=== PATIENT | male | born 1960 | race Caucasian/White ===

== ENCOUNTER → 2018-12-25 08:00 | Outpatient (CLI) | payer OTHER, SELFPAY ==
--- NOTE | 2018-12-25 08:00 | PROSBIL_PTH ---
PATIENT: CLAUDETTE ISSA LOC: [facility] U#:[id number] AGE/SX: 64/M ROOM: RE12/25/[address]: Dr. Arthur Hallman MD : 1960 BED: DIS: SPEC #: [id number] RECD: 12/25/18 19:32 STATUS: BILLY TAMI #: [id number] LEN: 12/25/18 08:[address]: Arthur Hallman DEPT: SURGICAL PATHOLOGY RECD BY: Bernard De ENTERED: 12/26/18 10:52 SP TYPE: PROST BX MEGHANA DR: Dr. Corey Mata DO Tissues: A - PROSTATE RIGHT B - PROSTATE RIGHT C - PROSTATE RIGHT D - PROSTATE LEFT E - PROSTATE LEFT F - PROSTATE LEFT Procedures: PROSTATE BX HEADER OPERATION: Prostate biopsy PRE-OP DIAGNOSIS: Elevated PSA TISSUE SUBMITTED: A - Right apex, B - Right mid, C - Right base, D - Left apex, E - Left mid, F - Left base MICROSCOPIC DIAGNOSIS A. Right prostate, apex, core biopsy: Prostatic tissue, negative for malignancy. Focal mild chronic inflammation and minimal acute inflammation. B. Right prostate, mid, core biopsy: Prostatic tissue, negative for malignancy. Focal mild chronic inflammation. C. Right prostate, base, core biopsy: Prostatic tissue, negative for malignancy. Focal mild chronic inflammation. D. Left prostate, apex, core biopsy: Prostatic tissue, negative for malignancy. E. Left prostate, mid, core biopsy: Prostatic tissue, negative for malignancy. F. Left prostate, base, core biopsy: Prostatic tissue, negative for malignancy. Focal mild chronic inflammation. SJ:marisel 12/27/18 MICROSCOPIC DESCRIPTION Slides are reviewed. GROSS DESCRIPTION A - Received is one container designated prostate, right apex. The specimen consists of two elongated fragments of light guerra-white soft tissue measuring 0.5 and 1.5 cm in length and 0.1 cm in diameter. The specimen is totally submitted in one cassette. B - Received is one container designated prostate, right mid. The specimen consists of two elongated fragments of light guerra-white soft tissue measuring 1 and 1.5 cm in length and 0.1 cm in diameter. The specimen is totally submitted in one cassette. C - Received is one container designated prostate, right base. The specimen consists of two elongated fragments of light guerra-white soft tissue measuring 1 and 1.5 cm in length and 0.1 cm in diameter. The specimen is totally submitted in one cassette. D - Received is one container designated prostate, left apex. The specimen consists of two elongated fragments of light guerra-white soft tissue each measuring 1.5 cm in length and 0.1 cm in diameter. The specimen is totally submitted in one cassette. E - Received is one container designated prostate, left mid. The specimen consists of three elongated fragments of light guerra-white soft tissue measuring 0.5 to 2 cm in length and 0.1 cm in diameter. The specimen is totally submitted in one cassette. F - Received is one container designated prostate, left base. The specimen consists of two elongated fragments of light guerra-white soft tissue each measuring 2 cm in length and 0.1 cm in diameter. The specimen is totally submitted in one cassette. / SJ:rg 12/26/18 TC:3 CPT: 28554 x6
== END ==
PROVIDERS: Family Provider Preventive Medicine Occupational Medicine; PCP Preventive Medicine Occupational Medicine; Referring Provider Urology; Visit Provider Urology
DX: R97.20 Elevated prostate specific antigen [PSA] (principal)
CPT/HCPCS: 88305; G0416

== ENCOUNTER → 2021-04-26 16:29 | Outpatient (CLI) | payer OTHER, SELFPAY ==
--- NOTE | 2021-04-26 | PROSBIL_PTH ---
PATIENT: CLAUDETTE ISSA LOC: [facility] U#:[id number] AGE/SX: 64/M ROOM: RE04/26/[address]: Dr. Arthur Hallman MD : 1960 BED: DIS: SPEC #: [id number] RECD: 04/26/21 16:22 STATUS: BILLY TAMI #: [id number] LEN: 04/26/21 00:[address]: Arthur Hallman DEPT: SURGICAL PATHOLOGY RECD BY: Omi Islas ENTERED: 04/27/21 09:17 SP TYPE: PROST BX MEGHANA DR: Dr. Corey Mata DO Tissues: A - PROSTATE RIGHT B - PROSTATE RIGHT C - PROSTATE RIGHT D - PROSTATE LEFT E - PROSTATE LEFT F - PROSTATE LEFT Procedures: PROSTATE BX HEADER OPERATION: Prostate biopsy PRE-OP DIAGNOSIS: R97.20 TISSUE SUBMITTED: A - Right apex, B - Right mid, C - Right base, D - Left apex, E - Left mid, F - Left base MICROSCOPIC DIAGNOSIS A. Right prostate, apex, core biopsy: Prostatic tissue, negative for malignancy. Focal mild acute and chronic inflammation. B. Right prostate, mid, core biopsy: Prostatic tissue, negative for malignancy. C. Right prostate, base, core biopsy: Prostatic tissue, negative for malignancy. Focal mild chronic inflammation. D. Left prostate, apex, core biopsy: Prostatic tissue, negative for malignancy. Focal mild acute and chronic inflammation. E. Left prostate, mid, core biopsy: Prostatic tissue, negative for malignancy. F. Left prostate, base, core biopsy: Prostatic tissue, negative for malignancy. Focal mild chronic inflammation. 04/28/21 MICROSCOPIC DESCRIPTION Slides are reviewed. GROSS DESCRIPTION A - Received is one container designated right apex. The specimen consists of one elongated fragment of light guerra-white soft tissue measuring 1.5 cm in length and 0.1 cm in diameter. The specimen is totally submitted in one cassette. B - Received is one container designated right mid. The specimen consists of one elongated fragment of light guerra-white soft tissue measuring 1.6 cm in length and 0.1 cm in diameter. The specimen is totally submitted in one cassette. C - Received is one container designated right base. The specimen consists of two elongated fragments of light guerra-white soft tissue measuring 0.4 and 1 cm in length and 0.1 cm in diameter. The specimen is totally submitted in one cassette. D - Received is one container designated left apex. The specimen consists of one elongated fragment of light guerra-white soft tissue measuring 1.5 cm in length and 0.1 cm in diameter. The specimen is totally submitted in one cassette. E - Received is one container designated left mid. The specimen consists of one elongated fragment of light guerra-white soft tissue measuring 1.5 cm in length and 0.1 cm in diameter. The specimen is totally submitted in one cassette. F - Received is one container designated left base. The specimen consists of two elongated fragments of light guerra-white soft tissue each measuring 1 cm in length and 0.1 cm in diameter. The specimen is totally submitted in one cassette. / SJ:rg 04/27/2021 TC:3 CPT: 46304 x6
== END ==
PROVIDERS: PCP Preventive Medicine Occupational Medicine; Visit Provider Urology
DX: R97.20 Elevated prostate specific antigen [PSA] (principal)
CPT/HCPCS: 88305; G0416

== ENCOUNTER → 2022-07-05 | Outpatient (CLI) | payer BC, SELFPAY ==
--- NOTE | 2022-07-05 06:37 | MRI_ITS ---
STUDY: MR PELVIS WITH AND WITHOUT CONTRAST (PROSTATE) REASON FOR EXAM: Male, 61 years old. Elevated PSA TECHNIQUE: Standardized multiparametric prostate MRI with T1, T2, DWI/ADC sequences were obtained in 3 orthogonal planes, and dynamic contrast enhancement sequences. 20 ml of clariscan contrast material was administered intravenously for the contrast portion of the examination. COMPARISON: None. FINDINGS: The prostate volume measures 101 mm3. The contours of the prostate gland are lobulated. There is mild mass effect on the bladder base. The transition zone is heterogenous. PI-RADS DWI score 2 - Hypointense within a BPH nodule on ADC. PI-RADS T2W score 4 - Non-circumscribed, homogeneous, moderately hypointense, and <1.5 cm in greatest dimension. Contrast enhancement (+) Focal, earlier or contemporaneous with enhancement of adjacent normal prostatic tissues, and corresponding to a suspicious finding on T2WI and/or DWI. 0.8 x 1.0 cm ill-defined/noncircumscribed hypointense nodule of the posterior left mid transitional zone on image 17 of series 6 with associated increased contrast enhancement on image 17 of series 12. There is NO associated restricted diffusion. The peripheral zone is homogenous. PI-RADS DWI score 1 - No abnormality (normal) on ADC or high b-value DWI. PI-RADS T2W score 1 - Uniformaly hyperintense (normal). Contrast enhancement no early or contemporaneous enhancement; or diffuse multifocal enhancement NOT corresponding to a focal finding on T2W and/or DWI or focal enhancement responding to a lesion demonstrating features of BPH onT2WI (including features of extruded BPH in the PZ). The seminal vesicles demonstrate normal margins and T2 signal pattern. Focal increased T1 signal intensity of the left transitional zone likely related to sequela of previous biopsy/blood product. No mass lesion or invasion depicted. The rectoprostatic angles are normal. Urinary bladder is normal without wall thickening. The vascular structures of the are normal. The visualized hollow viscus structures are normal. No bone marrow edema or mass lesion depicted. MRI/Pelvis W/WO Contrast IMPRESSION: 1. PIRADS v2.1 2019 -- 4 - High (clinically significant cancer is likely). Electronically Signed: Amarjit Corado (Brooks), at 12:04 EST ,
[2022-07-05 07:05] LABS: CREATININE FINGERSTICK < 0.9 mg/dL (0.70-1.30); EGFR FINGERSTICK > 60.0000 mL/min (>60)
== END | disposition home or self-care (01) ==
PROVIDERS: PCP Preventive Medicine Occupational Medicine; Referring Provider Urology; Visit Provider Urology
DX: R97.20 Elevated prostate specific antigen [PSA] (principal)
CPT/HCPCS: 72197; A9575

== ENCOUNTER → 2022-07-07 | Outpatient (CLI) | payer BC, SELFPAY ==
--- NOTE | 2022-07-07 | IMM_PTH ---
PATIENT: CLAUDETTE ISSA LOC: [facility] U#:[id number] AGE/SX: 61/M ROOM: RE07/07/[address]: Dr. Arthur Hallman MD : 1960 BED: DIS: 07/07/2022 SPEC #: [id number] RECD: 07/11/22 14:04 STATUS: BILLY REQ #: [id number] LEN: 07/07/22 00:[address]: Arthur Hallman DEPT: IMMUNOHISTOCHEMISTRY RECD BY: Lisa Hernadez ENTERED: 07/11/22 14:04 SP TYPE: IMMUNO OTHR DR: Dr. Corey Mata DO Tissues: D - PROSTATE LEFT Procedures: P40 (add) 34BE12 (initial) PHYSICIAN & INSTITUTION [place] [id number] SPECIMEN INFORMATION: Tissue Source: D - Left prostate, apex, core biopsy Clinical Info: Elevated PSA Specimen Number: [id number] CPT code: 41263, 74752 METHODOLOGY: Deparaffinized sections of prefer/formalin-fixed tissue or PAP/DQ stained slides are incubated with monoclonal/polyclonal antibodies/oligonucleotide probes. Localization is made via biotin free immunoperoxidase method. Appropriate controls are performed and reacted as expected. Results on target cell population are indicated in the following table: RESULTS: ANTIBODY / CLONE RESULT Block D P40 (BC28) positive 34BE12 (34BE12) positive These tests were developed and their performance characteristics determined by [facility]. They may not have been cleared or approved by the U.S. Food and Drug Administration. The FDA has determined that such clearance or approval is not necessary. The above immunohistochemical/dualISH markers are ordered and reviewed by the Pathologist. INTERPRETATION: D. Left prostate, apex, core biopsy: Negative for malignancy. SJ:veronica 07/13/2022
--- NOTE | 2022-07-07 08:00 | PROSBIL_PTH ---
PATIENT: CLAUDETTE ISSA [facility] U#:[id number] AGE/SX: 61/M ROOM: RE07/07/[address]: Dr. Arthur Hallman MD : 1960 BED: DIS: 07/07/2022 SPEC #: [id number] RECD: 07/07/22 16:15 STATUS: BILLY TAMI #: [id number] LEN: 07/07/22 08:[address]: Arthur Hallman DEPT: SURGICAL PATHOLOGY RECD BY: Mis Gardner ENTERED: 07/08/22 12:41 SP TYPE: PROST BX MEGHANA DR: Dr. Corey Mata DO Tissues: A - PROSTATE RIGHT B - PROSTATE RIGHT C - PROSTATE RIGHT D - PROSTATE LEFT E - PROSTATE LEFT F - PROSTATE LEFT Procedures: PROSTATE BX HEADER OPERATION: Prostate biopsy PRE-OP DIAGNOSIS: Elevated PSA TISSUE SUBMITTED: A - Right apex, B - Right mid, C - Right base, D - Left apex, E - Left mid, F - Left base MICROSCOPIC DIAGNOSIS A. Right prostate, apex, core biopsy: Prostatic tissue, negative for malignancy. B. Right prostate, mid, core biopsy: Prostatic tissue, negative for malignancy. Focal mild chronic inflammation. C. Right prostate, base, core biopsy: Prostatic tissue, negative for malignancy. Focal mild chronic inflammation. D. Left prostate, apex, core biopsy: Prostatic tissue, negative for malignancy. See comment. E. Left prostate, mid, core biopsy: Prostatic tissue, negative for malignancy. Focal mild chronic inflammation. F. Left prostate, base, core biopsy: Prostatic tissue, negative for malignancy. Focal mild chronic inflammation. SJ:marisel 07/11/2022 COMMENT D. Immunohistochemistry ([id number]) supports the above diagnosis. MICROSCOPIC DESCRIPTION Slides are reviewed. GROSS DESCRIPTION A - Received is one container designated prostate, right apex. The specimen consists of three elongated fragments of light guerra-white soft tissue measuring 1.3 to 2 cm in length and 0.1 cm in diameter. The specimen is totally submitted in one cassette. B - Received is one container designated prostate, right mid. The specimen consists of two elongated fragments of light guerra-white soft tissue measuring 1 and 1.2 cm in length and 0.1 cm in diameter. The specimen is totally submitted in one cassette. C - Received is one container designated prostate, right base. The specimen consists of two elongated fragments of light guerra-white soft tissue measuring 1 and 1.5 cm in length and 0.1 cm in diameter. The specimen is totally submitted in one cassette. D - Received is one container designated prostate, left apex. The specimen consists of two elongated fragments of light guerra-white soft tissue measuring 1.3 and 2 cm in length and 0.1 cm in diameter. The specimen is totally submitted in one cassette. E - Received is one container designated prostate, left mid. The specimen consists of two elongated fragments of light guerra-white soft tissue measuring 0.5 and 2 cm in length and 0.1 cm in diameter. The specimen is totally submitted in one cassette. F - Received is one container designated prostate, left base. The specimen consists of two elongated fragments of light guerra-white soft tissue measuring 0.8 and 1 cm in length and 0.1 cm in diameter. The specimen is totally submitted in one cassette. / SJ:rg 07/08/2022 TC:3 CPT: 71976 x6
== END | disposition home or self-care (01) ==
LOC: LABSPEC 16:21
PROVIDERS: PCP Preventive Medicine Occupational Medicine; Referring Provider Urology; Visit Provider Urology
DX: R97.20 Elevated prostate specific antigen [PSA] (principal)
CPT/HCPCS: 88305; 88341; 88342; G0416

== ENCOUNTER 2025-04-30 11:55 | Observation (INO) | payer OTHER, SELFPAY ==
--- NOTE | 2025-04-28 16:31 | PAT.ANE_ITS ---
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 When Was Last Pacemaker Check QUESTION #4 FULL TEXT: You/Your Family Experience fever (hyperthermia) with Anesthesia Last Oral Intake Last Oral intake: Last Oral Intake NPO since Meds taken in AM with sips of water? 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 Female No 04/28/25 15:40 HX of Motion Sickness No 04/28/25 15:40 HX of N/V After Surgery No 04/28/25 15:40 Non-Smoker Yes 04/28/25 15:40 Duration of Surgery greater Yes 04/28/25 15:40 than 60 minutes Number of Risk Factors 2 04/28/25 15:40 PONV Score Moderate Risk 04/28/25 15:40 Height & Weight Height & Weight: Anesthesia: Height & Weight Height 6 ft 3 in 09/28/22 14:43 Respiratory Assessment Respiratory Assessment - lockstitch machine operator: Respiratory Tract Infection Hx - lockstitch machine operator Hx Respiratory Tract Infection No 04/28/25 15:40 STOP Sleep Apnea STOP Sleep Apnea - lockstitch machine operator: STOP Sleep Apnea - lockstitch machine operator Hx Hypertension Yes: ON MEDS 04/28/25 15:40 Hx Sleep Apnea Yes 04/28/25 15:40 CPAP Yes 04/28/25 15:40 BIPAP No 04/28/25 15:40 Do you snore loudly (louder than talking or can be heard Do you often feel tired/ fatigued/ sleepy during daytime? Has anyone observed you stop breathing during sleep? STOP Results Positive 04/28/25 15:40 QUESTION #5 FULL TEXT : Do you snore loudly (louder than talking or can be heard through closed doors)? 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 Specify any problems Hx of Preganancy in last 3 N/A 04/28/25 15:40 Months Nurse Filling Out Transfusion JZOLLINGE 04/28/25 15:40 & Questions: Date: 04/28/25 04/28/25 15:40 Time: 15:44 04/28/25 15:40 Patient unable to answer at this time (ie. confused, unrespo /Reproduction History /Reproductive History - lockstitch machine operator: /Reproductive Hx- lockstitch machine operator Hx Now No 04/28/25 15:40 Gestational Age (in weeks): EDC: Hx Hx Para Hx Section SAB No 04/28/25 15:40 Does the father of the baby or his family experience fever w Father of the baby Malignant Hypertension history comment [facility] Medical History (Updated 04/28/25 @ 15:40 by Laura Remy) History of deviated nasal septum Hx of cataract Wears glasses Prostate disease High cholesterol Gastric reflux Heartburn History of hiatal hernia Non-smoker CPAP (continuous positive airway pressure) dependence Sleep apnea History of stress test Cardiology follow-up encounter Home Medications ?Medication ?Instructions ?Recorded ?Last Taken ?Type doxazosin 4 mg tablet 4 mg PO BID 09/28/22 Unknown History omeprazole magnesium 20 mg 20 mg PO DAILY 09/28/22 Unk nown History tablet,delayed release (Prilosec OTC) aspirin 81 mg capsule 81 mg PO DAILY blood thinner 04/28/25 Unknown History atorvastatin 10 mg tablet (Lipitor) 20 mg PO DAILY cho lesterol 04/28/25 Unknown History finasteride 5 mg tablet (Proscar) 5 mg PO DAILY prosta te 04/28/25 Unknown History metoprolol succinate 25 mg capsule 12.5 mg PO DAILY bp 04/28/25 Unknown History sprinkle, ext. release 24 hr Allergy/AdvReac Type Severity Reaction Status Date / Time Penicillins Allergy PT UNSURE Verified 04/28/25 15:30 OF REACTION Surgical History (Updated 04/28/25 @ 15:40 by Laura Remy) Hx of inguinal hernia repair Hx of knee surgery Hx of colonoscopy with polypectomy Social History (Updated 09/28/22 @ 14:43 by Shakira Baker) Smoking Status: Never smoker alcohol intake: current substance use type: does not use Audit: Pertinent Findings Pertinent Findings EKG Perinent findings: 04/2025: SR with prolonged IA interval Recommendation Anesthesia Recommendation Anesthesia recommendation: F/U recommended (I did not see any lab results in the attachment, only the EKG from 04/24/25 was uploaded)
--- NOTE | 2025-04-29 07:19 | PAT.ANE_ITS ---
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 When Was Last Pacemaker Check QUESTION #4 FULL TEXT: You/Your Family Experience fever (hyperthermia) with Anesthesia Last Oral Intake Last Oral intake: Last Oral Intake NPO since Meds taken in AM with sips of water? 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 Has anyone observed you stop breathing during sleep? STOP Results Positive 04/28/25 15:40 QUESTION #5 FULL TEXT : Do you snore loudly (louder than talking or can be heard through closed doors)? 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 Specify any problems Hx of Preganancy in last 3 N/A 04/28/25 15:40 Months Nurse Filling Out Transfusion [email or web address] 04/28/25 15:40 & Questions: Date: 04/28/25 04/28/25 15:40 Time: 15:44 04/28/25 15:40 Patient unable to answer at this time (ie. 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 Hx Now No 04/28/25 15:40 Gestational Age (in weeks): EDC: Hx Hx Para Hx Section SAB No 04/28/25 15:40 Does the father of the baby or his family experience fever w Father of the baby Malignant Hypertension history comment [facility] Medical History (Updated 04/28/25 @ 15:40 by Laura Remy) History of deviated nasal septum Hx of cataract Wears glasses Prostate disease High cholesterol Gastric reflux Heartburn History of hiatal hernia Non-smoker CPAP (continuous positive airway pressure) dependence Sleep apnea History of stress test Cardiology follow-up encounter Home Medications ?Medication ?Instructions ?Recorded ?Last Taken ?Type doxazosin 4 mg tablet 4 mg PO BID 09/28/22 Unknown History omeprazole magnesium 20 mg 20 mg PO DAILY 09/28/22 Unk nown History tablet,delayed release (Prilosec OTC) aspirin 81 mg capsule 81 mg PO DAILY blood thinner 04/28/25 Unknown History atorvastatin 10 mg tablet (Lipitor) 20 mg PO DAILY cho lesterol 04/28/25 Unknown History finasteride 5 mg tablet (Proscar) 5 mg PO DAILY prosta te 04/28/25 Unknown History metoprolol succinate 25 mg capsule 12.5 mg PO DAILY bp 04/28/25 Unknown History sprinkle, ext. release 24 hr Allergy/AdvReac Type Severity Reaction Status Date / Time Penicillins Allergy PT UNSURE Verified 04/28/25 15:30 OF REACTION Surgical History (Updated 04/28/25 @ 15:40 by Laura Remy) Hx of inguinal hernia repair Hx of knee surgery Hx of colonoscopy with polypectomy Social History (Updated 09/28/22 @ 14:43 by Shakira Baker) Smoking Status: Never smoker alcohol intake: current substance use type: does not use Audit: Pertinent Findings HISTORY of Pertinent Findings History of Pertinent Findings: EKG Pertinent Findings EKG Perinent findings 04/2025: SR with prolonged 04/28/25 16:32 OR interval Recommendation Anesthesia Recommendation Anesthesia recommendation: OPTIMIZED for anesthesia (Reviewed labs, all WNL )
--- NOTE | 2025-04-29 11:49 | PAT.ANESEVAL ---
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 When Was Last Pacemaker Check QUESTION #4 FULL TEXT: You/Your Family Experience fever (hyperthermia) with Anesthesia Last Oral Intake Last Oral intake: Last Oral Intake NPO since Meds taken in AM with sips of water? 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 Has anyone observed you stop breathing during sleep? STOP Results Positive 04/28/25 15:40 QUESTION #5 FULL TEXT : Do you snore loudly (louder than talking or can be heard through closed doors)? 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 Specify any problems Hx of Preganancy in last 3 N/A 04/28/25 15:40 Months Nurse Filling Out Transfusion JZOLLINGE 04/28/25 15:40 & Questions: Date: 04/28/25 04/28/25 15:40 Time: 15:44 04/28/25 15:40 Patient unable to answer at this time (ie. 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 car stewardess Hx Now No 04/28/25 15:40 Gestational Age (in weeks): EDC: Hx Hx Para Hx Section SAB No 04/28/25 15:40 Does the father of the baby or his family experience fever w Father of the baby Malignant Hypertension history comment Active Medications Active Medications: Current Medications Generic Name Dose Route Start Last Admin Trade Name Freq PRN Reason Stop Dose Admin Ciprofloxacin 400 mg in 200 mls @ 200 mls/hr 04/30/25 07:00 Cipro IV 04/30/25 07:59 PREOP ONE [facility] Medical History (Updated 04/28/25 @ 15:40 by Laura Remy) History of deviated nasal septum Hx of cataract Wears glasses Prostate disease High cholesterol Gastric reflux Heartburn History of hiatal hernia Non-smoker CPAP (continuous positive airway pressure) dependence Sleep apnea History of stress test Cardiology follow-up encounter Home Medications ?Medication ?Instructions ?Recorded ?Last Taken ?Type doxazosin 4 mg tablet 4 mg PO BID 09/28/22 Unknown History omeprazole magnesium 20 mg 20 mg PO DAILY 09/28/22 Unknown History tablet,delayed release (Prilosec OTC) aspirin 81 mg capsule 81 mg PO DAILY blood thinner 04/28/25 Unknown History atorvastatin 10 mg tablet (Lipitor) 20 mg PO DAILY cholesterol 04/28/25 Unknown History finasteride 5 mg tablet (Proscar) 5 mg PO DAILY prostate 04/28/25 Unknown History metoprolol succinate 25 mg capsule 12.5 mg PO DAILY bp 04/28/25 Unknown History sprinkle, ext. release 24 hr Allergy/AdvReac Type Severity Reaction Status Date / Time Penicillins Allergy PT UNSURE Verified 04/28/25 15:30 OF REACTION Surgical History (Updated 04/28/25 @ 15:40 by Laura Remy) Hx of inguinal hernia repair Hx of knee surgery Hx of colonoscopy with polypectomy Social History (Updated 09/28/22 @ 14:43 by Shakira Baker) Smoking Status: Never smoker alcohol intake: current substance use type: does not use Audit: Pertinent Findings HISTORY of Pertinent Findings History of Pertinent Findings: EKG Pertinent Findings EKG Perinent findings 04/2025: SR with prolonged 04/28/25 16:32 FL interval Pertinent Findings Stress test pertinent findings: 04/2024: (+) Stress test Consult pertinent findings: 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
[2025-04-30] VITALS (17 sets, daily range): BP systolic 108–144; BP diastolic 67–88; PULSE 44–64; RESP 12–18; TEMP 36.1–36.6; O2SAT 90–100; BMI 29.5
--- OUTSIDE RECORDS SUMMARY | 2025-04-30 08:23 | XMS RPT_ITS | CCD ---
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 Role Phone REFERRING, PHY WO ID Unavailable Unavailable MARGIE DAVIS Unavailable Unavailable TON MATA Unavailable Unavailable TON MATA Unavailable Unavailable REFERRING, PHY WO ID Unavailable Unavailable MARGIE DAVIS Unavailable Unavailable TON MATA DO Primary Care Physician ([phone]) TON MATA DO Primary Care Physician ([phone]) Ton Mata Referring Unavailable Ton Mata Primary Care Unavailable Donny Smith Attending Unavailable Arthur Reyes Referring Unavailable Arthur Reyes Attending Unavailable Ton Mata Primary Care Unavailable Arthur Reyes Referring Unavailable Arthur Reyes Attending Unavailable Ton Mata Primary Care Unavailable TON MATA DO Attending Unavailable TON MATA DO Primary Care Unavailable TON MATA DO Attending Unavailable TON MATA DO Primary Care Unavailable EUGENIO GONZALES, DR LOPEZ Attending UnavailTON Pepe DO Primary Care Unavailable OWOC , DR CLARITZA Mao Attending UnavailTON Pepe DO Primary Care Unavailable OWOC , DR CLARITZA Mao Attending UnavailTON Pepe DO Primary Care Unavailable AMY GONZALES, DR ARTHUR ALVAREZ Attending TON Haynes DO Primary Care Unavailable DELTA GONZALES, DR JENNIFER Mao Attending TON Haynes DO Primary Care Unavailable TON MATA DO Primary Care Unavailable AMY GONZALES, DR ARTHUR ALVAREZ Attending TON Haynes DO Primary Care Unavailable TON MATA DO Attending Unavailable TON MATA DO Primary Care Unavailable EUGENIO GONZALES, DR LOPEZ Attending UnavailTON Pepe DO Attending Unavailable TON MATA DO Primary Care Unavailable TON MATA DO Attending Unavailable TON MATA DO Primary Care Unavailable TON MATA DO Attending Unavailable TON MATA DO Primary Care Unavailable ASHLEY HARDEN MD Attending Unavailable ASHLEY HARDEN MD Primary Care Unavailable ASHLEY HARDEN MD Admitting Unavailable TOMÁS TORO Referring Unavailable TOMÁS TORO Consulting Unavailable PROVIDER, UNKNOWN Consulting Unavailable Allergies Allergy Classification Reported Allergen(s) Allergy Type Date of Onset Reaction(s) Facility (18 sources) Penicillin; Translations: [penicillins] Drug Allergy unknown [facility] (1 source) Penicillins Drug allergy (disorder) 09-28-2022 [facility] Repository Medications Current Medications Medication Drug Class(es) Dates Sig (Normalized) Sig (Original) aspirin 81 mg delayed release oral tablet (5 sources) Platelet Aggregation Inhibitor, Nonsteroidal Anti-inflammatory Drug Start: 04-05-2024 take 1 mg by mouth once daily aspirin 81 mg oral delayed release tablet mg = tab(s), Oral, qDay, 0 Refill(s) Start Date: 04/05/24 Status: Ordered Repeat number: 1 atorvastatin 20 mg oral tablet (3 sources) HMG-CoA Reductase Inhibitor Start: 04-15-2024 End: 10-01-2024 atorvastatin 20 mg oral tablet Dose : 20 mg = 1 tab(s), Oral, Daily, # 90 tab(s), 3 Refill(s), Pharmacy: [facility], 185.42, cm, 06/10/24 7:55:00 EST, Height, kg, 06/10/24 7:55:00 EST, Dosing Weight Start Date: 07/06/24 Stop Date: 10/01/24 Status: Ordered Quantity: 90.0 Unit: tab(s) Repeat number: 4 dabigatran etexilate 150 mg oral capsule (5 sources) Start: 12-26-2023 Pradaxa 150 mg oral capsule Dose : 150 mg = 1 cap(s), Oral, BID, # 60 cap(s), 5 Refill(s), Pharmacy: [facility], 190, cm, 09/18/23 11:34:00 EDT, Height, 106.4, kg, 09/18/23 11:34:00 EDT, Dosing Weight Start Date: 12/26/23 Status: Ordered Start: 06-28-2023 Pradaxa 150 mg oral capsule Dose : 150 mg = 1 cap(s), Oral, BID, # 60 cap(s), 5 Refill(s), Pharmacy: [facility]/pharmacy #[id number], 191.6, cm, 09/08/22 11:26:00 EDT, Height, 105.3, kg, 06/26/23 18:30:00 EST, Dosing Weight Start Date: 06/28/23 Status: Ordered doxazosin 4 mg oral tablet (18 sources) alpha-Adrenergic Sailaja Start: 02-13-2020 doxaz osin 4 mg oral tablet Dose : 4 mg = 1 tab(s), Oral, BID, # 30 tab(s), 0 Refill(s) Start Date: 02/13/20 Status: Ordered Quantity: 30.0 Unit: tab(s) Repeat number: 1 24 hr metoprolol succinate 25 mg extended release oral tablet (5 sources) beta-Adrenergic Sailaja Start: 05-10-2024 End: 08-08-2024 Toprol-XL 25 mg oral tablet, extended release Dose : 12.5 mg = 0.5 tab(s), Oral, qHS, Do not crush or chew (controlled release), # 45 tab(s), 0 Refill(s), Pharmacy: [facility], 190.5, cm, 05/10/24 8:25:00 EST, Height, kg, 05/10/24 8:25:00 EST, Dosing Weight Start Date: 05/10/24 Stop Date: 08/08/24 Status: Ordered Quantity: 45.0 Unit: tab(s) Repeat number: 1 Start: 04-05-2024 End: 05-05-2024 Toprol-XL 25 mg oral tablet, extended release Dose : 25 mg = 1 tab(s), Oral, qHS, Do not crush or chew (controlled release), # 30 tab(s), 0 Refill(s), Pharmacy: [facility], 190, cm, 04/05/24 10:57:00 EDT, Height, kg, 04/05/24 10:57:00 EDT, Dosing Weight Start Date: 04/05/24 Stop Date: 05/05/24 Status: Ordered omeprazole 20 mg oral tablet (18 sources) Proton Pump Inhibitor Start: 09-08-2022 take 1 dose by mouth once daily PriLOSEC Dose : 20 mg =, Oral, qDay, 0 Refill(s) Start Date: 09/08/22 Status: Ordered Repeat number: 1 Start: 09-08-2022 PriLOSEC Oral, qDay, 0 Refill(s) Start Date: 09/08/22 Status: Ordered Start: 01-16-2020 PriLOSEC OTC 2 0 mg oral delayed release tablet Dose : 20 mg = 1 tab(s), Oral, qHS, tab(s), 0 Refill(s) Start Date: 01/16/20 Status: Ordered Completed/Discontinued Medications Medication Drug Class(es) Dates Sig (Normalized) Sig (Original) clindamycin 300 mg oral capsule (2 sources) Lincosamide Antibacterial Start: 09-18-2023 End: 09-28-2023 clindamycin 300 mg oral capsule Dose : 300 mg = 1 cap(s), Oral, q6h, # 40 cap(s), 0 Refill(s), 104.5 Start Date: 09/18/23 Stop Date: 09/28/23 Status: Ordered Problems Active Problems Problem Classification Problem Date Documented Da te Episodic/Chronic Chronic kidney disease (18 sources) Chronic kidney disease stage 3 09-03-2021 Chronic Coronary atherosclerosis and other heart disease (2 sources) Coronary arteriosclerosis 04-24-2024 Chronic Diabetes mellitus without complication (18 sources) Abnormal glucose level 01-13-2020 Episodic Esophageal disorders (18 sources) Gastroesophageal reflux disease 11-27-2016 Chronic Hyperplasia of prostate (18 sources) Benign prostatic hyperplasia 01-07-2020 Chronic Nonspecific chest pain (3 sources) Chest pain on exertion 03-18-2024 Episodic Other and unspecified benign neoplasm (7 sources) Tubular adenoma of colon 09-18-2023 Episodic Other connective tissue disease (1 source) Pain in lower limb; Translations: [Pain in unspecified lower leg] Onset: Episodic Other ear and sense organ disorders (18 sources) Tinnitus 01-07-2020 Episodic Other nervous system disorders (18 sources) Paresthesia of foot 01-07-2020 Episodic Other non-traumatic joint disorders (13 sources) Shoulder pain 09-03-2021 Episodic Other screening for suspected conditions (not mental disorders or infectious disease) (5 sources) Elevated prostate specific antigen [PSA]; Translations: [Stool DNA-based colorectal cancer screening positive] Onset: 3 06-26-2023 Episodic Phlebitis; thrombophlebitis and thromboembolism (12 sources) Deep venous thrombosis of lower extremity; Translations: [Acute embolism and thrombosis of other specified deep vein of right lower extremity] Onset: 4 06-27-2023 Episodic Comment on above: Right leg Residual codes; unclassified (5 sources) Family history of cardiovascular disease in first degree male relative less than 55 years of age 1003-18-2024 Episodic Unclassified (1 source) Unknown / UNK(Unknown) Onset: 7 Unclassified (18 sources) Uses home continuous positive airway pressure ventilation supply 01-16-2020 Unclassified (20 sources) Patient encounter status 01-07-2020 Unclassified (18 sources) Seborrheic keratosis 01-07-2020 Past or Other Problems Problem Classification Problem Date Documented Da te Episodic/Chronic Unclassified (1 source) Pain Onset: 11-30-2016 Episodic Results Test Name Value Interpretation Reference Range Facility ED MED ADMINISTRATION DETAIL on 04-12-2025 ED MED 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 Sri Hassan R.N. Comments: 1 of 1 Normal [facility] ED NURSES CLINICAL NOTEon ED NURSES CLINICAL NOTE Nurse Narrative - CLAUDETTE ISSA, : 1960, , Nurse Clinical Narrative [address] [address] [id number] 04/11/2025 22:20:00 Patient: CLAUDETTE ISSA Sex: Male : 1960 Age: 64y Disposition: Discharge to Home Disposition Decision Time: 23:41 04/11/2025 Departure Time: 23:53 04/11/2025 TRIAGE Arrived by private vehicle. Historian: (patient). Accompanied by family and ( -Tram). Primary physician (PCP Dr. Anna, Dr. Reyes). Triage time: 22:18 04/11/2025. Acuity: LEVEL 3. Chief Complaint: UNABLE TO VOID. This started today. The patient has been unable to void. No fever, testicular pain, discomfort with urination, urgency of urination or inguinal swelling. SEPSIS SCREEN: NEGATIVE. SIRS criteria negative: heart rate greater than 90. No possible sources of infection. -- 22:28 04/11/25 MARYBETH Dey R.N. 22:22 04/11/25. BP: 153/90 MAP: 111. HR: 103. RR: 18. O2 saturation: 93% on room air. Temperature: 97.8 F (oral). Pain level now 8/10. -- 22:27 04/11/25 MARYBETH Dey R.N. Measurements: 22:04/11/25 Wt: 108.9 kg, Ht/Nash: 75.0 in, BMI: 30.00 -- 22:27 04/11/25 MARYBETH Dey R.N. Medications: 1 of 4 Nurse Narrative - CLAUDETTE ISSA, : 1960, , atorvastatin 20 mg tablet: TAKE ONE TABLET BY MOUTH EVERY DAY -- 22:04/11/25 MARYBETH Dey R.N. metoprolol succinate ER 25 mg tablet,extended release 24 hr: TAKE ONE-HALF TABLET BY MOUTH EVERY NIGHT AT BEDTIME (do not crush or chew) -- 22:04/11/25 MARYBETH Dey R.N. doxazosin 4 mg tablet: TAKE ONE TABLET BY MOUTH TWICE DAILY -- 22:04/11/25 MARYBETH Dey R.N. aspirin 81 mg tablet -- 22:30 04/11/25 MARYBETH Dey R.N. PriLOSEC OTC 20 mg tablet,delayed release -- 22:30 04/11/25 MARYBETH Dey R.N. Allergies: Penicillins -- 22:04/11/25 MARYBETH Dey R.N. Problems: enlarged prostate -- 22:04/11/25 MARYBETH Dey R.N. 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 Surgeries: Cataract Surgery -- 22:04/11/25 MARYBETH Dey R.N. Knee Surgery -- :04/11/25 MARYBETH Dey R.N. Hernia Repair -- 22:04/11/25 MARYBETH Dey R.N. History 22:18 04/11/25. SOCIAL HX: Never smoker. Occasional alcohol use. No drug use. The patient has not traveled outside the [place] Infectious disease exposure: No infectious disease exposure. ABUSE ASSESSMENT: The patient answered yes to the question(s) Do you feel safe in your home? and no to the question(s) Are you afraid to go home?. SELF HARM ASSESSMENT: Self harm assessment was performed. The patient answered no to the question(s) Have you recently felt down, depressed, or hopeless? and Do you have thoughts of harming or killing yourself?. 2 of 4 Nurse Narrative - CLAUDETTE ISSA, : 1960, , FALL RISK ASSESSMENT: Fall risk assessment completed. No risk factors identified. -- 22:28 04/11/25 MARYBETH Dey R.N. Interventions 22:18 04/11/25. Advanced care plan. Patient does not have advanced directive. -- 22:28 04/11/25 MARYBETH Dey R.N. PHYSICAL ASSESSMENT 23:08 04/11/25. Ambulatory to room. GENERAL / NEURO / PSYCH: Alert. Oriented X 4. Appears in pain. HEENT: Mucous membranes are pink. RESPIRATORY: Respirations not labored. GI / : ( unable to urinate). SKIN: Skin is warm and dry. -- 23:33 04/11/25 MARYBETH Hassan R.N. NURSING PROGRESS NOTES 22:33 04/11/25. Bladder scan: Performed by me. Amount of fluid noted: 707 mL. ED physician notified. -- 22:43 04/11/25 MARYBETH Garibay E.M.T.-P. 23:25 04/11/25. URINARY CATHETER: 16 fr coude catheter placed in ED by me and assisted by one nurse. Reason for catheter: obstruction and retention. During procedure hand hygiene observed and sterile equipment and aseptic technique used. Return of 800 mL yellow-colored clear urine; attached to bedside drainage bag positioned below the bladder and secured with stabilization device. Sample sent to lab for urinalysis. (x3 attempts). -- 23:35 04/11/25 MARYBETH Hassan R.N. DISPOSITION / DISCHARGE 23:50 04/11/25. BP: 132/71 MAP: 91. HR: 64. RR: 16. O2 saturation: 95% Temperature: 97.8 F. Pain level now 210. -- 23:56 04/11/25 MARYBETH Hassan R.N. Departure time: 23:53 04/11/2025. Condition at departure: stable. ( switched pt to leg bag prior to discharge. education provided. denies any comments or concerns). No learning barriers present. Reviewed catheter care instructions. Reviewed referral to a urologist. Patient verbalized understanding. Written instructions provided in Samoan. The patient was discharged home and accompanied by spouse. The patient left ambulatory and via (more content not included)... Normal [facility] ED ORDER SHEET (CPOE ONLY)on 04-12-2025 ED ORDER SHEET (CPOE ONLY) Order Sheet - CLAUDETTE ISSA, : 1960, , Order Sheet [address] [place] [address] [id number] 04/11/2025 Patient: CLAUDETTE ISSA Sex: Male : 1960 Age: 64y MEASUREMENTS: Wt: 108.9 kg, Ht/Nash: 75.0 in, BMI: 30.00 ALLERGIES: Penicillins MEDICATION/IV/DRIP/FLUI D ORDERS Acknowledge Order Description Priority Entered d Completed lidocaine Jelly 2 % 22:56 04/11/2025 22:56 23:32 (Glydo)1 applic (NOW x1) Ashley Harden M.D. 04/11/2025 04/11/2025 Carolyn William R.N. R.NLeonor Order 23:32 Order Completed. Sri Hassan R.N. Comments: 04/11/2025: LAB ORDERS Acknowledge Order Description Priority Entered d Collected Completed Urinalysis Stat Stat 22:33 23:32 23:32 04/11/2025 04/11/2025 04/11/2025 Sri Quevedo Tessa Miller, M.D. R.N. R.NLeonor DIAGNOSTIC STUDY ORDERS 1 of 2 Order Sheet - CLAUDETTE ISSA, : 1960, , Acknowledge Order Description Priority Entered d Completed STAFF ORDERS Acknowledge Order Description Priority Entered d Collected Completed Straight Cath 22:33 23:32 23:32 patient for UA 04/11/2025 04/11/2025 04/11/2025 Sri Quevedo Tessa Miller, M.D. R.N. R.N. [Electronically signed by Ashley Harden M.D. (04/11/2025 23:43 EST)] 2 of 2 Normal [facility] ED PHYSICIAN CLINICAL REPORT on 04-12-2025 ED PHYSICIAN CLINICAL REPORT Narrative - CLAUDETTE ISSA, : 1960, , Physician Clinical Narrative [address] [address] [id number] 04/11/2025 22:20:00 Patient: CLAUDETTE ISSA Sex: Male : 1960 Age: 64y Disposition: Discharge to Home Disposition Decision Time: 23:41 04/11/2025 Measurements Wt: 108.9 kg, Ht/Nash: 75.0 in, BMI: 30.00 Initial Vital Sign Measured Tatiana Time BP MAP HR RR O2Sat ETCO2 Temp n GCS RTS 22:22 153/90 111 103 18 93% RA 97.8 F 8 04/11/2025 Time Seen: 22:35 04/11/2025. Arrived- By private vehicle. Historian- patient. HISTORY OF PRESENT ILLNESS Chief Complaint: URINARY RETENTION. This started today and is still present. No penile discharge, discomfort with urination, urinary frequency, genital lesion or testicular pain. No urgency of urination or flank pain. The patient has been unable to void (several hours). Sexual history is noncontributory. (64-year-old male with known history of BPH presenting for urinary retention since earlier this afternoon. Sees urology and takes doxazosin twice daily and has not missed any doses. States that he was holding his urine because he was driving, however, once he was at a point where he could void, he was unable to. He states that previously, when he retains for a prolonged period of time, he is very slow to void, however, once he gets going, he is able to fully release. Has been unable to even start stream this episode, which he has never had issues with before. Denies any history of catheter use, urinary retention, urgency, dysuria. Only complains of lower abdominal pain from bladder fullness). 1 of 6 Brisa - CLAUDETTE ISSA, : 1960, , Similar symptoms previously. Patient has had similar symptoms occasionally. REVIEW OF SYSTEMS : No hematuria. GI: No flank pain or vomiting. CONSTITUTIONAL: No fever or chills. PAST HISTORY See nurses notes. 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 ADDITIONAL NOTES The nursing notes have been reviewed. 2 of 6 CLAUDETTE Polo, : 1960, , PHYSICAL EXAM Vital Signs: Have been reviewed. Appearance: Alert. Oriented X3. No acute distress. CVS: Heart sounds normal. Respiratory: No respiratory distress. Abdomen: Soft. Distention with tenderness to palpation (Suprapubic). Back: No CVA tenderness. : Normal genitalia. Skin: Skin warm and dry. Normal skin color. Normal skin turgor. Extremities: No lower extremity edema. Neuro: Oriented X 3. No motor deficit. LABS, X-RAYS, AND EKG Laboratory Tests: URINALYSIS Final LEN: 04/11/2025 23:20:00 EST MsgRcvd: 04/11/2025 23:36 EST Lab Test Result Reference Status Received 04/11/2025 23:36 URINALYSIS Final EST URINALYSIS 04/11/2025 23:36 Specimen Type R New Order EST 04/11/2025 23:36 Color yellow NORMAL: YELLOW Final EST 04/11/2025 23:36 Clarity sl.cloudy NORMAL: CLEAR Final EST 04/11/2025 23:36 ph 6 NORMAL: 5.0-8.0 Final EST 3 of 6 [facility] - CLAUDETTE ISSA, : 1960, , 30 NORMAL: 04/11/2025 23:36 Protein Final Abnormal NEGATIVE EST 04/11/2025 23:36 Glucose NORM NORMAL: NORMAL Final EST NORMAL: 04/11/2025 23:36 Ketone NEG Final NEGATIVE EST NORMAL: 04/11/2025 23:36 Bilirubin NEG Final NEGATIVE EST 250 NORMAL: 04/11/2025 23:36 Blood Final Abnormal NEGATIVE EST 04/11/2025 23:36 Urobilinog NORM NORMAL: NORMAL Final EST NORMAL: 1.010- 04/11/2025 23:36 Sp [place] 1.010 Final 1.030 EST NORMAL: 04/11/2025 23:36 Nitrite NEG Final NEGATIVE EST NORMAL: 04/11/2025 23:36 Leukocytes NEG Final NEGATIVE EST 04/11/2025 23:36 Microscopic SEE BELOW Final EST MICROSCOPIC 04/11/2025 23:36 Wbc 1-5 0-5/hpf Final EST 04/11/2025 23:36 Rbc 35-50 0-3/hpf Final EST 04/11/2025 23:36 Casts NONE Final EST 4 of 6 Narrative - CLAUDETTE ISSA, : 1960, , 04/11/2025 23:36 Crystals NONE Final EST 04/11/2025 23:36 Amorphous NONE Final EST 04/11/2025 23:36 Bacteria NONE Final EST 04/11/2025 23:36 Epi Cells FEW Final EST 04/11/2025 23:36 Mucous NONE Final EST 04/11/2025 23:36 Yeast NONE Final (more content not included)... Normal [facility] ED SUPER BILLon 04-12-2025 ED SUPER BILL [facility] - CLAUDETTE ISSA, : 1960, , [address] [address] [id number] 04/11/2025 Patient: CLAUDETTE ISSA Sex: Male : 1960 Age: 64y Item Facility Profession Category Description Code al Code Quantity Fee Total Nurse/E/M EMERGENCY 961814 1 $0.00 $0.00 DEPARTMEN T VISIT HIGH/URGEN T SEVERITY (61972-89) Nurse/ 16 Fr Coude 974078 1 $0.00 $0.00 Supplies Catheter (964135) Nurse/ 16 Fr LATEX 279558 1 $0.00 $0.00 Supplies FREE Carr Kit (778178) Physician/ Bladder scan 318153 1 $0.00 $0.00 Procedures (05099) Physician/ Carr 340061 1 $0.00 $0.00 Procedures catheter (04597) Grand Total $0.00 1 of 2 [facility] - CLAUDETTE ISSA, : 1960, , Providers Ashley Harden M.D. Chief Complaint URINARY RETENTION. Principal Diagnosis Urinary retention with enlarged prostate. Benign prostatic hypertrophy with prostatism and urinary retention. ICD-10 Codes N40.0: Benign prostatic hyperplasia without lower urinary tract symptoms R33.9: Retention of urine, unspecified N40.1: Benign prostatic hyperplasia with lower urinary tract symptoms 2 of 2 Normal [facility] ED VISIT SUMMARYon ED VISIT SUMMARY Visit Overview - CLAUDETTE ISSA, : 1960, , Visit [facility] [address] [place] [address] [id number] 04/11/2025 Patient: CLAUDETTE ISSA Sex: Male : 1960 Age: 64y 04/12/2025 01:52 AM EST ED Arrival:22:20 04/11/2025 Status: Recent Travel:no EST Language:eng Adv Directive:No Isolation Status: Infectious Disease Ethnicity:N Fall Risk:no risk Exposure:no Measurements:6'3 / 190.5 Self-Harm Status:risk Sepsis Screen:negative cm 240.0 lb / 108.9 kg Chief Complaint:UNABLE TO VOID, (PCP Dr. Anna, Dr. Reyes ), and ( -Tram ) ALLERGIES Penicillins HOME MEDICATIONS aspirin 81 mg tablet atorvastatin 20 mg tablet: TAKE ONE TABLET BY MOUTH EVERY DAY doxazosin 4 mg tablet: TAKE ONE TABLET BY MOUTH TWICE DAILY 1 of 3 Visit Overview - CLAUDETTE ISSA, : 1960, , metoprolol succinate ER 25 mg tablet,extended release 24 hr: TAKE ONE-HALF TABLET BY MOUTH EVERY NIGHT AT BEDTIME (do not crush or chew) PriLOSEC OTC 20 mg tablet,delayed release PAST MEDICAL HISTORY / PROBLEMS enlarged prostate See nurses notes PAST SURGICAL HISTORY Cataract Surgery Hernia Repair Knee Surgery SOCIAL HISTORY Smoking status: No Alcohol use: Yes Drug use: No ED COURSE MEDICATIONS GIVEN IN EMERGENCY DEPARTMENT IV SITE INFORMATION INTAKE OUTPUT REASSESMENT (most recent) 23:08 04/11/25. Ambulatory to room. GENERAL / NEURO / PSYCH: Alert. Oriented X 4. Appears in pain. HEENT: Mucous membranes are pink. RESPIRATORY: Respirations not labored. GI / : ( unable to urinate). SKIN: Skin is warm and dry. VITAL SIGNS First Vitals Last Vitals Temp 22:22 04/11/25 97.8 F Temp 23:50 04/11/25 97.8 F 2 of 3 Visit Overview - CLAUDETTE ISSA, : 1960, , BP 22:22 04/11/25 153/90 BP 23:50 04/11/25 132/71 HR 22:22 04/11/25 103 HR 23:50 04/11/25 64 RR 22:22 04/11/25 18 RR 23:50 04/11/25 16 O2 Sat 22:22 04/11/25 93% RA O2 Sat 23:50 04/11/25 95% Pain 22:22 04/11/25 8 Pain 23:50 04/11/25 2 ETCO2 22:22 04/11/25 ETCO2 23:50 04/11/25 GCS 22:22 04/11/25 GCS 23:50 04/11/25 RTS 22:22 04/11/25 RTS 23:50 04/11/25 PROCEDURES NURSING INTERVENTIONS Urinary catheter LABS / STUDIES LABS / STUDIES ORDERED Urinalysis CLINICAL IMPRESSION BENIGN PROSTATIC HYPERTROPHY WITH PROSTATISM AND URINARY RETENTION URINARY RETENTION WITH ENLARGED PROSTATE 3 of 3 Normal [facility] ED VITALS FLOW SHEETon 04-12 ED VITALS FLOW SHEET Vitals - DEENA ISSA ELS, : 1960, , Vital Sign Flow Sheet [address] [address] [id number] 04/11/2025 Patient: CLAUDETTE ISSA Sex: Male : 1960 Age: 64y Measurements Wt: 108.9 kg, Ht/Nash: 75.0 in, BMI: 30.00 Measured Tatiana Time BP MAP HR RR O2Sat ETCO2 Temp n GCS RTS 23:50 132/71 91 64 16 95% 97.8 F 2 04/11/2025 22:22 153/90 111 103 18 93% RA 97.8 F 8 04/11/2025 1 of 1 Normal [facility] URINALYSISon 04-11-2025 Amorphous NONE Normal [facility] Comment on above: Performed By: #### [id number] #### [facility],[address] [place] [id number] Bacteria NONE Normal [facility] Comment on above: Performed By: #### 2 [id number] #### [facility],[address] [place] [id number] Bilirubin Ql (U) Negative Normal NORMAL: NEGATIVE [facility] Comment on above: Performed By: #### 2 [id number] #### [facility],[address] [place] [id number] Casts NONE Normal [facility] Comment on above: Performed By: #### 2 [id number] #### [facility],[address] [place], [place] [phone] Clarity (U) sl.cloudy Normal NORMAL: CLEAR [facility] Comment on above: Performed By: #### 2 [id number] #### [facility],[address] [place], [place] [phone] Color (U) yellow Normal NORMAL: YELLOW [facility] Comment on above: Performed By: #### 2 [id number] #### [facility],[address] [place] [phone] Crystals LM Nom (Urine sed) NONE Normal [facility] Comment on above: Performed By: #### 2 [id number] #### [facility],[address] [place] [address] Epi Cells FEW Normal [facility] Comment on above: Performed By: #### 2 19173 #### [facility],[address] [place] [address]339 Glucose Ql (U) NORM Normal NORMAL: NORMAL [facility] Comment on above: Performed By: #### 2 89836 #### [facility],[address] [place] [address]1995 Hemoglobin Ql (U) 250 Abnormal NORMAL: NEGATIVE [facility] Comment on above: Performed By: #### 2 12897 #### [facility],[address] [place] [address] 13468 Ketone Negative Normal NORMAL: NEGATIVE [facility] Comment on above: Performed By: #### 2 52561 #### [facility],[address] [place] [address] 47003 Leukocytes Negative Normal NORMAL: NEGATIVE [facility] Comment on above: Performed By: #### 2 01680 #### [facility],[address] [place] [address]177 Mucous NONE Normal [facility] Comment on above: Performed By: #### 2 40083 #### [facility],[address] [place], [place] [phone] Nitrite Ql (U) Negative Normal NORMAL: NEGATIVE [facility] Comment on above: Performed By: #### 2 72971 #### [facility],[address] [place] [address] pH (U) 6 [pH] Normal NORMAL: 5.0-8.0 [facility] Comment on above: Performed By: #### 2 38474 #### [facility],[address] [place], [place] [phone] Protein Ql (U) 30 Abnormal NORMAL: NEGATIVE [facility] Comment on above: Performed By: #### 2 56813 #### [facility],[address] [place] [address] 9[address]85 Rbc 35-50 Normal 0-3/hpf [facility] Comment on above: Performed By: #### 2 83236 #### [facility],[address] [place] [address] Sp [place] 1.010 Normal NORMAL: 1.010-1.030 [facility] Comment on above: Performed By: #### 2 56020 #### [facility],[address] [place] [address] 70886 Specimen Type R Normal [facility] Comment on above: Performed By: #### 2 24229 #### [facility],[address] [place], [place] [phone] Urinalysis dipstick W Reflex Microscopic panel (U) SEE BELOW Normal [facility] Comment on above: Result Comment: MICR OSCOPIC Performed By: #### 2 81406 #### [facility],[address] [place] [address]21 Urobilinog NORM Normal NORMAL: NORMAL [facility] Comment on above: Performed By: #### 2 52591 #### [facility],[address] [place], [place] [phone] Wbc 1-5 Normal 0-5/hpf [facility] Comment on above: Performed By: #### 2 45826 #### [facility],[address] [place] [address] Yeast NONE Normal [facility] Comment on above: Performed By: #### 2 08921 #### [facility],[address] [place] [address] .GFRon 10-24-2024 Estimated Glomerular Filtration Rate 60 ml/min/1.73sqm Normal [facility] Comment on above: Result Comment: Stages of Chronic Kidney Disease (CKD) Stage Description eGFR(ml/min/1.73 sq.m.) CKD 1 Normal kidney function or >=90 normal kindney function with possible kidney damage (ex. Proteinuria) CKD 2 Kidney damage with mild loss 60-89 of kidney function CKD 3a Mild to moderate loss of kidney 45-59 function CKD 3b Moderate to severe loss of 30-44 of kindey function CKD 4 Severe loss of kidney function 15-29 CKD 5 Kidney failure <15 Note: (go live 2024) the eGFR calculation was updated to the 2020 CKD-EPI creatinine equation without a race factor to calculate the eGFR results. Performed By: #### C MP, CBC, PSA, ADIFF, A1C, LIPID, ANEU, GFR #### [address] [address] BMPon 10-24-2024 BUN/Creatinine Ratio 10 ratio Normal 7-27 [facility] Comment on above: Performed By: #### G FR, BMP #### [address] [address] Calcium [Mass/Vol] 9.4 mg/dL Normal 8.4-10.2 [facility] Comment on above: Performed By: #### G FR, BMP #### [address] [address] Chloride [Moles/Vol] 101 mmol/L Normal 98-107 [facility] Comment on above: Performed By: #### G , BMP #### [address] [address] CO2 [Moles/Vol] 31 mmol/L Normal 23-31 [facility] Comment on above: Performed By: #### G , BMP #### [address] [address] Creatinine [Mass/Vol] 1.34 mg/dL High 0.67-1.[address] [facility] Comment on above: Performed By: #### Lanre ANGELES, BMP #### [address] [address] Electrolyte Balance 3.0 mEq/L Low 4.0-15.0 [facility] Comment on above: Performed By: #### Lanre ANGELES, BMP #### [address] [address] Glucose [Mass/Vol] 114 mg/dL Normal 80-115 [facility] Comment on above: Performed By: #### Lanre ANGELES, BMP #### [address] [address] Potassium [Moles/Vol] 4.7 mmol/L Normal 3.5-5.[address] [facility] Comment on above: Performed By: #### G FR, BMP #### [address] [address] Sodium [Moles/Vol] 135 mmol/L Low 136-145 [facility] Comment on above: Performed By: #### G , BMP #### [address] [address] Urea nitrogen [Mass/Vol] 13 mg/dL Normal 7-18 [facility] Comment on above: Performed By: #### G FR, BMP #### [address] [address] MALBRon 10-24-2024 U Creatinine 224.5 mg/dL Normal 40.0-278.0 [facility] Comment on above: Performed By: #### C MP, CBC, PSA, ADIFF, A1C, LIPID, ANEU, GFR #### [address] [address] U Microalb 11.8 mg/L Normal [facility] Comment on above: Performed By: #### C MP, CBC, PSA, ADIFF, A1C, LIPID, ANEU, GFR #### [address] [address] U Ratio Alb/Cre 5 mg/G Normal 0-30 [facility] Comment on above: Performed By: #### C MP, CBC, PSA, ADIFF, A1C, LIPID, ANEU, GFR #### [address] [address] LABORATORYOrdered By: SYSTEM SYSTEM on 08-03-2024 Prostate specific Ag [Mass/Vol] 14.59 ng/mL High 0.00 - 4.00 ng/mL AO ADM SS PSAon 08-03-2024 Prostate Specific Antigen 14.59 ng/mL High 0.00-4.00 [facility] Comment on above: Performed By: #### P SA #### [address] [address] Final Surgical Pathology Rep [facility] 06-12-2024 Final Surgical Pathology Report . Pathology Reports Accession: Collected Date/Time: Received Date/Time: Pathologist: [id number] 06/10/2024 10:08 EST 06/11/2024 08:47 MD BLAYNE BOURGEOIS Final Surgical Pathology Report DIAGNOSIS: CECUM, BIOPSY: - FRAGMENTS OF TUBULOVILLOUS ADENOMA CLINICAL INFORMATION: PROCEDURE: COLONOSCOPY WITH POLYPECTOMY PREOPERATIVE DIAGNOSIS: HISTORY OF POLYPS POSTOPERATIVE DIAGNOSIS: HISTORY OF POLYPS SPECIMEN: A CECUM POLYP GROSS DESCRIPTION: All parts labelled with patient name and [id number] Received in formalin labeled cecum polyp are multiple guerra-pink tissue fragments aggregating 1.9 x 0.8 x 0.7 cm greatest dimension. Largest fragment margin is inked and specimen is bisected. TS-1 Dianna Abraham, Grossing Biophysics Professor/ Dr. Russel Uriarte, Pathologist Performed by Dianna Abraham MICROSCOPIC DESCRIPTION: The microscopic examination is performed, except in the case of Gross Only. Electronically Signed by Pathology Report verified by [facility] BLAYNE MOODY MD Sign out Date: 06/12/2024 08:42 Performing Lab: [facility], [address] [place] [address] Pathology Dept Disclaimer If ancillary studies were utilized, the following Laboratory Developed Test (LDT) disclaimer will apply: Under CLIA requirements, [facility] is qualified to perform high complexity testing. For all ancillary stains, positive and negative controls stain appropriately. Performance characteristics of immunohistochemical and chromogenic in-situ hybridization tests have been determined by [facility]. These tests are used for clinical purposes, They should not be regarded as investigational or for research. Normal [facility] .Auto Diffon 04-13-2024 Basophil, Absolute 0.1 10 3/mcL Normal 0.0-0.2 [facility] Comment on above: Performed By: #### C MP, CBC, PSA, ADIFF, A1C, LIPID, ANEU, GFR #### [address] [address] Basophils/100 WBC (Bld) 0.7 % Normal 0.0-2.5 [facility] Comment on above: Performed By: #### C MP, CBC, PSA, ADIFF, A1C, LIPID, ANEU, GFR #### [address] [address] Eosinophil, Absolute 0.2 10 3/mcL Normal 0.0-0.7 [facility] Comment on above: Performed By: #### C MP, CBC, PSA, ADIFF, A1C, LIPID, ANEU, GFR #### [address] [address] Eosinophils/100 WBC (Bld) 2.5 % Normal 0.0-7.0 [facility] Comment on above: Performed By: #### C MP, CBC, PSA, ADIFF, A1C, LIPID, ANEU, GFR #### [address] [address] Lymphocyte, Absolute 2.5 10 3/mcL Normal 0.9-4.3 [facility] Comment on above: Performed By: #### C MP, CBC, PSA, ADIFF, A1C, LIPID, ANEU, GFR #### [address] [address] Lymphocytes/100 WBC (Bld) 32.5 % Normal 20.0-40.0 [facility] Comment on above: Performed By: #### C MP, CBC, PSA, ADIFF, A1C, LIPID, ANEU, GFR #### [address] [address] Monocyte, Absolute 0.5 10 3/mcL Normal 0.1-1.4 [facility] Comment on above: Performed By: #### C MP, CBC, PSA, ADIFF, A1C, LIPID, ANEU, GFR #### [address] [address] Monocytes/100 WBC (Bld) 6.6 % Normal 2.0-13.0 [facility] Comment on above: Performed By: #### C MP, CBC, PSA, ADIFF, A1C, LIPID, ANEU, GFR #### [address] [address] Neutrophils/100 WBC (Bld) 57.7 % Normal 50.0-75.0 [facility] Comment on above: Performed By: #### C MP, CBC, PSA, ADIFF, A1C, LIPID, ANEU, GFR #### [address] [address] .GFRon 04-13-2024 GFR Non- 50 ml/min/1.73sqm Normal [facility] Comment on above: Result Comment: GFR Population mean for , Non- Americans Ages 20-29 = 116 mL/min/1.73 sq.m. Ages 30-39 = 107 mL/min/1.73 sq.m. Ages 40-49 = 99 mL/min/1.73 sq.m. Ages 50-59 = 93 mL/min/1.73 sq.m. Ages 60-69 = 85 mL/min/1.73 sq.m. Ages 70+ = 75 mL/min/1.73 sq.m. Chronic Kidney Disease: Less than 60 mL/min/1.73 square meters End Stage Renal Disease: Less than 15 mL/min/1.73 square meters Performed By: #### C MP, CBC, PSA, ADIFF, A1C, LIPID, ANEU, GFR #### [address] [address] GFR 61 ml/min/1.73sqm Normal [facility] Comment on above: Result Comment: GFR Population mean for , Non- Americans Ages 20-29 = 116 mL/min/1.73 sq.m. Ages 30-39 = 107 mL/min/1.73 sq.m. Ages 40-49 = 99 mL/min/1.73 sq.m. Ages 50-59 = 93 mL/min/1.73 sq.m. Ages 60-69 = 85 mL/min/1.73 sq.m. Ages 70+ = 75 mL/min/1.73 sq.m. Chronic Kidney Disease: Less than 60 mL/min/1.73 square meters End Stage Renal Disease: Less than 15 mL/min/1.73 square meters Performed By: #### C MP, CBC, PSA, ADIFF, A1C, LIPID, ANEU, GFR #### [address] [address] .NEUABSon 04-13-2024 Neutrophil, Absolute 4.4 10 3/mcL Normal 2.3-8.1 [facility] Comment on above: Performed By: #### C MP, CBC, PSA, ADIFF, A1C, LIPID, ANEU, GFR #### [place] [id number] [place], [place] [address] A1Con 04-13-2024 Glucose [Mass/Vol] 114 mg/dL Normal [facility] Comment on above: Result Comment: Ginny mated Average Glucose calculated by equation ((28.7xA1C)-46.7) Estimated average glucose (eAG) is a calculated value from Hemoglobin A1C and is business office representative of the average blood glucose level in the last 2-3 month period. Normal range: less than 114 mg/dL Performed By: #### C MP, CBC, PSA, ADIFF, A1C, LIPID, ANEU, GFR #### [address] [address] HbA1c (Bld) [Mass fraction] 5.6 % Normal 4.3-6.4 [facility] Comment on above: Performed By: #### C MP, CBC, PSA, ADIFF, A1C, LIPID, ANEU, GFR #### [place] [id number] CBCon 04-13-2024 Erythrocyte distribution width (RBC) [Ratio] 13.5 % Normal 11.5-15.5 [facility] Comment on above: Performed By: #### C MP, CBC, PSA, ADIFF, A1C, LIPID, ANEU, GFR #### [address] [address] Hematocrit (Bld) [Volume fraction] 44.0 % Normal 40.0-52.0 [facility] Comment on above: Performed By: #### C MP, CBC, PSA, ADIFF, A1C, LIPID, ANEU, GFR #### [address] [address] Hgb 15.7 G/dL Normal 13.0-17.5 [facility] Comment on above: Performed By: #### C MP, CBC, PSA, ADIFF, A1C, LIPID, ANEU, GFR #### [address] [address] MCH (RBC) [Entitic mass] 30.8 pg Normal 27.0-33.0 [facility] Comment on above: Performed By: #### C MP, CBC, PSA, ADIFF, A1C, LIPID, ANEU, GFR #### [place] [phone] MCHC 35.7 G/dL Normal 32.0-36.0 [facility] Comment on above: Performed By: #### C MP, CBC, PSA, ADIFF, A1C, LIPID, ANEU, GFR #### [address] [address] MCV (RBC) [Entitic vol] 86.2 fL Normal 81.0-100.0 [facility] Comment on above: Performed By: #### C MP, CBC, PSA, ADIFF, A1C, LIPID, ANEU, GFR #### [address] [address] Platelet 210 10 3/mcL Normal 150-450 [facility] Comment on above: Performed By: #### C MP, CBC, PSA, ADIFF, A1C, LIPID, ANEU, GFR #### [address] [address] Platelet mean volume (Bld) [Entitic vol] 7.6 fL Normal 6.4-10.5 [facility] Comment on above: Performed By: #### C MP, CBC, PSA, ADIFF, A1C, LIPID, ANEU, GFR #### [address] [address] RBC 5.11 10 6/mcL Normal 4.50-6.00 [facility] Comment on above: Performed By: #### C MP, CBC, PSA, ADIFF, A1C, LIPID, ANEU, GFR #### [address] [address] WBC 7.6 10 3/mcL Normal 4.5-10.8 [facility] Comment on above: Performed By: #### C MP, CBC, PSA, ADIFF, A1C, LIPID, ANEU, GFR #### [address] [address] CMPon 04-13-2024 Albumin Level 4.3 G/dL Normal 3.4-4.8 [facility] Comment on above: Performed By: #### C MP, CBC, PSA, ADIFF, A1C, LIPID, ANEU, GFR #### [place] [address] [place], [place] [address] Albumin/Globulin [Mass ratio] 1.7 {ratio} Normal 1.1-2.5 [facility] Comment on above: Performed By: #### C MP, CBC, PSA, ADIFF, A1C, LIPID, ANEU, GFR #### [address] [address] ALP [Catalytic activity/Vol] 74 U/L Normal 40-135 [facility] Comment on above: Performed By: #### C MP, CBC, PSA, ADIFF, A1C, LIPID, ANEU, GFR #### [address] [address] ALT [Catalytic activity/Vol] 39 U/L Normal 16-63 [facility] Comment on above: Performed By: #### C MP, CBC, PSA, ADIFF, A1C, LIPID, ANEU, GFR #### [address] [address] AST [Catalytic activity/Vol] 21 U/L Normal 10-40 [facility] Comment on above: Performed By: #### C MP, CBC, PSA, ADIFF, A1C, LIPID, ANEU, GFR #### [address] [address] Bili Total 0.9 mg/dL Normal 0.2-1.0 [facility] Comment on above: Result Comment: Use of this assay is not recommended for patients undergoing treatment with eltrombopag due to the potential for falsely elevated results. Performed By: #### C MP, CBC, PSA, ADIFF, A1C, LIPID, ANEU, GFR #### [address] [address] BUN/Creatinine Ratio 13 ratio Normal 7-27 [facility] Comment on above: Performed By: #### C MP, CBC, PSA, ADIFF, A1C, LIPID, ANEU, GFR #### [address] [address] Calcium [Mass/Vol] 9.5 mg/dL Normal 8.4-10.2 [facility] Comment on above: Performed By: #### C MP, CBC, PSA, ADIFF, A1C, LIPID, ANEU, GFR #### [address] [address] Chloride [Moles/Vol] 104 mmol/L Normal 98-107 [facility] Comment on above: Performed By: #### C MP, CBC, PSA, ADIFF, A1C, LIPID, ANEU, GFR #### [address] [address] CO2 [Moles/Vol] 32 mmol/L High 23-31 [facility] Comment on above: Performed By: #### C MP, CBC, PSA, ADIFF, A1C, LIPID, ANEU, GFR #### [address] [address] Creatinine [Mass/Vol] 1.43 mg/dL High 0.70-1.[address] [facility] Comment on above: Result Comment: Test ing performed on Siemens Dimension EXL analyzer using a modified kinetic Yair technique. Performed By: #### C MP, CBC, PSA, ADIFF, A1C, LIPID, ANEU, GFR #### [address] [address] Electrolyte Balance 4.0 mEq/L Normal 4.0-15.0 [facility] Comment on above: Performed By: #### C MP, CBC, PSA, ADIFF, A1C, LIPID, ANEU, GFR #### [address] [address] Globulin 2.5 G/dL Normal [facility] Comment on above: Performed By: #### C MP, CBC, PSA, ADIFF, A1C, LIPID, ANEU, GFR #### [address] [address] Glucose [Mass/Vol] 105 mg/dL Normal 80-115 [facility] Comment on above: Performed By: #### C MP, CBC, PSA, ADIFF, A1C, LIPID, ANEU, GFR #### [address] [address] Potassium [Moles/Vol] 4.5 mmol/L Normal 3.5-5.[address] [facility] Comment on above: Performed By: #### C MP, CBC, PSA, ADIFF, A1C, LIPID, ANEU, GFR #### [place] [address] [place], [place] [address] Sodium [Moles/Vol] 140 mmol/L Normal 136-145 [facility] Comment on above: Performed By: #### C MP, CBC, PSA, ADIFF, A1C, LIPID, ANEU, GFR #### [place] [address] [place], [place] [address] Total Protein 6.8 G/dL Normal 6.4-8.2 [facility] Comment on above: Performed By: #### C MP, CBC, PSA, ADIFF, A1C, LIPID, ANEU, GFR #### [place] [address] [place], [place] [address] Urea nitrogen [Mass/Vol] 18 mg/dL Normal 7-18 [facility] Comment on above: Performed By: #### C MP, CBC, PSA, ADIFF, A1C, LIPID, ANEU, GFR #### [address] [address] LABORATORYOrdered By: SYSTEM SYSTEM on 04-13-2024 Albumin BCP dye [Mass/Vol] 4.3 G/dL Normal 3.4 - 4.8 G/dL AO ADM SS Albumin/Globulin [Mass ratio] 1.7 {ratio} Normal 1.1 - 2.5 ratio AO ADM SS ALP [Catalytic activity/Vol] 74 U/L Normal 40 - 135 U/L AO ADM SS ALT With P-5'-P [Catalytic activity/Vol] 39 U/L Normal 16 - 63 U/L AO ADM SS AST With P-5'-P [Catalytic activity/Vol] 21 U/L Normal 10 - 40 U/L AO ADM SS Basophils (Bld) [#/Vol] 0.1 103/mcL Normal 0.0 - 0.2 10^3/mcL AO Workflow SS Basophils/100 WBC (Bld) 0.7 % Normal 0.0 - 2.5 % AO Workflow SS Bilirubin [Mass/Vol] 0.9 mg/dL Normal 0.2 - 1 .0 mg/dL AO ADM SS Comment on above: Interpretive Data: U se of this assay is not recommended for patients undergoing treatment with eltrombopag due to the potential for falsely elevated results. Calcium [Mass/Vol] 9.5 mg/dL Normal 8.4 - 10. 2 mg/dL AO ADM SS Chloride [Moles/Vol] 104 mmol/L Normal 98 - 10 7 mmol/L AO ADM SS CO2 [Moles/Vol] 32 mmol/L High 23 - 31 mmol/L AO ADM SS Creatinine [Mass/Vol] 1.43 mg/dL High 0.70 - 1.30 mg/dL AO ADM SS Comment on above: Interpretive Data: T esting performed on Siemens Dimension EXL analyzer using a modified kinetic Yair technique. Electrolyte Balance 4.0 mEq/L Normal 4.0 - 15 .0 mEq/L AO ADM SS Eosinophil, Absolute 0.2 103/mcL Normal 0.0 - 0 .7 10^3/mcL AO Workflow SS Eosinophils/100 WBC (Bld) 2.5 % Normal 0.0 - 7.0 % AO Workflow SS Erythrocyte distribution width (RBC) [Ratio] 13.5 % Normal 11.5 - 15.5 % AO Workflow SS GFR/1.73 sq M.predicted among blacks MDRD (S/P/Bld) [Vol rate/Area] 61 ml/min/1.73sqm Invalid Interpretation Code AO Chemistry S Comment on above: Interpretive Data: GFR Population mean for , Non- Americans Ages 20-29 = 116 mL/min/1.73 sq.m. Ages 30-39 = 107 mL/min/1.73 sq.m. Ages 40-49 = 99 mL/min/1.73 sq.m. Ages 50-59 = 93 mL/min/1.73 sq.m. Ages 60-69 = 85 mL/min/1.73 sq.m. Ages 70+ = 75 mL/min/1.73 sq.m. Chronic Kidney Disease: Less than 60 mL/min/1.73 square meters End Stage Renal Disease: Less than 15 mL/min/1.73 square meters GFR/1.73 sq M.predicted among non-blacks MDRD (S/P/Bld) [Vol rate/Area] 50 ml/min/1.73sqm Invalid Interpretation Code AO Chemistry S Comment on above: Interpretive Data: GFR Population mean for , Non- Americans Ages 20-29 = 116 mL/min/1.73 sq.m. Ages 30-39 = 107 mL/min/1.73 sq.m. Ages 40-49 = 99 mL/min/1.73 sq.m. Ages 50-59 = 93 mL/min/1.73 sq.m. Ages 60-69 = 85 mL/min/1.73 sq.m. Ages 70+ = 75 mL/min/1.73 sq.m. Chronic Kidney Disease: Less than 60 mL/min/1.73 square meters End Stage Renal Disease: Less than 15 mL/min/1.73 square meters Globulin 2.5 G/dL Invalid Interpretation Code AO ADM SS Glucose [Mass/Vol] 105 mg/dL Normal 80 - 115 mg/dL AO ADM SS Glucose [Mass/Vol] 114 mg/dL Invalid Interpretation Code AO Chemistry S Comment on above: Interpretive Data: E stimated average glucose (eAG) is a calculated value from Hemoglobin A1C and is business office representative of the average blood glucose level in the last 2-3 month period. Normal range: less than 114 mg/dL HbA1c (Bld) [Mass fraction] 5.6 % Normal 4.3 - 6.4 % AO ADM SS Hematocrit (Bld) [Volume fraction] 44.0 % Normal 40.0 - 52.0 % AO Workflow SS Hemoglobin (Bld) [Mass/Vol] 15.7 G/dL Normal 13.0 - 17.5 G/dL AO Workflow SS Lymphocytes (Bld) [#/Vol] 2.5 103/mcL Normal 0.9 - 4.3 10^3/mcL AO Workflow SS Lymphocytes/100 WBC (Bld) 32.5 % Normal 20.0 - 40.0 % AO Workflow SS MCH (RBC) [Entitic mass] 30.8 pg Normal 27.0 - 33.0 pg AO Workflow SS MCHC 35.7 G/dL Normal 32.0 - 36.0 G/dL AO Workflow SS MCV (RBC) [Entitic vol] 86.2 fL Normal 81.0 - 100.0 fL AO Workflow SS Monocytes (Bld) [#/Vol] 0.5 103/mcL Normal 0.1 - 1.4 10^3/mcL AO Workflow SS Monocytes/100 WBC (Bld) 6.6 % Normal 2.0 - 13.0 % AO Workflow SS Neutrophils (Bld) [#/Vol] 4.4 103/mcL Normal 2.3 - 8.1 10^3/mcL AO Workflow SS Neutrophils/100 WBC (Bld) 57.7 % Normal 50.0 - 75.0 % AO Workflow SS Platelet mean volume (Bld) [Entitic vol] 7.6 fL Normal 6.4 - 10.5 fL AO Workflow SS Platelets (Bld) [#/Vol] 210 103/mcL Normal 150 - 450 10^3/mcL AO Workflow SS Potassium [Moles/Vol] 4.5 mmol/L Normal 3.5 - 5.1 mmol/L AO ADM SS Prostate specific Ag [Mass/Vol] 15.91 ng/mL High 0.00 - 4.00 ng/mL AO ADM SS Protein [Mass/Vol] 6.8 G/dL Normal 6.4 - 8.2 G/dL AO ADM SS RBC (Bld) [#/Vol] 5.11 106/mcL Normal 4.50 - 6.0 0 10^6/mcL AO Workflow SS Sodium [Moles/Vol] 140 mmol/L Normal 136 - 145 mmol/L AO ADM SS Urea nitrogen [Mass/Vol] 18 mg/dL Normal 7 - 18 mg/dL AO ADM SS Urea nitrogen/Creatinine [Mass ratio] 13 ratio Normal 7 - 27 ratio AO ADM SS WBC (Bld) [#/Vol] 7.6 103/mcL Normal 4.5 - 10.8 10^3/mcL AO Workflow SS LABORATORYOrdered By: Tavia Schulz on 04-13-2024 Cholesterol [Mass/Vol] 188 mg/dL Normal 0 - 200 mg/dL AO ADM SS Comment on above: Interpretive Data: C holesterol Reference Interval: Less than 200 Desirable 200-239 Borderline high risk 240 and above High risk Cholesterol in HDL [Mass/Vol] 41 mg/dL Normal 40 - 60 mg/dL AO ADM SS Cholesterol in LDL [Mass/Vol] 114 mg/dL Normal 0 - 130 mg/dL AO ADM SS Triglyceride [Mass/Vol] 164 mg/dL High 0 - 150 mg/dL AO ADM SS Comment on above: Interpretive Data: T riglyceride Reference Interval: Less than 150 Normal 150-199 Borderline high risk 200-499 High risk 500 or higher Very high risk LIPIDon 04-13-2024 Cholesterol [Mass/Vol] 188 mg/dL Normal 0-200 [facility] Comment on above: Result Comment: Chol esterol Reference Interval: Less than 200 Desirable 200-239 Borderline high risk 240 and above High risk Performed By: #### C MP, CBC, PSA, ADIFF, A1C, LIPID, ANEU, GFR #### [address] [address] Cholesterol in HDL [Mass/Vol] 41 mg/dL Normal 40-60 [facility] Comment on above: Performed By: #### C MP, CBC, PSA, ADIFF, A1C, LIPID, ANEU, GFR #### [address] [address] Cholesterol in LDL [Mass/Vol] 114 mg/dL Normal 0-130 [facility] Comment on above: Performed By: #### C MP, CBC, PSA, ADIFF, A1C, LIPID, ANEU, GFR #### [address] [address] Triglyceride [Mass/Vol] 164 mg/dL High 0-150 [facility] Comment on above: Result Comment: Trig lyceride Reference Interval: Less than 150 Normal 150-199 Borderline high risk 200-499 High risk 500 or higher Very high risk Performed By: #### C MP, CBC, PSA, ADIFF, A1C, LIPID, ANEU, GFR #### [address] [address] PSAon 04-13-2024 Prostate Specific Antigen 15.91 ng/mL High 0.00-4.00 [facility] Comment on above: Performed By: #### C MP, CBC, PSA, ADIFF, A1C, LIPID, ANEU, GFR #### [address] [address] NM MYOCARDIAL SPECT STRESS/R ESTon 04-08-2024 NM MYOCARDIAL SPECT STRESS/REST ORIGINAL NM MYOCARDIAL SPECT STRESS/REST CLINICAL STATEMENT:Exertional chest pain TECHNIQUE: Stress Protocol:Douglas Time Exercised:10minutes Predicted Max HR:158 Max HR Achieved:151 Percent Max HR:95 Peak Systolic BP:162 Rate-Pressure product: 211 Radiopharmaceutical(res t): Tc-99m Sestamibi IV Dose:10.8 mCi Radiopharmaceutical(str ess): Tc-99m Sestamibi IV Dose:31.7 mCi SPECT acquisition:SPECT reconstruction and reorientation into short axis, vertical and horizontal long axis planes Quantitative LVEF assessment COMPARISON:2013 REPORT:Overall, image quality is good. Rotating planar images show no significant patient motion. SPECT perfusion images during rest and stress show homogenous radiotracer uptake. No defects to suggest ischemia or infarction. GATED SPECT images show normal LV size and function. LVEF calculated at 63%. IMPRESSION: 1. No evidence for ischemia. 2. No evidence for infarction. 3. Normal LV size and function. 4. No changes when compared to prior report. Interpreted By: Jennifer Sorenson Preliminary Report By: Jennifer Sorenson Electronically Signed By: Jennifer Sorenson Dictated Date: 04/08/2024 6:11:49 AM Prelim Date: 04/08/2024 6:11:49 AM Sign Date: 04/08/2024 6:14:36 AM Ordering Provider:Ton Mercado [facility] Final Surgical Pathology Rep eric 08-23-2023 Final Surgical Pathology Report . Pathology Reports Accession: Collected Date/Time: Received Date/Time: Pathologist: [id number] 08/21/2023 11:07 EDT 08/22/2023 09:16 EDT MD BLAYNE MOODY Final Surgical Pathology Report DIAGNOSIS: TRANSVERSE COLON, BIOPSY: - TUBULAR ADENOMA CLINICAL INFORMATION: PROCEDURE: COLONOSCOPY PREOPERATIVE DIAGNOSIS: + COLOGUARD POSTOPERATIVE DIAGNOSIS: + COLOGUARD SPECIMEN: A TRANSVERSE COLON POLYP GROSS DESCRIPTION: All parts labelled with patient name and [id number] Received in formalin labeled #1 transverse colon polyp are 3 guerra-pink tissue fragments measuring 0.2 to 0.3 x 0.1 cm. TS-1 Dianna Abraham, Grossing Biophysics Professor/ Dr. Russel Uriarte, Pathologist Dictated by Dianna Abraham MICROSCOPIC DESCRIPTION: The microscopic examination is performed, except in the case of Gross Only. Electronically Signed by Pathology Report verified by [facility] BLAYNE MOODY MD Sign out Date: 08/23/2023 08:18 Performing Lab: [facility], [address] [place] [address] Pathology Dept Disclaimer If ancillary studies were utilized, the following Laboratory Developed Test (LDT) disclaimer will apply: Under CLIA requirements, [facility] is qualified to perform high complexity testing. For all ancillary stains, positive and negative controls stain appropriately. Performance characteristics of immunohistochemical and chromogenic in-situ hybridization tests have been determined by [facility]. These tests are used for clinical purposes, They should not be regarded as investigational or for research. Normal [facility] ([place]) LABORATORYOrdered By: SYSTEM SYSTEM on 08-01-2023 Prostate specific Ag [Mass/Vol] 13.96 ng/mL High 0.00 - 4.00 ng/mL AO ADM SS PSAon 08-01-2023 Prostate Specific Antigen 13.96 ng/mL High 0.00-4.00 [facility]) Comment on above: Performed By: #### P SA #### [facility] [address] [place], [place] [address] Surgery Visit Reporton 09-28 Surgery Visit Report [facility] [address] [place] [address] OFFICE VISIT Date of Service: 09/28/22 MR#: [id number] Acct: [id number] Name: CLAUDETTE ISSA Rep #: [id number] : 1960 Provider: Dr. 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 Patient had a prostate biopsy about a month ago. He says that about 2 weeks ago he started having pain in the area. He reports that the night before he came in here he had something burst and he had blood and pus in his underwear. Currently he is not having any anal pain. ROS General General: No weight change, appetite, fatigue, colon cancer, breast cancer or weakness HEENT HEENT: No difficulty swallowing, eye injury, eye surgery, swollen glands or hoarseness Endo Endocrine: No thyroid disease, diabetes mellitus, thyroid cancer, Hair loss, heat intolerance or cold intolerance Skin Skin: No rash or changing moles Breast Breast: No left breast lump, right breast lump, nipple discharge, breast pain, abnormal mammogram, abnormal US or breast enlargement Musc Musculoskeletal: No back problems, arthritis, rheumatoid arthritis, gout or joint pain Cardio Cardiovascular: No murmur, pacemaker, heart disease, atrial fibrillation, high blood pressure, heart attack, heart stent, palpitations, shortness of breat with exertion or chest pain Psych Psychiatric: No depression, anxiety or hearing voices Resp Respiratory: No shortness of breath, No sleep apnea, No cough, No COPD, No asthma, No emphysema and No wheezing Gastro Gastrointestinal: No abdominal pain, No nausea or vomiting, No diarrhea, No constipation, No blood in stool, No acid reflux, Yes hemorrhoids, No ulcers, No gallbladder problem and No black,tarry stools Juni Hematologic: No blood thinners, No blood disorders, No bleeding, No anemia and No blood clots Neuro Neurologic: No system reviewed and no additional complaints, except as documented, No as per HPI, No abnormal gait, No abnormal hearing, No abnormal movements, No abnormal speech, No behavioral changes, No burning sensations, No confusion, No convulsions, No disequilibrium, No dizziness, No localized weakness, No frequent falls, No headache(s), No lack of coordination, No loss of vision, No memory loss, No numbness, No other visual disturbances, No radicular pain, No restless legs, No sensory deficit, No syncope, No tingling, No tremor(s), No weakness and No other Exam Const General: cooperative Orientation: alert and oriented x3 HENMT Head: normal to inspection Neck Neck: normal visual inspection and full ROM Chest Chest palpation inspection: normal inspection of the chest Resp Effort Inspection: normal respiratory effort Auscultation: clear to auscultation bilaterally Cardio Rate: regular rate Rhythm: regular rhythm GI Inspection: non-distended Palpation: soft and nontender Skin General: no rashes or lesions noted Neuro General: patient alert and patient oriented x3 Extrem General: full ROM Psych Appearance: grossly normal Mental Status: mental status grossly normal Assessment and Plan Assessment and Plan (1) Hemorrhoid: Status: Acute Plan: Patient appears to have had a thrombosed hemorrhoid which ruptured. It appears healthy with no necrosis but it does not appear swollen. He is not tender in the area. He reports that he is feeling much better. I advised him to come in sooner next time he has a thrombosed hemorrhoid and I would be able to evacuate it. I did discuss hemorrhoid prevention with him as well. At this point there is nothing to drain or open. Donny Smith MD Pager: [facility] [address] [place] [address], [address] [place] [address] Office: Coding Level of Care Code Off vis,new,level 3 Diagnoses Hemorrhoid K64.9 09/29/22 1324 Date ___ (more content not included)... Normal [facility] LABORATORYOrdered By: SYSTEM SYSTEM on 09-03-2022 Albumin BCP dye [Mass/Vol] 4.0 G/dL Invalid Interpretation Code 3.4 - 4.8 G/dL AO ADM SS Albumin/Globulin [Mass ratio] 1.5 {ratio} Invalid Interpretation Code 1.1 - 2.5 ratio AO ADM SS ALP [Catalytic activity/Vol] 80 U/L Invalid Interpretation Code 40 - 135 U/L AO ADM SS ALT With P-5'-P [Catalytic activity/Vol] 33 U/L Invalid Interpretation Code 16 - 63 U/L AO ADM SS AST With P-5'-P [Catalytic activity/Vol] 17 U/L Invalid Interpretation Code 10 - 40 U/L AO ADM SS Bilirubin [Mass/Vol] 0.6 mg/dL Invalid Interpretation Code 0.2 - 1.0 mg/dL AO ADM SS Calcium [Mass/Vol] 9.2 mg/dL Invalid Interpretation Code 8.4 - 10.2 mg/dL AO ADM SS Chloride [Moles/Vol] 102 mmol/L Invalid Interpretation Code 98 - 107 mmol/L AO ADM SS CO2 [Moles/Vol] 32 mmol/L Invalid Interpretation Code 23 - 31 mmol/L AO ADM SS Creatinine [Mass/Vol] 1.35 mg/dL Invalid Interpretation Code 0.70 - 1.30 mg/dL AO ADM SS Electrolyte Balance 4.0 mEq/L Invalid Interpretation Code 4.0 - 15.0 mEq/L AO ADM SS GFR 65 ml/min/1.73sqm Invalid Interpretation Code AO Chemistry S GFR Non- 54 ml/min/1.73sqm Invalid Interpretation Code AO Chemistry S Globulin 2.6 G/dL Invalid Interpretation Code AO ADM SS Glucose [Mass/Vol] 115 mg/dL Invalid Interpretation Code 80 - 115 mg/dL AO ADM SS HbA1c (Bld) [Mass fraction] 5.8 % Invalid Interpretation Code 4.3 - 6.4 % AO ADM SS Potassium [Moles/Vol] 4.9 mmol/L Invalid Interpretation Code 3.5 - 5.1 mmol/L AO ADM SS Prostate specific Ag [Mass/Vol] 11.06 ng/mL Invalid Interpretation Code 0.00 - 4.00 ng/mL AO ADM SS Protein [Mass/Vol] 6.6 G/dL Invalid Interpretation Code 6.4 - 8.2 G/dL AO ADM SS Sodium [Moles/Vol] 138 mmol/L Invalid Interpretation Code 136 - 145 mmol/L AO ADM SS Urea nitrogen [Mass/Vol] 17 mg/dL Invalid Interpretation Code 7 - 18 mg/dL AO ADM SS Urea nitrogen/Creatinine [Mass ratio] 13 ratio Invalid Interpretation Code 7 - 27 ratio AO ADM SS LABORATORYOrdered By: Shwetha Alcantara on 09-03-2022 Basophil, Absolute 0.0 103/mcL Invalid Interpretation Code 0.0 - 0.2 10^3/mcL AO Workflow SS Basophils/100 WBC (Bld) 0.5 % Invalid Interpretation Code 0.0 - 2.5 % AO Workflow SS Cholesterol [Mass/Vol] 191 mg/dL Invalid Interpretation Code 0 - 200 mg/dL AO ADM SS Cholesterol in HDL [Mass/Vol] 39 mg/dL Invalid Interpretation Code 40 - 60 mg/dL AO ADM SS Cholesterol in LDL [Mass/Vol] 112 mg/dL Invalid Interpretation Code 0 - 130 mg/dL AO ADM SS Eosinophil, Absolute 0.2 103/mcL Invalid Interpretation Code 0.0 - 0.4 10^3/mcL AO Workflow SS Eosinophils/100 WBC (Bld) 3.5 % Invalid Interpretation Code 0.0 - 7.0 % AO Workflow SS Erythrocyte distribution width (RBC) [Ratio] 13.9 % Invalid Interpretation Code 11.5 - 14.5 % AO Workflow SS Hematocrit (Bld) [Volume fraction] 44.0 % Invalid Interpretation Code 42.0 - 52.0 % AO Workflow SS Hemoglobin (Bld) [Mass/Vol] 15.4 G/dL Invalid Interpretation Code 14.0 - 18.0 G/dL AO Workflow SS Lymphocyte, Absolute 1.9 103/mcL Invalid Interpretation Code 0.8 - 3.9 10^3/mcL AO Workflow SS Lymphocytes/100 WBC (Bld) 27.9 % Invalid Interpretation Code 10.0 - 50.0 % AO Workflow SS MCH (RBC) [Entitic mass] 29.6 pg Invalid Interpretation Code 27.0 - 31.2 pg AO Workflow SS MCHC 35.0 G/dL Invalid Interpretation Code 31.8 - 35.4 G/dL AO Workflow SS MCV (RBC) [Entitic vol] 84.3 fL Invalid Interpretation Code 80.0 - 94.0 fL AO Workflow SS Monocyte, Absolute 0.6 103/mcL Invalid Interpretation Code 0.2 - 1.0 10^3/mcL AO Workflow SS Monocytes/100 WBC (Bld) 8.5 % Invalid Interpretation Code 1.7 - 13.0 % AO Workflow SS Neutrophil, Absolute 4.1 103/mcL Invalid Interpretation Code 2.9 - 6.2 10^3/mcL AO Workflow SS Neutrophils/100 WBC (Bld) 59.6 % Invalid Interpretation Code 37.0 - 80.0 % AO Workflow SS Platelet mean volume (Bld) [Entitic vol] 7.8 fL Invalid Interpretation Code 7.4 - 10.4 fL AO Workflow SS Platelets (Bld) [#/Vol] 225 103/mcL Invalid Interpretation Code 130 - 400 10^3/mcL AO Workflow SS RBC (Bld) [#/Vol] 5.21 106/mcL Invalid Interpretation Code 4.04 - 6.13 10^6/mcL AO Workflow SS Triglyceride [Mass/Vol] 202 mg/dL Invalid Interpretation Code 0 - 150 mg/dL AO ADM SS WBC (Bld) [#/Vol] 6.9 103/mcL Invalid Interpretation Code 4.6 - 10.8 10^3/mcL AO Workflow SS 34BE12 (initial)on 3 34BE12 (initial) --- Patient Age/Sex Location Account Attending Physician CLAUDETTE ISSA 61/M LABSPEC [id number] Dr. Arthur Reyes MD Specimen: [id number] Received: 07/11/22 Status: BILLY Trujillo Num: [id number] Spec Type: IMMUNO Subm Dr: Dr. Arthur Reyes MD PHYSICIAN INSTITUTION [place] [address] SPECIMEN INFORMATION: Tissue Source: D - Left prostate, apex, core biopsy Clinical Info: Elevated PSA Specimen Number: [id number] CPT code: 83887, 14953 METHODOLOGY: Deparaffinized sections of prefer/formalin-fixed tissue or PAP/DQ stained slides are incubated with monoclonal/polyclonal antibodies/oligonucleot neeraj probes. Localization is made via biotin free immunoperoxidase method. Appropriate controls are performed and reacted as expected. Results on target cell population are indicated in the following table: RESULTS: ANTIBODY / CLONE RESULT Block D P40 (BC28) positive 34BE12 (34BE12) positive These tests were developed and their performance characteristics determined by [facility]. They may not have been cleared or approved by the U.S. Food and Drug Administration. The FDA has determined that such clearance or approval is not necessary. The above immunohistochemical/will Socrates markers are ordered and reviewed by the Pathologist. INTERPRETATION: D. Left prostate, apex, core biopsy: Negative for malignancy. SJ:veronica 07/13/2022 Signed (signature on file) Dr. Mukul Cordero MD 07/13/22 0843 Normal [facility] Comment on above: Performed By: #### P [id number] #### [facility] [place], [address] PROSTATE BXon 07-07-2022 PROSTATE BX --- Patient Age/Sex Location Account Attending Physician CHEYENNECLAUDETTE VELOZ 61/M LABSPEC [id number] Dr. Arthur Reyes MD Specimen: [id number] Received: 07/07/22 Status: BILLY Trujillo Num: [id number] Spec Type: PROST BX Subm Dr: Dr. Arthur Reyes MD HEADER OPERATION: Prostate biopsy PRE-OP DIAGNOSIS: Elevated PSA TISSUE SUBMITTED: A - Right apex, B - Right mid, C - Right base, D - Left apex, E - Left mid, F - Left base MICROSCOPIC DIAGNOSIS A. Right prostate, apex, core biopsy: Prostatic tissue, negative for malignancy. B. Right prostate, mid, core biopsy: Prostatic tissue, negative for malignancy. Focal mild chronic inflammation. C. Right prostate, base, core biopsy: Prostatic tissue, negative for malignancy. Focal mild chronic inflammation. D. Left prostate, apex, core biopsy: Prostatic tissue, negative for malignancy. See comment. E. Left prostate, mid, core biopsy: Prostatic tissue, negative for malignancy. Focal mild chronic inflammation. F. Left prostate, base, core biopsy: Prostatic tissue, negative for malignancy. Focal mild chronic inflammation. SJ:marisel 07/11/2022 COMMENT D. Immunohistochemistry ([id number]) supports the above diagnosis. MICROSCOPIC DESCRIPTION Slides are reviewed. GROSS DESCRIPTION A - Received is one container designated prostate, right apex. The specimen consists of three elongated fragments of light guerra-white soft tissue measuring 1.3 to 2 cm in length and 0.1 cm in diameter. The specimen is totally submitted in one cassette. B - Received is one container designated prostate, right mid. The specimen consists of two elongated fragments of light guerra-white soft tissue measuring 1 and 1.2 cm in length and Patient Age/Sex Location Account Attending Physician CLAUDETTE ISSA 61/M LABSPEC [id number] Dr. Arthur Reyes MD 0.1 cm in diameter. The specimen is totally submitted in one cassette. C - Received is one container designated prostate, right base. The specimen consists of two elongated fragments of light guerra-white soft tissue measuring 1 and 1.5 cm in length and 0.1 cm in diameter. The specimen is totally submitted in one cassette. D - Received is one container designated prostate, left apex. The specimen consists of two elongated fragments of light guerra-white soft tissue measuring 1.3 and 2 cm in length and 0.1 cm in diameter. The specimen is totally submitted in one cassette. E - Received is one container designated prostate, left mid. The specimen consists of two elongated fragments of light guerra-white soft tissue measuring 0.5 and 2 cm in length and 0.1 cm in diameter. The specimen is totally submitted in one cassette. F - Received is one container designated prostate, left base. The specimen consists of two elongated fragments of light guerra-white soft tissue measuring 0.8 and 1 cm in length and 0.1 cm in diameter. The specimen is totally submitted in one cassette. / SJ:rg 07/08/2022 TC:3 [facility]: [id number] x6 Patient Age/Sex Location Account Attending Physician CLAUDETTE ISSA 61/M LABSPEC [id number] Dr. Arthur Reyes MD Signed (signature on file) Dr. Mukul Cordero MD 07/12/22 1301 Normal [facility] Comment on above: Performed By: #### P PROSB #### [facility] [address], [place], [address] Basophil percentageOrdered B y: Dr. Reyes on 07-05-2022 Basophil percentage < 0.9 mg/dL 0.70-1.30 [facility] CREATININE FINGERSTICKon CREATININE WB < 0.9 Normal 0.70-1.30 [facility] Comment on above: Performed By: #### L 9100.0200 #### [facility] [address], [place], [address] EGFR WB > 60.0000 Normal >60 [facility] Comment on above: Performed By: #### L 9100.0200 #### [facility] [address] [place], [address] No Panel InformationOrdered By: Dr. Reyes on 07-05-2022 Bedside Estimated GFR (eGFR) > 60.0000 mL/min >60 [facility] Pelvis W/WO Contraston 07-05 Pelvis W/WO Contrast [facility] [address] [place] [address] Pelvis W/WO Contrast MR#: [id number] Acct: [id number] Name: CLAUDETTE ISSA Rep #: [id number] : 1960 M 61 From: Amarjit Corado MD PCP: Dr. Ton Mata, DO Status: REG CLI Study: Pelvis W/WO Contrast Date of Exam: 07/05/22 Exam# [id number] Ordering Dr: Arthur Reyes MD STUDY: MR PELVIS WITH AND WITHOUT CONTRAST (PROSTATE) REASON FOR EXAM: Male, 61 years old. Elevated PSA TECHNIQUE: Standardized multiparametric prostate MRI with T1, T2, DWI/ADC sequences were obtained in 3 orthogonal planes, and dynamic contrast enhancement sequences. 20 ml of clariscan contrast material was administered intravenously for the contrast portion of the examination. COMPARISON: None. FINDINGS: The prostate volume measures 101 mm3. The contours of the prostate gland are lobulated. There is mild mass effect on the bladder base. The transition zone is heterogenous. PI-RADS DWI score 2 - Hypointense within a BPH nodule on ADC. PI-RADS T2W score 4 - Non-circumscribed, homogeneous, moderately hypointense, and <1.5 cm in greatest dimension. Contrast enhancement (+) Focal, earlier or contemporaneous with enhancement of adjacent normal prostatic tissues, and corresponding to a suspicious finding on T2WI and/or DWI. 0.8 x 1.0 cm ill-defined/noncircumsc ribed hypointense nodule of the posterior left mid transitional zone on image 17 of series 6 with associated increased contrast enhancement on image 17 of series 12. There is NO associated restricted diffusion. The peripheral zone is homogenous. PI-RADS DWI score 1 - No abnormality (normal) on ADC or high b-value DWI. PI-RADS T2W score 1 - Uniformaly hyperintense (normal). Contrast enhancement no early or contemporaneous enhancement; or diffuse multifocal enhancement NOT corresponding to a focal finding on T2W and/or DWI or focal enhancement responding to a lesion demonstrating features of BPH onT2WI (including features of extruded BPH in the PZ). The seminal vesicles demonstrate normal margins and T2 signal pattern. Focal increased T1 signal intensity of the left transitional zone likely related to sequela of previous biopsy/blood product. No mass lesion or invasion depicted. The rectoprostatic angles are normal. Urinary bladder is normal without wall thickening. The vascular structures of the are normal. The visualized hollow viscus structures are normal. No bone marrow edema or mass lesion depicted. MRI/Pelvis W/WO Contrast IMPRESSION: 1. PIRADS v2.1 2019 -- 4 - High (clinically significant cancer is likely). Electronically Signed: Amarjit Corado (Brooks), at 12:04 EST , CC: Dr. Arthur Reyes MD; Dr. Ton Mata DO [employer] Field Assistant: Signed Normal [facility] LABORATORYOrdered By: SYSTEM SYSTEM on 06-01-2022 Prostate specific Ag [Mass/Vol] 13.13 ng/mL Invalid Interpretation Code 0.00 - 4.00 ng/mL AO ADM SS LABORATORYOrdered By: Anai Hernández on 11-05-2021 HbA1c (Bld) [Mass fraction] 5.7 % Invalid Interpretation Code 4.3 - 6.4 % AO ADM SS LABORATORYOrdered By: Dev Meyers on 11-05-2021 Prostate specific Ag [Mass/Vol] 11.97 ng/mL Invalid Interpretation Code 0.00 - 4.00 ng/mL AO ADM SS BD MRI PROSTATEon 03-15-2021 BD MRI PROSTATE Patient Name: CLAUDETTE ISSA STUDY: MRI PROSTATE; 03/15/2021 11:41 am INDICATION: Benign prostatic hyperplasia with lower urinary tract symptoms. PSA 10.67 on 01/26/2021 COMPARISON: None. ACCESSION NUMBER(S): [id number] ORDERING CLINICIAN: ARTHUR REYES TECHNIQUE: Multiplanar MRI of the pelvis was obtained including axial, sagittal and coronal T2 weighted SSFSE, axial and sagittal T2 FSE, axial DWI, pre and post gadolinium dynamic T1 GRE sequences. Multiparametric analysis was performed. 20 mL Dotarem was administered intravenously without immediate complications. FINDINGS: PROSTATE VOLUME: The prostate measures 5.7 cm x 5.4 cm x 5.8 cm in zporj-iy-zumy, anterior-posterior and craniocaudal dimension. Prostate weight is estimated at 93.5g. PSA density is 0.1 ng/mL/g. PROSTATE PARENCHYMA: There is heterogeneous enlargement of the transition zone, consistent with benign prostatic hyperplasia. An rounded and slightly ill-defined area of markedly decreased signal intensity on T2 weighted images measuring 12 mm is visualized in the right posterior transition zone at the level of the prostatic base. This lesion demonstrates corresponding moderately increased signal intensity on high B value diffusion-weighted images and moderately decreased signal intensity on ADC map, most consistent with a PI-RADS 3 lesion. Few patchy areas of T2 hypointensity in the peripheral zone likely represents changes of prostatitis. EXTRACAPSULAR EXTENSION: None. SEMINAL VESICLES: The bilateral seminal vesicles appear symmetric and well distended. PELVIC LYMPH NODES: No abnormally enlarged pelvic lymph nodes are identified. PERITONEUM: No free or loculated fluid collections are evident in the pelvis. OTHER ORGANS: The urinary bladder is incompletely distended and demonstrates diffuse wall thickening with prominent trabeculae, likely secondary to chronic outlet obstruction. BONES: No focal lesions are noted in the bone. IMPRESSION: 1. PI-RADS 3 lesion measuring 12 mm in the right posterior transition zone at the level of the prostatic base 2. Heterogeneous enlargement of the transition zone, consistent with benign prostatic hyperplasia 3. No pelvic lymphadenopathy PI-RADS v2.1 Assessment Categories PI-RADS 1 - Very low (clinically significant cancer is highly unlikely to be present) PI-RADS 2 - Low (clinically significant cancer is unlikely to be present) PI-RADS 3 - Intermediate (the presence of clinically significant cancer is equivocal) PI-RADS 4 - High (clinically significant cancer is likely to be present) PI-RADS 5 - Very high (clinically significant cancer is highly likely to be present) I personally reviewed the images/study and I agree with the findings as stated. This study was interpreted at [facility], [place], [place]. Electronically signed by: LEÓN GALLARDO MD Normal [facility] Basic Metabolic Panelon 06- Glucose mass conc 99 mg/dL Normal 70-105 [facility] Comment on above: Performed By: #### B MP ####Param [address] [address] BUN/Creatinine Ratio 14 mg/mg Normal 7-27 [facility] Comment on above: Performed By: #### B MP ####Param [place] [address] [place] [address] CO2 29 mmol/L Normal 22-29 [facility] Comment on above: Performed By: #### B MP ####[address] [address] Creatinine 1.4 mg/dL High 0.6-1.2 [facility] Comment on above: Performed By: #### B MP ####[address] [address] Electrolyte Balance 9.0 mEq/L Normal [facility] Comment on above: Performed By: #### B MP ####[place] [id number] Calcium 9.7 mg/dL Normal 8.4-10.2 [facility] Comment on above: Performed By: #### B MP ####[address] [address] Urea nitrogen 19 mg/dL High 7-18 [facility] Comment on above: Performed By: #### B MP ####[address] [address] Chloride 100 mmol/L Normal 98-107 [facility] Comment on above: Performed By: #### B MP ####[address] [address] Potassium molar conc 4.5 mmol/L Normal 3.5-5.1 [facility] Comment on above: Performed By: #### B MP ####[address] [address] Sodium 138 mmol/L Normal 136-146 [facility] Comment on above: Performed By: #### B MP ####[address] [address] CBC (AO)on 11-30-2016 Basophils Auto #/vol (Bld) 0.00 10 3/mcL Normal 0.00-0.19 [facility] Comment on above: Performed By: #### C BCO ####Param [address] [address] Basophils/100 WBC Auto (Bld) 0.4 % Normal 0.0-2.5 [facility] Comment on above: Performed By: #### C BCO ####[address] [address] Eosinophils 0.20 10 3/mcL Normal 0.00-0.40 [facility] Comment on above: Performed By: #### C BCO ####Apram [address] [address] Eosinophils/100 leukocytes 1.9 % Normal 0.0-7.0 [facility] Comment on above: Performed By: #### C BCO ####[address] [address] Erythrocyte distribution width Auto Ratio (RBC) 12.8 % Normal 11.5-14.5 [facility] Comment on above: Performed By: #### C BCO ####[address] [address] Erythrocytes (RBC) 5.29 10 6/mcL Normal 4.04-6.13 [facility] Comment on above: Performed By: #### C BCO ####[address] [address] Hematocrit (HCT) 45.4 % Normal 42.0-52.0 [facility] Comment on above: Performed By: #### C BCO ####[address] [address] Hemoglobin mass conc (Bld) 15.5 G/dL Normal 14.0-18.0 [facility] Comment on above: Performed By: #### C BCO ####[address] [address] Lymphocytes 2.20 10 3/mcL Normal 0.77-3.85 [facility] Comment on above: Performed By: #### C BCO ####[address] [address] Lymphocytes/100 leukocytes 22.3 % Normal 10.0-50.0 [facility] Comment on above: Performed By: #### C BCO ####[address] [address] MCH 29.4 pg Normal 27.0-31.2 [facility] Comment on above: Performed By: #### C BCO ####[address] [address] MCHC mass conc (RBC) 34.2 G/dL Normal 31.8-35.4 [facility] Comment on above: Performed By: #### C BCO ####[address] [address] MCV 85.8 fL Normal 80.0-94.0 [facility] Comment on above: Performed By: #### C BCO ####[address] [address] Monocytes 0.70 10 3/mcL Normal 0.15-1.00 [facility] Comment on above: Performed By: #### C BCO ####[address] [address] Monocytes/100 leukocytes 6.8 % Normal 1.7-13.0 [facility] Comment on above: Performed By: #### C BCO ####[address] [address] Neutrophils 6.70 10 3/mcL High 2.85-6.16 [facility] Comment on above: Performed By: #### C BCO ####[address] [address] Neutrophils/100 WBC Auto (Bld) 68.6 % Normal 37.0-80.0 [facility] Comment on above: Performed By: #### C BCO ####[address] [address] Platelet mean volume (PMV) 8.2 fL Normal 7.4-10.4 [facility] Comment on above: Performed By: #### C BCO ####[address] [place] [address] Platelets 239 10 3/mcL Normal 130-400 [facility] Comment on above: Performed By: #### C BCO ####[address] [address] WBC (Leukocytes) 9.80 10 3/mcL Normal 4.60-10.80 [facility] Comment on above: Performed By: #### C BCO ####[address] [address] Glomerular Filtration Rate E stimateon 11-30-2016 eGFR (non-black) mL/min/{1.73_m2} Normal [facility] Comment on above: Result Comment: Cassandra kinney mean GFR = 93 mL/min/1.73 sq.m. for ages 50-59 years. Chronic Kidney Disease: Less than 60 mL/min/1.73 square metersEnd Stage Renal Disease: Less than 15 mL/min/1.73 square meters Performed By: #### G FR ####[address] [address] eGFR (non-black) 53 mL/min/1.73m 2 Normal A [facility] Comment on above: Performed By: #### G FR ####[address] [address] Vital Signs Date Time Vital Sign Value Performing Clinician Ifeanyi morales 06-10-2024 10:59-0500 Diastolic Blood Pressure Non-Invasive 79 mm[Hg] DR JESSICA BECKER MD [facility] 06-10-2024 10:59-0500 Heart rate 52 /min DR JESSICA BECKER MD [facility] 06-10-2024 10:59-0500 Respiratory rate 16 /min DR JESSICA BECKER MD [facility] 06-10-2024 10:59-0500 Systolic Blood Pressure Non-Invasive 122 mm[Hg] DR JESSICA BECKER MD [facility] 06-10-2024 10:44-0500 Diastolic Blood Pressure Non-Invasive 77 mm[Hg] DR JESSICA BECKER MD [facility] 06-10-2024 10:44-0500 Heart rate 48 /min DR JESSICA BECKER MD [facility] 06-10-2024 10:44-0500 Respiratory rate 13 /min DR JESSICA BECKER MD [facility] 06-10-2024 10:44-0500 Systolic Blood Pressure Non-Invasive 120 mm[Hg] DR JESSICA BECKER MD [facility] 06-10-2024 10:30-0500 Diastolic Blood Pressure Non-Invasive 78 mm[Hg] DR JESSICA BECKER MD [facility] 06-10-2024 10:30-0500 Heart rate 52 /min DR JESSICA BECKER MD [facility] 06-10-2024 10:30-0500 Respiratory rate 15 /min DR JESSICA BECKER MD [facility] 06-10-2024 10:30-0500 Systolic Blood Pressure Non-Invasive 108 mm[Hg] DR JESSICA BECKER MD [facility] 06-10-2024 10:22-0500 Body temperature 97.52 [degF] DR JESSICA BECKER MD [facility] 06-10-2024 10:15-0500 Respiratory Rate - Anes 17 br/min DR JESSICA BECKER MD [facility] 06-10-2024 10:10-0500 Respiratory Rate - Anes 16 br/min DR JESSICA BECKER MD [facility] 06-10-2024 10:05-0500 Respiratory Rate - Anes 14 br/min DR JESSICA BECKER MD [facility] 06-10-2024 07:51-0500 Body height 185.[address] JESSICA BECKER MD [facility] 06-10-2024 07:51-0500 Body temperature 97.52 [degF] DR JESSICA BECKER MD [address] [place] [address] 06-10-2024 07:51-0500 Body weight 109.[address] JESSICA BECKER MD [address] [place] [address] 06-10-2024 07:51-0500 Heart rate 62 /min DR JESSICA BECKER MD [address] [place] [address] 04-15-2024 05:32-0500 Body weight 29.95 kg/m2 DR JENNIFER SORENSON MD [address] [place] [address] 04-15-2024 05:24-0500 Body height 190.[address] JENNIFER SORENSON MD [address] [place] [address] 04-15-2024 05:24-0500 Body temperature 98.06 [degF] DR JENNIFER SORENSON MD [address] [place] [address] 04-15-2024 05:24-0500 Body weight 108.[address] JENNIFER SORENSON MD [address] [place] [address] 04-15-2024 05:24-0500 Diastolic Blood Pressure Non-Invasive 84 mm[Hg] DR JENNIFER SORENSON MD [address] [place] [address] 04-15-2024 05:24-0500 Heart rate 62 /min DR JENNIFER SORENSON MD [address] [place] [address] 04-15-2024 05:24-0500 Respiratory rate 16 /min DR JENNIFER SORENSON MD [facility] 04-15-2024 05:24-0500 Systolic Blood Pressure Non-Invasive 133 mm[Hg] DR JENNIFER SORENSON MD [facility] 08-21-2023 09:24-0400 Diastolic Blood Pressure Non-Invasive 80 mm[Hg] DR JESSICA BECKER MD [facility] 08-21-2023 09:24-0400 Heart rate 56 /min DR JESSICA BECKER MD [facility] 08-21-2023 09:24-0400 Respiratory rate 14 /min DR JESSICA BECKER MD [facility] 08-21-2023 09:24-0400 Systolic Blood Pressure Non-Invasive 124 mm[Hg] DR JESSICA BECKER MD [facility] 08-21-2023 09:19-0400 Diastolic Blood Pressure Non-Invasive 81 mm[Hg] DR JESSICA BECKER MD [facility] 08-21-2023 09:19-0400 Heart rate 58 /min DR JESSICA BECKER MD [facility] 08-21-2023 09:19-0400 Respiratory rate 15 /min DR JESSICA BECKER MD [facility] 08-21-2023 09:19-0400 Systolic Blood Pressure Non-Invasive 118 mm[Hg] DR JESSICA BECKER MD [facility] 08-21-2023 09:13-0400 Body temperature 97.34 [degF] DR JESSICA BECKER MD [facility] 08-21-2023 09:13-0400 Diastolic Blood Pressure Non-Invasive 79 mm[Hg] DR JESSICA BECKER MD [facility] 08-21-2023 09:13-0400 Heart rate 55 /min DR JESSICA BECKER MD [facility] 08-21-2023 09:13-0400 Respiratory rate 16 /min DR JESSICA BECKER MD [facility] 08-21-2023 09:13-0400 Systolic Blood Pressure Non-Invasive 130 mm[Hg] DR JESSICA BECKER MD [facility] 08-21-2023 09:10-0400 Respiratory Rate - Anes 14 br/min DR JESSICA BECKER MD [facility] 08-21-2023 09:05-0400 Respiratory Rate - Anes 16 br/min DR JESSICA BECKER MD [facility] 08-21-2023 08:02-0400 Body height 188.[address] JESSICA BECKER MD [facility] 08-21-2023 08:02-0400 Body temperature 97.52 [degF] DR JESSICA BECKER MD [facility] 08-21-2023 08:02-0400 Body weight 104.[address] JESSICA BECKER MD [facility] 08-21-2023 08:02-0400 Body weight 29.41 kg/m2 DR JESSICA BECKER MD [facility] 08-21-2023 08:02-0400 Heart rate 62 /min DR JESSICA BECKER MD [facility] 06-26-2023 18:30-0500 Body temperature 99.32 [degF] DR CLARITZA MITCHELL DO [facility] 06-26-2023 18:30-0500 Body weight 105.[address] CLARITZA MITCHELL DO [facility] 06-26-2023 18:30-0500 Diastolic Blood Pressure Non-Invasive 90 mm[Hg] DR CLARITZA MITCHELL DO [facility] 06-26-2023 18:30-0500 Heart rate 82 /min DR CLARITZA MITCHELL DO [facility] 06-26-2023 18:30-0500 Respiratory rate 16 /min DR CLARITZA MITCHELL DO [facility] 06-26-2023 18:30-0500 Systolic Blood Pressure Non-Invasive 160 mm[Hg] DR CLARITZA MITCHELL DO [facility] Encounters Encounter Date Encounter Type Care Provider Facility Start: 04-11-2025 End: 04-11-2025 Emergency department patient visit ASHLEY GONZALES [facility] Start: 10-24-2024 End: 10-24-2024 ambulatory TON MATA DO [facility] Start: 08-03-2024 End: 08-03-2024 ambulatory TON MATA DO [facility] Start: 08-03-2024 End: 08-03-[address] ARTHUR REYES MD [facility] Start: 06-10-2024 End: 06-10-2024 ambulatory TON MATA DO [facility] Start: 06-10-2024 End: 06-10-[address] JESSICA BECKER MD [facility] Start: 04-15-2024 End: 04-15-[address] JENNIFER SORENSON MD Facility:A Start: 04-15-2024 End: 04-15-[address] JENNIFER SORENSON MD [facility] Start: 04-13-2024 End: 04-13-2024 ambulatory TON MATA DO [facility] Start: 04-13-2024 End: 04-13-2024 Patient encounter procedure TON SUZI DO [facility] Start: 04-05-2024 End: 04-05-2024 ambulatory TON MATA DO [facility] Start: 04-05-2024 End: 04-05-2024 Patient encounter procedure TON SUZI DO [facility] Start: 02-29-2024 End: 02-29-2024 ambulatory TON MATA DO [facility] Start: 02-29-2024 End: 02-29-2024 Patient encounter procedure TON SUZI DO [facility] Start: 11-24-2023 End: 11-24-2023 ambulatory TON MATA DO Facility:[facility] Start: 11-24-2023 End: 11-24-2023 Patient encounter procedure TON SUZI DO [facility] Start: 08-21-2023 End: 08-21-[address] JESSICA BECKER MD Facility:[facility] Start: 08-21-2023 End: 08-21-[address] JESSICA BECKER MD [facility] Start: 08-07-2023 End: 08-07-2023 ambulatory TON MATA DO Facility:[facility] Start: 08-07-2023 End: 08-07-2023 Patient encounter procedure TON SUZI DO [facility] Start: 08-01-2023 End: 08-01-[address] ARTHUR REYES MD Facility:[facility] Start: 08-01-2023 End: 08-01-[address] ARTHUR REYES MD [facility] Start: 06-27-2023 End: 06-27-[address] CLARITZA MITCHELL DO Facility:[facility] Start: 06-26-2023 End: 06-26-2023 Emergency department patient visit DR CLARITZA MITCHELL DO [facility] Start: 09-28-2022 End: 09-28-2022 ambulatory Ton Mata Facility:[facility] Start: 09-03-2022 End: 09-03-2022 Patient encounter procedure TON MATA DO [facility] Start: 07-07-2022 Patient encounter procedure [facility], Specimen Start: 07-07-2022 End: 07-07-2022 ambulatory Arthur Reyes Facility:[facility] Start: 07-05-2022 End: 07-05-[address] [facility] Work Phone: Start: 07-05-2022 End: 07-05-2022 Patient encounter procedure [facility] Start: 06-01-2022 End: 06-01-2022 Patient encounter procedure CRISTIN NELSONLATONYA TERRAZZO WORKER-[employer]CHO[employer] EDUCATION DIRECTOR [facility] Start: 11-05-2021 End: 11-05-2021 Patient encounter procedure TON SUZI DO [facility] Start: 10-14-2021 End: 10-14-2021 Patient encounter procedure MAY YIN DO [facility] Start: 10-01-2021 End: 10-01-2021 Patient encounter procedure TON MATA DO [facility] Start: 11-30-2016 End: 12-01-2016 Ambulatory TON MATA Facility:[facility] [place] Procedures Date Procedure Procedure Detail Performing Clinician Start: 04-11-2025 Urinalysis ASHLEY HARDEN Comment on above: Result Comment: URINALYSIS Performed By: #### 2 [id number] #### [facility],[address] [place] [address] Start: 04-05-[address] JESSICA BECKER MD Start: 08-21-[address] JESSICA BECKER MD Start: 07-06-[address] CLARITZA MITCHELL DO Start: 07-05-2022 MRI of pelvis with contrast Start: 02-27-2020 Primary repair of umbilical hernia AQUILES Mauricio MATA DO Start: 02-27-2020 Shoulder region structure (body structure) TON SUZI DO Comment on above: left trapezius Start: 02-27-2020 Umbilical hernioplasty TON SUZI Comment on above: with mesh Biopsy of prostate DR MIKAYLA BECKER MD Biopsy of prostate DR MIKAYLA BECKER MD Colonoscopy TON ESPINOZAY DO Esophagogastroduodenoscopy R LIANA SUZI DO Knee region structur e (body structure) TON MATA DO Comment on above: Left Left patellar tendon rupture DR JESSICA BECKER MD Nasal septoplasty TON SORIA DO Xcapsl ctrc rmvl ins j io lens prosth w/ecp TON MATA DO Immunizations Immunization Date Immunization Notes Care Provider [facility] 08-30-2022 zoster vaccine recombinant; Translations: [Shingrix] TON ROMEROSAY DO [facility] 05-05-2022 zoster vaccine recombinant; Translations: [Shingrix] CRISTIN CHAMBERLAIN TERRAZZO WORKER-PRESCHOOL EDUCATION DIRECTOR [facility] 03-23-2022 COVID-19, mRNA, LNP- S, bivalent booster, PF, 30 mcg/0.3 mL dose; Translations: [Pfizer-BioNTech COVID-19 (12y+) Bivalent Booster Vaccine PF] CRISTIN CHAMBERLAIN TERRAZZO WORKER-PRESCHOOL EDUCATION DIRECTOR [facility] 03-23-2022 SARSCoV2 mRNA(mcrxpnclclr32y+)b ival vac; Translations: [Pfizer-BioNTech COVID-19 (y+) Bivalent Booster Vaccine PF] DR CLARITZA MITCHELL DO [facility] 09-03-2021 COVID-19, mRNA, LNP- S, PF, 100 mcg or 50 mcg dose; Translations: [Moderna COVID-19 Vaccine] TON MATA DO [facility] 01-06-2021 COVID-19, mRNA, LNP- S, PF, 100 mcg or 50 mcg dose; Translations: [Moderna COVID-19 Vaccine] TON MATA DO [facility] 12-09-2020 COVID-19, mRNA, LNP- S, PF, 100 mcg or 50 mcg dose; Translations: [Moderna COVID-19 Vaccine] TON ROMEROSAY DO [facility] Comment on above: Early/Late Reason: O ther: 04-01-1999 hepatitis B vaccine, adult dosage TON ROMEROSAY DO [facility] 08-31-1998 hepatitis B vaccine, adult dosage TON MATA DO [facility] 02-25-1998 hepatitis B vaccine, adult dosage TON MATA DO [facility] 06-26-1997 cholera vaccine, unspecified formulation TON MATA DO [facility] 06-26-1997 poliovirus vaccine, inactivated TON SUZI DO [facility] Payers Date Payer Category Payer Unknown [id number] 2024 Unknown [id number] 2023 Unknown [id number] 2022 Self-pay [id number] 2022 Unknown [id number] 2022 Unknown [id number] 2016 Unknown [id number] 1961 Unknown [id number] 2.16.8 [id number] 1961 Unknown [id number] 2.16.8 40.1.189479.3.579.2.627 1961 Unknown [id number] 2.16.8 40.1.035580.3.579.2.627 1961 Unknown [id number] 2.16.8 40.1.726255.3.579.2.627 1961 Unknown [id number] 2.16.8 40.1.266077.3.579.2.627 1961 Unknown [id number] 2.16.8 40.1.029084.3.579.2.627 1961 Unknown [id number] 2.16.8 40.1.109324.3.579.2.627 1961 Unknown [id number] 2.16.8 40.1.235743.3.579.2.627 1961 Unknown [id number] 2.16.8 40.1.194916.3.579.2.627 1961 Unknown [id number] 2.16.8 40.1.493493.3.579.2.627 1961 Unknown [id number] 2.16.8 40.1.932619.3.579.2.627 1961 Unknown [id number] 2.16.8 40.1.587254.3.579.2.627 1961 Unknown [id number] 2.16.8 40.1.104720.3.579.2.627 1961 Unknown [id number] 2.16.8 40.1.231075.3.579.2.651 Unknown [id number] 2.16.8 40.1.890664.3.579.2.462 Unknown [id number] 2.16.8 40.1.288777.3.579.2.462 Unknown [id number] 2.16.8 40.1.532577.3.579.2.462 Social History Date Type Detail Facility Start: 01-07-2020 End: 06-26-2023 Tobacco smoking status Never smoked tobacco (finding) [facility] Start: 1960 Sex Assigned At Male A [facility] Sexual Orientation [facility] Start: 07-31-2019 Sex Male (finding) [facility] Functional Status Date Assessment Result Facility 06-10-2024 Functional Status Repositions self [facility] 06-10-2024 Functional Status Maintained [facility] 04-15-2024 Functional Status Independent [facility] 04-15-2024 Functional Status Room check performed [facility] 08-21-2023 Functional Status Independent [facility] 08-21-2023 Functional Status Maintained, Less than 8 hours [facility] 06-26-2023 Functional Status ID band on, Allergy Band on, Call device within reach, Bed in low position, Wheels locked, Bedside Cart Locked, Safety level maintained [facility] Mental Status Date Assessment Result Facility 06-10-2024 Mental Status Oriented x 4 [facility] 06-10-2024 Mental Status [facility] 04-15-2024 Mental Status Orientation Oriented x 4 [facility] 04-15-2024 Mental Status [facility] 08-21-2023 Mental Status Orientation Oriented x 4 [facility] 08-21-2023 Mental Status [facility] 06-26-2023 Mental Status Oriented x 4 [facility] Clinical Notes 06-26-2023 to 06-10-2024 Note Date & Type Note Facility 06-10-2024 Evaluation + Plan note Extrac eugenio from: Title:Clinical Document Author:JESSICA BECKER Date:06/10/24 [facility] ADMISSION HISTORY AN D PHYSICIAL CHIEF COMPLAINT: HISTORY OF PRESENT ILLNESS: REVIEW OF SYSTEMS: ACTIVE PROBLEMS: (14) Abnormal glucose (675708445) Acid reflux (6007597875) BPH with elevated PSA (594710138) Colon cancer screening (887934598) CPAP (continuous positive airway pressure) at home (5345261502) Family history of heart disease in male family member before age 55 (8711428252) History of deep venous thrombosis (DVT) of distal vein of right lower extremity (8184093171) Mild CAD (91915336) Paresthesia of foot (383084040) Seborrheic keratoses (4685063110) Stage 3 chronic kidney disease (3791360494) Tinnitus, left (766628993) Tubular adenoma of colon (5215434798) Well adult exam (238987659) MEDICATIONS: Active Inpt Meds: None Active PRN Meds: None One Time Meds: (Completed) lidocaine (Xylocaine 2% 5 mL syringe (ANES) (ANES)) IV Push, Once, Stop: 06/10/24 10:02:00 EST (Completed) propofol (propofol (ANES)) IV Push, Once, Stop: 06/10/24 10:07:00 EST Active IV Meds: Lactated Ringers Infusion 1,000 mL (LR 1,000 mL) Start: 06/10/24 7:41:00 EST, Rate: 50 mL/hr, 06/10/24 7:41:00 EST Sodium Chloride 0.9% intravenous solution 500 mL (Normal Saline 500 mL 500 mL) Start: 06/10/24 7:56:00 EST, Rate: 20 mL/hr, 06/10/24 7:56:00 EST ALLERGIES: (1) penicillin FAMILY HISTORY: SOCIAL HISTORY: PHYSICAL EXAM: VITALS: [id number](kg) 06/10 10:15----50--97--06/10109.1 06/10 10:10----52--96-- 06/10 10:05----51--96-- 06/10 10:00----51--94-- 06/10 09:55----60--96-- 24 Hr Tmax: 36.4 at 06/10 07:51 36 Hr Tmax: 36.4 at 06/10 07:51 Vital Signs are the last 5 in the past 48 hours. Weights display the last 5 within 7 days. Initial Wt: 06/10 109.1 kg 240 lb Current Wt: 06/10 109.1 kg 240 lb GENERAL: HEENT: CARDIOVASCULAR: RESPIRATORY: ABDOMEN: EXREMETIES: NEUROLOGICAL: PSYCHIATRIC: LABS: No 36hr Lab Data DIAGNOSTICS: IMPRESSION: PLAN: History and Physical Update I have examined the patient; reviewed the H&P and there are no changes to the H&P unless noted below. Future Appointments Appointment Date:10/23/2024 08:30:00 AM Scheduled Provider:TON MATA DO Location:[facility] Appointment Type:PC OV Follow Up Future Scheduled Tests Laboratory* Basic Metabolic Panel 04/05/24 * Complete Blood Count 04/05/24 [facility] 01-06-2025 Hospital Discharge instructions Patient Education 06/10/2024 10:39:29 Colon Polyps Colon Polyps Polyps are tissue growths inside the body. Polyps can grow in many places, including the large intestine (colon). A polyp may be a round bump or a mushroom-shaped growth. You could have one polyp or several. Most colon polyps are noncancerous (benign). However, some colon polyps can become cancerous over time. Finding and removing the polyps early can help prevent this. What are the causes? The exact cause of colon polyps is not known. What increases the risk? You are more likely to develop this condition if you: Have a family history of colon cancer or colon polyps. Are older than 50 or older than 45 if you are . Have inflammatory bowel disease, such as ulcerative colitis or Crohn's disease. Have certain hereditary conditions, such as: ?Familial adenomatous polyposis. ?Posey syndrome. ?Turcot syndrome. ?Peutz Jeghers syndrome. Are overweight. Smoke cigarettes. Do not get enough exercise. Drink too much alcohol. Eat a diet that is high in fat and red meat and low in fiber. Had childhood cancer that was treated with abdominal radiation. What are the signs or symptoms? Most polyps do not cause symptoms. If you have symptoms, they may include: Blood coming from your rectum when having a bowel movement. Blood in your stool. The stool may look dark red or black. Abdominal pain. A change in bowel habits, such as constipation or diarrhea. How is this diagnosed? This condition is diagnosed with a colonoscopy. This is a procedure in which a lighted, flexible scope is inserted into the anus and then passed into the colon to examine the area. Polyps are sometimes found when a colonoscopy is done as part of routine cancer screening tests. How is this treated? Treatment for this condition involves removing any polyps that are found. Most polyps can be removed during a colonoscopy. Those polyps will then be tested for cancer. Additional treatment may be needed depending on the results of testing. Follow these instructions at home: Lifestyle Maintain a healthy weight, or lose weight if recommended by your health care provider. Exercise every day or as told by your health care provider. Do not use any products that contain nicotine or tobacco, such as cigarettes and e-cigarettes. If you need help quitting, ask your health care provider. If you drink alcohol, limit how much you have: ?0 1 drink a day for women. ? 0 2 drinks a day for men. Be aware of how much alcohol is in your drink. In the [place] one drink equals one 12 oz bottle of beer (355 mL), one 5 oz glass of wine (148 mL), or one 1 oz shot of hard liquor (44 mL). Eating and drinking Eat foods that are high in fiber, such as fruits, vegetables, and whole grains. Eat foods that are high in calcium and vitamin D, such as milk, cheese, yogurt, eggs, liver, fish, and broccoli. Limit foods that are high in fat, such as fried foods and desserts. Limit the amount of red meat and processed meat you eat, such as hot dogs, sausage, mendez, and lunch meats. General instructions Keep all follow-up visits as told by your health care provider. This is important. ?This includes having regularly scheduled colonoscopies. ?Talk to your health care provider about when you need a colonoscopy. Contact a health care provider if: You have new or worsening bleeding during a bowel movement. You have new or increased blood in your stool. You have a change in bowel habits. You lose weight for no known reason. Summary Polyps are tissue growths inside the body. Polyps can grow in many places, including the colon. Most colon polyps are noncancerous (benign), but some can become cancerous over time. This condition is diagnosed with a colonoscopy. Treatment for this condition involves removing any polyps that are found. Most polyps can be removed during a colonoscopy. This information is not intended to replace advice given to you by your health care provider. Make sure you discuss any questions you have with your health care provider. Document Released: 02/15/2005 Document Revised: 09/06/2018 Document Reviewed: 09/06/2018 [employer] Patient Education 2020 [employer]. 06/10/2024 10:38:54 Monitored Anesthesia Care, Care After Monitored Anesthesia Care, Care After These instructions provide you with information about caring for yourself after your procedure. Your health care provider may also give you more specific instructions. Your treatment has been plannedaccording to current medical practices, but problems sometimes occur. Call your health care provider if you have any problems or questions after your procedure. What can I expect after the procedure? After your procedure, you may: Feel sleepy for several hours. Feel clumsy and have poor balance for several hours. Feel forgetful about what happened after the procedure. Have poor judgment for several hours. Feel nauseous or vomit. Have a sore throat if you had a breathing tube during the procedure. Follow these instructions at home: For at least 24 hours after the procedure: Have a responsible adult stay with you. It is important to have someone help care for you until youare awake and alert. Rest as needed. Do not: ?Participate in activities in which you could fall or become injured. ?Drive. ?Use heavy machinery. ?Drink alcohol. ?Take sleeping pills or medicines that cause drowsiness. ?Make important decisions or sign legal documents. ?Take care of children on your own. Eating and drinking Follow the diet that is recommended by your health care provider. If you vomit, drink water, juice, or soup when you can drink without vomiting. Make sure you have little or no nausea before eating solid foods. General instructions Take hfqe-hbo-otjdgjq and prescription medicines only as told by your health care provider. If you have sleep apnea, surgery and certain medicines can increase your risk for breathing problems. Follow instructions from your health care provider about wearing your sleep device: ?Anytime you are sleeping, including during daytime naps. ?While taking prescription pain medicines, sleeping medicines, or medicines that make you drowsy. If you smoke, do not smoke without supervision. Keep all follow-up visits as told by your health care provider. This is important. Contact a health care provider if: You keep feeling nauseous or you keep vomiting. You feel light-headed. You develop a rash. You have a fever. Get help right away if: You have trouble breathing. Summary For several hours after your procedure, you may feel sleepy and have poor judgment. Have a responsible adult stay with you for at least 24 hours or until you are awake and alert. This information is not intended to replace advice given to you by your health care provider. Make sure you discuss any questions you have with your health care provider. Document Released: 09/11/2016 Document Revised: 08/20/2018 Document Reviewed: 09/11/2016 [employer] Patient Education 2020 [employer]. 06/10/2024 10:38:49 Colonoscopy, Adult, Care After, Hevc-gx-Cvpt Colonoscopy, Adult, Care After This sheet gives you information about how to care for yourself after your procedure. Your doctor may also give you more specific instructions. If you have problems or questions, call your doctor. What can I expect after the procedure? After the procedure, it is common to have: A small amount of blood in your poop for 24 hours. Some gas. Mild cramping or bloating in your belly. Follow these instructions at home: General instructions For the first 24 hours after the procedure: ?Do not drive or use machinery. ?Do not sign important documents. ?Do not drink alcohol. ?Do your daily activities more slowly than normal. ?Eat foods that are soft and easy to digest. Take gabi-ugq-eaofkum or prescription medicines only as told by your doctor. To help cramping and bloating: Try walking around. Put heat on your belly (abdomen) as told by your doctor. Use a heat source that your doctor recommends, such as a moist heat pack or a heating pad. ?Put a towel between your skin and the heat source. ?Leave the heat on for 20 30 minutes. ?Remove the heat if your skin turns bright red. This is especially important if you cannot feel pain, heat, or cold. You can get burned. Eating and drinking Drink enough fluid to keep your pee (urine) clear or pale yellow. Return to your normal diet as told by your doctor. Avoid heavy or fried foods that are hard to digest. Avoid drinking alcohol for as long as told by your doctor. Contact a doctor if: You have blood in your poop (stool) 2 3 days after the procedure. Get help right away if: You have more than a small amount of blood in your poop. You see large clumps of tissue (blood clots) in your poop. Your belly is swollen. You feel sick to your stomach (nauseous). You throw up (vomit). You have a fever. You have belly pain that gets worse, and medicine does not help your pain. Summary After the procedure, it is common to have a small amount of blood in your poop. You may also have mild cramping and bloating in your belly. For the first 24 hours after the procedure, do not drive or use machinery, do not sign important documents, and do not drink alcohol. Get help right away if you have a lot of blood in your poop, feel sick to your stomach, have a fever, or have more belly pain. This information is not intended to replace advice given to you by your health care provider. Make sure you discuss any questions you have with your health care provider. Document Released: 06/24/2011 Document Revised: 03/22/2018 Document Reviewed: 02/13/2017 [employer] Patient Education 2020 [employer]. 06/10/2024 10:38:40 Diverticulosis Diverticulosis Diverticulosis is a condition that develops when small pouches (diverticula) form in the wall of the large intestine (colon). The colon is where water is absorbed and stool is formed. The pouches form when the inside layer of the colon pushes through weak spots in the outer layers of the colon. Youmay have a few pouches or many of them. What are the causes? The cause of this condition is not known. What increases the risk? The following factors may make you more likely to develop this condition: Being older than age 60. Your risk for this condition increases with age. Diverticulosis is rare among people younger than age 30. By age 80, many people have it. Eating a low-fiber diet. Having frequent constipation. Being overweight. Not getting enough exercise. Smoking. Taking hzsf-egi-mlfitqe pain medicines, like aspirin and ibuprofen. Having a family history of diverticulosis. What are the signs or symptoms? In most people, there are no symptoms of this condition. If you do have symptoms, they may include: Bloating. Cramps in the abdomen. Constipation or diarrhea. Pain in the lower left side of the abdomen. How is this diagnosed? This condition is most often diagnosed during an exam for other colon problems. Because diverticulosis usually has no symptoms, it often cannot be diagnosed independently. This condition may be diagnosed by: Using a flexible scope to examine the colon (colonoscopy). Taking an X-ray of the colon after dye has been put into the colon (barium enema). Doing a CT scan. How is this treated? You may not need treatment for this condition if you have never developed an infection related to diverticulosis. If you have had an infection before, treatment may include: Eating a high-fiber diet. This may include eating more fruits, vegetables, and grains. Taking a fiber supplement. Taking a live bacteria supplement (probiotic). Taking medicine to relax your colon. Taking antibiotic medicines. Follow these instructions at home: Drink 6 8 glasses of water or more each day to prevent constipation. Try not to strain when you have a bowel movement. If you have had an infection before: ?Eat more fiber as directed by your health care provider or your diet and child nutrition manager (dietitian). ?Take a fiber supplement or probiotic, if your health care provider approves. Take vken-fax-gcciifp and prescription medicines only as told by your health care provider. If you were prescribed an antibiotic, take it as told by your health care provider. Do not stop taking the antibiotic even if you start to feel better. Keep all follow-up visits as told by your health care provider. This is important. Contact a health care provider if: You have pain in your abdomen. You have bloating. You have cramps. You have not had a bowel movement in 3 days. Get help right away if: Your pain gets worse. Your bloating becomes very bad. You have a fever or chills, and your symptoms suddenly get worse. You vomit. You have bowel movements that are bloody or black. You have bleeding from your rectum. Summary Diverticulosis is a condition that develops when small pouches (diverticula) form in the wall of the large intestine (colon). You may have a few pouches or many of them. This condition is most often diagnosed during an exam for other colon problems. If you have had an infection related to diverticulosis, treatment may include increasing the fiber in your diet, taking supplements, or taking medicines. This information is not intended to replace advice given to you by your health care provider. Make sure you discuss any questions you have with your health care provider. Document Released: 02/16/2005 Document Revised: 05/04/2018 Document Reviewed: 04/10/2017 [employer] Patient Education 2020 [employer]. Follow Up Care 05/20/2024 07:03:53 With:JESSICA BECKER MD Address: [address] [facility] [address] [place] [address] [phone] When: Unknown Comments:CALL DR BECKER WITH ANY QUESTIONS OR CONCERNS. GO TO THE EMERGENCY ROOM WITH ANY URGENT CONCERNS. YOU WILL GET A CALL FROM THE OFFICE REGARDING THE LAB RESULTS ON THE POLYPS. IF YOU DO NOT HEAR FROM THE OFFICE, CALL THE OFFICE. NO NSAID FOR 5 DAYS. NO MRI'S FOR 30 DAYS. YOU DO HAVE SOME DIVERTUCULION THE LEFT SIDE OF THE COLON. ONE LARGE POLYP WAS REMOVED AND A FEW SMALLER ONES WELL. THESE ARE SENT TO THE LAB FOR EVALUATION. [facility] 01-06-2025 Note Discharge Instructions Thank you for allowing [facility] to assist you with your healthcare needs. The following is importantdischarge information regarding your hospital visit. Your Care Team TON MATA DO, DR. Your Diagnosis COLONOSCOPY WITH POLYPECTOMY. DIVERTICULOSIS. What to do next Instructions From Your Doctor NO MRI'S FOR 30 DAYS. THE CLIPS APPLIED TO THE SITE OF THE LARGE POLYP WILL FALL OUT ON THEIR OWN. YOU DO HAVE SOME DIVERTICULOSIS NOTED TO THE LEFT SIDE OF THE COLON. SEVERAL POLYPS WERE NOTED AND REMOVED AND THEN SENT TO LAB. YOU WILL RECEIVE THESE RESULTS AT THE END OF THE WEEK FROM THE OFFICE. YOUR NEXT COLONOSCOPY WILL BE DETERMINED BY THESE RESULTS. YOU CAN RESTART YOUR ASPIRIN TOMORROW. DONOT TAKE ADVIL OR MOTRIN FOR THE NEXT 5 DAYS. Scheduled Follow-Up Appointments Appointment Type When With Where Contact Information StatusPC OV Follow Up 10/23/2024 08:30 AM EDT TON MATA DO [facility] Confirmed Follow Up Appointments Follow Up with JESSICA BECKER MD Where:[address] [facility] [address] [place] [phone] Additional Information: CALL DR BECKER WITH ANY QUESTIONS OR CONCERNS. GO TO THE EMERGENCY ROOM WITH ANY URGENT CONCERNS. YOU WILL GET A CALL FROM THE OFFICE REGARDING THE LAB RESULTS ON THE POLYPS. IF YOU DO NOT HEAR FROM THE OFFICE, CALL THE OFFICE. NO NSAID FOR 5 DAYS. NO MRI'S FOR 30 DAYS. YOUDO HAVE SOME DIVERTUCULI ON THE LEFT SIDE OF THE COLON. ONE LARGE POLYP WAS REMOVED AND A FEW SMALLER ONES WELL. THESE ARE SENT TO THE LAB FOR EVALUATION. The Following Activity and Diet Have Been Ordered for You Discharge Activity - Ordered -- NO activity restrictions, 06/10/24 10:22:00 EST Discharge Diet - Ordered -- Follow the post-operative/post-procedure diet instructions provided by your physician's office.,06/10/24 10:22:00 EST Allergies penicillin unknown Medications Please ask your primary doctor or pharmacist before taking any other medication not listed, including over the counter drugs, herbal medications, vitamins and or supplements as they may interact withyour home medications. What How Much When Instructions Last Dose Unchanged aspirin (aspirin 81 mg oral delayed release tablet) by mouth Once a day Unchanged atorvastatin (atorvastatin 20 mg oral tablet) 1 tab(s) by mouth Every day Duration: 30 Days Unchanged doxazosin (doxazosin 4 mg oral tablet) 1 tab(s) by mouth Two (2) times a day Unchanged metoprolol (Toprol-XL 25 mg oral tablet, extended release) 0.5 tab(s) by mouth Daily at bedtime Duration: 90 Days Do not crush or chew (controlled release) Unchanged omeprazole (PriLOSEC) 20 Milligram by mouth Once a day Please take this list to your next doctor s visit. Bring all medications you take, including over the counter medications, herbals and other supplements with you to your doctor s visit. Patients and families are reminded to discard old lists and to update any records with all medication providers or retail pharmacies. Education [employer] Colon Polyps Polyps are tissue growths inside the body. Polyps can grow in many places, including the large intestine (colon). A polyp may be a round bump or a mushroom-shaped growth. You could have one polyp or several. Most colon polyps are noncancerous (benign). However, some colon polyps can become cancerous over time. Finding and removing the polyps early can help prevent this. What are the causes? The exact cause of colon polyps is not known. What increases the risk? You are more likely to develop this condition if you: Have a family history of colon cancer or colon polyps. Are older than 50 or older than 45 if you are . Have inflammatory bowel disease, such as ulcerative colitis or Crohn's disease. Have certain hereditary conditions, such as: ? Familial adenomatous polyposis. ? Posey syndrome. ? Turcot syndrome. ? Peutz Jeghers syndrome. Are overweight. Smoke cigarettes. Do not get enough exercise. Drink too much alcohol. Eat a diet that is high in fat and red meat and low in fiber. Had childhood cancer that was treated with abdominal radiation. What are the signs or symptoms? Most polyps do not cause symptoms. If you have symptoms, they may include: Blood coming from your rectum when having a bowel movement. Blood in your stool. The stool may look dark red or black. Abdominal pain. A change in bowel habits, such as constipation or diarrhea. How is this diagnosed? This condition is diagnosed with a colonoscopy. This is a procedure in which a lighted, flexible scope is inserted into the anus and then passed into the colon to examine the area. Polyps are sometimes found when a colonoscopy is done as part of routine cancer screening tests. How is this treated? Treatment for this condition involves removing any polyps that are found. Most polyps can be removed during a colonoscopy. Those polyps will then be tested for cancer. Additional treatment may be needed depending on the results of testing. Follow these instructions at home: Lifestyle Maintain a healthy weight, or lose weight if recommended by your health care provider. Exercise every day or as told by your health care provider. Do not use any products that contain nicotine or tobacco, such as cigarettes and e-cigarettes. If you need help quitting, ask your health care provider. If you drink alcohol, limit how much you have: ? 0 1 drink a day for women. ? 0 2 drinks a day for men. Be aware of how much alcohol is in your drink. In the [place] one drink equals one 12 oz bottle of beer (355 mL), one 5 oz glass of wine (148 mL), or one 1 oz shot of hard liquor (44 mL). Eating and drinking Eat foods that are high in fiber, such as fruits, vegetables, and whole grains. Eat foods that are high in calcium and vitamin D, such as milk, cheese, yogurt, eggs, liver, fish, and broccoli. Limit foods that are high in fat, such as fried foods and desserts. Limit the amount of red meat and processed meat you eat, such as hot dogs, sausage, mendez, and lunch meats. General instructions Keep all follow-up visits as told by your health care provider. This is important. ? This includes having regularly scheduled colonoscopies. ? Talk to your health care provider about when you need a colonoscopy. Contact a health care provider if: You have new or worsening bleeding during a bowel movement. You have new or increased blood in your stool. You have a change in bowel habits. You lose weight for no known reason. Summary Polyps are tissue growths inside the body. Polyps can grow in many places, including the colon. Most colon polyps are noncancerous (benign), but some can become cancerous over time. This condition is diagnosed with a colonoscopy. Treatment for this condition involves removing any polyps that are found. Most polyps can be removed during a colonoscopy. This information is not intended to replace advice given to you by your health care provider. Make sure you discuss any questions you have with your health care provider. Document Released: 02/15/2005 Document Revised: 09/06/2018 Document Reviewed: 09/06/2018 [employer] Patient Education 2020 [employer]. Monitored Anesthesia Care, Care After These instructions provide you with information about caring for yourself after your procedure. Your health care provider may also give you more specific instructions. Your treatment has been plannedaccording to current medical practices, but problems sometimes occur. Call your health care provider if you have any problems or questions after your procedure. What can I expect after the procedure? After your procedure, you may: Feel sleepy for several hours. Feel clumsy and have poor balance for several hours. Feel forgetful about what happened after the procedure. Have poor judgment for several hours. Feel nauseous or vomit. Have a sore throat if you had a breathing tube during the procedure. Follow these instructions at home: For at least 24 hours after the procedure: Have a responsible adult stay with you. It is important to have someone help care for you until youare awake and alert. Rest as needed. Do not: ? Participate in activities in which you could fall or become injured. ? Drive. ? Use heavy machinery. ? Drink alcohol. ? Take sleeping pills or medicines that cause drowsiness. ? Make important decisions or sign legal documents. ? Take care of children on your own. Eating and drinking Follow the diet that is recommended by your health care provider. If you vomit, drink water, juice, or soup when you can drink without vomiting. Make sure you have little or no nausea before eating solid foods. General instructions Take fazl-jtb-rkmypab and prescription medicines only as told by your health care provider. If you have sleep apnea, surgery and certain medicines can increase your risk for breathing problems. Follow instructions from your health care provider about wearing your sleep device: ? Anytime you are sleeping, including during daytime naps. ? While taking prescription pain medicines, sleeping medicines, or medicines that make you drowsy. If you smoke, do not smoke without supervision. Keep all follow-up visits as told by your health care provider. This is important. Contact a health care provider if: You keep feeling nauseous or you keep vomiting. You feel light-headed. You develop a rash. You have a fever. Get help right away if: You have trouble breathing. Summary For several hours after your procedure, you may feel sleepy and have poor judgment. Have a responsible adult stay with you for at least 24 hours or until you are awake and alert. This information is not intended to replace advice given to you by your health care provider. Make sure you discuss any questions you have with your health care provider. Document Released: 09/11/2016 Document Revised: 08/20/2018 Document Reviewed: 09/11/2016 [employer] Patient Education 2020 [employer]. Colonoscopy, Adult, Care After This sheet gives you information about how to care for yourself after your procedure. Your doctor may also give you more specific instructions. If you have problems or questions, call your doctor. What can I expect after the procedure? After the procedure, it is common to have: A small amount of blood in your poop for 24 hours. Some gas. Mild cramping or bloating in your belly. Follow these instructions at home: General instructions For the first 24 hours after the procedure: ? Do not drive or use machinery. ? Do not sign important documents. ? Do not drink alcohol. ? Do your daily activities more slowly than normal. ? Eat foods that are soft and easy to digest. Take rajn-uuu-rzyrcsj or prescription medicines only as told by your doctor. To help cramping and bloating: Try walking around. Put heat on your belly (abdomen) as told by your doctor. Use a heat source that your doctor recommends, such as a moist heat pack or a heating pad. ? Put a towel between your skin and the heat source. ? Leave the heat on for 20 30 minutes. ? Remove the heat if your skin turns bright red. This is especially important if you cannot feel pain, heat, or cold. You can get burned. Eating and drinking Drink enough fluid to keep your pee (urine) clear or pale yellow. Return to your normal diet as told by your doctor. Avoid heavy or fried foods that are hard to digest. Avoid drinking alcohol for as long as told by your doctor. Contact a doctor if: You have blood in your poop (stool) 2 3 days after the procedure. Get help right away if: You have more than a small amount of blood in your poop. You see large clumps of tissue (blood clots) in your poop. Your belly is swollen. You feel sick to your stomach (nauseous). You throw up (vomit). You have a fever. You have belly pain that gets worse, and medicine does not help your pain. Summary After the procedure, it is common to have a small amount of blood in your poop. You may also have mild cramping and bloating in your belly. For the first 24 hours after the procedure, do not drive or use machinery, do not sign important documents, and do not drink alcohol. Get help right away if you have a lot of blood in your poop, feel sick to your stomach, have a fever, or have more belly pain. This information is not intended to replace advice given to you by your health care provider. Make sure you discuss any questions you have with your health care provider. Document Released: 06/24/2011 Document Revised: 03/22/2018 Document Reviewed: 02/13/2017 [employer] Patient Education 2020 [employer] Diverticulosis Diverticulosis is a condition that develops when small pouches (diverticula) form in the wall of the large intestine (colon). The colon is where water is absorbed and stool is formed. The pouches form when the inside layer of the colon pushes through weak spots in the outer layers of the colon. Youmay have a few pouches or many of them. What are the causes? The cause of this condition is not known. What increases the risk? The following factors may make you more likely to develop this condition: Being older than age 60. Your risk for this condition increases with age. Diverticulosis is rare among people younger than age 30. By age 80, many people have it. Eating a low-fiber diet. Having frequent constipation. Being overweight. Not getting enough exercise. Smoking. Taking ptdv-jyx-ieoqfgp pain medicines, like aspirin and ibuprofen. Having a family history of diverticulosis. What are the signs or symptoms? In most people, there are no symptoms of this condition. If you do have symptoms, they may include: Bloating. Cramps in the abdomen. Constipation or diarrhea. Pain in the lower left side of the abdomen. How is this diagnosed? This condition is most often diagnosed during an exam for other colon problems. Because diverticulosis usually has no symptoms, it often cannot be diagnosed independently. This condition may be diagnosed by: Using a flexible scope to examine the colon (colonoscopy). Taking an X-ray of the colon after dye has been put into the colon (barium enema). Doing a CT scan. How is this treated? You may not need treatment for this condition if you have never developed an infection related to diverticulosis. If you have had an infection before, treatment may include: Eating a high-fiber diet. This may include eating more fruits, vegetables, and grains. Taking a fiber supplement. Taking a live bacteria supplement (probiotic). Taking medicine to relax your colon. Taking antibiotic medicines. Follow these instructions at home: Drink 6 8 glasses of water or more each day to prevent constipation. Try not to strain when you have a bowel movement. If you have had an infection before: ? Eat more fiber as directed by your health care provider or your diet and child nutrition manager (dietitian). ? Take a fiber supplement or probiotic, if your health care provider approves. Take vsyz-bvt-glagzzr and prescription medicines only as told by your health care provider. If you were prescribed an antibiotic, take it as told by your health care provider. Do not stop taking the antibiotic even if you start to feel better. Keep all follow-up visits as told by your health care provider. This is important. Contact a health care provider if: You have pain in your abdomen. You have bloating. You have cramps. You have not had a bowel movement in 3 days. Get help right away if: Your pain gets worse. Your bloating becomes very bad. You have a fever or chills, and your symptoms suddenly get worse. You vomit. You have bowel movements that are bloody or black. You have bleeding from your rectum. Summary Diverticulosis is a condition that develops when small pouches (diverticula) form in the wall of the large intestine (colon). You may have a few pouches or many of them. This condition is most often diagnosed during an exam for other colon problems. If you have had an infection related to diverticulosis, treatment may include increasing the fiber in your diet, taking supplements, or taking medicines. This information is not intended to replace advice given to you by your health care provider. Make sure you discuss any questions you have with your health care provider. Document Released: 02/16/2005 Document Revised: 05/04/2018 Document Reviewed: 04/10/2017 [employer] Patient Education 2020 [employer]. Additional Information VACCINATE! IT SAVES LIVES! Members of the community who have not yet received the COVID-19 vaccine and would like to receive it can visit one of [facility] vaccine clinics. There are many vaccine clinic locations within the [facility]. For locations and available times, please visit https://[email or web address].[place].gov/. It is important to note that some COVID mobile vaccine clinics are held outdoors and may be canceled in rainy or stormy conditions. To learn more about pediatric vaccinations (ages 5-11), we invite you to visit the [facility] webpage. [email or web address] learn more about the COVID-19 vaccine, we invite you to visit the CDC website for a list of frequently asked questions.https://www.cdc.gov/coronavirus/2019-ncov/vaccines/faq.html [facility] Patient Portal Access Instructions: Stay connected with your healthcare team and access your personal medical information anytime with the [facility] Patient Portal. Please follow the directions below to create your [facility] account: 1.Access the email account you provided upon registration to the hospital/physician office.2.Look for an invitation email from [facility].3.Open the email and access the invitation link: AcceptInvitation to [facility].4.Fill in the required borges to create your account. To access your account, visit [email or web address]. Click the blue button labeled Access Patient Portal and then log in with the username and password that you created in the steps above. You will be able to view your test results, lab results, a summary of your visits, upcoming appointments and more. There is also a convenient messaging option where you can send secure messages to your p rovider. In addition, you will have the ability to download any documents or summaries to your computer and/or send the information securely to a physician. Remember that your healthcare information is confidential, so carefully consider who you will allowto register on the [facility] Patient Portal for access to your information. You can also access the [employer] [facility] Patient Portal on the [facility] adithya. Simply click on Patient Portal and then log into your account. If you would like to receive a full copy of your medical records, please contact the [facility] Medical Records Department by calling [phone], Monday through Monday between 8 a.m. and 4:30 p.m. HOW TO SAFELY DISPOSE OF PRESCRIPTION MEDICATIONS Please use one of the following methods to safely dispose of your unused medications. 1.Use a drug disposal kit: the drug disposal pouch allows you to safely discard your old and unuseddrugs. Ask your nurse to give you one when you are discharged.2.Visit a local take-back location: Many local pharmacies and police departments have programs that collect old and unwanted prescriptiondrugs. Call your local pharmacy or go to http://Medlert.SpectralCast/7N2To6v to find one close to you.3.Make use of household items: Use cat litter or old coffee grounds to dispose medications if other options arenot available. Mix your drugs with these household products, seal them in an airtight container andthrow it into the garbage. Call [facility]: [phone] to be sure your drugs can be disposed of in this way. Some medicines may require a different approach.4.Never flush your medications down the toilet. IF YOU HAVE BEEN PRESCRIBED AN OPIOID FOR PAIN If you have been prescribed an opioid (such as hydrocodone, oxycodone or morphine), it is critical to understand the possible side effects and risks of opioid pain medications. Even when taken as directed, opioids can have several side effects including: Tolerance, meaning you might need to take more of a medication for the same pain relief. Nausea, vomiting and/or constipation. Sleepiness, dizziness, dry mouth, confusion, depression or itching. Physical dependence, meaning you have withdrawal symptoms when a medication is stopped, can develop within a few days. KNOW YOUR RESPONSIBILITIES It is important to know exactly how much and how often to take the opioid pain medications you are prescribed. Never take opioids in higher amounts or more often than prescribed. Do not combine opioids with alcohol or other drugs that cause drowsiness, such as benzodiazepines, also known as benzos, including diazepam and alprazolam, muscle relaxants or sleep aids. Never sell or share prescription opioids. This is illegal. Store opioids in a secure place and out of reach of others (including children, family, friends and visitors). The last page of this document has been signed and retained as a CHART COPY. Signatures Patient Education Materials Colon Polyps Monitored Anesthesia Care, Care After Colonoscopy, Adult, Care After, Sfrk-wu-Vgjb Diverticulosis Medication Leaflets My discharge plan and instructions have been reviewed and explained to me and I,CLAUDETTE ISSA understand my current condition and have read and understand these discharge instructions. I have received a written copy of the plan/instructions. If I have questions, I am aware that I should contact my d octor. 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 Patient was placed left shoulder down the colonoscope was passed into the rectum. The mucosa was unremarkable in the rectum moving the left colon there was diverticulosis of the sigmoid area. The transverse colon mucosa may normal on the right colon cecum was well identified and there is a large broad-based sessile polyp at the cecum this was about 12 mm or greater in diameter. Using a hexagonal snare polyp was grasped in its entirety and transected. Another sessile polyp lateral to this this was small 3 to 4 mm this was removed cold snare. A third polyp was also removed with a cold snare cold biopsy forceps the biopsy the remaining tissue. Patient is a larger polyp who was quite expansive the Endo Clip was then applied to close the polypectomy site. 2 clips were applied to close the site completely. Large polyp was then sucked up on the tip of the colonoscope and brought out on the tip of the colonoscope. Colonoscope was reintroduced back into the colon to the left colon there were no other large polyps across the transverse colon there were no obvious large polyps seen colon was decompressed scope was withdrawn the patient toleratedprocedure well. Post-Procedure Exam Colonoscopy with snare polypectomy colonoscopy with biopsy of polyps, colonoscopy with application of a clip to polypectomy site. Findings Broad-based sessile polyp at the base the cecum other small polyps removed with cold biopsy forcep and cold snare Complications None apparent Total Time Approximately 40 minutes Assessment/Plan Orders: Lactated Ringers Infusion 1,000 mL(LR 1,000 mL), 1000 mL, Intravenous Sodium Chloride 0.9% intravenous solution 500 mL(Normal Saline 500 mL 500 mL), 500 mL, Intravenous Bedrest, 06/10/24 10:22:00 EST, Strict, continuous, Constant order, Lying on side until alert or asordered Bedrest, 06/10/24 10:22:00 EST, Strict, continuous, Constant order, Lying on side until alert or asordered Call Parameters, 06/10/24 10:22:00 EST, Notify for vomiting, severe pain, signs of bleeding, severeabdominal pain, distention or rigidity, Constant order Communication Order (scheduled), 06/10/24 7:41:00 EST, Once, 06/10/24 7:41:00 EST, Pathology TissueRequest Communication Order (scheduled), 06/10/24 7:41:00 EST, Once, 06/10/24 7:41:00 EST, Urine Test or waiver for women of child bearing age Communication Order (scheduled), 06/10/24 7:41:00 EST, Once, 06/10/24 7:41:00 EST, Fasting Blood Sugar priot to procedure of patient is diabetic Diet Order, 06/10/24 10:22:00 EST, Start Meal: Next meal, Clear Liquid Diet, Post exam or after gagreflex returns if EGD, Constant Order, : N/A, : N/A Discharge, 06/10/24 7:41:00 EST, Discharged to: Home, when able to ambulate and after being seen byphysician Discharge Activity, NO activity restrictions, 06/10/24 10:22:00 EST Discharge Diet, Follow the post-operative/post-procedure diet instructions provided by your physician's office., 06/10/24 10:22:00 EST Discharge Wound Care, Follow the post-operative/post-procedure wound care instructions provided by your physician's office., 06/10/24 10:22:00 EST Pathology Tissue Request, 06/10/24 10:08:00 EST, Collected, Routine, Nurse Collect, AP Specimen, CECUM POLYP, SEE CHART, COLONOSCOPY WITH POLYPECTOMY, HISTORY OF POLYPS, HISTORY OF POLYPS, Preferred Lab: [facility], [id number] Post Procedure Assessment, 06/10/24 10:22:00 EST, Stop Date 06/10/24 10:22:00 EST, [facility] in [facility] Recovery Room until Irma Score of 12 or Preprocedure Sign Consent, 06/10/24 7:41:00 EST, Once, For Colonoscopy Vital Signs, 06/10/24 10:22:00 EST, q15min, 1 hour(s), 06/10/24 11:15:00 EST Vital Signs, 06/10/24 10:22:00 EST, q30min, 1 hour(s), 06/10/24 11:00:00 EST Vital Signs PRN, 06/10/24 10:22:00 EST, PRN order Follow Up/Recommendation Follow-up the pathology carefully to determine when the patient will return for her next colonoscopy. Digitally Signed by JESSICA BECKER MD on 06/10/2024 10:25 AM [facility]01-06-2025 Note [facility] ADMISSION HISTORY AND PHYSICIAL CHIEF COMPLAINT: HISTORY OF PRESENT ILLNESS: REVIEW OF SYSTEMS: ACTIVE PROBLEMS: (14) Abnormal glucose (475662288) Acid reflux (9258414779) BPH with elevated PSA (670758488) Colon cancer screening (953250306) CPAP (continuous positive airway pressure) at home (7115765324) Family history of heart disease in male family member before age 55 (3699180335) History of deep venous thrombosis (DVT) of distal vein of right lower extremity (9642042439) Mild CAD (42812227) Paresthesia of foot (952501440) Seborrheic keratoses (2927099874) Stage 3 chronic kidney disease (0770494860) Tinnitus, left (852913500) Tubular adenoma of colon (9202857247) Well adult exam (137968892) MEDICATIONS: Active Inpt Meds: None Active PRN Meds: None One Time Meds: (Completed) lidocaine (Xylocaine 2% 5 mL syringe (ANES) (ANES)) IV Push, Once, Stop: 06/10/24 10:02:00 EST (Completed) propofol (propofol (ANES)) IV Push, Once, Stop: 06/10/24 10:07:00 EST Active IV Meds: Lactated Ringers Infusion 1,000 mL (LR 1,000 mL) Start: 06/10/24 7:41:00 EST, Rate: 50 mL/hr, 06/10/24 7:41:00 EST Sodium Chloride 0.9% intravenous solution 500 mL (Normal Saline 500 mL 500 mL) Start: 06/10/24 7:56:00 EST, Rate: 20 mL/hr, 06/10/24 7:56:00 EST ALLERGIES: (1) penicillin FAMILY HISTORY: SOCIAL HISTORY: PHYSICAL EXAM: VITALS: KufyboVgknOBZkhkeAXEpL4QQH3OpscSr(kg) 06/10 10:15----50--97--06/10109.1 06/10 10:10----52--96-- 06/10 10:05----51--96-- 06/10 10:00----51--94-- 06/10 09:55----60--96-- 24 Hr Tmax: 36.4 at 06/10 07:51 36 Hr Tmax: 36.4 at 06/10 07:51 Vital Signs are the last 5 in the past 48 hours. Weights display the last 5 within 7 days. Initial Wt: 06/10 109.1 kg 240 lb Current Wt: 06/10 109.1 kg 240 lb GENERAL: HEENT: CARDIOVASCULAR: RESPIRATORY: ABDOMEN: EXREMETIES: NEUROLOGICAL: PSYCHIATRIC: LABS: No 36hr Lab Data DIAGNOSTICS: IMPRESSION: PLAN: History and Physical Update I have examined the patient; reviewed the H&P and there are no changes to the H&P unless noted below. Digitally Signed by JESSICA BECKER MD on 06/10/2024 10:21 AM [facility]01-06-2025 Anesthesiology Consult note Patient: CLAUDETTE ISSA Age: 63 years Sex: Male : 1960 Associated Diagnoses: None Author: RODRIGUEZ BAILEY APRN-BENCH REPAIR TECHNICIAN Preoperative Information Time of last food or liquid consumption: 06/09/2024 14:00:00 Anesthesia history Patient's history: negative. Family's history: negative. Review of Systems Ear/Nose/Mouth/Throat: Negative except as documented in history of present illness. Respiratory: Negative except as documented in history of present illness. Cardiovascular: Negative except as documented in history of present illness. Gastrointestinal: Negative except as documented in history of present illness. Genitourinary: Negative except as documented in history of present illness. Endocrine: Negative except as documented in history of present illness. Musculoskeletal: Negative except as documented in history of present illness. Integumentary: Negative except as documented in history of present illness. Neurologic: Negative except as documented in history of present illness. Health Status Allergies: Allergic Reactions (Selected) Severity Not Documented Penicillin- Unknown., Allergies (1) ActiveSeverityReaction penicillinunknown Current medications: (Selected) Inpatient Medications Ordered LR 1,000 mL: 50 mL/hr, Intravenous Normal Saline 500 mL 500 mL: 20 mL/hr, Intravenous Prescriptions Prescribed Toprol-XL 25 mg oral tablet, extended release: 12.5 mg, 0.5 tab(s), Oral, qHS, for 90 day(s), Do not crush or chew (controlled release), 45 tab(s), 0 Refill(s) atorvastatin 20 mg oral tablet: 20 mg, 1 tab(s), Oral, Daily, for 30 day(s), 30 tab(s), 2 Refill(s) Documented Medications Documented PriLOSEC: 20 mg, Oral, qDay, 0 Refill(s) aspirin 81 mg oral delayed release tablet: mg, tab(s), Oral, qDay, 0 Refill(s) doxazosin 4 mg oral tablet: 4 mg, 1 tab(s), Oral, BID, 30 tab(s), 0 Refill(s), Medications (2) Active Scheduled: (0) Continuous: (2) Lactated Ringers Infusion 1,000 mL 1,000 mL, Intravenous, 50 mL/hr Sodium Chloride 0.9% intravenous solution 500 mL 500 mL, Intravenous, 20 mL/hr PRN: (0) Problem list: Medical Abnormal glucose / SNOMED CT 366638826 / Confirmed BPH with elevated PSA / SNOMED CT 332990866 / Confirmed Stage 3 chronic kidney disease / SNOMED CT 9806522354 / Confirmed Mild CAD / SNOMED CT 97888917 / Confirmed CPAP (continuous positive airway pressure) at home / SNOMED CT 1143735044 / Confirmed Family history of heart disease in male family member before age 55 / SNOMED CT 5677636383 / Confirmed Acid reflux / SNOMED CT 1987794484 / Confirmed History of deep venous thrombosis (DVT) of distal vein of right lower extremity / SNOMED CT 3605570972 / Confirmed Paresthesia of foot / SNOMED CT 890141112 / Confirmed Well adult exam / SNOMED CT 897293496 / Confirmed Colon cancer screening / SNOMED CT 537239882 / Confirmed Seborrheic keratoses / SNOMED CT 2376794800 / Confirmed Tinnitus, left / SNOMED CT 360107296 / Confirmed Tubular adenoma of colon / SNOMED CT 6199596912 / Confirmed Resolved: Lipoma of back / SNOMED CT 665001653 Resolved: Left shoulder pain / SNOMED CT 01119928 Resolved: Umbilical hernia / SNOMED CT 7719496076 Canceled: Exertional chest pain / SNOMED CT 712868001 Canceled: Exertional chest pain / SNOMED CT 777929780 Canceled: Positive colorectal cancer screening using Cologuard test / SNOMED CT 0646372895 Canceled: Deep vein thrombosis (DVT) of right lower extremity / SNOMED CT 0401883700 Canceled: Family history of heart disease / SNOMED CT 1464534972 Canceled: HEATHER on CPAP / SNOMED CT 575212484 Canceled: Screening for diabetes mellitus / SNOMED CT 890354221 Canceled: Screening for lipid disorders / SNOMED CT 181340451, Active Problems (14) Abnormal glucose Acid reflux BPH with elevated PSA Colon cancer screening CPAP (continuous positive airway pressure) at home Family history of heart disease in male family member before age 55 History of deep venous thrombosis (DVT) of distal vein of right lower extremity Mild CAD Paresthesia of foot Seborrheic keratoses Stage 3 chronic kidney disease Tinnitus, left Tubular adenoma of colon Well adult exam Histories Past Medical History: Active Acid reflux (8009302872) Resolved Umbilical hernia (9149075521): Resolved. Lipoma of back (740766634): Resolved. Left shoulder pain (52198757): Resolved. Family History: Heart disease Grandparent Procedure history: Catheterization (68584359) in the month of 04/2024 at 63 Years. Colonoscopy (457986023) on 08/21/2023 at 63 Years. Umbilical hernioplasty (3203412787) on 02/27/2020 at 59 Years. Comments: 02/27/2020 13:57 Whitney Maloney RN with mesh Shoulder ([id number]) on 02/27/2020 at 59 Years. Comments: 02/27/2020 13:59 Whitney Maloney RN left trapezius Extracapsular cataract removal with insertion of intraocular lens prosthesis (1 stage procedure), manual or mechanical technique (eg, irrigation and aspiration or phacoemulsification); with endoscopic cyclophotocoagulation (16962). Nasal septoplasty (92366611). Colonoscopy (211845026). Esophagogastroduodenoscopy (380916644). Left patellar tendon rupture (3038812115). Biopsy of prostate (653232661). Biopsy of prostate (965201630). 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 Lives In Multilevel home Current Home Treatments CPAP Special Services and Community Resources None Spouse Name Tram Marital Status of Patient if Patient Independent Adult: Nutrition/Health 06/10/2024 Type of diet: Regular Appetite Good Caffeine intake amount: 2 large coffees daily Physical Examination Vital Signs 06/10/2024 7:51 EST Temperature Temporal Artery 36.4 DegC Peripheral Pulse Rate 62 bpm Respiratory Rate 12 br/min LOW Systolic Blood Pressure Non-Invasive 128 mmHg Diastolic Blood Pressure Non-Invasive 74 mmHg Vital Signs (last 24 hrs) Last Charted Temp Zywvcvmn56.4 DegC (JUN 10 07:51) YYS430 mmHg (JUN 10 07:51) DBP74 mmHg (JUN 10 07:51) Measurements from flowsheet : Measurements 06/10/2024 7:51 EST Height 185.42 cm Admission Weight 109.09 kg [place] Body Weight 79.90 kg Admission Body Mass Index 31.73 m2 Pain assessment: Pain Assessment 06/10/2024 7:51 EST Primary Pain Intensity 0 Pain Scale Type 0-10 Pain scale . General: Alert and oriented. Airway: Normal neck range of motion. Mallampati classification: II (soft palate, fauces, uvula visible). Head: Normocephalic. Dentition Evaluation: Intact, Own teeth. Neck: Full range of motion. Respiratory: Lungs are clear to auscultation. Cardiovascular: Normal rate. Heart Sounds: Normal. Gastrointestinal: Soft. Musculoskeletal Normal range of motion. Integumentary: Intact, Warm, Dry. Neurologic: Alert, Oriented. Review / Management Results review: No qualifying data available , Lab results 06/10/2024 8:07 EST SN - Preop - CTm Pt Ready for OR/Proced 06/10/2024 8:07 06/10/2024 8:06 EST Continuous IV Infusions n.s. Hand Right 06/10/2024 22 gauge Peripheral IV Activity: Insert new site Peripheral IV Site Condition: No complications Peripheral IV Number of Attempts: 1 Sodium Chloride 0.9% Begin Bag 500 mL mL 06/10/2024 7:51 EST Height 185.42 cm Admission Weight 109.09 kg [place] Body Weight 79.90 kg Admission Body Mass Index 31.73 m2 Temperature Temporal Artery 36.4 DegC Peripheral Pulse Rate 62 bpm Respiratory Rate 12 br/min LOW Systolic Blood Pressure Non-Invasive 128 mmHg Diastolic Blood Pressure Non-Invasive 74 mmHg Primary Pain Intensity 0 Pain Scale Type 0-10 Pain scale Heart Sounds ICU S1S2 Heart Rhythm Regular Respirations Unlabored Respiratory Pattern Regular Breath Sounds Auscultated Posterior only All Lobes Breath Sounds Clear Oxygen Therapy Room air Oxygen Saturation 97 % Abdomen Description Non-distended, Soft Swallowing Disorder None Urinary Elimination Voiding, no difficulties Skin Temperature Warm Skin Description [employer], Normal for ethnicity, Dry Skin Moisture General Dry IV Present Present Neurological Symptoms Patient denies Characteristics of Speech Clear Level of Consciousness Alert Strength All Extremities Strong Affect/Behavior Appropriate Orientation Oriented x 4 Allergies Yes Anesthesia Extension Set Applied Yes Systems Checkout Mechanic On Yes Colon Prep Results Excellent Consent Form Signed Yes Patient Dressed In Hospital gown History & Physical Update On Chart Yes History & Physical On Chart Yes Bowel Prep Completed Yes Obstructive Sleep Apnea Assess Completed Yes Orientation Assessment Oriented x 4 Belongings At Bedside Pants, Shirt, Shoes Assistive Device None Positioning Repositions self Activity Status ADL Awake NPO Status Maintained Standard Safety ID band on, Allergy Band on, Call device within reach, Bed in low position, Wheels locked, Visitor at bedside Allergy Band on and Verified Yes Patient ID Band on and Verified Yes Implants Verified Yes Pacemaker/AICD Verified Yes Last Fluid Intake 06/10/2024 5:30 Last Food Intake 06/09/2024 9:00 Last Void 06/10/2024 7:52 06/10/2024 7:50 EST Designated Person #1 We May Share PENNIE Issa [phone] Designated Person #1 Relationship Spouse Privacy Restrictions Requested None Status N/A Sensory Deficits None Diagnosed With Sleep Apnea Yes Advanced Directives No - refuses information Infectious Disease Symptoms Patient states no symptoms Infectious Disease Recent Exposure No Alcohol and Drug Use No Employee of Institutional Living No Health Care Employee No History of Exposure to TB No History of Positive Chest X-Ray for TB No History of Positive TB Skin Test No Homeless No Known Immunosuppression No Recent Immigrant No Resident of Institutional Living No Bloody Sputum No Fatigue No Fever No Loss of Appetite No Night Sweats No Persistent Cough > 3 Weeks No Weight Loss No Barriers to Learning None evident Teaching Method Explanation Preferred Spoken Language Samoan Preferred Written Language Samoan Teaching Evaluation No further teaching needed Safety Brochure Information Reviewed Unable to complete [place] Video Viewed No Patient's Current Physicians Patient's Current Physicians Discharge To, Anticipated Home with family care Prev Test Positive/Diagnosis w/COVID-19 No Current Quarantine/Isolated any Illness No Any Contact with Sick Animals/Birds No Traveled Anywhere in Last 30 Days No Lost Weight Unintentionally Recently No Eat Poorly Due to Decreased Appetite No Total MST Score 0 N/A Personal Devices, Patient Valuables None Anesthesia/Transfusions Prior anesthesia Admission Note-Nursing Same Day Patient History 06/10/2024 7:41 EST SN - Preop - CTm Pt in SDS Room 06/10/2024 7:40 . Assessment and Plan [place] [employer] (ASA) physical status classification: Class II. Anesthetic Preoperative Plan Premedication: intravenous. Anesthetic technique: MAC. Induction: intravenously. Maintenance airway: Mask. Risks discussed: nausea, vomiting, headache, sore throat, dental injury, hypotension, allergic reaction, serious complications. Informed consent: signed by patient. Digitally Signed by RODRIGUEZ BAILEY on 06/10/2024 08:43 AM [facility]11-11-2024 Discharge summary Date of Service 04/15/2024 Discharge Diagnosis 1. CAD Hospital Course 63-year-old male with no significant PMH presented for elective cardiac cath because of abnormal stress test. Patient had undergone stress test because of chest pain on moderate to severe exertion [like walking on a treadmill, elliptical]. Nuclear portion of the stress test was negative, EKG portion was positive for significant ST depression in precordial leads Cardiac cath done on 04/15/2024 were suggestive of 40% mid LAD disease. This will be managed medically. Plan START atorvastatin 20 mg p.o. daily Allergies penicillin unknown Consults No qualifying data available. Objective Vitals and Measurements T: 36.7 C (Oral) HR: 62 RR: 16 BP: 133/84 SpO2: 93% HT: 190.5 cm WT: 108.7 kg BMI: 29.95 Weight Dosing Weight: 108.7 kg (04/15/24) General: AAOX3, NAD HEENT: Anicteric sclera, MMM Neck: Trachea midline, no JVD appreciated CVS: RRR, normal S1/S2, no murmurs/rubs/gallops Lung: CTAB, no wheezes/rhonchi/rales Abd: Soft, NT/ND Extrem: WWP, no LE edema Skin: Warm, Intact Neuro: AAOX3, spontaneous movement of all extremities Psych: Appropriate mood & affect Code Status No qualifying data available. Admission Date 04/15/2024 Discharge Date 04/15/2024 Medications New Prescription atorvastatin (atorvastatin 20 mg oral tablet)1 tab(s) by mouth every day for 30 Days. Refills: 2. Unchanged aspirin (aspirin 81 mg oral delayed release tablet)by mouth once a day. doxazosin (doxazosin 4 mg oral tablet)1 tab(s) by mouth two (2) times a day. metoprolol (Toprol-XL 25 mg oral tablet, extended release)1 tab(s) by mouth daily at bedtime for 30Days. Do not crush or chew (controlled release). Refills: 0. omeprazole (PriLOSEC)20 Milligram by mouth once a day. Follow Up Follow Up with JENNIFER SORENSON MD When:In 2 weeks Where:[address] [facility] [place] [address]- [phone] Follow Up Appointments No qualifying data available. Follow Up Labs/Studies Discharge Labs No Follow-up Labs Discharge Studies No Follow-up Studies Discharge Diet Discharge Diet - Ordered -- Type of Diet: Cardiac, 04/15/24 7:16:00 EST Discharge Activity Discharge Activity - Ordered -- Lifting Restricted less than 10 pounds, 04/15/24 7:16:00 EST Condition on Discharge Stable Readmission Risk/Palliative Score No qualifying data available. Discharge Disposition Home Digitally Signed by TAWNYA LOPEZ MD on 04/15/2024 07:19 [id number] Discharge instructions Patient Education 04/15/2024 07:51:21 3- Heart Cath/PCI radial (03/2018) (CUSTOM) HEART CATHETERIZATION/PCI (radial) Discharge Instructions DIET Drink plenty of fluids for the next 48 hours to help your kidneys flush the heart cath dye out of your system ACTIVITY For the next 48 hours: Do not deep bend the wrist Do not lift, push, or pull anything over 5 pounds Do not use the hand/arm to support your weight when rising from a chair or bed Do not drive For the next 7 days: Do not submerse your procedure site in water Do not swim, wash dishes, or take tub baths You may write, eat, type, and shower WOUND CARE You will go home with a dressing over your procedure site. After 24 hours, remove dressing, shower,and place a Band-Aid over your procedure site. Keep a Band-Aid on your procedure site for the next 3-4 days Change the Band-Aid daily or if it gets wet/soiled AFTER YOU GO HOME, CALL YOUR DOCTOR FOR: Any increase in bruising or tenderness from the procedure site Any redness, pus, or other signs of infection at the site A temperature above 100.5 Severe pain at the site DIAL 911 AND RETURN TO THE HOSPITAL FOR: Any bleeding from the procedure site. The site may be bruised or tender, but it should not be bleeding at any time. If your site begins to bleed, hold firm pressure on it and dial 911 to return to the hospital Any increase in swelling at the procedure site. An increase in swelling could mean the area is bleeding under the skin. Hold firm pressure to the site and dial 911 to return to the hospital Document Released: 05/22/2006 Document Revised: 05/08/2013 Document Reviewed: 05/23/2014 ExitCare Patient Information 2015 [employer]. This information is not intended to replace advicegiven to you by your health care provider. Make sure you discuss any questions you have with your health care provider. Follow Up Care 04/05/2024 11:23:28 With:JENNIFER SORENSON MD Address: [address] [facility] [place] [address] [phone] When:Within 2 Week(s) [facility] 11-11-2024 Summary of episode note Discharge Instructions Thank you for allowing [facility] to assist you with your healthcare needs. The following is importantdischarge information regarding your hospital visit. Your Care Team TON MATA DO What to do next Scheduled Follow-Up Appointments Appointment Type When With Where Contact Information StatusPC OV 04/24/2024 08:30 AM [facility] Confirmed CV OV 05/10/2024 08:30 AM [facility] CV Confirmed Follow Up Appointments Follow Up with JENNIFER SORENSON MD When:In 2 weeks Where:[address] [facility] [place] [address]- [phone] Medications Please ask your primary doctor or pharmacist before taking any other medication not listed, including over the counter drugs, herbal medications, vitamins and or supplements as they may interact withyour home medications. What How Much When Instructions Last Dose New atorvastatin (atorvastatin 20 mg oral tablet) 1 tab(s) by mouth Every day Duration: 30 Days Refills: 2 Pickup at [facility] Unchanged aspirin (aspirin 81 mg oral delayed release tablet) by mouth Once a day Unchanged doxazosin (doxazosin 4 mg oral tablet) 1 tab(s) by mouth Two (2) times a day Unchanged metoprolol (Toprol-XL 25 mg oral tablet, extended release) 1 tab(s) by mouth Daily at bedtime Duration: 30 Days Do not crush or chew (controlled release) Unchanged omeprazole (PriLOSEC) 20 Milligram by mouth Once a day Pharmacy Information [facility]: [address], [place] [phone] Please take this list to your next doctor s visit. Bring all medications you take, including over the counter medications, herbals and other supplements with you to your doctor s visit. Patients and families are reminded to discard old lists and to update any records with all medication providers or retail pharmacies. Medication Leaflets atorvastatin (a TOR va sta tin) Atorvaliq, Lipitor What is the most important information I should know about atorvastatin? You should not take atorvastatin if you have liver disease or cirrhosis. Atorvastatin can cause the breakdown of muscle tissue, which can lead to kidney failure. Call your doctor right away if you have unexplained muscle pain, tenderness, or weakness especially if you also have fever, unusual tiredness, or dark urine. What is atorvastatin? Atorvastatin is used together with diet to lower blood levels of 'bad' cholesterol (low-density lipoprotein, or LDL), to increase levels of 'good' cholesterol (high-density lipoprotein, or HDL), and to lower triglycerides (a type of fat in the blood). Atorvastatin is used to lower the risk of stroke, heart attack, or other heart complications in adults with or without type 2 diabetes or heart disease or other risk factors. Atorvastatin is also used alone, or along with diet, or with other cholesterol- lowering medicationsin adults and children aged 10 years and older with an inherited condition that causes high levels of bad cholesterol. Atorvastatin may also be used for purposes not listed in this medication guide. What should I discuss with my healthcare provider before taking atorvastatin? You should not use atorvastatin if you are allergic to it, or if you have liver failure or cirrhosis. Tell your doctor if you have or have ever had: muscle pain or weakness; diabetes; stroke; a thyroid disorder; a habit of drinking more than 2 alcoholic beverages per day; or kidney disease. Atorvastatin can cause the breakdown of muscle tissue, which can lead to kidney failure. This happens more often in women, in older adults, or people who have kidney disease or poorly controlled hypothyroidism (underactive thyroid). Atorvastatin may harm an unborn baby. Tell your doctor if you are . Ask a doctor if it is safe to breastfeed while using this medicine. How should I take atorvastatin? Follow all directions on your prescription label and read all medication guides or instruction sheets. Your doctor may occasionally change your dose. Use the medicine exactly as directed. Do not change your dose or stop taking any of your medications without your doctor's advice. Atorvastatin is usually taken once per day. Follow your doctor's instructions. You may take atorvastatin tablet with or without food. Take atorvastatin liquid medicine on an empty stomach, at least 1 hour before a meal or 2 hours after a meal. It may take up to 2 weeks before your cholesterol levels improve, and you may need frequent blood tests. Even if you have no symptoms, tests can help your doctor determine if this medicine is effective. Shake the oral suspension (liquid). Measure a dose with the supplied measuring device (not a kitchen spoon). Your treatment may also include diet, exercise, weight control, and blood tests. Store at room temperature away from moisture, heat, and light. Throw away in the trash any unused liquid 60 days after opening the bottle. What happens if I miss a dose? Take the medicine as soon as you can, but skip the missed dose if you are more than 12 hours late for the dose. Do not take two doses at one time. What happens if I overdose? Seek emergency medical attention or call the Poison Help line at . What should I avoid while taking atorvastatin? Avoid eating foods high in fat or cholesterol, or atorvastatin will not be as effective. Drinking alcohol may increase your risk of liver damage. Grapefruit may interact with atorvastatin and cause side effects. Avoid consuming grapefruit products and drinking more than 1.2 liters of grapefruit juice each day. What are the possible side effects of atorvastatin? Get emergency medical help if you have signs of an allergic reaction (hives, difficult breathing, swelling in your face or throat) or a severe skin reaction (fever, sore throat, burning eyes, skin pain, red or purple skin rash with blistering and peeling). Atorvastatin can cause the breakdown of muscle tissue, which can lead to kidney failure. Call your doctor right away if you have unexplained muscle pain, tenderness, or weakness especially if you also have fever, unusual tiredness, or dark urine. Muscle problems may be more likely in older adults and those who have kidney problems, thyroid problems, or take certain other medicines. Also call your doctor at once if you have: muscle weakness in your hips, shoulders, neck, and back; trouble lifting your arms, trouble climbing or standing; liver problems--loss of appetite, stomach pain (upper right side), tiredness, itching, dark urine, alisha-colored stools, jaundice (yellowing of the skin or eyes); kidney problems--swelling, urinating less, feeling tired or short of breath; or high blood sugar--increased thirst, increased urination, dry mouth, fruity breath odor. Common side effects may include: pain in your bones, spine, joints, or muscles; pain and burning when you urinate, painful urination; muscle spasms; upset stomach; trouble sleeping; stuffy nose, runny nose, sore throat; diarrhea, nausea; or pain in your arms or legs. This is not a complete list of side effects and others may occur. Call your doctor for medical advice about side effects. You may report side effects to FDA at 7-491-WMN-0877. What other drugs will affect atorvastatin? Sometimes it is not safe to use certain medicines at the same time. Some drugs can affect your blood levels of other drugs you use, which can increase risk of serious muscle problems or make the medicines less effective. Tell your doctor about all your current medicines. Many drugs can affect atorvastatin, especially: other cholesterol lowering medicine--gemfibrozil, niacin, fenofibrate, fenofibric acid, and others; colchicine; antibiotic or antifungal medicine--rifampin, erythromycin, clarithromycin, itraconazole, ketoconazole, posaconazole, and voriconazole; control pills; medicine to prevent organ transplant rejection; or antiviral medicine to treat hepatitis C or HIV. This list is not complete and many other drugs may affect atorvastatin. This includes prescription and hsjm-hdl-ztyfeek medicines, vitamins, and herbal products. Not all possible drug interactions are listed here. Where can I get more information? Your doctor or pharmacist can provide more information about atorvastatin. Remember, keep this and all other medicines out of the reach of children, never share your medicines with others, and use this medication only for the indication prescribed. Every effort has been made to ensure that the information provided by [employer]. ('[employer]') is accurate, up-to-date, and complete, but no guarantee is made to that effect. Drug information contained herein may be time sensitive. [employer] information has been compiled for use by healthcare practitioners and consumers in the [place] and therefore [employer] does not warrant that uses outside of the [place] are appropriate, unless specifically indicated otherwise. [employer] drug information does not endorse drugs, diagnose patients or recommend therapy. [employer] drug information isan informational resource designed to assist licensed healthcare practitioners in caring for their p atients and/or to serve consumers viewing this service as a supplement to, and not a substitute for, the expertise, skill, knowledge and judgment of healthcare practitioners. The absence of a warningfor a given drug or drug combination in no way should be construed to indicate that the drug or drug combination is safe, effective or appropriate for any given patient. [employer] does not assume any responsibility for any aspect of healthcare administered with the aid of information [employer] provides. The information contained herein is not intended to cover all possible uses, directions, precautions, warnings, drug interactions, allergic reactions, or adverse effects. If you have questions about the drugs you are taking, check with your doctor, nurse or pharmacist. Copyright 6830-3341 [employer]. Version: 23.02. Revision Date: 11/24/2022. Education Materials HEART CATHETERIZATION/PCI (radial) Discharge Instructions DIET Drink plenty of fluids for the next 48 hours to help your kidneys flush the heart cath dye out of your system ACTIVITY For the next 48 hours: Do not deep bend the wrist Do not lift, push, or pull anything over 5 pounds Do not use the hand/arm to support your weight when rising from a chair or bed Do not drive For the next 7 days: Do not submerse your procedure site in water Do not swim, wash dishes, or take tub baths You may write, eat, type, and shower WOUND CARE You will go home with a dressing over your procedure site. After 24 hours, remove dressing, shower,and place a Band-Aid over your procedure site. Keep a Band-Aid on your procedure site for the next 3-4 days Change the Band-Aid daily or if it gets wet/soiled AFTER YOU GO HOME, CALL YOUR DOCTOR FOR: Any increase in bruising or tenderness from the procedure site Any redness, pus, or other signs of infection at the site A temperature above 100.5 Severe pain at the site DIAL 911 AND RETURN TO THE HOSPITAL FOR: Any bleeding from the procedure site. The site may be bruised or tender, but it should not be bleeding at any time. If your site begins to bleed, hold firm pressure on it and dial 911 to return to the hospital Any increase in swelling at the procedure site. An increase in swelling could mean the area is bleeding under the skin. Hold firm pressure to the site and dial 911 to return to the hospital Document Released: 05/22/2006 Document Revised: 05/08/2013 Document Reviewed: 05/23/2014 ExitCare Patient Information 2015 [employer]. This information is not intended to replace advicegiven to you by your health care provider. Make sure you discuss any questions you have with your health care provider. Additional Information VACCINATE! IT SAVES LIVES! Members of the community who have not yet received the COVID-19 vaccine and would like to receive it can visit one of [facility] vaccine clinics. There are many vaccine clinic locations within the [facility]. For locations and available times, please visit https://gettheshot.coronavirus.[place].gov/. It is important to note that some COVID mobile vaccine clinics are held outdoors and may be canceled in rainy or stormy conditions. To learn more about pediatric vaccinations (ages 5-11), we invite you to visit the [facility] webpage. https://www.akmakeenas.org/pages/6580-Xxdvp-Qsiqkhzybvp-Yhghjehbxz-Ravjd-[email or web address] stions.htmlTo learn more about the COVID-19 vaccine, we invite you to visit the CDC website for a list of frequently asked questions.https://www.cdc.gov/coronavirus/2019-ncov/vaccines/faq.html [facility] Patient Portal Access Instructions: Stay connected with your healthcare team and access your personal medical information anytime with the [employer] Patient Portal. Please follow the directions below to create your [employer] account: 1.Access the email account you provided upon registration to the hospital/physician office.2.Look for an invitation email from [facility].3.Open the email and access the invitation link: AcceptInvitation to [facility].4.Fill in the required borges to create your account. To access your account, visit [email or web address]. Click the blue button labeled Access Patient Portal and then log in with the username and password that you created in the steps above. You will be able to view your test results, lab results, a summary of your visits, upcoming appointments and more. There is also a convenient messaging option where you can send secure messages to your p rovider. In addition, you will have the ability to download any documents or summaries to your computer and/or send the information securely to a physician. Remember that your healthcare information is confidential, so carefully consider who you will allowto register on the [employer] Patient Portal for access to your information. You can also access the [employer] Patient Portal on the [employer] adithya. Simply click on Patient Portal and then log into your account. If you would like to receive a full copy of your medical records, please contact the [facility] Medical Records Department by calling [phone], Monday through Monday between 8 a.m. and 4:30 p.m. HOW TO SAFELY DISPOSE OF PRESCRIPTION MEDICATIONS Please use one of the following methods to safely dispose of your unused medications. 1.Use a drug disposal kit: the drug disposal pouch allows you to safely discard your old and unuseddrugs. Ask your nurse to give you one when you are discharged.2.Visit a local take-back location: Many local pharmacies and police departments have programs that collect old and unwanted prescriptiondrugs. Call your local pharmacy or go to http://Kwelia/6V9Aw8i to find one close to you.3.Make use of household items: Use cat litter or old coffee grounds to dispose medications if other options arenot available. Mix your drugs with these household products, seal them in an airtight container andthrow it into the garbage. Call [facility]: [phone] to be sure your drugs can be disposed of in this way. Some medicines may require a different approach.4.Never flush your medications down the toilet. IF YOU HAVE BEEN PRESCRIBED AN OPIOID FOR PAIN If you have been prescribed an opioid (such as hydrocodone, oxycodone or morphine), it is critical to understand the possible side effects and risks of opioid pain medications. Even when taken as directed, opioids can have several side effects including: Tolerance, meaning you might need to take more of a medication for the same pain relief. Nausea, vomiting and/or constipation. Sleepiness, dizziness, dry mouth, confusion, depression or itching. Physical dependence, meaning you have withdrawal symptoms when a medication is stopped, can develop within a few days. KNOW YOUR RESPONSIBILITIES It is important to know exactly how much and how often to take the opioid pain medications you are prescribed. Never take opioids in higher amounts or more often than prescribed. Do not combine opioids with alcohol or other drugs that cause drowsiness, such as benzodiazepines, also known as benzos, including diazepam and alprazolam, muscle relaxants or sleep aids. Never sell or share prescription opioids. This is illegal. Store opioids in a secure place and out of reach of others (including children, family, friends and visitors). The last page of this document has been signed and retained as a CHART COPY. Signatures Patient Education Materials 3- Heart Cath/PCI radial (03/2018) (CUSTOM) Medication Leaflets atorvastatin My discharge plan and instructions have been reviewed and explained to me and I,CLAUDETTE ISSA understand my current condition and have read and understand these discharge instructions. I have received a written copy of the plan/instructions. If I have questions, I am aware that I should contact my d octor. 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 CAD Hospital Course 63-year-old male with no significant PMH presented for elective cardiac cath because of abnormal stress test. Patient had undergone stress test because of chest pain on moderate to severe exertion [like walking on a treadmill, elliptical]. Nuclear portion of the stress test was negative, EKG portion was positive for significant ST depression in precordial leads Cardiac cath done on 04/15/2024 were suggestive of 40% mid LAD disease. This will be managed medically. Plan START atorvastatin 20 mg p.o. daily Allergies penicillin unknown Consults No qualifying data available. Objective Vitals and Measurements T: 36.7 C (Oral) HR: 62 RR: 16 BP: 133/84 SpO2: 93% HT: 190.5 cm WT: 108.7 kg BMI: 29.95 Weight Dosing Weight: 108.7 kg (04/15/24) General: AAOX3, NAD HEENT: Anicteric sclera, MMM Neck: Trachea midline, no JVD appreciated CVS: RRR, normal S1/S2, no murmurs/rubs/gallops Lung: CTAB, no wheezes/rhonchi/rales Abd: Soft, NT/ND Extrem: WWP, no LE edema Skin: Warm, Intact Neuro: AAOX3, spontaneous movement of all extremities Psych: Appropriate mood & affect Code Status No qualifying data available. Admission Date 04/15/2024 Discharge Date 04/15/2024 Medications New Prescription atorvastatin (atorvastatin 20 mg oral tablet)1 tab(s) by mouth every day for 30 Days. Refills: 2. Unchanged aspirin (aspirin 81 mg oral delayed release tablet)by mouth once a day. doxazosin (doxazosin 4 mg oral tablet)1 tab(s) by mouth two (2) times a day. metoprolol (Toprol-XL 25 mg oral tablet, extended release)1 tab(s) by mouth daily at bedtime for 30Days. Do not crush or chew (controlled release). Refills: 0. omeprazole (PriLOSEC)20 Milligram by mouth once a day. Follow Up Follow Up with JENNIFER SORENSON MD When:In 2 weeks Where:[address] [facility] [facility] [address] [facility] [place] [address]- [phone] Follow Up Appointments No qualifying data available. Follow Up Labs/Studies Discharge Labs No Follow-up Labs Discharge Studies No Follow-up Studies Discharge Diet Discharge Diet - Ordered -- Type of Diet: Cardiac, 04/15/24 7:16:00 EST Discharge Activity Discharge Activity - Ordered -- Lifting Restricted less than 10 pounds, 04/15/24 7:16:00 EST Condition on Discharge Stable Readmission Risk/Palliative Score No qualifying data available. Discharge Disposition Home Digitally Signed by TAWNYA LOPEZ MD on 04/15/2024 07:19 AM [id number]* Exam Date Time Procedure Performing Provider Status 04/15/24 6:33 AM Cardiac Catheterization -CV [facility] 09-26-2024 Note* Exam Date Time Procedure Performing Provider Status 02/29/24 7:40 AM VL Venous US/Doppler One Leg (for DVT). Auth (Verified) [facility] 06-21-2024 Note* Exam Date Time Procedure Performing Provider Status 11/24/23 8:04 AM VL Venous US/Doppler One Leg (for DVT). Auth (Verified) [facility] 03-18-2024 Hospital Discharge instructions Patient Education 08/21/2023 09:22:00 Monitored Anesthesia Care, Care After Monitored Anesthesia Care, Care After These instructions provide you with information about caring for yourself after your procedure. Your health care provider may also give you more specific instructions. Your treatment has been plannedaccording to current medical practices, but problems sometimes occur. Call your health care provider if you have any problems or questions after your procedure. What can I expect after the procedure? After your procedure, you may: Feel sleepy for several hours. Feel clumsy and have poor balance for several hours. Feel forgetful about what happened after the procedure. Have poor judgment for several hours. Feel nauseous or vomit. Have a sore throat if you had a breathing tube during the procedure. Follow these instructions at home: For at least 24 hours after the procedure: Have a responsible adult stay with you. It is important to have someone help care for you until youare awake and alert. Rest as needed. Do not: ?Participate in activities in which you could fall or become injured. ?Drive. ?Use heavy machinery. ?Drink alcohol. ?Take sleeping pills or medicines that cause drowsiness. ?Make important decisions or sign legal documents. ?Take care of children on your own. Eating and drinking Follow the diet that is recommended by your health care provider. If you vomit, drink water, juice, or soup when you can drink without vomiting. Make sure you have little or no nausea before eating solid foods. General instructions Take avgt-lqz-qeuscxp and prescription medicines only as told by your health care provider. If you have sleep apnea, surgery and certain medicines can increase your risk for breathing problems. Follow instructions from your health care provider about wearing your sleep device: ?Anytime you are sleeping, including during daytime naps. ?While taking prescription pain medicines, sleeping medicines, or medicines that make you drowsy. If you smoke, do not smoke without supervision. Keep all follow-up visits as told by your health care provider. This is important. Contact a health care provider if: You keep feeling nauseous or you keep vomiting. You feel light-headed. You develop a rash. You have a fever. Get help right away if: You have trouble breathing. Summary For several hours after your procedure, you may feel sleepy and have poor judgment. Have a responsible adult stay with you for at least 24 hours or until you are awake and alert. This information is not intended to replace advice given to you by your health care provider. Make sure you discuss any questions you have with your health care provider. Document Released: 09/11/2016 Document Revised: 08/20/2018 Document Reviewed: 09/11/2016 [employer] Patient Education 2020 [employer]. 08/21/2023 09:21:32 Colonoscopy, Adult, Care After Colonoscopy, Adult, Care After This sheet gives you information about how to care for yourself after your procedure. Your health care provider may also give you more specific instructions. If you have problems or questions, contact your health care provider. What can I expect after the procedure? After the procedure, it is common to have: A small amount of blood in your stool for 24 hours after the procedure. Some gas. Mild abdominal cramping or bloating. Follow these instructions at home: General instructions For the first 24 hours after the procedure: ?Do not drive or use machinery. ?Do not sign important documents. ?Do not drink alcohol. ?Do your regular daily activities at a slower pace than normal. ?Eat soft, pvno-qe-oildme foods. Take vjuk-axr-ipilnif or prescription medicines only as told by your health care provider. Relieving cramping and bloating Try walking around when you have cramps or feel bloated. Apply heat to your abdomen as told by your health care provider. Use a heat source that your healthcare provider recommends, such as a moist heat pack or a heating pad. ?Place a towel between your skin and the heat source. ?Leave the heat on for 20 30 minutes. ?Remove the heat if your skin turns bright red. This is especially important if you are unable to feel pain, heat, or cold. You may have a greater risk of getting burned. Eating and drinking Drink enough fluid to keep your urine pale yellow. Resume your normal diet as instructed by your health care provider. Avoid heavy or fried foods thatare hard to digest. Avoid drinking alcohol for as long as instructed by your health care provider. Contact a health care provider if: You have blood in your stool 2 3 days after the procedure. Get help right away if: You have more than a small spotting of blood in your stool. You pass large blood clots in your stool. Your abdomen is swollen. You have nausea or vomiting. You have a fever. You have increasing abdominal pain that is not relieved with medicine. Summary After the procedure, it is common to have a small amount of blood in your stool. You may also have mild abdominal cramping and bloating. For the first 24 hours after the procedure, do not drive or use machinery, sign important documents, or drink alcohol. Contact your health care provider if you have a lot of blood in your stool, nausea or vomiting, a fever, or increased abdominal pain. This information is not intended to replace advice given to you by your health care provider. Make sure you discuss any questions you have with your health care provider. Document Released: 01/03/2005 Document Revised: 03/14/2018 Document Reviewed: 08/02/2016 [employer] Patient Education [employer]. Follow Up Care 07/14/2023 14:39:36 With:JESSICA BECKER MD Address: [address] [place] [address] [address] [place] [address] [phone] When: Unknown Comments:Follow-up as scheduled Follow-up as needed Follow-up as needed [facility] 03-18-2024 Note Discharge Instructions Thank you for allowing [facility] to assist you with your healthcare needs. The following is importantdischarge information regarding your hospital visit. Your Care Team TON MATA DO, DR. What to do next Scheduled Follow-Up Appointments Appointment Type When With Where Contact InformationPC OV Follow Up 09/18/2023 11:30 AM EDT TON MATA DO [facility] Follow Up Appointments Follow Up with JESSICA BECKER MD When Why: Follow-up as scheduled Follow-up as needed Follow-up as needed [facility] [address] [facility] [address] [place] [address] [phone] Someone Will Contact You Regarding These Home Health Referrals No home referrals have been ordered for you. No one will call you. Allergies penicillin (unknown) Medications Please ask your primary doctor or pharmacist before taking any other medication not listed, including over the counter drugs, herbal medications, vitamins and or supplements as they may interact withyour home medications. What How Much When Why Instructions Last Dose Unchanged dabigatran (Pradaxa 150 mg oral capsule) 1 cap by mouth Two (2) times a day Deep vein thrombosis (DVT) of right lower extremity Unchanged doxazosin (doxazosin 4 mg oral tablet) 1 tab(s) by mouth Two (2) times a day Unchanged omeprazole (PriLOSEC) 20 Milligram by mouth Once a day Please take this list to your next doctor s visit. Bring all medications you take, including over the counter medications, herbals and other supplements with you to your doctor s visit. Patients and families are reminded to discard old lists and to update any records with all medication providers or retail pharmacies. Education Materials Monitored Anesthesia Care, Care After These instructions provide you with information about caring for yourself after your procedure. Your health care provider may also give you more specific instructions. Your treatment has been plannedaccording to current medical practices, but problems sometimes occur. Call your health care provider if you have any problems or questions after your procedure. What can I expect after the procedure? After your procedure, you may: Feel sleepy for several hours. Feel clumsy and have poor balance for several hours. Feel forgetful about what happened after the procedure. Have poor judgment for several hours. Feel nauseous or vomit. Have a sore throat if you had a breathing tube during the procedure. Follow these instructions at home: For at least 24 hours after the procedure: Have a responsible adult stay with you. It is important to have someone help care for you until youare awake and alert. Rest as needed. Do not: ? Participate in activities in which you could fall or become injured. ? Drive. ? Use heavy machinery. ? Drink alcohol. ? Take sleeping pills or medicines that cause drowsiness. ? Make important decisions or sign legal documents. ? Take care of children on your own. Eating and drinking Follow the diet that is recommended by your health care provider. If you vomit, drink water, juice, or soup when you can drink without vomiting. Make sure you have little or no nausea before eating solid foods. General instructions Take xwdg-fgz-glmtbwe and prescription medicines only as told by your health care provider. If you have sleep apnea, surgery and certain medicines can increase your risk for breathing problems. Follow instructions from your health care provider about wearing your sleep device: ? Anytime you are sleeping, including during daytime naps. ? While taking prescription pain medicines, sleeping medicines, or medicines that make you drowsy. If you smoke, do not smoke without supervision. Keep all follow-up visits as told by your health care provider. This is important. Contact a health care provider if: You keep feeling nauseous or you keep vomiting. You feel light-headed. You develop a rash. You have a fever. Get help right away if: You have trouble breathing. Summary For several hours after your procedure, you may feel sleepy and have poor judgment. Have a responsible adult stay with you for at least 24 hours or until you are awake and alert. This information is not intended to replace advice given to you by your health care provider. Make sure you discuss any questions you have with your health care provider. Document Released: 09/11/2016 Document Revised: 08/20/2018 Document Reviewed: 09/11/2016 [employer] Patient Education 2020 [employer]. Colonoscopy, Adult, Care After This sheet gives you information about how to care for yourself after your procedure. Your health care provider may also give you more specific instructions. If you have problems or questions, contact your health care provider. What can I expect after the procedure? After the procedure, it is common to have: A small amount of blood in your stool for 24 hours after the procedure. Some gas. Mild abdominal cramping or bloating. Follow these instructions at home: General instructions For the first 24 hours after the procedure: ? Do not drive or use machinery. ? Do not sign important documents. ? Do not drink alcohol. ? Do your regular daily activities at a slower pace than normal. ? Eat soft, qsuh-qa-quvhky foods. Take bpvf-mzk-mqnaqzc or prescription medicines only as told by your health care provider. Relieving cramping and bloating Try walking around when you have cramps or feel bloated. Apply heat to your abdomen as told by your health care provider. Use a heat source that your healthcare provider recommends, such as a moist heat pack or a heating pad. ? Place a towel between your skin and the heat source. ? Leave the heat on for 20 30 minutes. ? Remove the heat if your skin turns bright red. This is especially important if you are unable to feel pain, heat, or cold. You may have a greater risk of getting burned. Eating and drinking Drink enough fluid to keep your urine pale yellow. Resume your normal diet as instructed by your health care provider. Avoid heavy or fried foods thatare hard to digest. Avoid drinking alcohol for as long as instructed by your health care provider. Contact a health care provider if: You have blood in your stool 2 3 days after the procedure. Get help right away if: You have more than a small spotting of blood in your stool. You pass large blood clots in your stool. Your abdomen is swollen. You have nausea or vomiting. You have a fever. You have increasing abdominal pain that is not relieved with medicine. Summary After the procedure, it is common to have a small amount of blood in your stool. You may also have mild abdominal cramping and bloating. For the first 24 hours after the procedure, do not drive or use machinery, sign important documents, or drink alcohol. Contact your health care provider if you have a lot of blood in your stool, nausea or vomiting, a fever, or increased abdominal pain. This information is not intended to replace advice given to you by your health care provider. Make sure you discuss any questions you have with your health care provider. Document Released: 01/03/2005 Document Revised: 03/14/2018 Document Reviewed: 08/02/2016 [employer] Patient Education 2020 [employer]. Additional Information VACCINATE! IT SAVES LIVES! Members of the community who have not yet received the COVID-19 vaccine and would like to receive it can visit one of [facility] vaccine clinics. There are many vaccine clinic locations within the [facility]. For locations and available times, please visit https://gettheshot.coronavirus.[place].gov/. It is important to note that some COVID mobile vaccine clinics are held outdoors and may be canceled in rainy or stormy conditions. To learn more about pediatric vaccinations (ages 5-11), we invite you to visit the [facility] webpage. [email or web address]/[email or web address] stions.htmlTo learn more about the COVID-19 vaccine, we invite you to visit the CDC website for a list of frequently asked questions.https://www.cdc.gov/coronavirus/2019-ncov/vaccines/faq.html [facility] Patient Portal Access Instructions: Stay connected with your healthcare team and access your personal medical information anytime with the [facility] Patient Portal. Please follow the directions below to create your [facility] account: 1.Access the email account you provided upon registration to the hospital/physician office.2.Look for an invitation email from [facility].3.Open the email and access the invitation link: AcceptInvitation to [facility].4.Fill in the required borges to create your account. To access your account, visit [email or web address]. Click the blue button labeled Access Patient Portal and then log in with the username and password that you created in the steps above. You will be able to view your test results, lab results, a summary of your visits, upcoming appointments and more. There is also a convenient messaging option where you can send secure messages to your [employer]. In addition, you will have the ability to download any documents or summaries to your computer and/or send the information securely to a physician. Remember that your healthcare information is confidential, so carefully consider who you will allowto register on the [facility] Patient Portal for access to your information. You can also access the [facility] Patient Portal on the [employer] adithya. Simply click on Patient Portal and then log into your account. If you would like to receive a full copy of your medical records, please contact the [facility] Medical Records Department by calling [phone], Monday through Monday between 8 a.m. and 4:30 p.m. HOW TO SAFELY DISPOSE OF PRESCRIPTION MEDICATIONS Please use one of the following methods to safely dispose of your unused medications. 1.Use a drug disposal kit: the drug disposal pouch allows you to safely discard your old and unuseddrugs. Ask your nurse to give you one when you are discharged.2.Visit a local take-back location: Many local pharmacies and police departments have programs that collect old and unwanted prescriptiondrugs. Call your local pharmacy or go to http://bit.ly/1E4Az8i to find one close to you.3.Make use of household items: Use cat litter or old coffee grounds to dispose medications if other options arenot available. Mix your drugs with these household products, seal them in an airtight container andthrow it into the garbage. Call [facility]: [phone] to be sure your drugs can be disposed of in this way. Some medicines may require a different approach.4.Never flush your medications down the toilet. IF YOU HAVE BEEN PRESCRIBED AN OPIOID FOR PAIN If you have been prescribed an opioid (such as hydrocodone, oxycodone or morphine), it is critical to understand the possible side effects and risks of opioid pain medications. Even when taken as directed, opioids can have several side effects including: Tolerance, meaning you might need to take more of a medication for the same pain relief. Nausea, vomiting and/or constipation. Sleepiness, dizziness, dry mouth, confusion, depression or itching. Physical dependence, meaning you have withdrawal symptoms when a medication is stopped, can develop within a few days. KNOW YOUR RESPONSIBILITIES It is important to know exactly how much and how often to take the opioid pain medications you are prescribed. Never take opioids in higher amounts or more often than prescribed. Do not combine opioids with alcohol or other drugs that cause drowsiness, such as benzodiazepines, also known as benzos, including diazepam and alprazolam, muscle relaxants or sleep aids. Never sell or share prescription opioids. This is illegal. Store opioids in a secure place and out of reach of others (including children, family, friends and visitors). The last page of this document has been signed and retained as a CHART COPY. Signatures Patient Education Materials Monitored Anesthesia Care, Care After Colonoscopy, Adult, Care After Medication Leaflets My discharge plan and instructions have been reviewed and explained to me and I,CLAUDETTE ISSA understand my current condition and have read and understand these discharge instructions. I have received a written copy of the plan/instructions. If I have questions, I am aware that I should contact my d octor. 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 Family's history: negative. Health Status Allergies: Allergic Reactions (Selected) Severity Not Documented Penicillin- Unknown., Allergies (1) ActiveReaction penicillinunknown Current medications: (Selected) Prescriptions Prescribed Pradaxa 150 mg oral capsule: 150 mg, 1 cap(s), Oral, BID, 60 cap(s), 5 Refill(s) Documented Medications Documented PriLOSEC: 20 mg, Oral, qDay, 0 Refill(s) doxazosin 4 mg oral tablet: 4 mg, 1 tab(s), Oral, BID, 30 tab(s), 0 Refill(s), No qualifying data available Problem list: Medical Abnormal glucose / SNOMED CT 994720848 / Confirmed BPH with elevated PSA / SNOMED CT 736670341 / Confirmed Stage 3 chronic kidney disease / SNOMED CT 8970139392 / Confirmed Positive colorectal cancer screening using Cologuard test / SNOMED CT 7314811116 / Confirmed CPAP (continuous positive airway pressure) at home / SNOMED CT [id number] / Confirmed Deep vein thrombosis (DVT) of right lower extremity / SNOMED CT 0899299477 / Confirmed Acid reflux / SNOMED CT 1626871824 / Confirmed Paresthesia of foot / SNOMED CT 917135726 / Confirmed Screening for diabetes mellitus / SNOMED CT 949233905 / Confirmed Screening for lipid disorders / SNOMED CT 405007366 / Confirmed Well adult exam / SNOMED CT 926396390 / Confirmed Colon cancer screening / SNOMED CT 060852612 / Confirmed Seborrheic keratoses / SNOMED CT 0018978266 / Confirmed Left shoulder pain / SNOMED CT 97038914 / Confirmed Tinnitus, left / SNOMED CT 521617363 / Confirmed, Active Problems (15) Abnormal glucose Acid reflux BPH with elevated PSA Colon cancer screening CPAP (continuous positive airway pressure) at home Deep vein thrombosis (DVT) of right lower extremity Left shoulder pain Paresthesia of foot Positive colorectal cancer screening using Cologuard test Screening for diabetes mellitus Screening for lipid disorders Seborrheic keratoses Stage 3 chronic kidney disease Tinnitus, left Well adult exam Histories Past Medical History: Active Acid reflux (6022577815) Resolved Umbilical hernia (5452806814): Resolved. Lipoma of back (192440669): Resolved. Family History: Heart disease Grandparent Procedure history: Umbilical hernioplasty ([id number]) on 02/27/2020 at 59 Years. Comments: 02/27/2020 13:57 Whitney Maloney RN with mesh Shoulder ([id number]) on 02/27/2020 at 59 Years. Comments: 02/27/2020 13:59 Whitney Maloney RN left trapezius Extracapsular cataract removal with insertion of intraocular lens prosthesis (1 stage procedure), manual or mechanical technique (eg, irrigation and aspiration or phacoemulsification); with endoscopic cyclophotocoagulation (47587). Nasal septoplasty (63440930). Colonoscopy (817307100). Esophagogastroduodenoscopy (313946863). Left patellar tendon rupture (2028738087). Biopsy of prostate (270062534). 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 Physical Examination Vital Signs(last 24 hrs) Last Charted BMI29.41 (AUG 20 08:02) Measurements from flowsheet : Measurements 08/21/2023 8:02 EDT Height 188.5 cm Admission Weight 104.5 kg Weight Method Stated [place] Body Weight 82.69 kg BSA Admission 2.31 Body Mass Index 29.41 kg/m2 General: Alert and oriented. Airway: Normal temporomandibular joint mobility. Mallampati classification: II (soft palate, fauces, uvula visible). Dentition Evaluation: Denies loose/chipped teeth. Respiratory: Lungs are clear to auscultation, Respirations are non-labored. Cardiovascular: Normal rate, Regular rhythm. Neurologic: Alert, Oriented. Review / Management Results review: No qualifying data available , Lab results 08/21/2023 8:06 EDT Urinary Elimination Voiding, no difficulties IV Present Present Allergies Yes Anesthesia Extension Set Applied Yes Systems Checkout Mechanic On Yes Colon Prep Results Good Consent Form Signed Yes Patient Dressed In Hospital gown, No undergarments History & Physical On Chart Yes Bowel Prep Completed Yes Belongings At Bedside Cell phone, Pants, Shirt, Shoes, Socks, Undergarments, Wallet NPO Status Maintained, Less than 8 hours Allergy Band on and Verified Yes Patient ID Band on and Verified Yes Implants Verified Yes Pacemaker/AICD Verified Yes Site Verified by Patient/Family Yes Blood Consent Signed No Last Fluid Intake 08/21/2023 5:30 Last Food Intake 08/20/2023 13:00 Last Void 08/21/2023 6:00 08/21/2023 8:02 EDT Designated Person #1 We May Share PENNIE Issa [phone] Designated Person #1 Relationship Spouse Privacy Restrictions Requested None Height 188.5 cm Admission Weight 104.5 kg Weight Method Stated [place] Body Weight 82.69 kg BSA Admission 2.31 Body Mass Index 29.41 kg/m2 Status N/A Sensory Deficits None Infectious Disease Symptoms Patient states no symptoms Infectious Disease Recent Exposure No Alcohol and Drug Use No Employee of Institutional Living No Health Care Employee No History of Exposure to TB No History of Positive Chest X-Ray for TB No History of Positive TB Skin Test No Homeless No Known Immunosuppression No Recent Immigrant No Resident of Institutional Living No Bloody Sputum No Fatigue No Fever No Loss of Appetite No Night Sweats No Persistent Cough > 3 Weeks No Weight Loss No Barriers to Learning None evident Teaching Method Explanation, Printed materials Preferred Spoken Language Samoan Preferred Written Language Samoan Information Given by Patient Patient's Current Physicians Patient's Current Physicians Discharge To, Anticipated Home independently Prev Test Positive/Diagnosis w/COVID-19 No Current Quarantine/Isolated any Illness No Any Contact with Sick Animals/Birds No Traveled Anywhere in Last 30 Days Yes Travel Where Within [facility] State(s) [place] N/A Personal Devices, Patient Valuables Glasses Admission Note-Nursing Procedure/Therapy Intake 08/21/2023 7:53 EDT SN - Proc - Anesthesia Type MAC SN - Proc - EBL 0 mL SN - Proc - Actual Procedure COLONOSCOPY 08/21/2023 7:52 EDT SN - PP - Body Position Lateral Right Side-up Standard Intra-op 08/21/2023 7:52 EDT SN - GCD - Post-operative Diagnosis POSITIVE COLOGUARD SN - GCD - Case Level OPD Level 3 08/21/2023 7:51 EDT SN - CAt - Case Attendee SN - CAt - Case Attendee SN - CAt - Case Attendee SN - CAt - Case Attendee SN - CAt - Case Attendee SN - CAt - Case Attendee SN - CAt - Role Performed Director Hardware 1 SN - CAt - Role Performed Automotive Design Drafter SN - CAt - Role Performed BENCH REPAIR TECHNICIAN 08/21/2023 7:51 EDT SN - CAt - Case Attendee SN - CAt - Case Attendee SN - CAt - Role Performed Primary Surgeon . Assessment and Plan [place] [employer] (ASA) physical status classification: Class III. Anesthetic Preoperative Plan Anesthetic technique: MAC. Postoperative pain management: Per surgeon. Risks discussed: nausea, vomiting, hypotension, allergic reaction, serious complications. Informed consent: signed by patient. Digitally Signed by CARLITOS QURESHI on 08/21/2023 08:17 AM [facility]01-22-2024 Hospital Discharge instructions Patient Education 06/26/2023 18:37:22 Deep Vein Thrombosis (DVT) Deep Vein Thrombosis (DVT) Deep vein thrombosis (DVT) occurs when a blood clot (thrombus) forms in a deep vein. This happens most often in the leg. It can also happen in the arms or other parts of the body. A part of the clot called an embolus can break off and travel to the lungs. When this happens, it s called a pulmonary embolism (PE). PE is a medical emergency. It can cut off blood flow and lead to . Both DVT and PE are closely related. Together, they are often referred to by the term venous thromboembolism (VTE). Risk factors for DVT Anything that slows blood flow, injures the lining of a vein, or increases blood clotting can make you more prone to having DVT. This includes the following: Long periods without movement (such as when sitting for many hours at a time or when recovering from major surgery or illness) Estrogen (female hormone) therapy, such as hormone replacement therapy (HRT) or control pills Fractured hip or leg Major surgery or joint replacement Major trauma or spinal cord injury Cancer Family history Excess weight or obesity Smoking Older age Symptoms DVT does not always cause symptoms. When symptoms do occur, they may appear around the site of the DVT, such as in the leg. Possible symptoms include: Swelling Pain Warmth Redness Tenderness Home care You were likely prescribed blood thinners (anticoagulants). They may be given as pills (oral) or shots (injections). Follow all instructions when using these medicines. Note: Don't take blood thinners with other medicines, herbal remedies, or supplements without talking to your provider first. Certain medicines or products can affect how blood thinners work. Follow your provider s instructions about activity and rest. If support or compression stockings are prescribed, wear them as directed. These may help improve blood flow in the legs. When sitting or lying down, move your ankles, toes and knees often. This may also help improve blood flow in the legs. Follow-up care Follow up with your healthcare provider, or as advised. If imaging tests were done, they may need further review by a doctor. You will be told of any new findings that may affect your care. When to seek medical advice Call your healthcare provider right away if any of these occur: New or increased swelling, pain, tenderness, warmth, or redness, in the leg, arm, or other area Blood in the urine Bleeding with bowel movements Call 911 Call 911 if any of these occur: Bleeding from the nose, gums, a cut, or vagina Heavy or uncontrolled bleeding Trouble breathing Chest pain or discomfort that worsens with deep breathing or coughing Coughing (may cough up blood) Fast heartbeat Sweating Anxiety Lightheadedness, dizziness, or fainting [id number] [employer]. [address] [place] [address]. All rights reserved. This information is not intended as a substitute for professional medical care. Always follow yourhealthcare professional's instructions. 06/26/2023 18:37:21 Putting on Compression Stockings Putting on Compression Stockings Elastic compression stockings are prescribed to treat many vein problems. Wearing them may be the most important thing you do to manage your symptoms. The stockings fit tightly around your ankle, gradually reducing in pressure as they go up your legs. This helps keep blood flowing to your heart. Asa result, swelling is reduced. Your healthcare provider will prescribe stockings at a safe pressurefor you. He or she will also tell you how often to wear and remove the stockings. Follow these instructions closely. Also, do not buy or wear compression stockings without first seeing your healthcare provider. Tips for wear and care To wear stockings safely and to get the most benefit: Wear the length prescribed by your healthcare provider. Pull them to the designated height and no farther. Don t let them bunch at the top. This can restrict blood flow and increase swelling. Wear the stockings for the amount of time your healthcare provider recommends. Replace them when they start to feel loose. This will likely be every 3 to 6 months. Remove them as your healthcare provider directs. When removed, wash your legs. Then check your legsand feet for sores. Call your healthcare provider if you find a sore. Don t put the stockings back on unless your healthcare provider directs. Wash the stockings as instructed. They may need to be hand-washed. [phone] [employer]. [address] [place] [address]. All rights reserved. This information is not intended as a substitute for professional medical care. Always follow yourhealthcare professional's instructions. 06/26/2023 18:37:10 R.I.C.E. RICE RICE stands for rest, ice, compression, and elevation. Doing these things helps limit pain and swelling after an injury. RICE also helps injuries heal faster. Use RICE for sprains, strains, and severe bruises or bumps. Follow the tips on this handout and begin RICE as soon as possible after an injury. Rest Pain is your body s way of telling you to rest an injured area. Whether you have hurt an elbow, hand, foot, or knee, limiting its use will prevent further injury and help you heal. Ice Applying ice right after an injury helps prevent swelling and reduce pain. Don t place ice directlyon your skin. Wrap a cold pack or bag of ice in a thin cloth. Place it over the injured area. Ice for 10 minutes every 3 hours. Don t ice for more than 20 minutes at a time. Compression Putting pressure (compression) on an injury helps prevent swelling and provides support. Wrap the injured area firmly with an elastic bandage. If your hand or foot tingles, becomes discolored, or feels cold to the touch, the bandage may be too tight. Rewrap it more loosely. If your bandage becomes too loose, rewrap it. Do not wear an elastic bandage overnight. Elevation Keeping an injury elevated helps reduce swelling, pain, and throbbing. Elevation is most effective when the injury is kept elevated higher than the heart. Call your healthcare provider if you notice any of the following: Fingers or toes feel numb, are cold to the touch, or change color. Skin looks shiny or tight. Pain, swelling, or bruising worsens and is not improved with elevation. [phone] [employer]. [address] [place] [address]. All rights reserved. This information is not intended as a substitute for professional medical care. Always follow yourhealthcare professional's instructions. 06/26/2023 18:37:08 Muscle Strain, Extremity Muscle Strain in the Extremities A muscle strain is a stretching and tearing of muscle fibers. This causes pain, especially when youmove that muscle. There may also be some swelling and bruising. Home care Keep the hurt area raised above heart level to reduce pain and swelling. This is especially important during the first 48 hours. Apply an ice pack over the injured area for 15 to 20 minutes every 3 to 6 hours. You should do thisfor the first 24 to 48 hours. You can make an ice pack by filling a plastic bag that seals at the top with ice cubes and then wrapping it with a thin towel. Be careful not to injure your skin with the ice treatments. Ice should never be applied directly to skin. Continue the use of ice packs for relief of pain and swelling as needed. After 48 hours, apply heat (warm shower or warm bath) for 15 to20 minutes several times a day, or alternate ice and heat. You may use aghy-wko-lxahcqq pain medicine to control pain, unless another medicine was prescribed.If you have chronic liver or kidney disease or ever had a stomach ulcer or gastrointestinal bleeding, talk with your healthcare provider before using these medicines. For leg strains: If crutches have been recommended, don t put full weight on the hurt leg until youcan do so without pain. You can return to sports when you are able to hop and run on the injured leg without pain. Follow-up care Follow up with your healthcare provider, or as advised. When to seek medical advice Call your healthcare provider right away if any of these occur: The toes of the injured leg become swollen, cold, blue, numb, or tingly Pain or swelling increases [phone] [employer]. [address] [place] [address]. All rights reserved. This information is not intended as a substitute for professional medical care. Always follow yourhealthcare professional's instructions. Follow Up Care 06/26/2023 18:27:04 With:Outpatient mireya tomorrow Address: When: Unknown [facility] 01-22-2024 Emergency department Discharge summary Discharge Instructions Thank you for allowing [facility] to assist you with your healthcare needs. The following is importantdischarge information regarding your hospital visit. Diagnosis from Today's Visit Calf pain Leg pain-swelling What to Do Next Instructions from Your Care Team Discharge ED Outpatient Vascular Lab - Ordered -- Test Requested: R LE doppler, Lower extremity, Right, Test Reason: Pain, Mon- Fri 8am-4:30pm: Call [phone] at 7:30am to schedule a same day appointment for testing. Please be aware there may be a short wait time. Post Acute Orders No qualifying data available. You Need to Schedule the Following Appointments Follow Up with Outpatient mireya tomorrow When Where: Allergies penicillin Medications Please ask your primary doctor or pharmacist before taking any other medication not listed, including over the counter drugs, herbal medications, vitamins and or supplements as they may interact withyour home medications. What How Much When Instructions Last Dose Unchanged doxazosin (doxazosin 4 mg oral tablet) 1 tab(s) by mouth Every day Unchanged omeprazole (PriLOSEC) by mouth Once a day Please take this list to your next doctor s visit. Bring all medications you take, including over the counter medications, herbals and other supplements with you to your doctor s visit. Patients and families are reminded to discard old lists and to update any records with all medication providers or retail pharmacies. Education Materials Deep Vein Thrombosis (DVT) Deep vein thrombosis (DVT) occurs when a blood clot (thrombus) forms in a deep vein. This happens most often in the leg. It can also happen in the arms or other parts of the body. A part of the clot called an embolus can break off and travel to the lungs. When this happens, it s called a pulmonary embolism (PE). PE is a medical emergency. It can cut off blood flow and lead to . Both DVT and PE are closely related. Together, they are often referred to by the term venous thromboembolism (VTE). Risk factors for DVT Anything that slows blood flow, injures the lining of a vein, or increases blood clotting can make you more prone to having DVT. This includes the following: Long periods without movement (such as when sitting for many hours at a time or when recovering from major surgery or illness) Estrogen (female hormone) therapy, such as hormone replacement therapy (HRT) or control pills Fractured hip or leg Major surgery or joint replacement Major trauma or spinal cord injury Cancer Family history Excess weight or obesity Smoking Older age Symptoms DVT does not always cause symptoms. When symptoms do occur, they may appear around the site of the DVT, such as in the leg. Possible symptoms include: Swelling Pain Warmth Redness Tenderness Home care You were likely prescribed blood thinners (anticoagulants). They may be given as pills (oral) or shots (injections). Follow all instructions when using these medicines. Note: Don't take blood thinners with other medicines, herbal remedies, or supplements without talking to your provider first. Certain medicines or products can affect how blood thinners work. Follow your provider s instructions about activity and rest. If support or compression stockings are prescribed, wear them as directed. These may help improve blood flow in the legs. When sitting or lying down, move your ankles, toes and knees often. This may also help improve blood flow in the legs. Follow-up care Follow up with your healthcare provider, or as advised. If imaging tests were done, they may need further review by a doctor. You will be told of any new findings that may affect your care. When to seek medical advice Call your healthcare provider right away if any of these occur: New or increased swelling, pain, tenderness, warmth, or redness, in the leg, arm, or other area Blood in the urine Bleeding with bowel movements Call 911 Call 911 if any of these occur: Bleeding from the nose, gums, a cut, or vagina Heavy or uncontrolled bleeding Trouble breathing Chest pain or discomfort that worsens with deep breathing or coughing Coughing (may cough up blood) Fast heartbeat Sweating Anxiety Lightheadedness, dizziness, or fainting [employer]. [address] [place] [address]. All rights reserved. This information is not intended as a substitute for professional medical care. Always follow yourhealthcare professional's instructions. Putting on Compression Stockings Elastic compression stockings are prescribed to treat many vein problems. Wearing them may be the most important thing you do to manage your symptoms. The stockings fit tightly around your ankle, gradually reducing in pressure as they go up your legs. This helps keep blood flowing to your heart. Asa result, swelling is reduced. Your healthcare provider will prescribe stockings at a safe pressurefor you. He or she will also tell you how often to wear and remove the stockings. Follow these instructions closely. Also, do not buy or wear compression stockings without first seeing your healthcare provider. Tips for wear and care To wear stockings safely and to get the most benefit: Wear the length prescribed by your healthcare provider. Pull them to the designated height and no farther. Don t let them bunch at the top. This can restrict blood flow and increase swelling. Wear the stockings for the amount of time your healthcare provider recommends. Replace them when they start to feel loose. This will likely be every 3 to 6 months. Remove them as your healthcare provider directs. When removed, wash your legs. Then check your legsand feet for sores. Call your healthcare provider if you find a sore. Don t put the stockings back on unless your healthcare provider directs. Wash the stockings as instructed. They may need to be hand-washed. [employer]. [address] [place] [address]. All rights reserved. This information is not intended as a substitute for professional medical care. Always follow yourhealthcare professional's instructions. RICE RICE stands for rest, ice, compression, and elevation. Doing these things helps limit pain and swelling after an injury. RICE also helps injuries heal faster. Use RICE for sprains, strains, and severe bruises or bumps. Follow the tips on this handout and begin RICE as soon as possible after an injury. Rest Pain is your body s way of telling you to rest an injured area. Whether you have hurt an elbow, hand, foot, or knee, limiting its use will prevent further injury and help you heal. Ice Applying ice right after an injury helps prevent swelling and reduce pain. Don t place ice directlyon your skin. Wrap a cold pack or bag of ice in a thin cloth. Place it over the injured area. Ice for 10 minutes every 3 hours. Don t ice for more than 20 minutes at a time. Compression Putting pressure (compression) on an injury helps prevent swelling and provides support. Wrap the injured area firmly with an elastic bandage. If your hand or foot tingles, becomes discolored, or feels cold to the touch, the bandage may be too tight. Rewrap it more loosely. If your bandage becomes too loose, rewrap it. Do not wear an elastic bandage overnight. Elevation Keeping an injury elevated helps reduce swelling, pain, and throbbing. Elevation is most effective when the injury is kept elevated higher than the heart. Call your healthcare provider if you notice any of the following: Fingers or toes feel numb, are cold to the touch, or change color. Skin looks shiny or tight. Pain, swelling, or bruising worsens and is not improved with elevation. [id number] [employer]. [address] [place] [address]. All rights reserved. This information is not intended as a substitute for professional medical care. Always follow yourhealthcare professional's instructions. Muscle Strain in the Extremities A muscle strain is a stretching and tearing of muscle fibers. This causes pain, especially when youmove that muscle. There may also be some swelling and bruising. Home care Keep the hurt area raised above heart level to reduce pain and swelling. This is especially important during the first 48 hours. Apply an ice pack over the injured area for 15 to 20 minutes every 3 to 6 hours. You should do thisfor the first 24 to 48 hours. You can make an ice pack by filling a plastic bag that seals at the top with ice cubes and then wrapping it with a thin towel. Be careful not to injure your skin with the ice treatments. Ice should never be applied directly to skin. Continue the use of ice packs for relief of pain and swelling as needed. After 48 hours, apply heat (warm shower or warm bath) for 15 to20 minutes several times a day, or alternate ice and heat. You may use sfge-cef-nybeyko pain medicine to control pain, unless another medicine was prescribed.If you have chronic liver or kidney disease or ever had a stomach ulcer or gastrointestinal bleeding, talk with your healthcare provider before using these medicines. For leg strains: If crutches have been recommended, don t put full weight on the hurt leg until youcan do so without pain. You can return to sports when you are able to hop and run on the injured leg without pain. Follow-up care Follow up with your healthcare provider, or as advised. When to seek medical advice Call your healthcare provider right away if any of these occur: The toes of the injured leg become swollen, cold, blue, numb, or tingly Pain or swelling increases [id number] [employer]. [address] [place] [address], [place] [address]. All rights reserved. This information is not intended as a substitute for professional medical care. Always follow yourhealthcare professional's instructions. Additional Information VACCINATE! IT SAVES LIVES! Members of the community who have not yet received the COVID-19 vaccine and would like to receive it can visit one of [facility] vaccine clinics. There are many vaccine clinic locations within the [facility]. For locations and available times, please visit www.gettheshot.coronavirus.[place].gov/. It is important to note that some COVID mobile vaccine clinics are held outdoors and may be canceled in rainy or stormy conditions. To learn more about pediatric vaccinations (ages 5-11), we invite you to visit the [facility] webpage. https://[email or web address]/[email or web address]-[email or web address]-Dfuym-[email or web address] stions.htmlTo learn more about the COVID-19 vaccine, we invite you to visit the CDC website for a list of frequently asked questions. https://www.cdc.gov/coronavirus/2019-ncov/vaccines/faq.html [facility] Patient Portal Access Instructions: Stay connected with your healthcare team and access your personal medical information anytime with the [facility] Patient Portal. If you would like a full copy of your medical records please contact the [facility] Medical Records Department Monday through Monday between 8a.m. and 4:30p.m. Please follow the directions below to access the portal: 1.Access the email account you provided upon registration to the [facility].2.Look for an invitation email from [facility].3.Open the email and access the invitation link: Accept Invitation to [facility]4.Fill in the required borges to create your account. Sign into [email or web address] with your username and password that you created in the above steps to stay up to date. You can then view a summary of results, a summary of your visits, and the ability to download your summaries to your computer or send the information securely to a physician. Remember that your healthcare information is confidential, so carefully consider who you will allow to register on the [facility] Patient Portal for access to your information. You can also access the [facility] Patient Portal on the [facility]. Simply click on Health Records under [employer] and then click on the Par[employer] logo. HOW TO SAFELY DISPOSE OF PRESCRIPTION MEDICATIONS Please use one of the following methods to safely dispose of your unused medications. 1.Use a drug disposal kit: the drug disposal pouch allows you to safely discard your old and unuseddrugs. Ask your nurse to give you one when you are discharged.2.Visit a local take-back location: Many local pharmacies and police departments have programs that collect old and unwanted prescriptiondrugs. Call your local pharmacy or go to http://bit.SpectralCast/4N4Qm0r to find one close to you.3.Make use of household items: Use cat litter or old coffee grounds to dispose medications if other options arenot available. Mix your drugs with these household products, seal them in an airtight container andthrow it into the garbage. Call [facility]: [phone] to be sure your drugs can be disposed of in this way. Some medicines may require a different approach.4.Never flush your medications down the toilet. IF YOU HAVE BEEN PRESCRIBED AN OPIOIDS FOR PAIN If you have been prescribed an opioid (such as hydrocodone, oxycodone or morphine), it is critical to understand the possible side effects and risks of opioid pain medications. Even when taken as directed, opioids can have several side effects including: Tolerance, meaning you might need to take more of a medication for the same pain relief. Nausea, vomiting and/or constipation. Sleepiness, dizziness, dry mouth, confusion, depression or itching. Physical dependence, meaning you have withdrawal symptoms when a medication is stopped ? this can develop within a few days. KNOW YOUR RESPONSIBILITIES It is important to know exactly how much and how often to take the opioid pain medications you are prescribed. Never take opioids in higher amounts or more often than prescribed. Do not combine opioids with alcohol or other drugs that cause drowsiness, such as benzodiazepines, also known as benzos,including diazepam and alprazolam, muscle relaxants or sleep aids. Never sell or share prescriptionopioids. This is illegal. Store opioids in a secure place and out of reach of others (including children, family, friends and visitors). The last page(s) of this document has been signed and retained as a CHART COPY Signatures Patient Education Materials Deep Vein Thrombosis (DVT) Putting on Compression Stockings R.I.C.E. Muscle Strain, Extremity Medication Leaflets My discharge plan and instructions have been reviewed and explained to me and I,CLAUDETTE ISSA understand my current condition and have read and understand these discharge instructions. I have received a written copy of the plan/instructions. If I have questions, I am aware that I should contact my d octor. 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: Relationship to Patient: Witness Name/Signature: [facility] Future App[facility]ments Appointment Date:09/09/2022 11:00:00 AM Scheduled Provider:TON MATA DO Location:[facility] Appointment Type: Wellness [facility] Scheduled Tests Laboratory* A1C Hemoglobin 09/03/21 [facility] Evaluation + Plan note Future Appointments Appointment Date:09/09/2022 11:00:00 AM Scheduled Provider:TON MATA DO Location:[facility] Appointment Type:PC Wellness [facility] Evaluation + Plan note Future Appointments Appointment Date:08/16/2022 03:45:00 PM Scheduled Provider: Location:[facility] Appointment Type:PC Nurse Injection Appointment Date:09/08/2022 11:00:00 AM Scheduled Provider:TON MATA DO Location:[facility] Appointment Type:[facility] Evaluation + Plan note Future Appointments Appointment Date:09/08/2022 11:30:00 AM Scheduled Provider:TON MATA DO Location:[facility] Appointment Type:[facility] Evaluation + Plan note Future Appointments Appointment Date:08/07/2023 10:00:00 AM Scheduled Provider: Location:[facility] Appointment Type:VL - Venous US/Doppler One Leg (for DVT) Appointment Date:09/18/2023 11:30:00 AM Scheduled Provider:TON MATA DO Location:[facility] Appointment Type:PC OV Follow Up [facility] Evaluation + Plan note Future Appointments Appointment Date:09/18/2023 11:30:00 AM Scheduled Provider:TON MATA DO Location:[facility] Appointment Type:PC OV Follow Up [facility] Evaluation + Plan note Future Appointments Appointment Date:03/18/2024 11:30:00 AM Scheduled Provider:TON MATA DO Location:[facility] Appointment Type:PC OV [facility] evaluation + Plan note Future Appointments Appointment Date:04/15/2024 07:00:00 AM Scheduled Provider: Location:[facility] Appointment Type:CV Procedure - Heart Lab/Hybrid OR Appointment Date:04/24/2024 08:30:00 AM Scheduled Provider:TON MATA DO Location:[facility] Appointment Type:PC OV Appointment Date:05/10/2024 08:30:00 AM Scheduled Provider:MAYE SORENSON Location:[facility] Appointment Type:CV OV Future Scheduled Tests Laboratory* Basic Metabolic Panel 04/05/24 * Prostate Specific Antigen 03/18/24 * A1C Hemoglobin 03/18/24 * Complete Blood Count 04/05/24 * Complete Blood Count 03/18/24 * Lipid Profile 03/18/24 * Complete Metabolic Panel 03/18/24 [facility] evaluation + Plan note Future Appointments Appointment Date:04/15/2024 07:00:00 AM Scheduled Provider: Location:[facility] Lab Appointment Type:CV Procedure - Heart Lab/Hybrid OR Appointment Date:04/24/2024 08:30:00 AM Scheduled Provider:TON MATA DO Location:[facility] Appointment Type:PC OV Appointment Date:05/10/2024 08:30:00 AM Scheduled Provider:MAYE SORENSON Location:[facility] Appointment Type:CV OV Future Scheduled Tests Laboratory* Basic Metabolic Panel 04/05/24 * Complete Blood Count 04/05/24 [facility] Evaluation + Plan note Future Appointments Appointment Date:04/24/2024 08:30:00 AM Scheduled Provider:TON MATA DO Location:[facility] Appointment Type:PC OV Appointment Date:05/10/2024 08:30:00 AM Scheduled Provider:MAYE SORENSON Location:[facility] Appointment Type:CV OV Future Scheduled Tests Laboratory* Basic Metabolic Panel 04/05/24 * Complete Blood Count 04/05/24 [facility] Evaluation + Plan note Future Appointments Appointment Date:10/23/2024 08:30:00 AM Scheduled Provider:TON MATA DO Location:[facility] Appointment Type:PC OV Follow Up Future Scheduled Tests Laboratory* Basic Metabolic Panel 04/05/24 * Complete Blood Count 04/05/24 [facility] Evaluation noteNo assessment information available [facility] Work Phone: Hospital course Narrative No data available for this section [facility] Hospital Discharge instructions No data available for this section [facility] Progress note No data available for this section [facility] Summary Purpose Family History No Family History Records FoundNo Family History Records FoundNo Family History Records Found No data available for this section No data available for this section No data available for this section No data available for this section No data available for this section No Family History Records Found No data available for this section No data available for this section No data available for this section No data available for this section No Family History Records Found No data available for this section No data available for this section No Family History Records FoundNo Family History Records Found Advance Directives No Advanced Directives Records FoundNo Advanced Directives Records FoundNo Advanced Directives Records FoundNo Advanced Directives Records FoundNo Advanced Directives Records FoundNo Advanced Directives Records FoundNo Advanced Directives Records Found Chief Complaint and Reason for Visit Chief Complaint ELEVATED PSA Additional Source Comments (unrecognized sect ion and content) No Status Records FoundNo Status Records FoundNo Status Records FoundNo Status Records FoundNo Status Records FoundNo Status Records FoundNo Status Records Found INFORMATION SOURCE (unrecogn ized section and content) DATE CREATED AUTHOR 11/29/2017 [facility] [employer] [facility] DATE CREATED AUTHOR AUTHOR'S ORGANIZ ATION 03/25/2021 [facility] DATE CREATED AUTHOR AUTHOR'S ORGANIZ ATION 09/29/2022 [facility] DATE CREATED AUTHOR AUTHOR'S ORGANIZ ATION 11/26/2023 [facility] ([place]) DATE CREATED AUTHOR AUTHOR'S ORGANIZ ATION 04/21/2024 [facility] DATE CREATED AUTHOR AUTHOR'S ORGANIZ ATION 10/30/2024 [facility] DATE CREATED AUTHOR AUTHOR'S ORGANIZ ATION 04/13/2025 [facility] Care Team (unrecognized sect ion and content) Team Status: Active Member Role Status Dates Dr. Ton Mata DO Family Provider Active Dr. Ton Mata DO Primary Care Provider Active Team Status: Inactive Member Role Status Dates Dr. Ton Mata DO Primary Care Provider Active Dr. Arthur Reyes MD Attending Provider, Referr ing Provider Active Team Status: Active Member Role Status Dates Dr. Ton Mata DO Primary Care Provider Active Dr. Arthur Reyes MD Attending Provider, Referr ing Provider Active Care Team (unrecognized sect ion and content) Care Team Personnel Name: TON MATA DO Position: P4 Physician - Primary Care Member Role: Primary Care Physician Address: Address: [address] [place] [id number] [place] [address] Care Team Related Persons Name: TRAM ISSA Address: Home [address] [place] [address] [phone] Goals (unrecognized section and content) Goals may be documented in a n alternate section FOR RECORDS PERTAINING TO PATIENTS WHO ARE OR HAVE BEEN ENROLLED IN A CHEMICAL DEPENDENCY/SUBSTANCEABUSE PROGRAM, SOME INFORMATION MAY BE OMITTED. This clinical summary was aggregated from multiple sources. Caution should be exercised in using it in the provision of clinical care. This summary normalizes information from multiple sources, and as a consequence, information in this document may materially change the coding, format and clinical context of patient data. In addition, data may be omitted in some cases. CLINICAL DECISIONS SHOULD BE BASED ON THE PRIMARY CLINICAL RECORDS. [employer] provides no warranty or guarantee of the accuracy or completeness of information in this document.
[2025-04-30] MEDS: Lactated Ringers 1,000 ML 15 ML IV (08:41)
--- NOTE | 2025-04-30 08:55 | PCM.PRE.AN2 ---
ASA Classification* ASA Classification ASA Classification: 3 (CAD, HEATHER, GERD, CKD2) Assessment & Plan Anesthesia* Anesthesia Assessment Anesthesia Assessment: Discussed sedation and/or anesthesia options, risks, benefits, and alternatives with patient/parents/legal guardian/POA. Questions invited. The patient/parents/legal guardian/POA seems to understand and agrees to proceed with anesthesia plan. Reviewed the physical assessment, medical history, allergy history and patient home medications list prior to surgery/procedure/anesthetic and documented any changes. Performed airway and anesthesia risk assessments. 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 When Was Last Pacemaker Check QUESTION #4 FULL TEXT: You/Your Family Experience fever (hyperthermia) with Anesthesia Last Oral Intake Last Oral intake: Last Oral Intake NPO since 19:00 04/30/25 08:26 Meds taken in AM with sips of Yes 04/30/25 08:26 water? Meds patient instructed to see med list 04/30/25 08:26 take am of surgery PONV PONV - tool and die repairer: PONV - tool and die repairer Female No 04/28/25 15:40 HX of Motion Sickness No 04/28/25 15:40 HX of N/V After Surgery No 04/28/25 15:40 Non-Smoker Yes 04/28/25 15:40 Duration of Surgery greater Yes 04/28/25 15:40 than 60 minutes Number of Risk Factors 2 04/28/25 15:40 PONV Score Moderate Risk 04/28/25 15:40 Height & Weight Height & Weight: Anesthesia: Height & Weight Height 6 ft 3 in 04/30/25 08:26 Weight: 107 kg 04/30/25 08:26 Body Mass Index (BMI) 29.5 04/30/25 08:26 Respiratory Assessment Respiratory Assessment - tool and die repairer: Respiratory Tract Infection Hx - tool and die repairer Hx Respiratory Tract Infection No 04/28/25 15:40 STOP Sleep Apnea STOP Sleep Apnea - tool and die repairer: STOP Sleep Apnea - tool and die repairer Hx Hypertension Yes: ON MEDS 04/28/25 15:40 Hx Sleep Apnea Yes 04/28/25 15:40 CPAP Yes 04/28/25 15:40 BIPAP No 04/28/25 15:40 Do you snore loudly (louder than talking or can be heard Do you often feel tired/ fatigued/ sleepy during daytime? Has anyone observed you stop breathing during sleep? STOP Results Positive 04/28/25 15:40 QUESTION #5 FULL TEXT : Do you snore loudly (louder than talking or can be heard through closed doors)? 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 and die repairer: Tobacco Use History - tool and die repairer Tobacco Use Smoking Status Never smoker 04/28/25 15:40 Hx Tobacco Use No 04/28/25 15:40 Years Smoking Packs Smoked per Day Smoking Cessation Date was within the last 15 years Hx Smoking Cessation Date Hx Smoking Cessation Counseling Hematologic Medial History Hematologic Hx - tool and die repairer: Hematologic Medical Hx - operations specialists Hx of Blood Transfusion No 04/28/25 15:40 Hx of Transfusion in last 3 No 04/28/25 15:40 Months Date of Last Transfusion (if within last 3 months) Ever experience any problems No 04/28/25 15:40 with transfusion(s)? Specify any problems Hx of Preganancy in last 3 N/A 04/28/25 15:40 Months Nurse Filling Out Transfusion JZOLLINGE 04/28/25 15:40 & Questions: Date: 04/28/25 04/28/25 15:40 Time: 15:44 04/28/25 15:40 Patient unable to answer at this time (ie. confused, unrespo /Reproduction History /Reproductive History - tool and die repairer: /Reproductive Hx- tool and die repairer Hx Now No 04/28/25 15:40 Gestational Age (in weeks): EDC: Hx Hx Para Hx Section SAB No 04/28/25 15:40 Does the father of the baby or his family experience fever w Father of the baby Malignant Hypertension history comment Active Medications Active Medications: Current Medications Generic Name Dose Route Start Last Admin Trade Name Bernarda PRN Reason Stop Dose Admin Lactated Ringer's 1,000 mls @ 15 mls/hr 04/30/25 08:15 04/30/25 08:41 IV 15 mls/hr .Q48H MICHAEL Administration PFSH Medical History (Updated 04/28/25 @ 15:40 by Laura Remy) History of deviated nasal septum Hx of cataract Wears glasses Prostate disease High cholesterol Gastric reflux Heartburn History of hiatal hernia Non-smoker CPAP (continuous positive airway pressure) dependence Sleep apnea History of stress test Cardiology follow-up encounter Home Medications ?Medication ?Instructions ?Recorded ?Last Taken ?Type doxazosin 4 mg tablet 4 mg PO BID 09/28/22 04/30/25 05:00 History omeprazole magnesium 20 mg 20 mg PO DAILY 09/28/22 04/30/25 05:00 History tablet,delayed release (Prilosec OTC) aspirin 81 mg capsule 81 mg PO DAILY blood thinner 04/28/25 04/24/25 History atorvastatin 10 mg tablet (Lipitor) 20 mg PO DAILY cholesterol 04/28/25 04/29/25 History finasteride 5 mg tablet (Proscar) 5 mg PO DAILY prostate 04/28/25 04/30/25 05:00 History metoprolol succinate 25 mg capsule 12.5 mg PO DAILY bp 04/28/25 04/29/25 17:00 History sprinkle, ext. release 24 hr Allergy/AdvReac Type Severity Reaction Status Date / Time Penicillins Allergy PT UNSURE Verified 04/30/25 08:24 OF REACTION Surgical History (Updated 04/28/25 @ 15:40 by Laura Remy) Hx of inguinal hernia repair Hx of knee surgery Hx of colonoscopy with polypectomy Social History (Updated 09/28/22 @ 14:43 by Shakira Baker) Smoking Status: Never smoker alcohol intake: current substance use type: does not use Review of Systems (Anesthesia) ROS Narrative System reviewed and no additional complaints, except as documented. Physical Exam Const alert, oriented x3 and average body habitus Resp normal respiratory effort, normal air movement and clear to auscultation bilaterally Cardio regular rate, regular rhythm and no murmurs; Negative for diaphoretic
--- NOTE | 2025-04-30 10:15 | PROS_PTH ---
PATIENT: CLAUDETTE ISSA LOC: MS3 U#:[id number] AGE/SX: 64/M ROOM: MS311 RE04/30/[address]: Dr. Arthur Hallman MD : 1960 BED: 1 DIS: 05/01/2025 SPEC #: [id number] RECD: 04/30/25 14:00 STATUS: BILLY GARRETT #: [id number] LEN: 04/30/25 10:[address]: Arthur Hallman DEPT: SURGICAL PATHOLOGY RECD BY: David Wagner ENTERED: 04/30/25 14:50 SP TYPE: TURP OTHR DR: Dr. Alonso Duke, DO Tissues: A - Prostate, NOS Procedures: Surgery Specimen Level IV HEADER OPERATION: Cysto, transurethral resection prostate PRE-OP DIAGNOSIS: Benign prostatic hyperplasia TISSUE SUBMITTED: A- Prostate tissue MICROSCOPIC DIAGNOSIS A. Prostate, transurethral resection: - Atypical squamous mucosa and atypical urothelium with acute inflammation - see note. - Unremarkable fibrous stroma. Note: Most of the epithelium is severely distorted with cautery artifact. MICROSCOPIC DESCRIPTION Slides are reviewed. GROSS DESCRIPTION A. Received in formalin labeled with the patient's name and date of . Designated as prostate tissue <1 g, 2.8 x 1.3 x 0.2 cm aggregate of guerra to dark brown cauterized tissue fragments and clotted blood. Entirely submitted in 1 cassette. MD 04/30/2025 CPT:54124
[2025-04-30] MEDS: Cefazolin 1 GM/5 ML Vial 2 GM IV (10:49)
[2025-04-30] MEDS: Lidocaine 1% (5 ml sdv) 5 ML Vial 10 ML IV (10:53)
[2025-04-30] MEDS: fentaNYL 100 MCG/2 ML Ampul IV (11:15)
--- NOTE | 2025-04-30 11:56 | DCINST_ITS ---
Discharge Instructions DC O2, CPAP, BIPAP needs Home O2 Discharge instructions: No Dressing / Incision Discharge Activity: Return to Normal Activity and May Not Drive (while taking narcotic pain medications.) Dressing / Incision Call your doctor if you observe: Fever of 101 or Higher Follow Up Care Please Follow Up With: Arthur Hallman MD When: Call [phone] for an appointment Test Results: Test results from this visit will be discussed in further detail at your follow- up appointment, if applicable. Discharge Plan Admission Primary Reason for Your Visit: turp Attending Provider: Arthur Hallman Primary Care Provider: Alonso Duke Instructions Print Language: Gambian Discharge Orders/Prescriptions Prescriptions: New ciprofloxacin HCl [Cipro] 500 mg tablet 500 mg PO BID Qty: 14 0RF Continued omeprazole magnesium [Prilosec OTC] 20 mg tablet,delayed release (DR/EC) 20 mg PO DAILY atorvastatin [Lipitor] 10 mg tablet 20 mg PO DAILY metoprolol succinate 25 mg capsule,sprinkle,ER 24hr 12.5 mg PO DAILY Held aspirin 81 mg capsule 81 mg PO DAILY Hold Instructions: Resume on 05/07/25. Discontinued doxazosin 4 mg tablet 4 mg PO BID finasteride [Proscar] 5 mg tablet 5 mg PO DAILY Referrals / Follow Up: Alonso Duke DO [Primary Care Provider, Medical] Disposition Disposition (needs filled in before D/C Order can be placed): Home, Self Care
--- NOTE | 2025-04-30 11:56 | OP.PCM_ITS ---
Operative Report (Standard) Operative Information Date of Procedure: 04/30/25 Pre-Operative Diagnosis: BPH with obstruction Post-Operative Diagnosis: The same Surgery/Procedure Performed: Transurethral section of prostate button bradder: No Type of Anesthesia: General RN Documented Start/Stop Times: Operation Date: 04/30/25 10:15 Case Time Into Pre-Op 04/30/25 08:05 Out of Pre-Op 04/30/25 10:45 Anesthesia Start 04/30/25 10:49 Into Room 04/30/25 10:49 Procedure Start 04/30/25 11:03 Procedure Start Time: 10:49 Procedure Stop Time: 11:57 Select all DRAINS/GRAFTS/IMPLANTS that apply: Drains Drain details: 22 Norwegian three-way Carr Estimated Blood Loss: Minimal Specimen collected: Yes Description of specimen(s) removed: Prostate tissue Description of surgery: In the preoperative setting I discussed with the patient how the surgery would be done with expect afterwards. We discussed how a prostate resection is done and we discussed the risk of the surgery including, bleeding, infection, retrograde ejaculation, changes with ejaculation or intercourse,. We discussed the possibility that the resection of the prostate may not alleviate his urinary symptoms. We discussed the small risk of developing scar tissue along the urethral channel and strictures. We also discussed the chance of the prostate could grow back and he may need further surgery or treatment in the future for prostate problems. Patient was taken back to the operating room, timeout procedure was performed, he was identified and marked and placed on the operating room table. He underwent general anesthesia. He was placed in dorsolithotomy position. Penis and testicles were prepped and draped in usual sterile fashion. Went into the bladder using the visual obturator with a resectoscope. Once inside the bladder identified the right and left ureteral orifice. I then identified the prostate and the anatomy of the prostate. I marked out the area of the sphincter and the verumontanum was identified. I then proceeded with the prostate resection first resected the median lobe. And then resected the right lobe of the prostate. Then to resect the left lobe of the prostate. I then resected the apical tissue of the prostate. This was a complete resection of all obstructive tissue to improve voiding and relieve obstruction. I then made sure that there was no injury to the sphincter or the verumontanum was still intact. At the end of the resection all the chips were Ellik out of the bladder. I then identified the left and right ureteral orifice and these were confirmed to be in good position and effluxing and not injured. The resectoscope was removed, a 22 Norwegian catheter was placed into the bladder on continuous irrigation. And the urine was fairly light pink color and draining normally. He was taken back to the PACU in good condition. CPT 59954 Surgical Findings: Prostate resected nicely with the button Olympus resectoscope Complications Complications: No Admit VTE Documentation VTE Present on Admission: No VTE Mechan Device Prophylaxis: SCD's VTE Pharm Prophylaxis ordered?: No
--- NOTE | 2025-04-30 12:13 | PCM.POST.ANE ---
Anesthesia: Postop Eval I Current Vital Signs Temperature: 97.5 F Pulse Rate: 50 Blood Pressure: 118/68 Respiratory Rate: 14 Pulse Ox: 92 Assessment Airway patent: Yes Spontaneous unlabored respirations: Yes nausea: No Vomiting: No Anesthesia Complication: No Fluid Hydration Crystalloid volume administer (ml): 700 Total IV fluid infused: 700 Progress Note Anesthesia document: Postop Eval 1 completed: No
[2025-04-30] MEDS: 0.9% Normal Saline (1000mL) 1,000 ML 125 ML IV ×2 (13:30→22:52)
--- OUTSIDE RECORDS SUMMARY | 2025-04-30 13:40 | XMS RPT_ITS | CCD ---
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 (1 source) Penicillins Drug allergy (disorder) 09-28-2022 [facility] Repository Medications Current Medications Medication Drug [...] Daily, # 90 tab(s), 3 Refill(s), Pharmacy: [facility], 185.42, cm, 06/10/24 7:55:00 EST, Height, kg, 06/10/24 7:55:00 EST, Dosing Weight Start Date: 07/06/24 Stop Date: 10/01/24 Status: Ordered Quantity: 90.0 Unit: tab(s) Repeat number: 4 dabigatran etexilate 150 mg oral capsule (5 sources) Start: 12-26-2023 Pradaxa 150 mg oral capsule Dose : 150 mg = 1 cap(s), Oral, BID, # 60 cap(s), 5 Refill(s), Pharmacy: [facility], 190, cm, 09/18/23 11:34:00 EDT, Height, 106.4, kg, 09/18/23 11:34:00 EDT, Dosing Weight Start Date: 12/26/23 Status: Ordered Start: 06-28-2023 Pradaxa 150 mg oral capsule Dose : 150 mg = 1 cap(s), Oral, BID, # 60 cap(s), 5 Refill(s), Pharmacy: [facility]/pharmacy #[id number], 191.6, cm, 09/08/22 11:26:00 EDT, Height, [...] release), # 45 tab(s), 0 Refill(s), Pharmacy: [facility], 190.5, cm, 05/10/24 8:25:00 EST, Height, kg, 05/10/24 8:25:00 EST, Dosing Weight Start Date: 05/10/24 Stop Date: 08/08/24 Status: Ordered Quantity: 45.0 Unit: tab(s) Repeat number: 1 Start: 04-05-2024 End: 05-05-2024 Toprol-XL 25 mg oral tablet, extended release Dose : 25 mg = 1 tab(s), Oral, qHS, Do not crush or chew (controlled release), # 30 tab(s), 0 Refill(s), Pharmacy: [facility], 190, cm, 04/05/24 10:57:00 EDT, Height, kg, [...] DETAIL on 04-12-2025 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 Sri Hassan R.N. Comments: 1 of 1 Normal [facility] ED NURSES CLINICAL NOTEon ED NURSES CLINICAL NOTE Nurse Narrative - CLAUDETTE ISSA, : 1960, , Nurse Clinical Narrative [address] [address] [id number] 04/11/2025 22:20:00 Patient: CLAUDETTE ISSA Sex: Male [...] Patient verbalized understanding. Written instructions provided in Burmese. The patient was discharged home and accompanied by spouse. The patient left ambulatory and via (more content not included)... Normal [facility] ED ORDER SHEET (CPOE ONLY)on 04-12-2025 ED ORDER SHEET (CPOE ONLY) Order Sheet - CLAUDETTE ISSA, : 1960, , Order Sheet [address] [place] [address] [id number] 04/11/2025 Patient: CLAUDETTE ISSA Sex: Male : [...] (04/11/2025 23:43 EST)] 2 of 2 Normal [facility] ED PHYSICIAN CLINICAL REPORT on 04-12-2025 ED PHYSICIAN CLINICAL REPORT Narrative - CLAUDETTE ISSA, : 1960, , Physician Clinical Narrative [address] [address] [id number] 04/11/2025 22:20:00 Patient: CLAUDETTE ISSA Sex: Male [...] NORMAL: 5.0-8.0 Final EST 3 of 6 [facility] - CLAUDETTE ISSA, : 1960, , 30 NORMAL: 04/11/2025 23:36 Protein Final Abnormal NEGATIVE EST 04/11/2025 23:36 Glucose NORM NORMAL: NORMAL Final EST NORMAL: 04/11/2025 23:36 Ketone NEG Final NEGATIVE EST NORMAL: 04/11/2025 23:36 Bilirubin NEG Final NEGATIVE EST 250 NORMAL: 04/11/2025 23:36 Blood Final Abnormal NEGATIVE EST 04/11/2025 23:36 Urobilinog NORM NORMAL: NORMAL Final EST NORMAL: 1.010- 04/11/2025 23:36 Sp Duchesne 1.010 Final 1.030 EST NORMAL: 04/11/2025 23:36 [...] NONE Final (more content not included)... Normal [facility] ED SUPER BILLon 04-12-2025 ED SUPER BILL [facility] - CLAUDETTE ISSA, : 1960, , [address] [address] [id number] 04/11/2025 Patient: CLAUDETTE ISSA Sex: Male : 1960 Age: 64y Item Facility Profession Category Description Code al Code Quantity Fee Total Nurse/E/M EMERGENCY 487779 1 $0.00 $0.00 DEPARTMEN T VISIT HIGH/URGEN T SEVERITY (70167-91) Nurse/ 16 Fr Coude 135126 1 $0.00 $0.00 Supplies Catheter (089071) Nurse/ 16 Fr LATEX 274445 1 $0.00 $0.00 Supplies FREE Carr Kit (589091) Physician/ Bladder scan 910357 1 $0.00 $0.00 Procedures (69577) Physician/ Carr 613990 1 $0.00 $0.00 Procedures catheter (02820) Grand Total $0.00 1 of 2 [facility]UD[facility]TE ISS[facility], : 1960, , Providers Ashley Harden M.D. Chief Complaint URINARY RETENTION. Principal Diagnosis Urinary retention with enlarged prostate. Benign prostatic hypertrophy with prostatism and urinary retention. ICD-10 Codes N40.0: Benign prostatic hyperplasia without lower urinary tract symptoms R33.9: Retention of urine, unspecified N40.1: Benign prostatic hyperplasia with lower urinary tract symptoms 2 of 2 Normal [facility] ED VISIT SUMMARYon ED VISIT SUMMARY Visit Overview - CLAUDETTE ISSA, : 1960, , Visit [facility] [address] [place] [address] [id number] 04/11/2025 Patient: CLAUDETTE ISSA Sex: Male : [...] WITH ENLARGED PROSTATE 3 of 3 Normal [facility] ED VITALS FLOW SHEETon 04-12 ED VITALS FLOW SHEET Vitals - DEENA ISSA ELS, : 1960, , Vital Sign Flow Sheet [address] [address] [id number] 04/11/2025 Patient: CLAUDETTE ISSA Sex: Male : 1960 Age: 64y Measurements Wt: 108.9 kg, Ht/Nash: 75.0 in, BMI: 30.00 Measured Tatiana Time BP MAP HR RR O2Sat ETCO2 Temp n GCS RTS 23:50 132/71 91 64 16 95% 97.8 F 2 04/11/2025 22:22 153/90 111 103 18 93% RA 97.8 F 8 04/11/2025 1 of 1 Normal [facility] URINALYSISon 04-11-2025 Amorphous NONE Normal [facility] Comment on above: Performed By: #### 2 50402 #### [facility],[address] [place] [address] Bacteria NONE Normal [facility] Comment on above: Performed By: #### 2 70078 #### [facility],[address] [place] [address] Bilirubin Ql (U) Negative Normal NORMAL: NEGATIVE [facility] Comment on above: Performed By: #### 2 72383 #### [facility],[address] [place] [address] Casts NONE Normal [facility] Comment on above: Performed By: #### 2 59329 #### [facility],[address] [place], [place] [phone] Clarity (U) sl.cloudy Normal NORMAL: CLEAR [facility] Comment on above: Performed By: #### 2 46215 #### [facility],[address] [place], [place] [id number] Color (U) yellow Normal NORMAL: YELLOW [facility] Comment on above: Performed By: #### 2 70711 #### [facility],[address] [place] [address] Crystals LM Nom (Urine sed) NONE Normal [facility] Comment on above: Performed By: #### 2 00468 #### [facility],[address] [place] [address] Epi Cells FEW Normal [facility] Comment on above: Performed By: #### 2 33099 #### [facility],[address] [place] [address] Glucose Ql (U) NORM Normal NORMAL: NORMAL [facility] Comment on above: Performed By: #### 2 19531 #### [facility],[address] [place] [address] Hemoglobin Ql (U) 250 Abnormal NORMAL: NEGATIVE [facility] Comment on above: Performed By: #### 2 20798 #### [facility],[address] [place] [address] Ketone Negative Normal NORMAL: NEGATIVE [facility] Comment on above: Performed By: #### 2 77841 #### [facility],[address] [place] [address] Leukocytes Negative Normal NORMAL: NEGATIVE [facility] Comment on above: Performed By: #### 2 59912 #### [facility],[address] [place] [address] Mucous NONE Normal [facility] Comment on above: Performed By: #### 2 01640 #### [facility],[address] [place], [place] [phone] Nitrite Ql (U) Negative Normal NORMAL: NEGATIVE [facility] Comment on above: Performed By: #### 2 22838 #### [facility],[address] [place] [address] pH (U) 6 [pH] Normal NORMAL: 5.0-8.0 [facility] Comment on above: Performed By: #### 2 30262 #### [facility],[address] [place], [place] [phone] Protein Ql (U) 30 Abnormal NORMAL: NEGATIVE [facility] Comment on above: Performed By: #### 2 19060 #### [facility],[address] [place] [address] Rbc 35-50 Normal 0-3/hpf [facility] Comment on above: Performed By: #### 2 70640 #### [facility],[address] [place] [address] Sp Duchesne 1.010 Normal NORMAL: 1.010-1.030 [facility] Comment on above: Performed By: #### 2 63536 #### [facility],[address] [place] [address] Specimen Type R Normal [facility] Comment on above: Performed By: #### 2 70784 #### [facility],[address] [place], [place] [phone] Urinalysis dipstick W Reflex Microscopic panel (U) SEE BELOW Normal [facility] Comment on above: Result Comment: MICR OSCOPIC Performed By: #### 2 01797 #### [facility],[address] [place] [address] Urobilinog NORM Normal NORMAL: NORMAL [facility] Comment on above: Performed By: #### 2 59620 #### [facility],[address] [place], [place] [phone] Wbc 1-5 Normal 0-5/hpf [facility] Comment on above: Performed By: #### 2 86693 #### [facility],[address] [place] [address] Yeast NONE Normal [facility] Comment on above: Performed By: #### 2 70933 #### [facility],[address] [place] [address] .GFRon 10-24-2024 Estimated Glomerular Filtration Rate 60 ml/min/1.73sqm Normal [facility] Comment on above: Result Comment: Stages of [...] PSA, ADIFF, A1C, LIPID, ANEU, GFR #### [address] [address] BMPon 10-24-2024 BUN/Creatinine Ratio 10 ratio Normal 7-27 [facility] Comment on above: Performed By: #### G FR, BMP #### [address] [address] Calcium [Mass/Vol] 9.4 mg/dL Normal 8.4-10.2 [facility] Comment on above: Performed By: #### G FR, BMP #### [address] [address] Chloride [Moles/Vol] 101 mmol/L Normal 98-107 [facility] Comment on above: Performed By: #### G , BMP #### [address] [address] CO2 [Moles/Vol] 31 mmol/L Normal 23-31 [facility] Comment on above: Performed By: #### G , BMP #### [address] [address] Creatinine [Mass/Vol] 1.34 mg/dL High 0.67-1.17 [facility] Comment on above: Performed By: #### Lanre ANGELES, BMP #### [address] [address] Electrolyte Balance 3.0 mEq/L Low 4.0-15.0 [facility] Comment on above: Performed By: #### Lanre ANGELES, BMP #### [address] [address] Glucose [Mass/Vol] 114 mg/dL Normal 80-115 [facility] Comment on above: Performed By: #### Lanre ANGELES, BMP #### [address] [address] Potassium [Moles/Vol] 4.7 mmol/L Normal 3.5-5.1 [facility] Comment on above: Performed By: #### G FR, BMP #### [address] [address] Sodium [Moles/Vol] 135 mmol/L Low 136-145 [facility] Comment on above: Performed By: #### G , BMP #### [address] [address] Urea nitrogen [Mass/Vol] 13 mg/dL Normal 7-18 [facility] Comment on above: Performed By: #### G FR, BMP #### [address] [address] MALBRon 10-24-2024 U Creatinine 224.5 mg/dL Normal 40.0-278.0 [facility] Comment on above: Performed By: #### C MP, CBC, PSA, ADIFF, A1C, LIPID, ANEU, GFR #### [address] [address] U Microalb 11.8 mg/L Normal [facility] Comment on above: Performed By: #### C MP, CBC, PSA, ADIFF, A1C, LIPID, ANEU, GFR #### [address] [address] U Ratio Alb/Cre 5 mg/G Normal 0-30 [facility] Comment on above: Performed By: #### C MP, CBC, PSA, ADIFF, A1C, LIPID, ANEU, GFR #### [address] [address] LABORATORYOrdered By: SYSTEM SYSTEM on 08-03-2024 Prostate specific Ag [Mass/Vol] 14.59 ng/mL High 0.00 - 4.00 ng/mL AO ADM SS PSAon 08-03-2024 Prostate Specific Antigen 14.59 ng/mL High 0.00-4.00 [facility] Comment on above: Performed By: #### P SA #### [address] [address] Final Surgical Pathology Rep [facility] 06-12-2024 Final Surgical Pathology Report . Pathology Reports Accession: Collected Date/Time: Received Date/Time: Pathologist: [id number] 06/10/2024 10:08 EST 06/11/2024 08:47 MD BLAYNE BOURGEOIS Final Surgical Pathology Report DIAGNOSIS: CECUM, BIOPSY: - FRAGMENTS OF TUBULOVILLOUS ADENOMA CLINICAL INFORMATION: PROCEDURE: COLONOSCOPY WITH POLYPECTOMY PREOPERATIVE DIAGNOSIS: HISTORY OF POLYPS POSTOPERATIVE DIAGNOSIS: HISTORY OF POLYPS SPECIMEN: A CECUM POLYP GROSS DESCRIPTION: All parts labelled with patient name and [id number] Received in formalin labeled cecum polyp are multiple guerra-pink tissue fragments aggregating 1.9 x 0.8 x 0.7 cm greatest dimension. Largest fragment margin is inked and specimen is bisected. TS-1 Dianna Abraham, Grossing Fixed Income Analyst/ Dr. Russel Uriarte, Pathologist Performed by Dianna Abraham MICROSCOPIC DESCRIPTION: The microscopic examination is performed, except in the case of Gross Only. Electronically Signed by Pathology Report verified by [facility] BLAYNE MOODY MD Sign out Date: 06/12/2024 08:42 Performing Lab: [facility], [address] [place] [address] Pathology Dept Disclaimer If ancillary studies were utilized, the following Laboratory Developed Test (LDT) disclaimer will apply: Under CLIA requirements, [facility] is qualified to perform high complexity testing. For all ancillary stains, positive and negative controls stain appropriately. Performance characteristics of immunohistochemical and chromogenic in-situ hybridization tests have been determined by [facility]. These tests are used for clinical purposes, They should not be regarded as investigational or for research. Normal [facility] .Auto Diffon 04-13-2024 Basophil, Absolute 0.1 10 3/mcL Normal 0.0-0.2 [facility] Comment on above: Performed By: #### C MP, CBC, PSA, ADIFF, A1C, LIPID, ANEU, GFR #### [address] [address] Basophils/100 WBC (Bld) 0.7 % Normal 0.0-2.5 [facility] Comment on above: Performed By: #### C MP, CBC, PSA, ADIFF, A1C, LIPID, ANEU, GFR #### [address] [address] Eosinophil, Absolute 0.2 10 3/mcL Normal 0.0-0.7 [facility] Comment on above: Performed By: #### C MP, CBC, PSA, ADIFF, A1C, LIPID, ANEU, GFR #### [address] [address] Eosinophils/100 WBC (Bld) 2.5 % Normal 0.0-7.0 [facility] Comment on above: Performed By: #### C MP, CBC, PSA, ADIFF, A1C, LIPID, ANEU, GFR #### [address] [address] Lymphocyte, Absolute 2.5 10 3/mcL Normal 0.9-4.3 [facility] Comment on above: Performed By: #### C MP, CBC, PSA, ADIFF, A1C, LIPID, ANEU, GFR #### [address] [address] Lymphocytes/100 WBC (Bld) 32.5 % Normal 20.0-40.0 [facility] Comment on above: Performed By: #### C MP, CBC, PSA, ADIFF, A1C, LIPID, ANEU, GFR #### [address] [address] Monocyte, Absolute 0.5 10 3/mcL Normal 0.1-1.4 [facility] Comment on above: Performed By: #### C MP, CBC, PSA, ADIFF, A1C, LIPID, ANEU, GFR #### [address] [address] Monocytes/100 WBC (Bld) 6.6 % Normal 2.0-13.0 [facility] Comment on above: Performed By: #### C MP, CBC, PSA, ADIFF, A1C, LIPID, ANEU, GFR #### [address] [address] Neutrophils/100 WBC (Bld) 57.7 % Normal 50.0-75.0 [facility] Comment on above: Performed By: #### C MP, CBC, PSA, ADIFF, A1C, LIPID, ANEU, GFR #### [address] [address] .GFRon 04-13-2024 GFR Non- 50 ml/min/1.73sqm Normal [facility] Comment on above: Result Comment: GFR Population [...] PSA, ADIFF, A1C, LIPID, ANEU, GFR #### [address] [address] GFR 61 ml/min/1.73sqm Normal [facility] Comment on above: Result Comment: GFR Population [...] PSA, ADIFF, A1C, LIPID, ANEU, GFR #### [address] [address] .NEUABSon 04-13-2024 Neutrophil, Absolute 4.4 10 3/mcL Normal 2.3-8.1 [facility] Comment on above: Performed By: #### C MP, CBC, PSA, ADIFF, A1C, LIPID, ANEU, GFR #### [place] [address] [place], [place] [address] A1Con 04-13-2024 Glucose [Mass/Vol] 114 mg/dL Normal [facility] Comment on above: Result Comment: Ginny mated Average Glucose calculated by equation ((28.7xA1C)-46.7) Estimated average glucose (eAG) is a calculated value from Hemoglobin A1C and is screening representative of the average blood glucose level in the last 2-3 month period. Normal range: less than 114 mg/dL Performed By: #### C MP, CBC, PSA, ADIFF, A1C, LIPID, ANEU, GFR #### [address] [address] HbA1c (Bld) [Mass fraction] 5.6 % Normal 4.3-6.4 [facility] Comment on above: Performed By: #### C MP, CBC, PSA, ADIFF, A1C, LIPID, ANEU, GFR #### [place] [id number] CBCon 04-13-2024 Erythrocyte distribution width (RBC) [Ratio] 13.5 % Normal 11.5-15.5 [facility] Comment on above: Performed By: #### C MP, CBC, PSA, ADIFF, A1C, LIPID, ANEU, GFR #### [address] [address] Hematocrit (Bld) [Volume fraction] 44.0 % Normal 40.0-52.0 [facility] Comment on above: Performed By: #### C MP, CBC, PSA, ADIFF, A1C, LIPID, ANEU, GFR #### [address] [address] Hgb 15.7 G/dL Normal 13.0-17.5 [facility] Comment on above: Performed By: #### C MP, CBC, PSA, ADIFF, A1C, LIPID, ANEU, GFR #### [address] [address] MCH (RBC) [Entitic mass] 30.8 pg Normal 27.0-33.0 [facility] Comment on above: Performed By: #### C MP, CBC, PSA, ADIFF, A1C, LIPID, ANEU, GFR #### [place] [phone] MCHC 35.7 G/dL Normal 32.0-36.0 [facility] Comment on above: Performed By: #### C MP, CBC, PSA, ADIFF, A1C, LIPID, ANEU, GFR #### [address] [address] MCV (RBC) [Entitic vol] 86.2 fL Normal 81.0-100.0 [facility] Comment on above: Performed By: #### C MP, CBC, PSA, ADIFF, A1C, LIPID, ANEU, GFR #### [address] [address] Platelet 210 10 3/mcL Normal 150-450 [facility] Comment on above: Performed By: #### C MP, CBC, PSA, ADIFF, A1C, LIPID, ANEU, GFR #### [address] [address] Platelet mean volume (Bld) [Entitic vol] 7.6 fL Normal 6.4-10.5 [facility] Comment on above: Performed By: #### C MP, CBC, PSA, ADIFF, A1C, LIPID, ANEU, GFR #### [address] [address] RBC 5.11 10 6/mcL Normal 4.50-6.00 [facility] Comment on above: Performed By: #### C MP, CBC, PSA, ADIFF, A1C, LIPID, ANEU, GFR #### [address] [address] WBC 7.6 10 3/mcL Normal 4.5-10.8 [facility] Comment on above: Performed By: #### C MP, CBC, PSA, ADIFF, A1C, LIPID, ANEU, GFR #### [address] [address] CMPon 04-13-2024 Albumin Level 4.3 G/dL Normal 3.4-4.8 [facility] Comment on above: Performed By: #### C MP, CBC, PSA, ADIFF, A1C, LIPID, ANEU, GFR #### [facility] [place] [address] [place], [place] [address] Albumin/Globulin [Mass ratio] 1.7 {ratio} Normal 1.1-2.5 [facility] Comment on above: Performed By: #### C MP, CBC, PSA, ADIFF, A1C, LIPID, ANEU, GFR #### [address] [address] ALP [Catalytic activity/Vol] 74 U/L Normal 40-135 [facility] Comment on above: Performed By: #### C MP, CBC, PSA, ADIFF, A1C, LIPID, ANEU, GFR #### [address] [address] ALT [Catalytic activity/Vol] 39 U/L Normal 16-63 [facility] Comment on above: Performed By: #### C MP, CBC, PSA, ADIFF, A1C, LIPID, ANEU, GFR #### [address] [address] AST [Catalytic activity/Vol] 21 U/L Normal 10-40 [facility] Comment on above: Performed By: #### C MP, CBC, PSA, ADIFF, A1C, LIPID, ANEU, GFR #### [address] [address] Bili Total 0.9 mg/dL Normal 0.2-1.0 [facility] Comment on above: Result Comment: Use of this assay is not recommended for patients undergoing treatment with eltrombopag due to the potential for falsely elevated results. Performed By: #### C MP, CBC, PSA, ADIFF, A1C, LIPID, ANEU, GFR #### [address] [address] BUN/Creatinine Ratio 13 ratio Normal 7-27 [facility] Comment on above: Performed By: #### C MP, CBC, PSA, ADIFF, A1C, LIPID, ANEU, GFR #### [address] [address] Calcium [Mass/Vol] 9.5 mg/dL Normal 8.4-10.2 [facility] Comment on above: Performed By: #### C MP, CBC, PSA, ADIFF, A1C, LIPID, ANEU, GFR #### [address] [address] Chloride [Moles/Vol] 104 mmol/L Normal 98-107 [facility] Comment on above: Performed By: #### C MP, CBC, PSA, ADIFF, A1C, LIPID, ANEU, GFR #### [address] [address] CO2 [Moles/Vol] 32 mmol/L High 23-31 [facility] Comment on above: Performed By: #### C MP, CBC, PSA, ADIFF, A1C, LIPID, ANEU, GFR #### [address] [address] Creatinine [Mass/Vol] 1.43 mg/dL High 0.70-1.30 [facility] Comment on above: Result Comment: Test ing performed on Siemens Dimension EXL analyzer using a modified kinetic Yair technique. Performed By: #### C MP, CBC, PSA, ADIFF, A1C, LIPID, ANEU, GFR #### [address] [address] Electrolyte Balance 4.0 mEq/L Normal 4.0-15.0 [facility] Comment on above: Performed By: #### C MP, CBC, PSA, ADIFF, A1C, LIPID, ANEU, GFR #### [address] [address] Globulin 2.5 G/dL Normal [facility] Comment on above: Performed By: #### C MP, CBC, PSA, ADIFF, A1C, LIPID, ANEU, GFR #### [address] [address] Glucose [Mass/Vol] 105 mg/dL Normal 80-115 [facility] Comment on above: Performed By: #### C MP, CBC, PSA, ADIFF, A1C, LIPID, ANEU, GFR #### [address] [address] Potassium [Moles/Vol] 4.5 mmol/L Normal 3.5-5.1 [facility] Comment on above: Performed By: #### C MP, CBC, PSA, ADIFF, A1C, LIPID, ANEU, GFR #### [place] [place], [place] [address] Sodium [Moles/Vol] 140 mmol/L Normal 136-145 [facility] Comment on above: Performed By: #### C MP, CBC, PSA, ADIFF, A1C, LIPID, ANEU, GFR #### [place] [place], [place] [address] Total Protein 6.8 G/dL Normal 6.4-8.2 [facility] Comment on above: Performed By: #### C MP, CBC, PSA, ADIFF, A1C, LIPID, ANEU, GFR #### [place] [place], [place] [address] Urea nitrogen [Mass/Vol] 18 mg/dL Normal 7-18 [facility] Comment on above: Performed By: #### C MP, CBC, PSA, ADIFF, A1C, LIPID, ANEU, GFR #### [address] [address] LABORATORYOrdered By: SYSTEM SYSTEM on 04-13-2024 Albumin [...] calculated value from Hemoglobin A1C and is screening representative of the average blood glucose level [...] 04-13-2024 Cholesterol [Mass/Vol] 188 mg/dL Normal 0-200 [facility] Comment on above: Result Comment: Chol esterol Reference Interval: Less than 200 Desirable 200-239 Borderline high risk 240 and above High risk Performed By: #### C MP, CBC, PSA, ADIFF, A1C, LIPID, ANEU, GFR #### [address] [address] Cholesterol in HDL [Mass/Vol] 41 mg/dL Normal 40-60 [facility] Comment on above: Performed By: #### C MP, CBC, PSA, ADIFF, A1C, LIPID, ANEU, GFR #### [address] [address] Cholesterol in LDL [Mass/Vol] 114 mg/dL Normal 0-130 [facility] Comment on above: Performed By: #### C MP, CBC, PSA, ADIFF, A1C, LIPID, ANEU, GFR #### [address] [address] Triglyceride [Mass/Vol] 164 mg/dL High 0-150 [facility] Comment on above: Result Comment: Trig lyceride Reference Interval: Less than 150 Normal 150-199 Borderline high risk 200-499 High risk 500 or higher Very high risk Performed By: #### C MP, CBC, PSA, ADIFF, A1C, LIPID, ANEU, GFR #### [address] [address] PSAon 04-13-2024 Prostate Specific Antigen 15.91 ng/mL High 0.00-4.00 [facility] Comment on above: Performed By: #### C MP, CBC, PSA, ADIFF, A1C, LIPID, ANEU, GFR #### [address] [address] [place] MYOCARDIAL SPECT STRESS/R ESTon 04-08-2024 NM [...] Date: 04/08/2024 6:14:36 AM Ordering Provider:Ton Mercado [facility] Final Surgical Pathology Rep eric 08-23-2023 Final Surgical Pathology Report . Pathology Reports Accession: Collected Date/Time: Received Date/Time: Pathologist: [id number] 08/21/2023 11:07 EDT 08/22/2023 09:16 EDT MD BLAYNE MOODY Final Surgical Pathology Report DIAGNOSIS: TRANSVERSE COLON, BIOPSY: - TUBULAR ADENOMA CLINICAL INFORMATION: PROCEDURE: COLONOSCOPY PREOPERATIVE DIAGNOSIS: + COLOGUARD POSTOPERATIVE DIAGNOSIS: + COLOGUARD SPECIMEN: A TRANSVERSE COLON POLYP GROSS DESCRIPTION: All parts labelled with patient name and [id number] Received in formalin labeled #1 transverse colon polyp are 3 guerra-pink tissue fragments measuring 0.2 to 0.3 x 0.1 cm. TS-1 Dianna Abraham, Grossing Fixed Income Analyst/ Dr. Russel Uriarte, Pathologist Dictated by Dianna Abraham MICROSCOPIC DESCRIPTION: The microscopic examination is performed, except in the case of Gross Only. Electronically Signed by Pathology Report verified by [facility] BLAYNE MOODY MD Sign out Date: 08/23/2023 08:18 Performing Lab: [facility], [address] [place] [address] Pathology Dept Disclaimer If ancillary studies were utilized, the following Laboratory Developed Test (LDT) disclaimer will apply: Under CLIA requirements, [facility] is qualified to perform high complexity testing. For all ancillary stains, positive and negative controls stain appropriately. Performance characteristics of immunohistochemical and chromogenic in-situ hybridization tests have been determined by [facility]. These tests are used for clinical purposes, They should not be regarded as investigational or for research. Normal [facility] ([place]) LABORATORYOrdered By: SYSTEM SYSTEM on 08-01-2023 Prostate specific Ag [Mass/Vol] 13.96 ng/mL High 0.00 - 4.00 ng/mL AO ADM SS PSAon 08-01-2023 Prostate Specific Antigen 13.96 ng/mL High 0.00-4.00 [facility]) Comment on above: Performed By: #### P SA #### [facility] [address] [place], [place] [address] Surgery Visit Reporton 09-28 Surgery Visit Report [facility] [address] [place] [address] OFFICE VISIT Date of Service: 09/28/22 MR#: [id number] Acct: [id number] Name: CLAUDETTE ISSA Rep #: [id number] : 1960 Provider: Dr. 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 Donny Smith MD Pager: [facility] [address] [place] [address], [address] [place] [address] Office: Coding Level of Care Code Off vis,new,level 3 Diagnoses Hemorrhoid K64.9 09/29/22 1324 Date ___ (more content not included)... Normal [facility] LABORATORYOrdered By: SYSTEM SYSTEM on 09-03-2022 [...] Account Attending Physician CLAUDETTE ISSA 61/M LABSPEC [id number] Dr. Arthur Reyes MD Specimen: [id number] Received: 07/11/22 Status: BILLY Trujillo Num: [id number] Spec Type: IMMUNO Subm Dr: Dr. Arthur Reyes MD PHYSICIAN INSTITUTION [place] [address] SPECIMEN INFORMATION: Tissue Source: D - Left prostate, apex, core biopsy Clinical Info: Elevated PSA Specimen Number: [id number] CPT code: 04743, 94193 METHODOLOGY: Deparaffinized sections of prefer/formalin-fixed tissue or [...] developed and their performance characteristics determined by [facility]. They may not have been [...] Dr. Mukul Cordero MD 07/13/22 0843 Normal [facility] Comment on above: Performed By: #### P [id number] #### [facility] [place], [address] PROSTATE BXon 07-07-2022 PROSTATE BX --- Patient Age/Sex Location Account Attending Physician CHEYENNECLAUDETTE VELOZ 61/M LABSPEC [id number] Dr. Arthur Reyes MD Specimen: [id number] Received: 07/07/22 Status: BILLY Trujillo Num: [id number] Spec Type: PROST BX Subm Dr: Dr. [...] chronic inflammation. SJ:marisel 07/11/2022 COMMENT D. Immunohistochemistry ([id number]) supports the above diagnosis. MICROSCOPIC DESCRIPTION Slides [...] Account Attending Physician CLAUDETTE ISSA 61/M LABSPEC [id number] Dr. Arthur Reyes MD 0.1 cm in [...] in one cassette. / SJ:rg 07/08/2022 TC:3 [facility]: [address] x6 Patient Age/Sex Location Account Attending Physician CLAUDETTE ISSA 61/M LABSPEC [id number] Dr. Arthur Reyes MD Signed (signature on file) Dr. Mukul Cordero MD 07/12/22 1301 Normal [facility] Comment on above: Performed By: #### P PROSB #### [facility] [address] [place], [place], [address] Basophil percentageOrdered B y: Dr. Reyes on 07-05-2022 Basophil percentage < 0.9 mg/dL 0.70-1.30 [facility] CREATININE FINGERSTICKon CREATININE WB < 0.9 Normal 0.70-1.30 [facility] Comment on above: Performed By: #### L 9100.0200 #### [facility] [address] [place], [place], [address] EGFR WB > 60.0000 Normal >60 [facility] Comment on above: Performed By: #### L 9100.0200 #### [facility] [address] [place], [address] No Panel InformationOrdered By: Dr. Reyes on 07-05-2022 Bedside Estimated GFR (eGFR) > 60.0000 mL/min >60 [facility] Pelvis W/WO Contraston 07-05 Pelvis W/WO Contrast [facility] [address] [place] [address] Pelvis W/WO Contrast MR#: [id number] Acct: [id number] Name: CLAUDETTE ISSA Rep #: [id number] : 1960 M 61 From: Amarjit Corado MD PCP: Dr. Ton Mata, DO Status: REG CLI Study: Pelvis W/WO Contrast Date of Exam: 07/05/22 Exam# [id number] Ordering Dr: Arthur Reyes MD STUDY: MR [...] Arthur Reyes MD; Dr. Ton Mata DO Cooler Conveyor Loader: Signed Normal [facility] LABORATORYOrdered By: SYSTEM SYSTEM on 06-01-2022 [...] 10.67 on 01/26/2021 COMPARISON: None. ACCESSION NUMBER(S): [id number] ORDERING CLINICIAN: ARTHUR REYES TECHNIQUE: Multiplanar MRI of the pelvis was obtained including axial, sagittal and coronal T2 weighted SSFSE, axial and sagittal T2 FSE, axial DWI, pre and post gadolinium dynamic T1 GRE sequences. Multiparametric analysis was performed. 20 mL Dotarem was administered intravenously without immediate complications. FINDINGS: PROSTATE VOLUME: The prostate measures 5.7 cm x 5.4 cm x 5.8 cm in czicx-jx-xoce, anterior-posterior and craniocaudal dimension. Prostate weight is [...] study was interpreted at [facility], [place], [place]. Electronically signed by: LEÓN GALLARDO MD Normal [facility] Basic Metabolic Panelon 06- Glucose mass conc 99 mg/dL Normal 70-105 [facility] Comment on above: Performed By: #### B MP ####Param [address] [address] BUN/Creatinine Ratio 14 mg/mg Normal 7-27 [facility] Comment on above: Performed By: #### B MP ####[place] [address] [place] [address] CO2 29 mmol/L Normal 22-29 [facility] Comment on above: Performed By: #### B MP ####[address] [address] Creatinine 1.4 mg/dL High 0.6-1.2 [facility] Comment on above: Performed By: #### B MP ####[address] [address] Electrolyte Balance 9.0 mEq/L Normal [facility] Comment on above: Performed By: #### B MP ####[place] [id number] Calcium 9.7 mg/dL Normal 8.4-10.2 [facility] Comment on above: Performed By: #### B MP ####[address] [address] Urea nitrogen 19 mg/dL High 7-18 [facility] Comment on above: Performed By: #### B MP ####[address] [address] Chloride 100 mmol/L Normal 98-107 [facility] Comment on above: Performed By: #### B MP ####[address] [address] Potassium molar conc 4.5 mmol/L Normal 3.5-5.1 [facility] Comment on above: Performed By: #### B MP ####[address] [address] Sodium 138 mmol/L Normal 136-146 [facility] Comment on above: Performed By: #### B MP ####[address] [address] CBC (AO)on 11-30-2016 Basophils Auto #/vol (Bld) 0.00 10 3/mcL Normal 0.00-0.19 [facility] Comment on above: Performed By: #### C BCO ####Param [address] [address] Basophils/100 WBC Auto (Bld) 0.4 % Normal 0.0-2.5 [facility] Comment on above: Performed By: #### C BCO ####[address] [address] Eosinophils 0.20 10 3/mcL Normal 0.00-0.40 [facility] Comment on above: Performed By: #### C BCO ####Param [address] [address] Eosinophils/100 leukocytes 1.9 % Normal 0.0-7.0 [facility] Comment on above: Performed By: #### C BCO ####[address] [address] Erythrocyte distribution width Auto Ratio (RBC) 12.8 % Normal 11.5-14.5 [facility] Comment on above: Performed By: #### C BCO ####[address] [address] Erythrocytes (RBC) 5.29 10 6/mcL Normal 4.04-6.13 [facility] Comment on above: Performed By: #### C BCO ####[address] [address] Hematocrit (HCT) 45.4 % Normal 42.0-52.0 [facility] Comment on above: Performed By: #### C BCO ####[address] [address] Hemoglobin mass conc (Bld) 15.5 G/dL Normal 14.0-18.0 [facility] Comment on above: Performed By: #### C BCO ####[address] [address] Lymphocytes 2.20 10 3/mcL Normal 0.77-3.85 [facility] Comment on above: Performed By: #### C BCO ####[address] [address] Lymphocytes/100 leukocytes 22.3 % Normal 10.0-50.0 [facility] Comment on above: Performed By: #### C BCO ####[address] [address] MCH 29.4 pg Normal 27.0-31.2 [facility] Comment on above: Performed By: #### C BCO ####[address] [address] MCHC mass conc (RBC) 34.2 G/dL Normal 31.8-35.4 [facility] Comment on above: Performed By: #### C BCO ####[address] [address] MCV 85.8 fL Normal 80.0-94.0 [facility] Comment on above: Performed By: #### C BCO ####[address] [address] Monocytes 0.70 10 3/mcL Normal 0.15-1.00 [facility] Comment on above: Performed By: #### C BCO ####[address] [address] Monocytes/100 leukocytes 6.8 % Normal 1.7-13.0 [facility] Comment on above: Performed By: #### C BCO ####[address] [address] Neutrophils 6.70 10 3/mcL High 2.85-6.16 [facility] Comment on above: Performed By: #### C BCO ####[address] [address] Neutrophils/100 WBC Auto (Bld) 68.6 % Normal 37.0-80.0 [facility] Comment on above: Performed By: #### C BCO ####[address] [address] Platelet mean volume (PMV) 8.2 fL Normal 7.4-10.4 [facility] Comment on above: Performed By: #### C BCO ####[address] [place] [address] Platelets 239 10 3/mcL Normal 130-400 [facility] Comment on above: Performed By: #### C BCO ####[address] [address] WBC (Leukocytes) 9.80 10 3/mcL Normal 4.60-10.80 [facility] Comment on above: Performed By: #### C BCO ####[address] [address] Glomerular Filtration Rate E stimateon 11-30-2016 eGFR (non-black) mL/min/{1.73_m2} Normal [facility] Comment on above: Result Comment: Cassandra kinney mean GFR = 93 mL/min/1.73 sq.m. for ages 50-59 years. Chronic Kidney Disease: Less than 60 mL/min/1.73 square metersEnd Stage Renal Disease: Less than 15 mL/min/1.73 square meters Performed By: #### G FR ####[address] [address] eGFR (non-black) 53 mL/min/1.73m 2 Normal [facility] Comment on above: Performed By: #### G FR ####[address] [address] Vital Signs Date Time Vital Sign Value Performing Clinician Ifeanyi morales 06-10-2024 10:59-0500 Diastolic Blood Pressure Non-Invasive 79 mm[Hg] DR JESSICA BECKER MD [facility] 06-10-2024 10:59-0500 Heart rate 52 /min DR JESSICA BECKER MD [facility] 06-10-2024 10:59-0500 Respiratory rate 16 /min DR JESSICA BECKER MD [facility] 06-10-2024 10:59-0500 Systolic Blood Pressure Non-Invasive 122 mm[Hg] DR JESSICA BECKER MD [facility] 06-10-2024 10:44-0500 Diastolic Blood Pressure Non-Invasive 77 mm[Hg] DR JESSICA BECKER MD [facility] 06-10-2024 10:44-0500 Heart rate 48 /min DR JESSICA BECKER MD [facility] 06-10-2024 10:44-0500 Respiratory rate 13 /min DR JESSICA BECKER MD [facility] 06-10-2024 10:44-0500 Systolic Blood Pressure Non-Invasive 120 mm[Hg] DR JESSICA BECKER MD [facility] 06-10-2024 10:30-0500 Diastolic Blood Pressure Non-Invasive 78 mm[Hg] DR JESSICA BECKER MD [facility] 06-10-2024 10:30-0500 Heart rate 52 /min DR JESSICA BECKER MD [facility] 06-10-2024 10:30-0500 Respiratory rate 15 /min DR JESSICA BECKER MD [facility] 06-10-2024 10:30-0500 Systolic Blood Pressure Non-Invasive 108 mm[Hg] DR JESSICA BECKER MD [facility] 06-10-2024 10:22-0500 Body temperature 97.52 [degF] DR JESSICA BECKER MD [facility] 06-10-2024 10:15-0500 Respiratory Rate - Anes 17 br/min DR JESSICA BECKER MD [facility] 06-10-2024 10:10-0500 Respiratory Rate - Anes 16 br/min DR JESSICA BECKER MD [facility] 06-10-2024 10:05-0500 Respiratory Rate - Anes 14 br/min DR JESSICA BECKER MD [facility] 06-10-2024 07:51-0500 Body height 185.[address] JESSICA BECKER MD [facility] 06-10-2024 07:51-0500 Body temperature 97.52 [degF] DR JESSICA BECKER MD [address] [place] [address] 06-10-2024 07:51-0500 Body weight 109.[address] JESSICA BECKER MD [address] [place] [address] 06-10-2024 07:51-0500 Heart rate 62 /min DR JESSICA BECKER MD [address] [place] [address] 04-15-2024 05:32-0500 Body weight 29.95 kg/m2 DR JENNIFER SORENSON MD [address] [place] [address] 04-15-2024 05:24-0500 Body height 190.[address] JENNIFER SORENSON MD [address] [place] [address] 04-15-2024 05:24-0500 Body temperature 98.06 [degF] DR JENNIFER SORENSON MD [address] [place] [address] 04-15-2024 05:24-0500 Body weight 108.[address] JENNIFER SORENSON MD [address] [place] [address] 04-15-2024 05:24-0500 Diastolic Blood Pressure Non-Invasive 84 mm[Hg] DR JENNIFER SORENSON MD [address] [place] [address] 04-15-2024 05:24-0500 Heart rate 62 /min DR JENNIFER SORENSON MD [address] [place] [address] 04-15-2024 05:24-0500 Respiratory rate 16 /min DR JENNIFER SORENSON MD [facility] 04-15-2024 05:24-0500 Systolic Blood Pressure Non-Invasive 133 mm[Hg] DR JENNIFER SORENSON MD [facility] 08-21-2023 09:24-0400 Diastolic Blood Pressure Non-Invasive 80 mm[Hg] DR JESSICA BECKER MD [facility] 08-21-2023 09:24-0400 Heart rate 56 /min DR JESSICA BECKER MD [facility] 08-21-2023 09:24-0400 Respiratory rate 14 /min DR JESSICA BECKER MD [facility] 08-21-2023 09:24-0400 Systolic Blood Pressure Non-Invasive 124 mm[Hg] DR JESSICA BECKER MD [facility] 08-21-2023 09:19-0400 Diastolic Blood Pressure Non-Invasive 81 mm[Hg] DR JESSICA BECKER MD [facility] 08-21-2023 09:19-0400 Heart rate 58 /min DR JESSICA BECKER MD [facility] 08-21-2023 09:19-0400 Respiratory rate 15 /min DR JESSICA BECKER MD [facility] 08-21-2023 09:19-0400 Systolic Blood Pressure Non-Invasive 118 mm[Hg] DR JESSICA BECKER MD [facility] 08-21-2023 09:13-0400 Body temperature 97.34 [degF] DR JESSICA BECKER MD [facility] 08-21-2023 09:13-0400 Diastolic Blood Pressure Non-Invasive 79 mm[Hg] DR JESSICA BECKER MD [facility] 08-21-2023 09:13-0400 Heart rate 55 /min DR JESSICA BECKER MD [facility] 08-21-2023 09:13-0400 Respiratory rate 16 /min DR JESSICA BECEKR MD [facility] 08-21-2023 09:13-0400 Systolic Blood Pressure Non-Invasive 130 mm[Hg] DR JESSICA BECKER MD [facility] 08-21-2023 09:10-0400 Respiratory Rate - Anes 14 br/min DR JESSICA BECKER MD [facility] 08-21-2023 09:05-0400 Respiratory Rate - Anes 16 br/min DR JESSICA BECKER MD [facility] 08-21-2023 08:02-0400 Body height 188.[address] JESSICA BECKER MD [facility] 08-21-2023 08:02-0400 Body temperature 97.52 [degF] DR JESSICA BECKER MD [facility] 08-21-2023 08:02-0400 Body weight 104.[address]JSSICA BECKER MD [facility] 08-21-2023 08:02-0400 Body weight 29.41 kg/m2 DR JESSICA BECKER MD [facility] 08-21-2023 08:02-0400 Heart rate 62 /min DR JESSICA BECKER MD [facility] 06-26-2023 18:30-0500 Body temperature 99.32 [degF] DR CLARITZA MITCHELL DO [facility] 06-26-2023 18:30-0500 Body weight 105.[address] CLARITZA MITCHELL DO [facility] 06-26-2023 18:30-0500 Diastolic Blood Pressure Non-Invasive 90 mm[Hg] DR CLARITZA MITCHELL DO [facility] 06-26-2023 18:30-0500 Heart rate 82 /min DR CLARITZA MITCHELL DO [facility] 06-26-2023 18:30-0500 Respiratory rate 16 /min DR CLARITZA MITCHELL DO [facility] 06-26-2023 18:30-0500 Systolic Blood Pressure Non-Invasive 160 mm[Hg] DR CLARITZA MITCHELL DO [facility] Encounters Encounter Date Encounter Type Care Provider Facility Start: 04-11-2025 End: 04-11-2025 Emergency department patient visit ASHLEY GONZALES [facility] Start: 10-24-2024 End: 10-24-2024 ambulatory TON MATA DO [facility] Start: 08-03-2024 End: 08-03-2024 ambulatory TON MATA DO [facility] Start: 08-03-2024 End: 08-03-[address] ARTHUR REYES MD [facility] Start: 06-10-2024 End: 06-10-2024 ambulatory TON MATA DO [facility] Start: 06-10-2024 End: 06-10-[address] JESSICA BECKER MD [facility] Start: 04-15-2024 End: 04-15-[address] JENNIFER SORENSON MD Facility:A Start: 04-15-2024 End: 04-15-[address] JENNIFER SORENSON MD [facility] Start: 04-13-2024 End: 04-13-2024 ambulatory TON MATA DO [facility] Start: 04-13-2024 End: 04-13-2024 Patient encounter procedure TON SUZI DO [facility] Start: 04-05-2024 End: 04-05-2024 ambulatory TON MATA DO [facility] Start: 04-05-2024 End: 04-05-2024 Patient encounter procedure TON SUZI DO [facility] Start: 02-29-2024 End: 02-29-2024 ambulatory TON MATA DO [facility] Start: 02-29-2024 End: 02-29-2024 Patient encounter procedure TON SUZI DO [facility] Start: 11-24-2023 End: 11-24-2023 ambulatory TON MATA DO Facility:[facility] Start: 11-24-2023 End: 11-24-2023 Patient encounter procedure TON SUZI DO [facility] Start: 08-21-2023 End: 08-21-[address] JESSICA BECKER MD Facility:[facility] Start: 08-21-2023 End: 08-21-[address] JESSICA BECKER MD [facility] Start: 08-07-2023 End: 08-07-2023 ambulatory TON MATA DO Facility:[facility] Start: 08-07-2023 End: 08-07-2023 Patient encounter procedure TON SUZI DO [facility] Start: 08-01-2023 End: 08-01-[address] ARTHUR REYES MD Facility:[facility] Start: 08-01-2023 End: 08-01-[address] ARTHUR REYES MD [facility] Start: 06-27-2023 End: 06-27-[address] CLARITZA MITCHELL DO Facility:[facility] Start: 06-26-2023 End: 06-26-2023 Emergency department patient visit DR CLARITZA MITCHELL DO [facility] Start: 09-28-2022 End: 09-28-2022 ambulatory Ton Mata Facility:[facility] Start: 09-03-2022 End: 09-03-2022 Patient encounter procedure TON MATA DO [facility] Start: 07-07-2022 Patient encounter procedure [facility], Specimen Start: 07-07-2022 End: 07-07-2022 ambulatory Arthur Reyes Facility:[facility] Start: 07-05-2022 End: 07-05-2022 ambulatory Zane [facility] Work Phone: Start: 07-05-2022 End: 07-05-2022 Patient encounter procedure [facility] Start: 06-01-2022 End: 06-01-2022 Patient encounter procedure CRISTIN NELSONLATONYA CUSTOMER CARE CONSULTANT-PIN PUSHER [facility] Start: 11-05-2021 End: 11-05-2021 Patient encounter procedure TON SUZI DO [facility] Start: 10-14-2021 End: 10-14-2021 Patient encounter procedure MAY YIN DO [facility] Start: 10-01-2021 End: 10-01-2021 Patient encounter procedure TON MATA DO [facility] Start: 11-30-2016 End: 12-01-2016 Ambulatory TON MATA Facility:[facility] [place] Procedures Date Procedure Procedure Detail Performing Clinician Start: 04-11-2025 Urinalysis ASHLEY HARDEN Comment on above: Result Comment: URINALYSIS Performed By: #### 2 [id number] #### [facility],[address] [place] [address] Start: 04-05-[address] JESSICA BECKER MD [...] Immunization Date Immunization Notes Care Provider [facility] 08-30-2022 zoster vaccine recombinant; Translations: [Shingrix] TON ROMEROSAY DO [facility] 05-05-2022 zoster vaccine recombinant; Translations: [Shingrix] CRISTIN CHAMBERLAIN CUSTOMER CARE CONSULTANT-PIN PUSHER [facility] 03-23-2022 COVID-19, mRNA, LNP- S, bivalent booster, PF, 30 mcg/0.3 mL dose; Translations: [Pfizer-BioNTech COVID-19 (12y+) Bivalent Booster Vaccine PF] CRISTIN CHAMBERLAIN CUSTOMER CARE CONSULTANT-PIN PUSHER [facility] 03-23-2022 SARSCoV2 mRNA([id number]+)b ival vac; Translations: [Pfizer-BioNTech COVID-19 (y+) Bivalent Booster Vaccine PF] DR CLARITZA MITCHELL DO [facility] 09-03-2021 COVID-19, mRNA, LNP- S, PF, 100 mcg or 50 mcg dose; Translations: [Moderna COVID-19 Vaccine] TON MATA DO [facility] 01-06-2021 COVID-19, mRNA, LNP- S, PF, 100 mcg or 50 mcg dose; Translations: [Moderna COVID-19 Vaccine] TON MATA DO [facility] 12-09-2020 COVID-19, mRNA, LNP- S, PF, 100 mcg or 50 mcg dose; Translations: [Moderna COVID-19 Vaccine] TON ROMEROSAY DO [facility] Comment on above: Early/Late Reason: O ther: 04-01-1999 hepatitis B vaccine, adult dosage TON ROMEROSAY DO [facility] 08-31-1998 hepatitis B vaccine, adult dosage TON MATA DO [facility] 02-25-1998 hepatitis B vaccine, adult dosage TON MATA DO [facility] 06-26-1997 cholera vaccine, unspecified formulation TON MATA DO [facility] 06-26-1997 poliovirus vaccine, inactivated TON SUZI DO [facility] Payers Date Payer Category Payer Unknown [id number] 2024 Unknown [id number] 2023 Unknown [id number] 2022 Self-pay [id number] 2022 Unknown [id number] 2022 Unknown [id number] 2016 Unknown [id number] 1960 Unknown [id number] 2.16.8 40.1.354272.3.579.2.627 1960 Unknown [id number] 2.16.8 40.1.364072.3.579.2.627 1960 Unknown [id number] 2.16.8 40.1.164249.3.579.2.627 1960 Unknown [id number] 2.16.8 40.1.770294.3.579.2.627 1960 Unknown [id number] 2.16.8 40.1.716088.3.579.2.627 1960 Unknown [id number] 2.16.8 40.1.605857.3.579.2.627 1960 Unknown [id number] 2.16.8 40.1.578090.3.579.2.627 1960 Unknown [id number] 2.16.8 40.1.794972.3.579.2.627 1961 Unknown [id number] 2.16.8 40.1.932448.3.579.2.627 1961 Unknown [id number] 2.16.8 40.1.726777.3.579.2.627 1960 Unknown [id number] 2.16.8 40.1.651994.3.579.2.627 1961 Unknown [id number] 2.16.8 40.1.846961.3.579.2.627 1961 Unknown [id number] 2.16.8 40.1.552688.3.579.2.627 1960 Unknown [id number] 2.16.8 40.1.003441.3.579.2.651 Unknown [id number] 2.16.8 40.1.760199.3.579.2.462 Unknown [id number] 2.16.8 [id number] Unknown [id number] [id number] Social History Date Type Detail Facility Start: 01-07-2020 End: 06-26-2023 Tobacco smoking status Never smoked tobacco (finding) [facility] Start: 1960 Sex Assigned At Male A [facility] Sexual Orientation [facility] Start: 07-31-2019 Sex Male (finding) [facility] Functional Status Date Assessment Result Facility 06-10-2024 Functional Status Repositions self [facility] 06-10-2024 Functional Status Maintained [facility] 04-15-2024 Functional Status Independent [facility] 04-15-2024 Functional Status Room check performed [facility] 08-21-2023 Functional Status Independent [facility] 08-21-2023 Functional Status Maintained, Less than [address] [facility] 06-26-2023 Functional Status ID band on, Allergy Band on, Call device within reach, Bed in low position, Wheels locked, Bedside Cart Locked, Safety level maintained [facility] Mental Status Date Assessment Result Facility 06-10-2024 Mental Status Oriented x 4 [facility] 06-10-2024 Mental Status [facility] 04-15-2024 Mental Status Orientation Oriented x 4 [facility] 04-15-2024 Mental Status [facility] 08-21-2023 Mental Status Orientation Oriented x 4 [facility] 08-21-2023 Mental Status [facility] 06-26-2023 Mental Status Oriented x 4 [facility] Clinical Notes 06-26-2023 to 06-10-2024 Note Date & Type Note Facility 06-10-2024 Evaluation + Plan note Extrac eugenio from: Title:Clinical Document Author:JESSICA BECKER Date:06/10/24 [facility] ADMISSION H[facility]ORY AN D PHYSICIAL CHIEF COMPLAINT: HISTORY OF PRESENT ILLNESS: REVIEW OF SYSTEMS: ACTIVE PROBLEMS: (14) Abnormal glucose (961192576) Acid reflux (4602918061) BPH with elevated PSA (065335945) Colon cancer screening (209273735) CPAP (continuous positive airway pressure) at home (9428538141) Family history of heart disease in male family member before age 55 (1602046986) History of deep venous thrombosis (DVT) of distal vein of right lower extremity (0478664967) Mild CAD (86973759) Paresthesia of foot (696647604) Seborrheic keratoses (8399917426) Stage 3 chronic kidney disease (7734385161) Tinnitus, left (812013537) Tubular adenoma of colon (6285914009) Well adult exam (581443741) MEDICATIONS: Active Inpt Meds: None Active PRN [...] FAMILY HISTORY: SOCIAL HISTORY: PHYSICAL EXAM: VITALS: SyofwaEwnuFGMyylkAILsW7EWO1YufiQc(kg) 06/10 10:15----50--97--06/10109.1 06/10 10:10----52--96-- 06/10 10:05----51--96-- 06/10 [...] Panel 04/05/24 * Complete Blood Count 04/05/24 [facility] 01-06-2025 Hospital Discharge instructions Patient Education [...] 02/15/2005 Document Revised: 09/06/2018 Document Reviewed: 09/06/2018 [employer] Patient Education 2020 T-Quad 22. 06/10/2024 10:38:54 Monitored Anesthesia Care, Care After [...] before eating solid foods. General instructions Take vhts-vtn-meynulz and prescription medicines only as told by [...] 09/11/2016 Document Revised: 08/20/2018 Document Reviewed: 09/11/2016 [employer] Patient Education 2020 T-Quad 22. 06/10/2024 10:38:49 Colonoscopy, Adult, Care After, Qazq-td-Pjfy Colonoscopy, Adult, Care After This sheet gives [...] are soft and easy to digest. Take oepu-cvo-lbnbwxe or prescription medicines only as told by [...] 06/24/2011 Document Revised: 03/22/2018 Document Reviewed: 02/13/2017 [employer] Patient Education 2020 T-Quad 22. 06/10/2024 10:38:40 Diverticulosis Diverticulosis Diverticulosis is a [...] overweight. Not getting enough exercise. Smoking. Taking vtmv-kiq-hxwilsw pain medicines, like aspirin and ibuprofen. Having [...] health care provider or your diet and business office specialist (dietitian). ?Take a fiber supplement or probiotic, if your health care provider approves. Take ozdz-lko-clbalon and prescription medicines only as told by [...] 02/16/2005 Document Revised: 05/04/2018 Document Reviewed: 04/10/2017 [employer] Patient Education 2020 T-Quad 22. Follow Up Care 05/20/2024 07:03:53 With:JESSICA BECKER MD Address: [address] [facility] [address] [place] [address] [phone] When: Unknown Comments:CALL DR BECKER WITH ANY [...] ARE SENT TO THE LAB FOR EVALUATION. [facility] 01-06-2025 Note Discharge Instructions Thank you for allowing [facility] to assist you with your healthcare needs. [...] 10/23/2024 08:30 AM EDT TON MATA DO [facility] Physicians [facility] Confirmed Follow Up Appointments Follow Up with JESSICA BECKER MD Where:[address] [facility] [address] [place] [address]- [phone] Additional Information: CALL DR BECKER WITH ANY [...] 02/15/2005 Document Revised: 09/06/2018 Document Reviewed: 09/06/2018 [employer] Patient Education 2020 T-Quad 22. Monitored Anesthesia Care, Care After These instructions [...] before eating solid foods. General instructions Take gugi-hks-mzcwahh and prescription medicines only as told by [...] 09/11/2016 Document Revised: 08/20/2018 Document Reviewed: 09/11/2016 [employer] Patient Education 2020 T-Quad 22. Colonoscopy, Adult, Care After This sheet gives [...] are soft and easy to digest. Take ddkd-oju-bjqcfde or prescription medicines only as told by [...] 06/24/2011 Document Revised: 03/22/2018 Document Reviewed: 02/13/2017 [employer] Patient Education 2020 [employer] Diverticulosis Diverticulosis is a condition that [...] overweight. Not getting enough exercise. Smoking. Taking hifi-yvv-wuxnwmo pain medicines, like aspirin and ibuprofen. Having [...] health care provider or your diet and business office specialist (dietitian). ? Take a fiber supplement or probiotic, if your health care provider approves. Take oqxw-ewu-sflolsl and prescription medicines only as told by [...] 02/16/2005 Document Revised: 05/04/2018 Document Reviewed: 04/10/2017 [employer] Patient Education 2020 T-Quad 22. Additional Information VACCINATE! IT SAVES LIVES! Members of the community who have not yet received the COVID-19 vaccine and would like to receive it can visit one of [facility] vaccine clinics. There are many vaccine clinic locations within the [facility]. For locations and available times, please visit [email or web address] It is important to note that some COVID mobile vaccine clinics are held outdoors and may be canceled in rainy or stormy conditions. To learn more about pediatric vaccinations (ages 5-11), we invite you to visit the [facility] webpage. [email or web address]/[email or web address]-Akczjiifrb-[email or web address] stions.htmlTo learn more about the COVID-19 vaccine, we invite you to visit the CDC website for a list of frequently asked questions.https://www.cdc.gov/coronavirus/2019-ncov/vaccines/faq.html [facility] Patient Portal Access Instructions: Stay connected with your healthcare team and access your personal medical information anytime with the [facility] Patient Portal. Please follow the directions below to create your [facility] account: 1.Access the email account you provided upon registration to the hospital/physician office.2.Look for an invitation email from [facility].3.Open the email and access the invitation link: AcceptInvitation to [facility].4.Fill in the required borges to create your account. To access your account, visit [email or web address]. Click the blue button labeled Access Patient [...] who you will allowto register on the [facility] Patient Portal for access to your information. You can also access the [facility] Patient Portal on the [facility] adithya. Simply click on Patient Portal and then log into your account. If you would like to receive a full copy of your medical records, please contact the [facility] Medical Records Department by calling [phone], Monday through Monday between 8 a.m. and [...] Call your local pharmacy or go to [email or web address] to find one close to you.3.Make use of household items: Use cat litter or old coffee grounds to dispose medications if other options arenot available. Mix your drugs with these household products, seal them in an airtight container andthrow it into the garbage. Call [facility]: [phone] to be sure your drugs can be [...] Care, Care After Colonoscopy, Adult, Care After, Pkiq-cu-Egav Diverticulosis Medication Leaflets My discharge plan and instructions have been reviewed and explained to me and I,CLAUDETTE ISSA understand my current condition and have read and understand these discharge instructions. I have received a written copy of the plan/instructions. If I have questions, I am aware that I should contact my d octor. 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01-06-2025 Note Date of Service June 10, 2024 Procedure Name Colonoscopy to the cecum with snare polypectomy and biopsy of polyps Consent Taken before procedure Indication History of a known large sessile polyp at the cecum Location [facility] Pre-Procedure Exam History of a large [...] OF POLYPS, HISTORY OF POLYPS, Preferred Lab: [facility], [id number] Post Procedure Assessment, 06/10/24 10:22:00 EST, Stop [...] JESSICA BECKER MD on 06/10/2024 10:[address] [facility]01-06-2025 Note [facility] ADMISSION H[facility]ORY AND PHYSICIAL CHIEF COMPLAINT: HISTORY OF PRESENT ILLNESS: REVIEW OF SYSTEMS: ACTIVE PROBLEMS: (14) Abnormal glucose (333564637) Acid reflux (0273898725) BPH with elevated PSA (409044401) Colon cancer screening (929120857) CPAP (continuous positive airway pressure) at home (4683066521) Family history of heart disease in male family member before age 55 (9133579409) History of deep venous thrombosis (DVT) of distal vein of right lower extremity (2042328612) Mild CAD (51118957) Paresthesia of foot (015917289) Seborrheic keratoses (0669927141) Stage 3 chronic kidney disease (5516264387) Tinnitus, left (050982695) Tubular adenoma of colon (8940257729) Well adult exam (340369206) MEDICATIONS: Active Inpt Meds: None Active PRN [...] FAMILY HISTORY: SOCIAL HISTORY: PHYSICAL EXAM: VITALS: YdbloyOikyZLPhcycYRIqF7NVO7GdozEu(kg) 06/10 10:15----50--97--06/10109.1 06/10 10:10----52--96-- 06/10 10:05----51--96-- 06/10 [...] JESSICA BECKER MD on 06/10/2024 10:[address] [facility]01-06-2025 Anesthesiology Consult note Patient: CLAUDETTE ISSA Age: 63 years Sex: Male : 1960 Associated Diagnoses: None Author: RODRIGUEZ BAILEY APRN-TELEGRAPH OFFICE TELEPHONE CLERK Preoperative Information Time of last food or [...] list: Medical Abnormal glucose / SNOMED CT 034600101 / Confirmed BPH with elevated PSA / SNOMED CT 304848056 / Confirmed Stage 3 chronic kidney disease / SNOMED CT 7629436620 / Confirmed Mild CAD / SNOMED CT 41343846 / Confirmed CPAP (continuous positive airway pressure) at home / SNOMED CT 4885113647 / Confirmed Family history of heart disease in male family member before age 55 / SNOMED CT 0808914607 / Confirmed Acid reflux / SNOMED CT 6247923165 / Confirmed History of deep venous thrombosis (DVT) of distal vein of right lower extremity / SNOMED CT 8947638931 / Confirmed Paresthesia of foot / SNOMED CT 161662313 / Confirmed Well adult exam / SNOMED CT 837229122 / Confirmed Colon cancer screening / SNOMED CT 765479115 / Confirmed Seborrheic keratoses / SNOMED CT 0143692471 / Confirmed Tinnitus, left / SNOMED CT 985479786 / Confirmed Tubular adenoma of colon / SNOMED CT 3336847197 / Confirmed Resolved: Lipoma of back / SNOMED CT 212704973 Resolved: Left shoulder pain / SNOMED CT 28460147 Resolved: Umbilical hernia / SNOMED CT 4143087092 Canceled: Exertional chest pain / SNOMED CT 323150312 Canceled: Exertional chest pain / SNOMED CT 039797432 Canceled: Positive colorectal cancer screening using Cologuard test / SNOMED CT 0456185630 Canceled: Deep vein thrombosis (DVT) of right lower extremity / SNOMED CT 2195270470 Canceled: Family history of heart disease / SNOMED CT 7359971790 Canceled: HEATHER on CPAP / SNOMED CT 144497600 Canceled: Screening for diabetes mellitus / SNOMED CT 467944213 Canceled: Screening for lipid disorders / SNOMED CT 914386836, Active Problems (14) Abnormal glucose Acid reflux [...] Histories Past Medical History: Active Acid reflux (4953991095) Resolved Umbilical hernia (5062333170): Resolved. Lipoma of back (545059872): Resolved. Left shoulder pain (69347036): Resolved. Family History: Heart disease Grandparent Procedure history: Catheterization (94486113) in the month of 04/2024 at 63 Years. Colonoscopy (574746053) on 08/21/2023 at 63 Years. Umbilical hernioplasty (9832844221) on 02/27/2020 at 59 Years. Comments: 02/27/2020 13:57 Whitney Maloney RN with mesh Shoulder (69900052) on 02/27/2020 at 59 Years. Comments: 02/27/2020 13:59 Whitney Maloney RN left trapezius Extracapsular cataract removal with insertion of intraocular lens prosthesis (1 stage procedure), manual or mechanical technique (eg, irrigation and aspiration or phacoemulsification); with endoscopic cyclophotocoagulation (97391). Nasal septoplasty (16171485). Colonoscopy (128791672). Esophagogastroduodenoscopy (664412069). Left patellar tendon rupture (8634624072). Biopsy of prostate (960673681). Biopsy of prostate (437438409). Social History: Social & Psychosocial Habits Alcohol 06/10/2024 Type: Beer, Wine Frequency: 1-2 times per month Employment/School 05/10/2024 Status: Employed Substance Abuse 06/10/2024 Use: Never Tobacco 06/10/2024 Tobacco Use: Never (less than 100 in l Exposure to Tobacco Smoke Lives in non-smoking home Exercise 05/10/2024 Times per week: 3-4 times/week Home/Environment 06/10/2024 Domestic Concerns None Living situation: Home/Independent Primary Furnace Puncher: Self Lives In Multilevel home Current Home [...] Signs (last 24 hrs) Last Charted Temp Ivjuyysn70.4 DegC (JUN 10 07:51) BDF273 mmHg (JUN 10 07:51) DBP74 mmHg (JUN 10 07:51) Measurements from flowsheet : Measurements 06/10/2024 7:51 EST Height 185.42 cm Admission Weight 109.09 kg [place] Body Weight 79.90 kg Admission Body Mass [...] Height 185.42 cm Admission Weight 109.09 kg [place] Body Weight 79.90 kg Admission Body Mass [...] no difficulties Skin Temperature Warm Skin Description [place], Normal for ethnicity, Dry Skin Moisture General Dry IV Present Present Neurological Symptoms Patient denies Characteristics of Speech Clear Level of Consciousness Alert Strength All Extremities Strong Affect/Behavior Appropriate Orientation Oriented x 4 Allergies Yes Anesthesia Extension Set Applied Yes Music Internship On Yes Colon Prep Results Excellent Consent [...] Person #1 We May Share PENNIE Issa [phone] Designated Person #1 Relationship Spouse Privacy Restrictions [...] evident Teaching Method Explanation Preferred Spoken Language Burmese Preferred Written Language Burmese Teaching Evaluation No further teaching needed Safety Brochure Information Reviewed Unable to complete [facility] Video Viewed No Patient's Current Physicians Patient's [...] Room 06/10/2024 7:40 . Assessment and Plan [place] [employer] Anesthesiologists (ASA) physical status classification: Class II. Anesthetic Preoperative Plan Premedication: intravenous. Anesthetic technique: MAC. Induction: intravenously. Maintenance airway: Mask. Risks discussed: nausea, vomiting, headache, sore throat, dental injury, hypotension, allergic reaction, serious complications. Informed consent: signed by patient. Digitally Signed by RODRIGUEZ BAILEY on 06/10/2024 08:[address] [facility]11-11-2024 Discharge summary Date of Service 04/15/2024 [...] JENNIFER SORENSON MD When:In 2 weeks Where:[address] [facility] [address] [facility] [place] [address]- [phone] Follow Up Appointments No qualifying data available. [...] TAWNYA LOPEZ MD on 04/15/2024 07:19 AM [id number] Discharge instructions Patient Education 04/15/2024 07:51:21 [...] Document Reviewed: 05/23/2014 ExitCare Patient Information 2015 [employer]. This information is not intended to replace advicegiven to you by your health care provider. Make sure you discuss any questions you have with your health care provider. Follow Up Care 04/05/2024 11:23:28 With:JENNIFER SORENSON MD Address: [address] [facility] [address] [facility] [place] [address] [phone] When:Within 2 Week(s) [facility] 11-11-2024 Summary of episode note Discharge Instructions [...] CV OV 05/10/2024 08:30 AM [facility] [place] CV Confirmed Follow Up Appointments Follow Up with JENNIFER SORENSON MD When:In 2 weeks Where:[address] [facility] [address] [facility] [place] [address]- [phone] Medications Please ask your primary doctor or pharmacist before taking any other medication not listed, including over the counter drugs, herbal medications, vitamins and or supplements as they may interact withyour home medications. What How Much When Instructions Last Dose New atorvastatin (atorvastatin 20 mg oral tablet) 1 tab(s) by mouth Every day Duration: 30 Days Refills: 2 Pickup at [facility] Unchanged aspirin (aspirin 81 mg oral delayed [...] by mouth Once a day Pharmacy Information [facility]: [address], [place] [id number] [phone] Please take this list to your next [...] may report side effects to FDA at 3-026-EYI-4147. What other drugs will affect atorvastatin? Sometimes [...] may affect atorvastatin. This includes prescription and lcvk-qyl-wsclyix medicines, vitamins, and herbal products. Not all [...] to ensure that the information provided by [employer]. ('[employer]') is accurate, up-to-date, and complete, but no guarantee is made to that effect. Drug information contained herein may be time sensitive. [employer] information has been compiled for use by healthcare practitioners and consumers in the [place] and therefore [employer] does not warrant that uses outside of the [place] are appropriate, unless specifically indicated otherwise. [employer] drug information does not endorse drugs, diagnose patients or recommend therapy. [employer] drug information isan informational resource designed to [...] effective or appropriate for any given patient. [employer] does not assume any responsibility for any aspect of healthcare administered with the aid of information [employer] provides. The information contained herein is not intended to cover all possible uses, directions, precautions, warnings, drug interactions, allergic reactions, or adverse effects. If you have questions about the drugs you are taking, check with your doctor, nurse or pharmacist. Copyright 9655-0149 [employer]. Version: 23.02. Revision Date: 11/24/2022. Education Materials [...] Document Reviewed: 05/23/2014 ExitCare Patient Information 2015 Content[employer]. This information is not intended to replace advicegiven to you by your health care provider. Make sure you discuss any questions you have with your health care provider. Additional Information VACCINATE! IT SAVES LIVES! Members of the community who have not yet received the COVID-19 vaccine and would like to receive it can visit one of [facility] vaccine clinics. There are many vaccine clinic locations within the [facility]. For locations and available times, please visit [email or web address]/. It is important to note that some COVID mobile vaccine clinics are held outdoors and may be canceled in rainy or stormy conditions. To learn more about pediatric vaccinations (ages 5-11), we invite you to visit the [facility] webpage. https://www.[facility]s.org/[email or web address]-Wvnoh-Wzgrvreiprd-Fehykozpgd-Uvbrc-Jjg stions.htmlTo learn more about the COVID-19 vaccine, we invite you to visit the CDC website for a list of frequently asked questions.https://www.cdc.gov/coronavirus/2019-ncov/vaccines/faq.html [facility] Patient Portal Access Instructions: Stay connected with your healthcare team and access your personal medical information anytime with the [facility] Patient Portal. Please follow the directions below to create your [facility] account: 1.Access the email account you provided upon registration to the hospital/physician office.2.Look for an invitation email from [facility].3.Open the email and access the invitation link: AcceptInvitation to [facility].4.Fill in the required borges to create your account. To access your account, visit [email or web address]. Click the blue button labeled Access Patient [...] who you will allowto register on the [facility] Patient Portal for access to your information. You can also access the [facility] Patient Portal on the [facility] adithya. Simply click on Patient Portal and then log into your account. If you would like to receive a full copy of your medical records, please contact the [facility] Medical Records Department by calling [phone], Monday through Monday between 8 a.m. and [...] Call your local pharmacy or go to [email or web address]/[email or web address] to find one close to you.3.Make use of household items: Use cat litter or old coffee grounds to dispose medications if other options arenot available. Mix your drugs with these household products, seal them in an airtight container andthrow it into the garbage. Call [facility]: [phone] to be sure your drugs can be [...] that I should contact my d octor. 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 [...] TAWNYA LOPEZ MD on 04/15/2024 07:19 AM [id number] Note* Exam Date Time Procedure Performing Provider Status 04/15/24 6:33 AM Cardiac Catheterization -CV [facility] 09-26-2024 Note* Exam Date Time Procedure Performing Provider Status 02/29/24 7:40 AM VL Venous US/Doppler One Leg (for DVT). Auth (Verified) [facility] 06-21-2024 Note* Exam Date Time Procedure Performing Provider Status 11/24/23 8:04 AM VL Venous US/Doppler One Leg (for DVT). Auth (Verified) [facility] 03-18-2024 Hospital Discharge instructions Patient Education [...] before eating solid foods. General instructions Take ywxj-rhs-vcohuva and prescription medicines only as told by [...] 09/11/2016 Document Revised: 08/20/2018 Document Reviewed: 09/11/2016 [employer] Patient Education 2020 T-Quad 22. 08/21/2023 09:21:32 Colonoscopy, Adult, Care After Colonoscopy, [...] a slower pace than normal. ?Eat soft, wfzp-ky-sfiobj foods. Take wazx-wwk-fjryppd or prescription medicines only as told by [...] 01/03/2005 Document Revised: 03/14/2018 Document Reviewed: 08/02/2016 [employer] Patient Education Teravac. Follow Up Care 07/14/2023 14:39:36 With:JESSICA BECKER MD Address: [address] [place] [address] [address] [place] [address] [phone] When: Unknown Comments:Follow-up as scheduled Follow-up as needed Follow-up as needed [facility] 03-18-2024 Note Discharge Instructions Thank you for allowing [facility] to assist you with your healthcare needs. The following is importantdischarge information regarding your hospital visit. Your Care Team TON MATA DO, DR. What to do next Scheduled Follow-Up Appointments Appointment Type When With Where Contact InformationPC OV Follow Up 09/18/2023 11:30 AM EDT TON MATA DO [facility] Follow Up Appointments Follow Up with JESSICA BECKER MD When Why: Follow-up as scheduled Follow-up as needed Follow-up as needed [facility] [address] [facility] [address] [place] [phone] Someone Will Contact You Regarding These Home [...] before eating solid foods. General instructions Take mhfu-nul-rodwzti and prescription medicines only as told by [...] 09/11/2016 Document Revised: 08/20/2018 Document Reviewed: 09/11/2016 [employer] Patient Education 2020 T-Quad 22. Colonoscopy, Adult, Care After This sheet gives [...] slower pace than normal. ? Eat soft, fpfx-yk-kdyagk foods. Take kllw-ogr-ybpnism or prescription medicines only as told by [...] 01/03/2005 Document Revised: 03/14/2018 Document Reviewed: 08/02/2016 [employer] Patient Education 2020 T-Quad 22. Additional Information VACCINATE! IT SAVES LIVES! Members of the community who have not yet received the COVID-19 vaccine and would like to receive it can visit one of [facility] vaccine clinics. There are many vaccine clinic locations within the [facility]. For locations and available times, please visit [email or web address] It is important to note that some COVID mobile vaccine clinics are held outdoors and may be canceled in rainy or stormy conditions. To learn more about pediatric vaccinations (ages 5-11), we invite you to visit the [facility] webpage. https://[email or web address]/pages/[email or web address]-[email or web address]-Mji stions.htmlTo learn more about the COVID-19 vaccine, we invite you to visit the CDC website for a list of frequently asked questions.https://www.cdc.gov/coronavirus/2019-ncov/vaccines/faq.html [facility] Patient Portal Access Instructions: Stay connected with your healthcare team and access your personal medical information anytime with the [facility] Patient Portal. Please follow the directions below to create your [facility] account: 1.Access the email account you provided upon registration to the hospital/physician office.2.Look for an invitation email from [facility].3.Open the email and access the invitation link: AcceptInvitation to [facility].4.Fill in the required borges to create your account. To access your account, visit [employer]. Click the blue button labeled Access Patient Portal and then log in with the username and password that you created in the steps above. You will be able to view your test results, lab results, a summary of your visits, upcoming appointments and more. There is also a convenient messaging option where you can send secure messages to your Leostreamder. In addition, you will have the ability to download any documents or summaries to your computer and/or send the information securely to a physician. Remember that your healthcare information is confidential, so carefully consider who you will allowto register on the [facility] Patient Portal for access to your information. You can also access the [facility] Patient Portal on the [employer] adithya. Simply click on Patient Portal and then log into your account. If you would like to receive a full copy of your medical records, please contact the [facility] Medical Records Department by calling [phone], Monday through Monday between 8 a.m. and [...] Call your local pharmacy or go to http://bit.ly/0L2Bc7x to find one close to you.3.Make use of household items: Use cat litter or old coffee grounds to dispose medications if other options arenot available. Mix your drugs with these household products, seal them in an airtight container andthrow it into the garbage. Call [facility]: [phone] to be sure your drugs can be [...] that I should contact my d octor. 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03-18-2024 Anesthesiology Consult note Patient: CLAUDETTE ISSA [...] list: Medical Abnormal glucose / SNOMED CT 503913426 / Confirmed BPH with elevated PSA / SNOMED CT 427708248 / Confirmed Stage 3 chronic kidney disease / SNOMED CT 1793451170 / Confirmed Positive colorectal cancer screening using Cologuard test / SNOMED CT 2726274080 / Confirmed CPAP (continuous positive airway pressure) at home / SNOMED CT 8374147384 / Confirmed Deep vein thrombosis (DVT) of right lower extremity / SNOMED CT 5718459054 / Confirmed Acid reflux / SNOMED CT 7816296620 / Confirmed Paresthesia of foot / SNOMED CT 461651251 / Confirmed Screening for diabetes mellitus / SNOMED CT 343893263 / Confirmed Screening for lipid disorders / SNOMED CT 928878805 / Confirmed Well adult exam / SNOMED CT 636021693 / Confirmed Colon cancer screening / SNOMED CT 846065698 / Confirmed Seborrheic keratoses / SNOMED CT 2730398846 / Confirmed Left shoulder pain / SNOMED CT 78374439 / Confirmed Tinnitus, left / SNOMED CT 197027318 / Confirmed, Active Problems (15) Abnormal glucose [...] Histories Past Medical History: Active Acid reflux (2749784120) Resolved Umbilical hernia (3550874966): Resolved. Lipoma of back (698512706): Resolved. Family History: Heart disease Grandparent Procedure history: Umbilical hernioplasty ([id number]) on 02/27/2020 at 59 Years. Comments: 02/27/2020 13:57 Whitney Maloney RN with mesh Shoulder ([id number]) on 02/27/2020 at 59 Years. Comments: 02/27/2020 13:59 Whitney Maloney RN left trapezius Extracapsular cataract removal with insertion of intraocular lens prosthesis (1 stage procedure), manual or mechanical technique (eg, irrigation and aspiration or phacoemulsification); with endoscopic cyclophotocoagulation (97867). Nasal septoplasty (30457721). Colonoscopy (903746367). Esophagogastroduodenoscopy (642876216). Left patellar tendon rupture (6901663658). Biopsy of prostate (387838938). Social History Social & Psychosocial Habits Alcohol 08/21/2023 Type: Beer, Wine Frequency: 1-2 times per month Employment/School 07/17/2023 Status: Employed Substance Abuse 08/21/2023 Use: Never Tobacco 08/21/2023 Tobacco Use: Never (less than 100 in l Exposure to Tobacco Smoke Lives in non-smoking home Exercise 07/17/2023 Times per week: 3-4 times/week Home/Environment 08/21/2023 Domestic Concerns None Living situation: Home/Independent Primary Furnace Puncher: Self Lives In Multilevel home Current Home [...] Admission Weight 104.5 kg Weight Method Stated [place] Body Weight 82.69 kg BSA Admission 2.31 [...] Allergies Yes Anesthesia Extension Set Applied Yes Music Internship On Yes Colon Prep Results Good Consent [...] Person #1 We May Share PENNIE Issa [phone] Designated Person #1 Relationship Spouse Privacy Restrictions Requested None Height 188.5 cm Admission Weight 104.5 kg Weight Method Stated [place] Body Weight 82.69 kg BSA Admission 2.31 [...] Method Explanation, Printed materials Preferred Spoken Language Burmese Preferred Written Language Burmese Information Given by Patient Patient's Current Physicians Patient's Current Physicians Discharge To, Anticipated Home independently Prev Test Positive/Diagnosis w/COVID-19 No Current Quarantine/Isolated any Illness No Any Contact with Sick Animals/Birds No Traveled Anywhere in Last 30 Days Yes Travel Where Within [facility] State(s) [place] N/A Personal Devices, Patient Valuables [...] Attendee SN - CAt - Role Performed 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 Assessment and Plan [place] [employer] Anesthesiologists (ASA) physical status classification: Class III. Anesthetic Preoperative Plan Anesthetic technique: MAC. Postoperative pain management: Per surgeon. Risks discussed: nausea, vomiting, hypotension, allergic reaction, serious complications. Informed consent: signed by patient. Digitally Signed by CARLITOS QURESHI on 08/21/2023 08:[address] [facility]01-22-2024 Hospital Discharge instructions Patient Education 06/26/2023 [...] heartbeat Sweating Anxiety Lightheadedness, dizziness, or fainting 9269-[address] [employer] [place] [address]. All rights reserved. This information is not [...] instructed. They may need to be hand-washed. 9503-[address] [employer] [place] [address]. All rights reserved. This information is not [...] worsens and is not improved with elevation. 5078-08[address] [employer]. [address] [place] [address]. All rights reserved. This information is not [...] alternate ice and heat. You may use yzeg-epy-veqdwyq pain medicine to control pain, unless another [...] numb, or tingly Pain or swelling increases 1607-[address] [employer]. [address] [place] [address]. All rights reserved. This information is not intended as a substitute for professional medical care. Always follow yourhealthcare professional's instructions. Follow Up Care 06/26/2023 18:27:04 With:Outpatient mireya tomorrow Address: When: Unknown [facility] 01-22-2024 Emergency department Discharge summary Discharge Instructions Thank you for allowing [facility] to assist you with your healthcare needs. The following is importantdischarge information regarding your hospital visit. Diagnosis from Today's Visit Calf pain Leg pain-swelling What to Do Next Instructions from Your Care Team Discharge ED Outpatient Vascular Lab - Ordered -- Test Requested: R LE doppler, Lower extremity, Right, Test Reason: Pain, Mon- Fri 8am-4:30pm: Call [phone] at 7:30am to schedule a same day [...] Sweating Anxiety Lightheadedness, dizziness, or fainting [employer]. [address] [place] [address]. All rights reserved. This information is not [...] instructed. They may need to be hand-washed. [employer]. [address] [place] [address]. All rights reserved. This information is not [...] worsens and is not improved with elevation. 8692-1164 [employer]. [address] [place] [address]. All rights reserved. This information is not [...] alternate ice and heat. You may use mcyt-zpv-odsgksl pain medicine to control pain, unless another [...] numb, or tingly Pain or swelling increases 3801-79[address] [employer]. [address] [place] [address], [place] [address]. All rights reserved. This information is not intended as a substitute for professional medical care. Always follow yourhealthcare professional's instructions. Additional Information VACCINATE! IT SAVES LIVES! Members of the community who have not yet received the COVID-19 vaccine and would like to receive it can visit one of [facility] vaccine clinics. There are many vaccine clinic locations within the [facility]. For locations and available times, please visit [email or web address] It is important to note that some COVID mobile vaccine clinics are held outdoors and may be canceled in rainy or stormy conditions. To learn more about pediatric vaccinations (ages 5-11), we invite you to visit the [facility] webpage. [email or web address]/pages/[email or web address]-Sxqqoteswqd-[email or web address]-[email or web address] stions.htmlTo learn more about the COVID-19 vaccine, we invite you to visit the CDC website for a list of frequently asked questions. https://www.cdc.gov/coronavirus/2019-ncov/vaccines/faq.html [facility] Patient Portal Access Instructions: Stay connected with your healthcare team and access your personal medical information anytime with the [facility] Patient Portal. If you would like a full copy of your medical records please contact the [facility] Medical Records Department Monday through Monday between 8a.m. and 4:30p.m. Please follow the directions below to access the portal: 1.Access the email account you provided upon registration to the [facility].2.Look for an invitation email from [facility].3.Open the email and access the invitation link: Accept Invitation to [facility]4.Fill in the required borges to create your account. Sign into [email or web address] with your username and password that you [...] you will allow to register on the [facility] Patient Portal for access to your information. You can also access the [facility] Patient Portal on the [employer] adithya. Simply click on Health Records under Tag'ByData and then click on the Param logo. [...] Call your local pharmacy or go to http://bit.Aldagen/2E0Vv6n to find one close to you.3.Make use of household items: Use cat litter or old coffee grounds to dispose medications if other options arenot available. Mix your drugs with these household products, seal them in an airtight container andthrow it into the garbage. Call [facility]: [phone] to be sure your drugs can be [...] that I should contact my d octor. 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 App[facility]ments Appointment Date:09/09/2022 11:00:00 AM Scheduled Provider:TON MATA DO Location:[facility] Appointment Type: Wellness Annual [facility] Scheduled Tests Laboratory* A1C Hemoglobin 09/03/21 [facility] Evaluation + Plan note Future Appointments Appointment Date:09/09/2022 11:00:00 AM Scheduled Provider:TON MATA DO Location:[facility] Appointment Type:PC Wellness [facility] Evaluation + Plan note Future Appointments Appointment Date:08/16/2022 03:45:00 PM Scheduled Provider: Location:[facility] Appointment Type:PC Nurse Injection Appointment Date:09/08/2022 11:00:00 AM Scheduled Provider:TON MATA DO Location:[facility] Appointment Type:[facility] [address] Evaluation + Plan note Future Appointments Appointment Date:09/08/2022 11:30:00 AM Scheduled Provider:TON MATA DO Location:[facility] Appointment Type:[facility] [address] Evaluation + Plan note Future Appointments Appointment Date:08/07/2023 10:00:00 AM Scheduled Provider: Location:[facility] Appointment Type:VL - Venous US/Doppler One Leg (for DVT) Appointment Date:09/18/2023 11:30:00 AM Scheduled Provider:TON MATA DO Location:[facility] Appointment Type:PC OV Follow Up [facility] Evaluation + Plan note Future Appointments Appointment Date:09/18/2023 11:30:00 AM Scheduled Provider:TON MATA DO Location:[facility] Appointment Type:PC OV Follow Up [facility] Evaluation + Plan note Future Appointments Appointment Date:03/18/2024 11:30:00 AM Scheduled Provider:TON MATA DO Location:[facility] Appointment Type:PC OV [facility] evaluation + Plan note Future Appointments Appointment Date:04/15/2024 07:00:00 AM Scheduled Provider: Location:Heart Lab Appointment Type:CV Procedure - Heart Lab/Hybrid OR Appointment Date:04/24/2024 08:30:00 AM Scheduled Provider:TON MATA DO Location:[facility] Appointment Type:PC OV Appointment Date:05/10/2024 08:30:00 AM Scheduled Provider:MAYE SORENSON Location:[facility] Appointment Type:CV OV Future Scheduled Tests Laboratory* Basic Metabolic Panel 04/05/24 * Prostate Specific Antigen 03/18/24 * A1C Hemoglobin 03/18/24 * Complete Blood Count 04/05/24 * Complete Blood Count 03/18/24 * Lipid Profile 03/18/24 * Complete Metabolic Panel 03/18/24 [facility] evaluation + Plan note Future Appointments Appointment Date:04/15/2024 07:00:00 AM Scheduled Provider: Location:Heart Lab Appointment Type:CV Procedure - Heart Lab/Hybrid OR Appointment Date:04/24/2024 08:30:00 AM Scheduled Provider:TON MATA DO Location:[facility] Appointment Type:PC OV Appointment Date:05/10/2024 08:30:00 AM Scheduled Provider:MAYE SORENSON Location:[facility] Appointment Type:CV OV Future Scheduled Tests Laboratory* Basic Metabolic Panel 04/05/24 * Complete Blood Count 04/05/24 [facility] Evaluation + Plan note Future Appointments Appointment Date:04/24/2024 08:30:00 AM Scheduled Provider:TON MATA DO Location:[facility] Appointment Type:PC OV Appointment Date:05/10/2024 08:30:00 AM Scheduled Provider:MAYE SORENSON Location:[facility] Appointment Type:CV OV Future Scheduled Tests Laboratory* Basic Metabolic Panel 04/05/24 * Complete Blood Count 04/05/24 [facility] Evaluation + Plan note Future Appointments Appointment Date:10/23/2024 08:30:00 AM Scheduled Provider:TON MATA DO Location:[facility] Appointment Type:PC OV Follow Up Future Scheduled Tests Laboratory* Basic Metabolic Panel 04/05/24 * Complete Blood Count 04/05/24 [facility] Evaluation noteNo assessment information available [facility] Work Phone: Hospital course Narrative No data available for this section [facility] Hospital Discharge instructions No data available for this section [facility] Progress note No data available for this section [facility] Summary Purpose Family History No Family [...] section and content) DATE CREATED AUTHOR 11/29/2017 [facility] DATE CREATED AUTHOR AUTHOR'S ORGANIZ ATION 03/25/2021 [facility] DATE CREATED AUTHOR AUTHOR'S ORGANIZ ATION 09/29/2022 [facility] DATE CREATED AUTHOR AUTHOR'S ORGANIZ ATION 11/26/2023 [facility] ([place]) DATE CREATED AUTHOR AUTHOR'S ORGANIZ ATION 04/21/2024 [facility] DATE CREATED AUTHOR AUTHOR'S ORGANIZ ATION 10/30/2024 [facility] DATE CREATED AUTHOR AUTHOR'S ORGANIZ ATION 04/13/2025 [facility] Care Team (unrecognized sect ion and [...] Member Role: Primary Care Physician Address: Address: [address] [place] [id number] [place] [address] Care Team Related Persons Name: TRAM ISSA Address: Home [address] [place] [address] [phone] Goals (unrecognized section and content) Goals may [...] BE BASED ON THE PRIMARY CLINICAL RECORDS. [employer] provides no warranty or guarantee of the accuracy or completeness of information in this document.
--- NOTE | 2025-04-30 16:07 | POSTOPAN2_ITS ---
Anesthesia Postop Eval I Sum Postop Eval Completion status Anesthesia document: Postop Eval 1 completed: No Anesthesia Postop Eval I Summary Anesthesia Postop Eval I Summary: Anesthesia Postop Eval I: Assessment Summary Airway patent Yes 04/30/25 12:13 [email or web address] Spontaneous unlabored Yes 04/30/25 12:13 [email or web address] respirations Mental status nausea No 04/30/25 12:13 [email or web address] Vomiting No 04/30/25 12:13 [email or web address] Anesthesia Postop Eval I: Fluid Summary Crystalloid volume administer 700 04/30/25 12:13 [email or web address] (ml) Colloids volume administered ( ml) Blood Product volume administered (ml) Total IV fluid infused 700 04/30/25 12:13 [email or web address] Anesthesia Postop Eval I: Summary Notes Anesthesia Complication No 04/30/25 12:13 [email or web address] Anesthesia Complication Comment: Post-operative progress note Anesthesia: Postop Eval II Evaluation Mental status: Awake Pain Level: 0 nausea: No Vomiting: No Complications Anesthesia Complication: No
--- NOTE | 2025-04-30 16:07 | PCM.POSTANE2 ---
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 Spontaneous unlabored Yes 04/30/25 12:13 FIRE BEHAVIOR ANALYST.TNES respirations Mental status nausea No 04/30/25 12:13 FIRE BEHAVIOR ANALYST.TNES Vomiting No 04/30/25 12:13 FIRE BEHAVIOR ANALYST.TNES Anesthesia Postop Eval I: Fluid Summary Crystalloid volume administer 700 04/30/25 12:13 FIRE BEHAVIOR ANALYST.TNES (ml) Colloids volume administered ( ml) Blood Product volume administered (ml) Total IV fluid infused 700 04/30/25 12:13 FIRE BEHAVIOR ANALYST.TNES Anesthesia Postop Eval I: Summary Notes Anesthesia Complication No 04/30/25 12:13 FIRE BEHAVIOR ANALYST.TNES Anesthesia Complication Comment: Post-operative progress note Anesthesia: Postop Eval II Evaluation Mental status: Awake Pain Level: 0 nausea: No Vomiting: No Complications Anesthesia Complication: No
--- OUTSIDE RECORDS SUMMARY | 2025-04-30 17:05 | XMS RPT_ITS | CCD ---
Author Organization [facility] Care Team Providers Care Field Sampling Technician Name Role Phone REFERRING, PHY WO ID [...] sources) Penicillin; Translations: [penicillins] Drug Allergy unknown [facility] (1 source) Penicillins Drug allergy (disorder) 09-28-2022 [facility] Repository Medications Current Medications Medication Drug [...] Daily, # 90 tab(s), 3 Refill(s), Pharmacy: [facility], 185.42, cm, 06/10/24 7:55:00 EST, Height, kg, 06/10/24 7:55:00 EST, Dosing Weight Start Date: 07/06/24 Stop Date: 10/01/24 Status: Ordered Quantity: 90.0 Unit: tab(s) Repeat number: 4 dabigatran etexilate 150 mg oral capsule (5 sources) Start: 12-26-2023 Pradaxa 150 mg oral capsule Dose : 150 mg = 1 cap(s), Oral, BID, # 60 cap(s), 5 Refill(s), Pharmacy: [facility], 190, cm, 09/18/23 11:34:00 EDT, Height, 106.4, kg, 09/18/23 11:34:00 EDT, Dosing Weight Start Date: 12/26/23 Status: Ordered Start: 06-28-2023 Pradaxa 150 mg oral capsule Dose : 150 mg = 1 cap(s), Oral, BID, # 60 cap(s), 5 Refill(s), Pharmacy: [facility]/pharmacy #[id number], 191.6, cm, 09/08/22 11:26:00 EDT, Height, [...] release), # 45 tab(s), 0 Refill(s), Pharmacy: [facility], 190.5, cm, 05/10/24 8:25:00 EST, Height, kg, 05/10/24 8:25:00 EST, Dosing Weight Start Date: 05/10/24 Stop Date: 08/08/24 Status: Ordered Quantity: 45.0 Unit: tab(s) Repeat number: 1 Start: 04-05-2024 End: 05-05-2024 Toprol-XL 25 mg oral tablet, extended release Dose : 25 mg = 1 tab(s), Oral, qHS, Do not crush or chew (controlled release), # 30 tab(s), 0 Refill(s), Pharmacy: [facility], 190, cm, 04/05/24 10:57:00 EDT, [...] DETAIL on 04-12-2025 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 Sri Hassan R.N. Comments: 1 of 1 Normal [facility] ED NURSES CLINICAL NOTEon ED NURSES CLINICAL NOTE Nurse Narrative - CLAUDETTE ISSA, : 1960, , Nurse Clinical Narrative [address] [address] [id number] 04/11/2025 22:20:00 Patient: CLAUDETTE ISSA Sex: Male [...] Patient verbalized understanding. Written instructions provided in French. The patient was discharged home and accompanied by spouse. The patient left ambulatory and via (more content not included)... Normal [facility] ED ORDER SHEET (CPOE ONLY)on 04-12-2025 ED ORDER SHEET (CPOE ONLY) Order Sheet - CLAUDETTE ISSA, : 1960, , Order Sheet [address] [place] [address] [id number] 04/11/2025 Patient: CLAUDETTE ISSA Sex: Male : [...] (04/11/2025 23:43 EST)] 2 of 2 Normal [facility] ED PHYSICIAN CLINICAL REPORT on 04-12-2025 ED PHYSICIAN CLINICAL REPORT Narrative - CLAUDETTE ISSA, : 1960, , Physician Clinical Narrative [address] [address] [id number] 04/11/2025 22:20:00 Patient: CLAUDETTE ISSA Sex: Male : 1960 Age: 64y Disposition: Discharge to Home Disposition Decision Time: 23:41 04/11/2025 Measurements Wt: 108.9 kg, Ht/Nahs: 75.0 in, BMI: 30.00 Initial Vital Sign [...] NORMAL: 5.0-8.0 Final EST 3 of 6 [facility] - CLAUDETTE ISSA, : 1960, , 30 NORMAL: 04/11/2025 23:36 Protein Final Abnormal NEGATIVE EST 04/11/2025 23:36 Glucose NORM NORMAL: NORMAL Final EST NORMAL: 04/11/2025 23:36 Ketone NEG Final NEGATIVE EST NORMAL: 04/11/2025 23:36 Bilirubin NEG Final NEGATIVE EST 250 NORMAL: 04/11/2025 23:36 Blood Final Abnormal NEGATIVE EST 04/11/2025 23:36 Urobilinog NORM NORMAL: NORMAL Final EST NORMAL: 1.010- 04/11/2025 23:36 Sp Conover 1.010 Final 1.030 EST NORMAL: 04/11/2025 23:36 [...] NONE Final (more content not included)... Normal [facility] ED SUPER BILLon 04-12-2025 ED SUPER BILL [facility] - CLAUDETTE ISSA, : 1960, , [address] [address] [id number] 04/11/2025 Patient: CLAUDETTE ISSA Sex: Male : 1960 Age: 64y Item Facility Profession Category Description Code al Code Quantity Fee Total Nurse/E/M EMERGENCY 839907 1 $0.00 $0.00 DEPARTMEN T VISIT HIGH/URGEN T SEVERITY (33642-80) Nurse/ 16 Fr Coude 610084 1 $0.00 $0.00 Supplies Catheter (455474) Nurse/ 16 Fr LATEX 223794 1 $0.00 $0.00 Supplies FREE Carr Kit (297430) Physician/ Bladder scan 947038 1 $0.00 $0.00 Procedures (76773) Physician/ Carr 577738 1 $0.00 $0.00 Procedures catheter (81853) Grand Total $0.00 1 of 2 [facility] - CLAUDETTE ISSA, : 1960, , Providers Ashley Harden M.D. Chief Complaint URINARY RETENTION. Principal Diagnosis Urinary retention with enlarged prostate. Benign prostatic hypertrophy with prostatism and urinary retention. ICD-10 Codes N40.0: Benign prostatic hyperplasia without lower urinary tract symptoms R33.9: Retention of urine, unspecified N40.1: Benign prostatic hyperplasia with lower urinary tract symptoms 2 of 2 Normal [facility] ED VISIT SUMMARYon ED VISIT SUMMARY Visit Overview - CLAUDETTE ISSA, : 1960, , Visit [facility] [address] [place] [address] [phone] 04/11/2025 Patient: CLAUDETTE ISSA Sex: Male : [...] WITH ENLARGED PROSTATE 3 of 3 Normal [facility] ED VITALS FLOW SHEETon 04-12 ED VITALS FLOW SHEET Vitals - DEENA ISSA ELS, : 1960, , Vital Sign Flow Sheet [address] [address] [id number] 04/11/2025 Patient: CLAUDETTE ISSA Sex: Male : 1960 Age: 64y Measurements Wt: 108.9 kg, Ht/Nash: 75.0 in, BMI: 30.00 Measured Tatiana Time BP MAP HR RR O2Sat ETCO2 Temp n GCS RTS 23:50 132/71 91 64 16 95% 97.8 F 2 04/11/2025 22:22 153/90 111 103 18 93% RA 97.8 F 8 04/11/2025 1 of 1 Normal [facility] URINALYSISon 04-11-2025 Amorphous NONE Normal [facility] Comment on above: Performed By: #### 2 67332 #### [facility],[address] [place] [address] Bacteria NONE Normal [facility] Comment on above: Performed By: #### 2 54204 #### [facility],[address] [place] [address] Bilirubin Ql (U) Negative Normal NORMAL: NEGATIVE [facility] Comment on above: Performed By: #### 2 41101 #### [facility],[address] [place] [address] Casts NONE Normal [facility] Comment on above: Performed By: #### 2 98700 #### [facility],[address] [place], [place] [phone] Clarity (U) sl.cloudy Normal NORMAL: CLEAR [facility] Comment on above: Performed By: #### 2 53324 #### [facility],[address] [place], [place] [id number] Color (U) yellow Normal NORMAL: YELLOW [facility] Comment on above: Performed By: #### 2 73203 #### [facility],[address] [place] [address] Crystals LM Nom (Urine sed) NONE Normal [facility] Comment on above: Performed By: #### 2 95325 #### [facility],[address] [place] [address]999 Epi Cells FEW Normal [facility] Comment on above: Performed By: #### 2 21658 #### [facility],[address] [place] [address] Glucose Ql (U) NORM Normal NORMAL: NORMAL [facility] Comment on above: Performed By: #### 2 04863 #### [facility],[address] [place] [address] Hemoglobin Ql (U) 250 Abnormal NORMAL: NEGATIVE [facility] Comment on above: Performed By: #### 2 16256 #### [facility],[address] [place] [address] Ketone Negative Normal NORMAL: NEGATIVE [facility] Comment on above: Performed By: #### 2 29328 #### [facility],[address] [place] [address] Leukocytes Negative Normal NORMAL: NEGATIVE [facility] Comment on above: Performed By: #### 2 16450 #### [facility],[address] [place] [address] Mucous NONE Normal [facility] Comment on above: Performed By: #### 2 80080 #### [facility],[address] [place], [place] [phone] Nitrite Ql (U) Negative Normal NORMAL: NEGATIVE [facility] Comment on above: Performed By: #### 2 52070 #### [facility],[address] [place] [address] pH (U) 6 [pH] Normal NORMAL: 5.0-8.0 [facility] Comment on above: Performed By: #### 2 39682 #### [facility],[address] [place], [place] [phone] Protein Ql (U) 30 Abnormal NORMAL: NEGATIVE [facility] Comment on above: Performed By: #### 2 36195 #### [facility],[address] [place] [address] Rbc 35-50 Normal 0-3/hpf [facility] Comment on above: Performed By: #### 2 83052 #### [facility],[address] [place] [address] Sp Conover 1.010 Normal NORMAL: 1.010-1.030 [facility] Comment on above: Performed By: #### 2 97761 #### [facility],[address] [place] [address] Specimen Type R Normal [facility] Comment on above: Performed By: #### 2 01258 #### [facility],[address] [place], [place] [phone] Urinalysis dipstick W Reflex Microscopic panel (U) SEE BELOW Normal [facility] Comment on above: Result Comment: MICR OSCOPIC Performed By: #### 2 98076 #### [facility],[address] [place] [address] Urobilinog NORM Normal NORMAL: NORMAL [facility] Comment on above: Performed By: #### 2 29781 #### [facility],[address] [place], [place] [phone] Wbc 1-5 Normal 0-5/hpf [facility] Comment on above: Performed By: #### 2 39135 #### [facility],[address] [place] [address] Yeast NONE Normal [facility] Comment on above: Performed By: #### 2 88570 #### [facility],[address] [place] [address] .GFRon 10-24-2024 Estimated Glomerular Filtration Rate 60 ml/min/1.73sqm Normal [facility] Comment on above: Result Comment: Stages [...] PSA, ADIFF, A1C, LIPID, ANEU, GFR #### [address] [address] BMPon 10-24-2024 BUN/Creatinine Ratio 10 ratio Normal 7-27 [facility] Comment on above: Performed By: #### G FR, BMP #### [address] [address] Calcium [Mass/Vol] 9.4 mg/dL Normal 8.4-10.2 [facility] Comment on above: Performed By: #### G FR, BMP #### [address] [address] Chloride [Moles/Vol] 101 mmol/L Normal 98-107 [facility] Comment on above: Performed By: #### G , BMP #### [address] [address] CO2 [Moles/Vol] 31 mmol/L Normal 23-31 [facility] Comment on above: Performed By: #### G , BMP #### [address] [address] Creatinine [Mass/Vol] 1.34 mg/dL High 0.67-1.17 [facility] Comment on above: Performed By: #### Lanre ANGELES, BMP #### [address] [address] Electrolyte Balance 3.0 mEq/L Low 4.0-15.0 [facility] Comment on above: Performed By: #### Lanre ANGELES, BMP #### [address] [address] Glucose [Mass/Vol] 114 mg/dL Normal 80-115 [facility] Comment on above: Performed By: #### Lanre ANGELES, BMP #### [address] [address] Potassium [Moles/Vol] 4.7 mmol/L Normal 3.5-5.1 [facility] Comment on above: Performed By: #### G FR, BMP #### [address] [address] Sodium [Moles/Vol] 135 mmol/L Low 136-145 [facility] Comment on above: Performed By: #### G , BMP #### [address] [address] Urea nitrogen [Mass/Vol] 13 mg/dL Normal 7-18 [facility] Comment on above: Performed By: #### G FR, BMP #### [address] [address] MALBRon 10-24-2024 U Creatinine 224.5 mg/dL Normal 40.0-278.0 [facility] Comment on above: Performed By: #### C MP, CBC, PSA, ADIFF, A1C, LIPID, ANEU, GFR #### [address] [address] U Microalb 11.8 mg/L Normal [facility] Comment on above: Performed By: #### C MP, CBC, PSA, ADIFF, A1C, LIPID, ANEU, GFR #### [address] [address] U Ratio Alb/Cre 5 mg/G Normal 0-30 [facility] Comment on above: Performed By: #### C MP, CBC, PSA, ADIFF, A1C, LIPID, ANEU, GFR #### [address] [address] LABORATORYOrdered By: SYSTEM SYSTEM on 08-03-2024 Prostate specific Ag [Mass/Vol] 14.59 ng/mL High 0.00 - 4.00 ng/mL AO ADM SS PSAon 08-03-2024 Prostate Specific Antigen 14.59 ng/mL High 0.00-4.00 [facility] Comment on above: Performed By: #### P SA #### [address] [address] Final Surgical Pathology Rep [facility] 06-12-2024 Final Surgical Pathology Report . Pathology Reports Accession: Collected Date/Time: Received Date/Time: Pathologist: [id number] 06/10/2024 10:08 EST 06/11/2024 08:47 MD BLAYNE BOURGEOIS Final Surgical Pathology Report DIAGNOSIS: CECUM, BIOPSY: - FRAGMENTS OF TUBULOVILLOUS ADENOMA CLINICAL INFORMATION: PROCEDURE: COLONOSCOPY WITH POLYPECTOMY PREOPERATIVE DIAGNOSIS: HISTORY OF POLYPS POSTOPERATIVE DIAGNOSIS: HISTORY OF POLYPS SPECIMEN: A CECUM POLYP GROSS DESCRIPTION: All parts labelled with patient name and [id number] Received in formalin labeled cecum polyp are multiple guerra-pink tissue fragments aggregating 1.9 x 0.8 x 0.7 cm greatest dimension. Largest fragment margin is inked and specimen is bisected. TS-1 Dianna Abraham, Grossing Lead Ramp Agent/ Dr. Russel Uriarte, Pathologist Performed by Dianna Abraham MICROSCOPIC DESCRIPTION: The microscopic examination is performed, except in the case of Gross Only. Electronically Signed by Pathology Report verified by [facility] BLAYNE MOODY MD Sign out Date: 06/12/2024 08:42 Performing Lab: [facility], [address] [place] [address] Pathology Dept Disclaimer If ancillary studies were utilized, the following Laboratory Developed Test (LDT) disclaimer will apply: Under CLIA requirements, [facility] is qualified to perform high complexity testing. For all ancillary stains, positive and negative controls stain appropriately. Performance characteristics of immunohistochemical and chromogenic in-situ hybridization tests have been determined by [facility]. These tests are used for clinical purposes, They should not be regarded as investigational or for research. Normal [facility] .Auto Diffon 04-13-2024 Basophil, Absolute 0.1 10 3/mcL Normal 0.0-0.2 [facility] Comment on above: Performed By: #### C MP, CBC, PSA, ADIFF, A1C, LIPID, ANEU, GFR #### [address] [address] Basophils/100 WBC (Bld) 0.7 % Normal 0.0-2.5 [facility] Comment on above: Performed By: #### C MP, CBC, PSA, ADIFF, A1C, LIPID, ANEU, GFR #### [address] [address] Eosinophil, Absolute 0.2 10 3/mcL Normal 0.0-0.7 [facility] Comment on above: Performed By: #### C MP, CBC, PSA, ADIFF, A1C, LIPID, ANEU, GFR #### [address] [address] Eosinophils/100 WBC (Bld) 2.5 % Normal 0.0-7.0 [facility] Comment on above: Performed By: #### C MP, CBC, PSA, ADIFF, A1C, LIPID, ANEU, GFR #### [address] [address] Lymphocyte, Absolute 2.5 10 3/mcL Normal 0.9-4.3 [facility] Comment on above: Performed By: #### C MP, CBC, PSA, ADIFF, A1C, LIPID, ANEU, GFR #### [address] [address] Lymphocytes/100 WBC (Bld) 32.5 % Normal 20.0-40.0 [facility] Comment on above: Performed By: #### C MP, CBC, PSA, ADIFF, A1C, LIPID, ANEU, GFR #### [address] [address] Monocyte, Absolute 0.5 10 3/mcL Normal 0.1-1.4 [facility] Comment on above: Performed By: #### C MP, CBC, PSA, ADIFF, A1C, LIPID, ANEU, GFR #### [address] [address] Monocytes/100 WBC (Bld) 6.6 % Normal 2.0-13.0 [facility] Comment on above: Performed By: #### C MP, CBC, PSA, ADIFF, A1C, LIPID, ANEU, GFR #### [address] [address] Neutrophils/100 WBC (Bld) 57.7 % Normal 50.0-75.0 [facility] Comment on above: Performed By: #### C MP, CBC, PSA, ADIFF, A1C, LIPID, ANEU, GFR #### [address] [address] .GFRon 04-13-2024 GFR Non- 50 ml/min/1.73sqm Normal [facility] Comment on above: Result Comment: GFR [...] PSA, ADIFF, A1C, LIPID, ANEU, GFR #### [address] [address] GFR 61 ml/min/1.73sqm Normal [facility] Comment on above: Result Comment: GFR [...] PSA, ADIFF, A1C, LIPID, ANEU, GFR #### [address] [address] .NEUABSon 04-13-2024 Neutrophil, Absolute 4.4 10 3/mcL Normal 2.3-8.1 [facility] Comment on above: Performed By: #### C MP, CBC, PSA, ADIFF, A1C, LIPID, ANEU, GFR #### [place] [address] [place], [place] [address] A1Con 04-13-2024 Glucose [Mass/Vol] 114 mg/dL Normal [facility] Comment on above: Result Comment: Ginny mated Average Glucose calculated by equation ((28.7xA1C)-46.7) Estimated average glucose (eAG) is a calculated value from Hemoglobin A1C and is printing supplies sales representative of the average blood glucose level in the last 2-3 month period. Normal range: less than 114 mg/dL Performed By: #### C MP, CBC, PSA, ADIFF, A1C, LIPID, ANEU, GFR #### [address] [address] HbA1c (Bld) [Mass fraction] 5.6 % Normal 4.3-6.4 [facility] Comment on above: Performed By: #### C MP, CBC, PSA, ADIFF, A1C, LIPID, ANEU, GFR #### [place] [id number] CBCon 04-13-2024 Erythrocyte distribution width (RBC) [Ratio] 13.5 % Normal 11.5-15.5 [facility] Comment on above: Performed By: #### C MP, CBC, PSA, ADIFF, A1C, LIPID, ANEU, GFR #### [address] [address] Hematocrit (Bld) [Volume fraction] 44.0 % Normal 40.0-52.0 [facility] Comment on above: Performed By: #### C MP, CBC, PSA, ADIFF, A1C, LIPID, ANEU, GFR #### [address] [address] Hgb 15.7 G/dL Normal 13.0-17.5 [facility] Comment on above: Performed By: #### C MP, CBC, PSA, ADIFF, A1C, LIPID, ANEU, GFR #### [address] [address] MCH (RBC) [Entitic mass] 30.8 pg Normal 27.0-33.0 [facility] Comment on above: Performed By: #### C MP, CBC, PSA, ADIFF, A1C, LIPID, ANEU, GFR #### [place] [phone] MCHC 35.7 G/dL Normal 32.0-36.0 [facility] Comment on above: Performed By: #### C MP, CBC, PSA, ADIFF, A1C, LIPID, ANEU, GFR #### [address] [address] MCV (RBC) [Entitic vol] 86.2 fL Normal 81.0-100.0 [facility] Comment on above: Performed By: #### C MP, CBC, PSA, ADIFF, A1C, LIPID, ANEU, GFR #### [address] [address] Platelet 210 10 3/mcL Normal 150-450 [facility] Comment on above: Performed By: #### C MP, CBC, PSA, ADIFF, A1C, LIPID, ANEU, GFR #### [address] [address] Platelet mean volume (Bld) [Entitic vol] 7.6 fL Normal 6.4-10.5 [facility] Comment on above: Performed By: #### C MP, CBC, PSA, ADIFF, A1C, LIPID, ANEU, GFR #### [address] [address] RBC 5.11 10 6/mcL Normal 4.50-6.00 [facility] Comment on above: Performed By: #### C MP, CBC, PSA, ADIFF, A1C, LIPID, ANEU, GFR #### [address] [address] WBC 7.6 10 3/mcL Normal 4.5-10.8 [facility] Comment on above: Performed By: #### C MP, CBC, PSA, ADIFF, A1C, LIPID, ANEU, GFR #### [address] [address] CMPon 04-13-2024 Albumin Level 4.3 G/dL Normal 3.4-4.8 [facility] Comment on above: Performed By: #### C MP, CBC, PSA, ADIFF, A1C, LIPID, ANEU, GFR #### [facility] [place] [address] [place], [place] [address] Albumin/Globulin [Mass ratio] 1.7 {ratio} Normal 1.1-2.5 [facility] Comment on above: Performed By: #### C MP, CBC, PSA, ADIFF, A1C, LIPID, ANEU, GFR #### [address] [address] ALP [Catalytic activity/Vol] 74 U/L Normal 40-135 [facility] Comment on above: Performed By: #### C MP, CBC, PSA, ADIFF, A1C, LIPID, ANEU, GFR #### [address] [address] ALT [Catalytic activity/Vol] 39 U/L Normal 16-63 [facility] Comment on above: Performed By: #### C MP, CBC, PSA, ADIFF, A1C, LIPID, ANEU, GFR #### [address] [address] AST [Catalytic activity/Vol] 21 U/L Normal 10-40 [facility] Comment on above: Performed By: #### C MP, CBC, PSA, ADIFF, A1C, LIPID, ANEU, GFR #### [address] [address] Bili Total 0.9 mg/dL Normal 0.2-1.0 [facility] Comment on above: Result Comment: Use of this assay is not recommended for patients undergoing treatment with eltrombopag due to the potential for falsely elevated results. Performed By: #### C MP, CBC, PSA, ADIFF, A1C, LIPID, ANEU, GFR #### [address] [address] BUN/Creatinine Ratio 13 ratio Normal 7-27 [facility] Comment on above: Performed By: #### C MP, CBC, PSA, ADIFF, A1C, LIPID, ANEU, GFR #### [address] [address] Calcium [Mass/Vol] 9.5 mg/dL Normal 8.4-10.2 [facility] Comment on above: Performed By: #### C MP, CBC, PSA, ADIFF, A1C, LIPID, ANEU, GFR #### [address] [address] Chloride [Moles/Vol] 104 mmol/L Normal 98-107 [facility] Comment on above: Performed By: #### C MP, CBC, PSA, ADIFF, A1C, LIPID, ANEU, GFR #### [address] [address] CO2 [Moles/Vol] 32 mmol/L High 23-31 [facility] Comment on above: Performed By: #### C MP, CBC, PSA, ADIFF, A1C, LIPID, ANEU, GFR #### [address] [address] Creatinine [Mass/Vol] 1.43 mg/dL High 0.70-1.30 [facility] Comment on above: Result Comment: Test ing performed on Siemens Dimension EXL analyzer using a modified kinetic Yair technique. Performed By: #### C MP, CBC, PSA, ADIFF, A1C, LIPID, ANEU, GFR #### [address] [address] Electrolyte Balance 4.0 mEq/L Normal 4.0-15.0 [facility] Comment on above: Performed By: #### C MP, CBC, PSA, ADIFF, A1C, LIPID, ANEU, GFR #### [address] [address] Globulin 2.5 G/dL Normal [facility] Comment on above: Performed By: #### C MP, CBC, PSA, ADIFF, A1C, LIPID, ANEU, GFR #### [address] [address] Glucose [Mass/Vol] 105 mg/dL Normal 80-115 [facility] Comment on above: Performed By: #### C MP, CBC, PSA, ADIFF, A1C, LIPID, ANEU, GFR #### [address] [address] Potassium [Moles/Vol] 4.5 mmol/L Normal 3.5-5.1 [facility] Comment on above: Performed By: #### C MP, CBC, PSA, ADIFF, A1C, LIPID, ANEU, GFR #### [place] [place], [place] [address] Sodium [Moles/Vol] 140 mmol/L Normal 136-145 [facility] Comment on above: Performed By: #### C MP, CBC, PSA, ADIFF, A1C, LIPID, ANEU, GFR #### [place] [address] [place], [place] [address] Total Protein 6.8 G/dL Normal 6.4-8.2 [facility] Comment on above: Performed By: #### C MP, CBC, PSA, ADIFF, A1C, LIPID, ANEU, GFR #### [place] [address] [place], [place] [address] Urea nitrogen [Mass/Vol] 18 mg/dL Normal 7-18 [facility] Comment on above: Performed By: #### C MP, CBC, PSA, ADIFF, A1C, LIPID, ANEU, GFR #### [address] [address] LABORATORYOrdered By: SYSTEM SYSTEM on 04-13-2024 Albumin [...] calculated value from Hemoglobin A1C and is printing supplies sales representative of the average blood glucose level [...] 04-13-2024 Cholesterol [Mass/Vol] 188 mg/dL Normal 0-200 [facility] Comment on above: Result Comment: Chol esterol Reference Interval: Less than 200 Desirable 200-239 Borderline high risk 240 and above High risk Performed By: #### C MP, CBC, PSA, ADIFF, A1C, LIPID, ANEU, GFR #### [address] [address] Cholesterol in HDL [Mass/Vol] 41 mg/dL Normal 40-60 [facility] Comment on above: Performed By: #### C MP, CBC, PSA, ADIFF, A1C, LIPID, ANEU, GFR #### [address] [address] Cholesterol in LDL [Mass/Vol] 114 mg/dL Normal 0-130 [facility] Comment on above: Performed By: #### C MP, CBC, PSA, ADIFF, A1C, LIPID, ANEU, GFR #### [address] [address] Triglyceride [Mass/Vol] 164 mg/dL High 0-150 [facility] Comment on above: Result Comment: Trig lyceride Reference Interval: Less than 150 Normal 150-199 Borderline high risk 200-499 High risk 500 or higher Very high risk Performed By: #### C MP, CBC, PSA, ADIFF, A1C, LIPID, ANEU, GFR #### [address] [address] PSAon 04-13-2024 Prostate Specific Antigen 15.91 ng/mL High 0.00-4.00 [facility] Comment on above: Performed By: #### C MP, CBC, PSA, ADIFF, A1C, LIPID, ANEU, GFR #### [address] [address] NM MYOCARDIAL SPECT STRESS/R ESTon 04-08-2024 NM [...] Date: 04/08/2024 6:14:36 AM Ordering Provider:Ton Mercado [facility] Final Surgical Pathology Rep eric 08-23-2023 Final Surgical Pathology Report . Pathology Reports Accession: Collected Date/Time: Received Date/Time: Pathologist: [id number] 08/21/2023 11:07 EDT 08/22/2023 09:16 EDT MD BLAYNE MOODY Final Surgical Pathology Report DIAGNOSIS: TRANSVERSE COLON, BIOPSY: - TUBULAR ADENOMA CLINICAL INFORMATION: PROCEDURE: COLONOSCOPY PREOPERATIVE DIAGNOSIS: + COLOGUARD POSTOPERATIVE DIAGNOSIS: + COLOGUARD SPECIMEN: A TRANSVERSE COLON POLYP GROSS DESCRIPTION: All parts labelled with patient name and [id number] Received in formalin labeled #1 transverse colon polyp are 3 guerra-pink tissue fragments measuring 0.2 to 0.3 x 0.1 cm. TS-1 Dianna Abraham, Grossing Lead Ramp Agent/ Dr. Russel Uriarte, Pathologist Dictated by Dianna Abraham MICROSCOPIC DESCRIPTION: The microscopic examination is performed, except in the case of Gross Only. Electronically Signed by Pathology Report verified by [facility] BLAYNE MOODY MD Sign out Date: 08/23/2023 08:18 Performing Lab: [facility], [address] [place] [address] Pathology Dept Disclaimer If ancillary studies were utilized, the following Laboratory Developed Test (LDT) disclaimer will apply: Under CLIA requirements, [facility] is qualified to perform high complexity testing. For all ancillary stains, positive and negative controls stain appropriately. Performance characteristics of immunohistochemical and chromogenic in-situ hybridization tests have been determined by [facility]. These tests are used for clinical purposes, They should not be regarded as investigational or for research. Normal [facility] ([place]) LABORATORYOrdered By: SYSTEM SYSTEM on 08-01-2023 Prostate specific Ag [Mass/Vol] 13.96 ng/mL High 0.00 - 4.00 ng/mL AO ADM SS PSAon 08-01-2023 Prostate Specific Antigen 13.96 ng/mL High 0.00-4.00 [facility]) Comment on above: Performed By: #### P SA #### [facility] [address] [place], [place] [address] Surgery Visit Reporton 09-28 Surgery Visit Report [facility] [address] [place] [address] OFFICE VISIT Date of Service: 09/28/22 MR#: [id number] Acct: [id number] Name: CLAUDETTE ISSA Rep #: [id number] : 1960 Provider: Dr. Donny ordoñez MD Age/Sex: 62/M Location: [facility] Status: Signed Intake Vital Signs 09/28/22 14:43 Height 6 ft 3 in Weight: 236 lb 2 oz BMI 29.5 BP 150/93 H Blood Pressure Location Rt radial Position Sitting Respiration 18 Pulse 67 Pulse Source Monitor Intake Visit Reasons: HEMORRHOIDS Chief Complaint: Hemorrhoids Ecology Professor Required: No Is patient in pain?: No [...] drain or open. Donny Smith MD Pager: [facility] [address] [place] [address], [address] [place] [address] Office: Coding Level of Care Code Off vis,new,level 3 Diagnoses Hemorrhoid K64.9 09/29/22 1324 Date ___ (more content not included)... Normal [facility] LABORATORYOrdered By: SYSTEM SYSTEM on 09-03-2022 [...] Account Attending Physician CLAUDETTE ISSA 61/M LABSPEC [id number] Dr. Arthur Reyes MD Specimen: [id number] Received: 07/11/22 Status: BILLY Trujillo Num: [id number] Spec Type: IMMUNO Subm Dr: Dr. Arthur Reyes MD PHYSICIAN INSTITUTION [place] [address] SPECIMEN INFORMATION: Tissue Source: D - Left prostate, apex, core biopsy Clinical Info: Elevated PSA Specimen Number: [id number] D CPT code: 64132, 68054 METHODOLOGY: Deparaffinized sections of prefer/formalin-fixed tissue or [...] developed and their performance characteristics determined by [facility]. They may not have been [...] Dr. Mukul Cordero MD 07/13/22 0843 Normal [facility] Comment on above: Performed By: #### P [id number] #### [facility] [place], [address] PROSTATE BXon 07-07-2022 PROSTATE BX --- Patient Age/Sex Location Account Attending Physician CHEYENNECLAUDETTE VELOZ 61/M LABSPEC [id number] Dr. Arthur Reyes MD Specimen: [id number] Received: 07/07/22 Status: BILLY Trujillo Num: [id number] Spec Type: PROST BX Subm Dr: Dr. [...] chronic inflammation. SJ:marisel 07/11/2022 COMMENT D. Immunohistochemistry ([id number]) supports the above diagnosis. MICROSCOPIC DESCRIPTION Slides [...] Account Attending Physician CLAUDETTE ISSA 61/M LABSPEC [id number] Dr. Arthur Reyes MD 0.1 cm in [...] in one cassette. / SJ:rg 07/08/2022 TC:3 [facility]: [address] x6 Patient Age/Sex Location Account Attending Physician CLAUDETTE ISSA 61/M LABSPEC [id number] Dr. Arthur Reyes MD Signed (signature on file) Dr. Mukul Cordero MD 07/12/22 1301 Normal [facility] Comment on above: Performed By: #### P PROSB #### [facility] [address] [place], [place], [address] Basophil percentageOrdered B y: Dr. Reyes on 07-05-2022 Basophil percentage < 0.9 mg/dL 0.70-1.30 [facility] CREATININE FINGERSTICKon CREATININE WB < 0.9 Normal 0.70-1.30 [facility] Comment on above: Performed By: #### L 9100.0200 #### [facility] [address] [place], [place], [address] EGFR WB > 60.0000 Normal >60 [facility] Comment on above: Performed By: #### L 9100.0200 #### [facility] [address] [place], [address] No Panel InformationOrdered By: Dr. Reyes on 07-05-2022 Bedside Estimated GFR (eGFR) > 60.0000 mL/min >60 [facility] Pelvis W/WO Contraston 07-05 Pelvis W/WO Contrast [facility] Imaging Services [address] [place] [address] Pelvis W/WO Contrast MR#: [id number] Acct: [id number] Name: CLAUDETTE ISSA Rep #: [id number] : 1960 M 61 From: Amarjit Corado MD PCP: Dr. Ton Mata, DO Status: REG CLI Study: Pelvis W/WO Contrast Date of Exam: 07/05/22 Exam# [id number] Ordering Dr: Arthur Reyes MD STUDY: MR [...] Arthur Reyes MD; Dr. Ton Mata DO Outsole Paraffiner: Signed Normal [facility] LABORATORYOrdered By: SYSTEM SYSTEM on 06-01-2022 [...] 10.67 on 01/26/2021 COMPARISON: None. ACCESSION NUMBER(S): [id number] ORDERING CLINICIAN: ARTHUR REYES TECHNIQUE: Multiplanar MRI of the pelvis was obtained including axial, sagittal and coronal T2 weighted SSFSE, axial and sagittal T2 FSE, axial DWI, pre and post gadolinium dynamic T1 GRE sequences. Multiparametric analysis was performed. 20 mL Dotarem was administered intravenously without immediate complications. FINDINGS: PROSTATE VOLUME: The prostate measures 5.7 cm x 5.4 cm x 5.8 cm in lxzmv-vi-[id number], anterior-posterior and craniocaudal dimension. Prostate weight is [...] as stated. This study was interpreted at [facility], [place], [place]. Electronically signed by: LEÓN GALLARDO MD Normal [facility] Basic Metabolic Panelon 06- Glucose mass conc 99 mg/dL Normal 70-105 [facility] Comment on above: Performed By: #### B MP ####[facility] [address] [address] BUN/Creatinine Ratio 14 mg/mg Normal 7-27 [facility] Comment on above: Performed By: #### B MP ####[place] [address] [place] [address] CO2 29 mmol/L Normal 22-29 [facility] Comment on above: Performed By: #### B MP ####[address] [address] Creatinine 1.4 mg/dL High 0.6-1.2 [facility] Comment on above: Performed By: #### B MP ####[address] [address] Electrolyte Balance 9.0 mEq/L Normal [facility] Comment on above: Performed By: #### B MP ####[place] [id number] Calcium 9.7 mg/dL Normal 8.4-10.2 [facility] Comment on above: Performed By: #### B MP ####[address] [address] Urea nitrogen 19 mg/dL High 7-18 [facility] Comment on above: Performed By: #### B MP ####[address] [address] Chloride 100 mmol/L Normal 98-107 [facility] Comment on above: Performed By: #### B MP ####[address] [address] Potassium molar conc 4.5 mmol/L Normal 3.5-5.1 [facility] Comment on above: Performed By: #### B MP ####[address] [address] Sodium 138 mmol/L Normal 136-146 [facility] Comment on above: Performed By: #### B MP ####[address] [address] CBC (AO)on 11-30-2016 Basophils Auto #/vol (Bld) 0.00 10 3/mcL Normal 0.00-0.19 [facility] Comment on above: Performed By: #### C BCO ####Param [address] [address] Basophils/100 WBC Auto (Bld) 0.4 % Normal 0.0-2.5 [facility] Comment on above: Performed By: #### C BCO ####[address] [address] Eosinophils 0.20 10 3/mcL Normal 0.00-0.40 [facility] Comment on above: Performed By: #### C BCO ####Param [address] [address] Eosinophils/100 leukocytes 1.9 % Normal 0.0-7.0 [facility] Comment on above: Performed By: #### C BCO ####[address] [address] Erythrocyte distribution width Auto Ratio (RBC) 12.8 % Normal 11.5-14.5 [facility] Comment on above: Performed By: #### C BCO ####[address] [address] Erythrocytes (RBC) 5.29 10 6/mcL Normal 4.04-6.13 [facility] Comment on above: Performed By: #### C BCO ####[address] [address] Hematocrit (HCT) 45.4 % Normal 42.0-52.0 [facility] Comment on above: Performed By: #### C BCO ####[address] [address] Hemoglobin mass conc (Bld) 15.5 G/dL Normal 14.0-18.0 [facility] Comment on above: Performed By: #### C BCO ####[address] [address] Lymphocytes 2.20 10 3/mcL Normal 0.77-3.85 [facility] Comment on above: Performed By: #### C BCO ####[address] [address] Lymphocytes/100 leukocytes 22.3 % Normal 10.0-50.0 [facility] Comment on above: Performed By: #### C BCO ####[address] [address] MCH 29.4 pg Normal 27.0-31.2 [facility] Comment on above: Performed By: #### C BCO ####[address] [address] MCHC mass conc (RBC) 34.2 G/dL Normal 31.8-35.4 [facility] Comment on above: Performed By: #### C BCO ####[address] [address] MCV 85.8 fL Normal 80.0-94.0 [facility] Comment on above: Performed By: #### C BCO ####[address] [address] Monocytes 0.70 10 3/mcL Normal 0.15-1.00 [facility] Comment on above: Performed By: #### C BCO ####[address] [address] Monocytes/100 leukocytes 6.8 % Normal 1.7-13.0 [facility] Comment on above: Performed By: #### C BCO ####[address] [address] Neutrophils 6.70 10 3/mcL High 2.85-6.16 [facility] Comment on above: Performed By: #### C BCO ####[address] [address] Neutrophils/100 WBC Auto (Bld) 68.6 % Normal 37.0-80.0 [facility] Comment on above: Performed By: #### C BCO ####[address] [address] Platelet mean volume (PMV) 8.2 fL Normal 7.4-10.4 [facility] Comment on above: Performed By: #### C BCO ####[address] [place] [address] Platelets 239 10 3/mcL Normal 130-400 [facility] Comment on above: Performed By: #### C BCO ####[address] [address] WBC (Leukocytes) 9.80 10 3/mcL Normal 4.60-10.80 [facility] Comment on above: Performed By: #### C BCO ####[address] [address] Glomerular Filtration Rate E stimateon 11-30-2016 eGFR (non-black) mL/min/{1.73_m2} Normal [facility] Comment on above: Result Comment: Cassandra kinney mean GFR = 93 mL/min/1.73 sq.m. for ages 50-59 years. Chronic Kidney Disease: Less than 60 mL/min/1.73 square metersEnd Stage Renal Disease: Less than 15 mL/min/1.73 square meters Performed By: #### G FR ####[address] [address] eGFR (non-black) 53 mL/min/1.73m 2 Normal A [facility] Comment on above: Performed By: #### G FR ####[address] [address] Vital Signs Date Time Vital Sign Value Performing Clinician Ifeanyi morales 06-10-2024 10:59-0500 Diastolic Blood Pressure Non-Invasive 79 mm[Hg] DR JESSICA BECKER MD [facility] 06-10-2024 10:59-0500 Heart rate 52 /min DR JESSICA BECKER MD [facility] 06-10-2024 10:59-0500 Respiratory rate 16 /min DR JESSICA BECKER MD [facility] 06-10-2024 10:59-0500 Systolic Blood Pressure Non-Invasive 122 mm[Hg] DR JESSICA BECKER MD [facility] 06-10-2024 10:44-0500 Diastolic Blood Pressure Non-Invasive 77 mm[Hg] DR JESSICA BECKER MD [facility] 06-10-2024 10:44-0500 Heart rate 48 /min DR JESSICA BECKER MD [facility] 06-10-2024 10:44-0500 Respiratory rate 13 /min DR JESSICA BECKER MD [facility] 06-10-2024 10:44-0500 Systolic Blood Pressure Non-Invasive 120 mm[Hg] DR JESSICA BECKER MD [facility] 06-10-2024 10:30-0500 Diastolic Blood Pressure Non-Invasive 78 mm[Hg] DR JESSICA BECKER MD [facility] 06-10-2024 10:30-0500 Heart rate 52 /min DR JESSICA BECKER MD [facility] 06-10-2024 10:30-0500 Respiratory rate 15 /min DR JESSICA BECKER MD [facility] 06-10-2024 10:30-0500 Systolic Blood Pressure Non-Invasive 108 mm[Hg] DR JESSICA BECKER MD [facility] 06-10-2024 10:22-0500 Body temperature 97.52 [degF] DR JESSICA BECKER MD [facility] 06-10-2024 10:15-0500 Respiratory Rate - Anes 17 br/min DR JESSICA BECKER MD [facility] 06-10-2024 10:10-0500 Respiratory Rate - Anes 16 br/min DR JESSICA BECKER MD [facility] 06-10-2024 10:05-0500 Respiratory Rate - Anes 14 br/min DR JESSICA BECKER MD [facility] 06-10-2024 07:51-0500 Body height 185.[address] JESSICA BECKER MD [facility] 06-10-2024 07:51-0500 Body temperature 97.52 [degF] DR JESSICA BECKER MD [address] [place] [address] 06-10-2024 07:51-0500 Body weight 109.[address] JESSICA BECKER MD [address] [place] [address] 06-10-2024 07:51-0500 Heart rate 62 /min DR JESSICA BECKER MD [address] [place] [address] 04-15-2024 05:32-0500 Body weight 29.95 kg/m2 DR JENNIFER SORENSON MD [address] [place] [address] 04-15-2024 05:24-0500 Body height 190.[address] JENNIFER SORENSON MD [address] [place] [address] 04-15-2024 05:24-0500 Body temperature 98.06 [degF] DR JENNIFER SORENSON MD [address] [place] [address] 04-15-2024 05:24-0500 Body weight 108.[address] JENNIFER SORENSON MD [address] [place] [address] 04-15-2024 05:24-0500 Diastolic Blood Pressure Non-Invasive 84 mm[Hg] DR JENNIFER SORENSON MD [address] [place] [address] 04-15-2024 05:24-0500 Heart rate 62 /min DR JENNIFER SORENSON MD [address] [place] [address] 04-15-2024 05:24-0500 Respiratory rate 16 /min DR JENNIFER SORENSON MD [facility] 04-15-2024 05:24-0500 Systolic Blood Pressure Non-Invasive 133 mm[Hg] DR JENNIFER SORENSON MD [facility] 08-21-2023 09:24-0400 Diastolic Blood Pressure Non-Invasive 80 mm[Hg] DR JESSICA BECKER MD [facility] 08-21-2023 09:24-0400 Heart rate 56 /min DR JESSICA BECKER MD [facility] 08-21-2023 09:24-0400 Respiratory rate 14 /min DR JESSICA BECKER MD [facility] 08-21-2023 09:24-0400 Systolic Blood Pressure Non-Invasive 124 mm[Hg] DR JESSICA BECKER MD [facility] 08-21-2023 09:19-0400 Diastolic Blood Pressure Non-Invasive 81 mm[Hg] DR JESSICA BECKER MD [facility] 08-21-2023 09:19-0400 Heart rate 58 /min DR JESSICA BECKER MD [facility] 08-21-2023 09:19-0400 Respiratory rate 15 /min DR JESSICA BECKER MD [facility] 08-21-2023 09:19-0400 Systolic Blood Pressure Non-Invasive 118 mm[Hg] DR JESSICA BECKER MD [facility] 08-21-2023 09:13-0400 Body temperature 97.34 [degF] DR JESSICA BECKER MD [facility] 08-21-2023 09:13-0400 Diastolic Blood Pressure Non-Invasive 79 mm[Hg] DR JESSICA BECKER MD [facility] 08-21-2023 09:13-0400 Heart rate 55 /min DR JESSICA BECKER MD [facility] 08-21-2023 09:13-0400 Respiratory rate 16 /min DR JESSICA BECKER MD [facility] 08-21-2023 09:13-0400 Systolic Blood Pressure Non-Invasive 130 mm[Hg] DR JESSICA BECKER MD [facility] 08-21-2023 09:10-0400 Respiratory Rate - Anes 14 br/min DR JESSICA BECKER MD [facility] 08-21-2023 09:05-0400 Respiratory Rate - Anes 16 br/min DR JESSICA BECKER MD [facility] 08-21-2023 08:02-0400 Body height 188.[address] JESSICA BECKER MD [facility] 08-21-2023 08:02-0400 Body temperature 97.52 [degF] DR JESSICA BECKER MD [facility] 08-21-2023 08:02-0400 Body weight 104.[address] JESSICA BECKER MD [facility] 08-21-2023 08:02-0400 Body weight 29.41 kg/m2 DR JESSICA BECKER MD [facility] 08-21-2023 08:02-0400 Heart rate 62 /min DR JESSICA BECKER MD [facility] 06-26-2023 18:30-0500 Body temperature 99.32 [degF] DR CLARITZA MITCHELL DO [facility] 06-26-2023 18:30-0500 Body weight 105.[address] CLARITZA MITCHELL DO [facility] 06-26-2023 18:30-0500 Diastolic Blood Pressure Non-Invasive 90 mm[Hg] DR CLARITZA MITCHELL DO [facility] 06-26-2023 18:30-0500 Heart rate 82 /min DR CLARITZA MITCHELL DO [facility] 06-26-2023 18:30-0500 Respiratory rate 16 /min DR CLARITZA MITCHELL DO [facility] 06-26-2023 18:30-0500 Systolic Blood Pressure Non-Invasive 160 mm[Hg] DR CLARITZA MITCHELL DO [facility] Encounters Encounter Date Encounter Type Care Provider Facility Start: 04-11-2025 End: 04-11-2025 Emergency department patient visit ASHLEY GONZALES [facility] Start: 10-24-2024 End: 10-24-2024 ambulatory TON MATA DO [facility] Start: 08-03-2024 End: 08-03-2024 ambulatory TON MATA DO [facility] Start: 08-03-2024 End: 08-03-[address] ARTHUR REYES MD [facility] Start: 06-10-2024 End: 06-10-2024 ambulatory TON MATA DO [facility] Start: 06-10-2024 End: 06-10-[address] JESSICA BECKER MD [facility] Start: 04-15-2024 End: 04-15-[address] JENNIFER SORENSON MD Facility:A Start: 04-15-2024 End: 04-15-[address] JENNIFER SORENSON MD [facility] Start: 04-13-2024 End: 04-13-2024 ambulatory TON MATA DO [facility] Start: 04-13-2024 End: 04-13-2024 Patient encounter procedure TON SUZI DO [facility] Start: 04-05-2024 End: 04-05-2024 ambulatory TON MATA DO [facility] Start: 04-05-2024 End: 04-05-2024 Patient encounter procedure TON SUZI DO [facility] Start: 02-29-2024 End: 02-29-2024 ambulatory TON MATA DO [facility] Start: 02-29-2024 End: 02-29-2024 Patient encounter procedure TON SUZI DO [facility] Start: 11-24-2023 End: 11-24-2023 ambulatory TON MATA DO Facility:[facility] Start: 11-24-2023 End: 11-24-2023 Patient encounter procedure TON SUZI DO [facility] Start: 08-21-2023 End: 08-21-[address] JESSICA BECKER MD Facility:[facility] Start: 08-21-2023 End: 08-21-[address] JESSICA BECKER MD [facility] Start: 08-07-2023 End: 08-07-2023 ambulatory TON MATA DO Facility:[facility] Start: 08-07-2023 End: 08-07-2023 Patient encounter procedure TON SUZI DO [facility] Start: 08-01-2023 End: 08-01-[address] ARTHUR REYES MD Facility:[facility] Start: 08-01-2023 End: 08-01-[address] ARTHUR REYES MD [facility] Start: 06-27-2023 End: 06-27-[address] CLARITZA MITCHELL DO Facility:[facility] Start: 06-26-2023 End: 06-26-2023 Emergency department patient visit DR CLARITZA MITCHELL DO [facility] Start: 09-28-2022 End: 09-28-2022 ambulatory Ton Mata Facility:[facility] Start: 09-03-2022 End: 09-03-2022 Patient encounter procedure TON MATA DO [facility] Start: 07-07-2022 Patient encounter procedure [facility], Specimen Start: 07-07-2022 End: 07-07-2022 ambulatory Arthur Reyes Facility:[facility] Start: 07-05-2022 End: 07-05-2022 ambulatory Zane [facility] Work Phone: Start: 07-05-2022 End: 07-05-2022 Patient encounter procedure [facility] Start: 06-01-2022 End: 06-01-2022 Patient encounter procedure CRISTIN NELSONLATONYA INSTRUMENT AND CONTROL SERVICE PERSON-[employer] [facility] Start: 11-05-2021 End: 11-05-2021 Patient encounter procedure TON SUZI DO [facility] Start: 10-14-2021 End: 10-14-2021 Patient encounter procedure MAY YIN DO [facility] Start: 10-01-2021 End: 10-01-2021 Patient encounter procedure TON MATA DO [facility] Start: 11-30-2016 End: 12-01-2016 Ambulatory TON MATA Facility:[facility] Procedures Date Procedure Procedure Detail Performing Clinician Start: 04-11-2025 Urinalysis ASHLEY HARDEN Comment on above: Result Comment: URINALYSIS Performed By: #### 2 [id number] #### [facility],[address] [place] [address] Start: 04-05-[address] JESSICA BECKER MD [...] Immunization Date Immunization Notes Care Provider Fa [facility] 08-30-2022 zoster vaccine recombinant; Translations: [Shingrix] TON ROMEROSAY DO [facility] 05-05-2022 zoster vaccine recombinant; Translations: [Shingrix] CRISTIN CHAMBERLAIN INSTRUMENT AND CONTROL SERVICE PERSON-[employer]ER [facility] 03-23-2022 COVID-19, mRNA, LNP- S, bivalent booster, PF, 30 mcg/0.3 mL dose; Translations: [Pfizer-BioNTech COVID-19 (12y+) Bivalent Booster Vaccine PF] CRISTIN CHAMBERLAIN INSTRUMENT AND CONTROL SERVICE PERSON-[employer]ER [facility] 03-23-2022 SARSCoV2 mRNA([id number]+)b ival vac; Translations: [Pfizer-BioNTech COVID-19 (y+) Bivalent Booster Vaccine PF] DR CLARITZA MITCHELL DO [facility] 09-03-2021 COVID-19, mRNA, LNP- S, PF, 100 mcg or 50 mcg dose; Translations: [Moderna COVID-19 Vaccine] TON MATA DO [facility] 01-06-2021 COVID-19, mRNA, LNP- S, PF, 100 mcg or 50 mcg dose; Translations: [Moderna COVID-19 Vaccine] TON MATA DO [facility] 12-09-2020 COVID-19, mRNA, LNP- S, PF, 100 mcg or 50 mcg dose; Translations: [Moderna COVID-19 Vaccine] TON ROMEROSAY DO [facility] Comment on above: Early/Late Reason: O ther: 04-01-1999 hepatitis B vaccine, adult dosage TNO ROMEROSAY DO [facility] 08-31-1998 hepatitis B vaccine, adult dosage TON MATA DO [facility] 02-25-1998 hepatitis B vaccine, adult dosage TON MATA DO [facility] 06-26-1997 cholera vaccine, unspecified formulation TON MATA DO [facility] 06-26-1997 poliovirus vaccine, inactivated TON SUZI DO [facility] Payers Date Payer Category Payer Unknown [id number] 2024 Unknown [id number] 2023 Unknown [id number] 2022 Self-pay [id number] 2022 Unknown [id number] 2022 Unknown [id number] 2016 Unknown [id number] 1960 Unknown [id number] 2.16.8 [id number] 1960 Unknown [id number] 2.16.8 [id number] 1960 Unknown [id number] 2.16.8 [id number] 1960 Unknown [id number] 2.16.8 40.1.962630.3.579.2.627 1960 Unknown [id number] 2.16.8 40.1.108848.3.579.2.627 1960 Unknown [id number] 2.16.8 40.1.424588.3.579.2.627 1960 Unknown [id number] 2.16.8 40.1.775667.3.579.2.627 1960 Unknown [id number] 2.16.8 40.1.649097.3.579.2.627 1960 Unknown [id number] 2.16.8 40.1.422563.3.579.2.627 1960 Unknown [id number] 2.16.8 40.1.075524.3.579.2.627 1960 Unknown [id number] 2.16.8 40.1.451021.3.579.2.627 1960 Unknown [id number] 2.16.8 40.1.921116.3.579.2.627 1960 Unknown [id number] 2.16.8 40.1.124572.3.579.2.627 1960 Unknown [id number] 2.16.8 40.1.378874.3.579.2.651 Unknown [id number] 2.16.8 40.1.997511.3.579.2.462 Unknown [id number] 2.16.8 40.1.738437.3.579.2.462 Unknown [id number] 2.16.8 40.1.089217.3.579.2.462 Social History Date Type Detail Facility Start: 01-07-2020 End: 06-26-2023 Tobacco smoking status Never smoked tobacco (finding) [facility] Start: 1960 Sex Assigned At Male A [facility] Sexual Orientation [facility] Start: 07-31-2019 Sex Male (finding) [facility] Functional Status Date Assessment Result Facility 06-10-2024 Functional Status Repositions self [facility] 06-10-2024 Functional Status Maintained [facility] 04-15-2024 Functional Status Independent [facility] 04-15-2024 Functional Status Room check performed [facility] 08-21-2023 Functional Status Independent [facility] 08-21-2023 Functional Status Maintained, Less than 8 hours [facility] 06-26-2023 Functional Status ID band on, Allergy Band on, Call device within reach, Bed in low position, Wheels locked, Bedside Cart Locked, Safety level maintained [facility] Mental Status Date Assessment Result Facility 06-10-2024 Mental Status Oriented x 4 [facility] 06-10-2024 Mental Status [facility] 04-15-2024 Mental Status Orientation Oriented x 4 [facility] 04-15-2024 Mental Status [facility] 08-21-2023 Mental Status Orientation Oriented x 4 [facility] 08-21-2023 Mental Status [facility] 06-26-2023 Mental Status Oriented x 4 [facility] Clinical Notes 06-26-2023 to 06-10-2024 Note Date & Type Note Facility 06-10-2024 Evaluation + Plan note Extrac eugenio from: Title:Clinical Document Author:JESSICA BECKER Date:06/10/24 SURRY ADMISSION HISTORY AN D PHYSICIAL CHIEF COMPLAINT: HISTORY OF PRESENT ILLNESS: REVIEW OF SYSTEMS: ACTIVE PROBLEMS: (14) Abnormal glucose (110776911) Acid reflux (9979473581) BPH with elevated PSA (600825300) Colon cancer screening (392425831) CPAP (continuous positive airway pressure) at home (1252406503) Family history of heart disease in male family member before age 55 (2347042901) History of deep venous thrombosis (DVT) of distal vein of right lower extremity (7366010963) Mild CAD (92805071) Paresthesia of foot (474149085) Seborrheic keratoses (3526671679) Stage 3 chronic kidney disease (1917560843) Tinnitus, left (773130339) Tubular adenoma of colon (6397929683) Well adult exam (105933543) MEDICATIONS: Active Inpt Meds: None Active PRN [...] FAMILY HISTORY: SOCIAL HISTORY: PHYSICAL EXAM: VITALS: MadaksXrqhZZYrvxmZCKoH7DLH1ZmydMw(kg) 06/10 10:15----50--97--06/10109.1 06/10 10:10----52--96-- 06/10 10:05----51--96-- 06/10 [...] Panel 04/05/24 * Complete Blood Count 04/05/24 [facility] 01-06-2025 Hospital Discharge instructions Patient Education [...] 02/15/2005 Document Revised: 09/06/2018 Document Reviewed: 09/06/2018 [employer] Patient Education 2020 [employer]. 06/10/2024 10:38:54 Monitored Anesthesia Care, Care After [...] before eating solid foods. General instructions Take yzzw-ppw-cgdrxmc and prescription medicines only as told by [...] 09/11/2016 Document Revised: 08/20/2018 Document Reviewed: 09/11/2016 [employer] Patient Education 2020 [employer]. 06/10/2024 10:38:49 Colonoscopy, Adult, Care After, Vpwp-yz-Ttrj Colonoscopy, Adult, Care After This sheet gives [...] are soft and easy to digest. Take aykm-idm-drjtnqj or prescription medicines only as told by [...] 06/24/2011 Document Revised: 03/22/2018 Document Reviewed: 02/13/2017 [employer] Patient Education 2020 [employer]. 06/10/2024 10:38:40 Diverticulosis Diverticulosis Diverticulosis is a [...] overweight. Not getting enough exercise. Smoking. Taking zcsq-cqd-osbttqv pain medicines, like aspirin and ibuprofen. Having [...] health care provider or your diet and incident response specialist (dietitian). ?Take a fiber supplement or probiotic, if your health care provider approves. Take tphl-rvs-bygnkpg and prescription medicines only as told by [...] 02/16/2005 Document Revised: 05/04/2018 Document Reviewed: 04/10/2017 [employer] Patient Education 2020 [employer]. Follow Up Care 05/20/2024 07:03:53 With:JESSICA BECKER MD Address: [address] [place] [address] [phone] When: Unknown Comments:CALL DR BECKER WITH ANY [...] ARE SENT TO THE LAB FOR EVALUATION. [facility] 01-06-2025 Note Discharge Instructions Thank you for allowing [facility] to assist you with your healthcare needs. [...] TON MATA DO [facility] Confirmed Follow Up Appointments Follow Up with JESSICA BECKER MD Where:[address] [place] [address]- [phone] Additional Information: CALL DR BECKER WITH ANY [...] 02/15/2005 Document Revised: 09/06/2018 Document Reviewed: 09/06/2018 [employer] Patient Education 2020 [employer]. Monitored Anesthesia Care, Care After These instructions [...] before eating solid foods. General instructions Take bvbs-bmh-kctycoi and prescription medicines only as told by [...] 09/11/2016 Document Revised: 08/20/2018 Document Reviewed: 09/11/2016 [employer] Patient Education 2020 [employer]. Colonoscopy, Adult, Care After This sheet gives [...] are soft and easy to digest. Take pusn-ejd-vccenlu or prescription medicines only as told by [...] 06/24/2011 Document Revised: 03/22/2018 Document Reviewed: 02/13/2017 [employer] Patient Education 2020 [employer] Diverticulosis Diverticulosis is a condition that [...] overweight. Not getting enough exercise. Smoking. Taking goiq-qml-lnsvgsi pain medicines, like aspirin and ibuprofen. Having [...] health care provider or your diet and incident response specialist (dietitian). ? Take a fiber supplement or probiotic, if your health care provider approves. Take idhn-fpm-xzgblkn and prescription medicines only as told by [...] 02/16/2005 Document Revised: 05/04/2018 Document Reviewed: 04/10/2017 [employer] Patient Education 2020 [employer]. Additional Information VACCINATE! IT SAVES LIVES! Members of the community who have not yet received the COVID-19 vaccine and would like to receive it can visit one of [facility] vaccine clinics. There are many vaccine clinic locations within the [facility]. For locations and available times, please visit [email or web address]/. It is important to note that some COVID mobile vaccine clinics are held outdoors and may be canceled in rainy or stormy conditions. To learn more about pediatric vaccinations (ages 5-11), we invite you to visit the [facility] webpage. https://www.[facility].org/pages/9093-Xyiix-Xwutqmbrcox-Qmyhtkpovh-Iapgs-Kzc stions.htmlTo learn more about the COVID-19 vaccine, we invite you to visit the CDC website for a list of frequently asked questions.https://www.cdc.gov/coronavirus/2019-ncov/vaccines/faq.html [facility] Patient Portal Access Instructions: Stay connected with your healthcare team and access your personal medical information anytime with the [facility] Patient Portal. Please follow the directions below to create your [facility] account: 1.Access the email account you provided upon registration to the hospital/physician office.2.Look for an invitation email from [facility].3.Open the email and access the invitation link: AcceptInvitation to [facility].4.Fill in the required borges to create your account. To access your account, visit [email or web address]. Click the blue button labeled Access Patient [...] who you will allowto register on the [facility] Patient Portal for access to your information. You can also access the [facility] Patient Portal on the [facility] adithya. Simply click on Patient Portal and then log into your account. If you would like to receive a full copy of your medical records, please contact the [facility] Medical Records Department by calling [phone], Monday through Monday between 8 a.m. and [...] Call your local pharmacy or go to http://Instant Opinion.Rentobo/8Y9Up6q to find one close to you.3.Make use of household items: Use cat litter or old coffee grounds to dispose medications if other options arenot available. Mix your drugs with these household products, seal them in an airtight container andthrow it into the garbage. Call [facility]: [phone] to be sure your drugs can be [...] Care, Care After Colonoscopy, Adult, Care After, Ernw-iy-Bshl Diverticulosis Medication Leaflets My discharge plan and instructions have been reviewed and explained to me and I,CLAUDETTE ISSA understand my current condition and have read and understand these discharge instructions. I have received a written copy of the plan/instructions. If I have questions, I am aware that I should contact my d octor. Patient/Medical Microbiologist Signature: Date/Time: Relationship to Patient: Witness Name/Signature: Date/Time: [facility]01-06-2025 Note Date of Service June 10, 2024 Procedure Name Colonoscopy to the cecum with snare polypectomy and biopsy of polyps Consent Taken before procedure Indication History of a known large sessile polyp at the cecum Location [facility] Pre-Procedure Exam History of a large colon [...] OF POLYPS, HISTORY OF POLYPS, Preferred Lab: [facility], [phone] Post Procedure Assessment, 06/10/24 10:22:00 EST, Stop [...] JESSICA BECKER MD on 06/10/2024 10:25 AM [facility]01-06-2025 Note SURRY ADMISSION HISTORY AND PHYSICIAL CHIEF COMPLAINT: HISTORY OF PRESENT ILLNESS: REVIEW OF SYSTEMS: ACTIVE PROBLEMS: (14) Abnormal glucose (963761060) Acid reflux (8877078176) BPH with elevated PSA (520672346) Colon cancer screening (682899503) CPAP (continuous positive airway pressure) at home (2279875083) Family history of heart disease in male family member before age 55 (7409300046) History of deep venous thrombosis (DVT) of distal vein of right lower extremity (1807286873) Mild CAD (50006986) Paresthesia of foot (125774065) Seborrheic keratoses (2864192057) Stage 3 chronic kidney disease (8789438041) Tinnitus, left (275394673) Tubular adenoma of colon (9723522753) Well adult exam (230871885) MEDICATIONS: Active Inpt Meds: None Active PRN [...] FAMILY HISTORY: SOCIAL HISTORY: PHYSICAL EXAM: VITALS: IddobcLnxiWCOjopoDBAgL6QTZ0MrwwCs(kg) 06/10 10:15----50--97--06/10109.1 06/10 10:10----52--96-- 06/10 10:05----51--96-- 06/10 [...] JESSICA BECKER MD on 06/10/2024 10:21 AM [facility]01-06-2025 Anesthesiology Consult note Patient: CLAUDETTE ISSA Age: 63 years Sex: Male : 1960 Associated Diagnoses: None Author: RODRIGUEZ BAILEY APRN-MOUNTER HAND Preoperative Information Time of last food or [...] list: Medical Abnormal glucose / SNOMED CT 202263468 / Confirmed BPH with elevated PSA / SNOMED CT 943147919 / Confirmed Stage 3 chronic kidney disease / SNOMED CT 1051141892 / Confirmed Mild CAD / SNOMED CT 25479955 / Confirmed CPAP (continuous positive airway pressure) at home / SNOMED CT 1521202280 / Confirmed Family history of heart disease in male family member before age 55 / SNOMED CT 7093249239 / Confirmed Acid reflux / SNOMED CT 6450694870 / Confirmed History of deep venous thrombosis (DVT) of distal vein of right lower extremity / SNOMED CT 8390530380 / Confirmed Paresthesia of foot / SNOMED CT 446100746 / Confirmed Well adult exam / SNOMED CT 317794980 / Confirmed Colon cancer screening / SNOMED CT 269214286 / Confirmed Seborrheic keratoses / SNOMED CT 5340070055 / Confirmed Tinnitus, left / SNOMED CT 640595178 / Confirmed Tubular adenoma of colon / SNOMED CT 9148302395 / Confirmed Resolved: Lipoma of back / SNOMED CT 875112517 Resolved: Left shoulder pain / SNOMED CT 30192432 Resolved: Umbilical hernia / SNOMED CT 9938574592 Canceled: Exertional chest pain / SNOMED CT 450042286 Canceled: Exertional chest pain / SNOMED CT 856728088 Canceled: Positive colorectal cancer screening using Cologuard test / SNOMED CT 0976926752 Canceled: Deep vein thrombosis (DVT) of right lower extremity / SNOMED CT 5592185966 Canceled: Family history of heart disease / SNOMED CT 0733283090 Canceled: HEATHER on CPAP / SNOMED CT 404141288 Canceled: Screening for diabetes mellitus / SNOMED CT 315238299 Canceled: Screening for lipid disorders / SNOMED CT 353558606, Active Problems (14) Abnormal glucose Acid reflux [...] Histories Past Medical History: Active Acid reflux (0705295616) Resolved Umbilical hernia (8388165042): Resolved. Lipoma of back (471681577): Resolved. Left shoulder pain (43117070): Resolved. Family History: Heart disease Grandparent Procedure history: Catheterization (82997222) in the month of 04/2024 at 63 Years. Colonoscopy (752217999) on 08/21/2023 at 63 Years. Umbilical hernioplasty (8643895117) on 02/27/2020 at 59 Years. Comments: 02/27/2020 13:57 Whitney Maloney RN with mesh Shoulder (49484918) on 02/27/2020 at 59 Years. Comments: 02/27/2020 13:59 Whitney Maloney RN left trapezius Extracapsular cataract removal with insertion of intraocular lens prosthesis (1 stage procedure), manual or mechanical technique (eg, irrigation and aspiration or phacoemulsification); with endoscopic cyclophotocoagulation (85095). Nasal septoplasty (30667057). Colonoscopy (067165297). Esophagogastroduodenoscopy (063192148). Left patellar tendon rupture (9625735460). Biopsy of prostate (277424386). Biopsy of prostate (672901705). Social History: Social & Psychosocial Habits Alcohol 06/10/2024 Type: Beer, Wine Frequency: 1-2 times per month Employment/School 05/10/2024 Status: Employed Substance Abuse 06/10/2024 Use: Never Tobacco 06/10/2024 Tobacco Use: Never (less than 100 in l Exposure to Tobacco Smoke Lives in non-smoking home Exercise 05/10/2024 Times per week: 3-4 times/week Home/Environment 06/10/2024 Domestic Concerns None Living situation: Home/Independent Primary Bag Sewer: Self Lives In Multilevel home Current Home [...] Signs (last 24 hrs) Last Charted Temp Jxgnepzi62.4 DegC (JUN 10 07:51) URX244 mmHg (JUN 10 07:51) DBP74 mmHg (JUN 10 07:51) Measurements from flowsheet : Measurements 06/10/2024 7:51 EST Height 185.42 cm Admission Weight 109.09 kg [place] Body Weight 79.90 kg Admission Body Mass [...] Height 185.42 cm Admission Weight 109.09 kg [place] Body Weight 79.90 kg Admission Body Mass [...] no difficulties Skin Temperature Warm Skin Description [employer], Normal for ethnicity, Dry Skin Moisture General Dry IV Present Present Neurological Symptoms Patient denies Characteristics of Speech Clear Level of Consciousness Alert Strength All Extremities Strong Affect/Behavior Appropriate Orientation Oriented x 4 Allergies Yes Anesthesia Extension Set Applied Yes Ironing Pleater On Yes Colon Prep Results Excellent Consent [...] Person #1 We May Share PENNIE Issa [phone] Designated Person #1 Relationship Spouse Privacy Restrictions [...] evident Teaching Method Explanation Preferred Spoken Language French Preferred Written Language French Teaching Evaluation No further teaching needed Safety Brochure Information Reviewed Unable to complete [facility] Video Viewed No Patient's Current Physicians [...] Room 06/10/2024 7:40 . Assessment and Plan [place] Society of Anesthesiologists (ASA) physical status classification: Class II. Anesthetic Preoperative Plan Premedication: intravenous. Anesthetic technique: MAC. Induction: intravenously. Maintenance airway: Mask. Risks discussed: nausea, vomiting, headache, sore throat, dental injury, hypotension, allergic reaction, serious complications. Informed consent: signed by patient. Digitally Signed by RODRIGUEZ BAILEY on 06/10/2024 08:43 AM [facility]11-11-2024 Discharge summary Date of Service 04/15/2024 [...] JENNIFER SORENSON MD When:In 2 weeks Where:[address] [facility] [place] [address] [phone] Follow Up Appointments No qualifying data available. [...] TAWNYA LOPEZ MD on 04/15/2024 07:19 AM [facility] Discharge instructions Patient Education 04/15/2024 07:51:21 [...] Document Reviewed: 05/23/2014 ExitCare Patient Information 2015 [employer]. This information is not intended to replace advicegiven to you by your health care provider. Make sure you discuss any questions you have with your health care provider. Follow Up Care 04/05/2024 11:23:28 With:JENNIFER SORENSON MD Address: [address] [facility] [place] [phone] When:Within 2 Week(s) [facility] 11-11-2024 Summary of episode note Discharge Instructions Thank you for allowing [facility] to assist you with your healthcare needs. The following is importantdischarge information regarding your hospital visit. Your Care Team TON MATA DO What to do next Scheduled Follow-Up Appointments Appointment Type When With Where Contact Information StatusPC OV 04/24/2024 08:30 AM [facility] [place] [phone] Confirmed CV OV 05/10/2024 08:30 AM [facility] [place] [facility] [place] CV Confirmed Follow Up Appointments Follow Up with JENNIFER SORENSON MD When:In 2 weeks Where:[address] [facility] [place] [address]- [phone] Medications Please ask your primary doctor or pharmacist before taking any other medication not listed, including over the counter drugs, herbal medications, vitamins and or supplements as they may interact withyour home medications. What How Much When Instructions Last Dose New atorvastatin (atorvastatin 20 mg oral tablet) 1 tab(s) by mouth Every day Duration: 30 Days Refills: 2 Pickup at [facility] Unchanged aspirin (aspirin 81 mg [...] by mouth Once a day Pharmacy Information [facility]: [address], [place] [id number] [phone] Please take this list to your next [...] may report side effects to FDA at [phone]-3024. What other drugs will affect atorvastatin? Sometimes [...] may affect atorvastatin. This includes prescription and bywr-qrk-nqaigtm medicines, vitamins, and herbal products. Not all [...] to ensure that the information provided by [employer]. ('[employer]') is accurate, up-to-date, and complete, but no guarantee is made to that effect. Drug information contained herein may be time sensitive. [employer]™ information has been compiled for use by healthcare practitioners and consumers in the [place] and therefore [employer]™ does not warrant that uses outside of the [place] are appropriate, unless specifically indicated otherwise. [employer] drug information does not endorse drugs, diagnose patients or recommend therapy. [employer] drug information isan informational resource designed to [...] effective or appropriate for any given patient. [employer] does not assume any responsibility for any aspect of healthcare administered with the aid of information Tao provides. The information contained herein is not intended to cover all possible uses, directions, precautions, warnings, drug interactions, allergic reactions, or adverse effects. If you have questions about the drugs you are taking, check with your doctor, nurse or pharmacist. Copyright 7892-6815 [employer]. Version: 23.02. Revision Date: 11/24/2022. Education Materials [...] Document Reviewed: 05/23/2014 ExitCare Patient Information 2015 [employer]. This information is not intended to replace advicegiven to you by your health care provider. Make sure you discuss any questions you have with your health care provider. Additional Information VACCINATE! IT SAVES LIVES! Members of the community who have not yet received the COVID-19 vaccine and would like to receive it can visit one of [facility] vaccine clinics. There are many vaccine clinic locations within the [facility]. For locations and available times, please visit [email or web address]/. It is important to note that some COVID mobile vaccine clinics are held outdoors and may be canceled in rainy or stormy conditions. To learn more about pediatric vaccinations (ages 5-11), we invite you to visit the [facility] webpage. https://www.[employer]Jordan [employer].org/pages/9620-Temor-Cekvegbzdtv-Bmckvbvzdw-Gkanr-Bno stions.htmlTo learn more about the COVID-19 vaccine, we invite you to visit the CDC website for a list of frequently asked questions.https://www.cdc.gov/coronavirus/2019-ncov/vaccines/faq.html [facility] Patient Portal Access Instructions: Stay connected with your healthcare team and access your personal medical information anytime with the [facility] Patient Portal. Please follow the directions below to create your [facility] account: 1.Access the email account you provided upon registration to the hospital/physician office.2.Look for an invitation email from [facility].3.Open the email and access the invitation link: AcceptInvitation to [facility].4.Fill in the required borges to create your account. To access your account, visit [facility] [place]as/Work InspireOneChart. Click the blue button labeled Access Patient [...] who you will allowto register on the [facility] Patient Portal for access to your information. You can also access the [facility] Patient Portal on the [facility] adithya. Simply click on Patient Portal and then log into your account. If you would like to receive a full copy of your medical records, please contact the [facility] Medical Records Department by calling [phone], Monday through Monday between 8 a.m. and [...] Call your local pharmacy or go to http://Lit Motors/3W6Ub0b to find one close to you.3.Make use of household items: Use cat litter or old coffee grounds to dispose medications if other options arenot available. Mix your drugs with these household products, seal them in an airtight container andthrow it into the garbage. Call [facility]: [phone] to be sure your drugs can be [...] that I should contact my d octor. Patient/Medical Microbiologist Signature: Date/Time: Relationship to Patient: Witness Name/Signature: Date/Time: [facility]6205 Discharge summary Date of Service 04/15/2024 Discharge [...] JENNIFER SORENSON MD When:In 2 weeks Where:[address] [facility] [place] [address] [phone] Follow Up Appointments No qualifying data available. [...] TAWNYA LOPEZ MD on 04/15/2024 07:19 AM [id number] Note* Exam Date Time Procedure Performing Provider Status 04/15/24 6:33 AM Cardiac Catheterization -CV [facility] 09-26-2024 Note* Exam Date Time Procedure Performing Provider Status 02/29/24 7:40 AM VL Venous US/Doppler One Leg (for DVT). Auth (Verified) [facility] [facility] 06-21-2024 Note* Exam Date Time Procedure Performing Provider Status 11/24/23 8:04 AM VL Venous US/Doppler One Leg (for DVT). Auth (Verified) [facility] 03-18-2024 Hospital Discharge instructions Patient Education [...] before eating solid foods. General instructions Take qrox-gci-mxwzrxe and prescription medicines only as told by [...] 09/11/2016 Document Revised: 08/20/2018 Document Reviewed: 09/11/2016 [employer] Patient Education 2020 [employer]. 08/21/2023 09:21:32 Colonoscopy, Adult, Care After Colonoscopy, [...] a slower pace than normal. ?Eat soft, siut-yp-dxtisd foods. Take twpe-wwp-caxsjth or prescription medicines only as told by [...] 01/03/2005 Document Revised: 03/14/2018 Document Reviewed: 08/02/2016 [employer] Patient Education [employer]. Follow Up Care 07/14/2023 14:39:36 With:JESSICA BECKER MD Address: [address] [place] [address] [address] [place] [address] [phone] When: Unknown Comments:Follow-up as scheduled Follow-up as needed Follow-up as needed [facility] 03-18-2024 Note Discharge Instructions Thank you for allowing [facility] to assist you with your healthcare needs. The following is importantdischarge information regarding your hospital visit. Your Care Team TON MATA DO, DR. What to do next Scheduled Follow-Up Appointments Appointment Type When With Where Contact InformationPC OV Follow Up 09/18/2023 11:30 AM EDT TON MATA DO [facility] Follow Up Appointments Follow Up with JESSICA BECKER MD When Why: Follow-up as scheduled Follow-up as needed Follow-up as needed [facility] [address] [facility] [address] [place] [phone] Someone Will Contact You Regarding These Home [...] before eating solid foods. General instructions Take wtfw-imn-uhedvvg and prescription medicines only as told by [...] 09/11/2016 Document Revised: 08/20/2018 Document Reviewed: 09/11/2016 [employer] Patient Education 2020 [employer]. Colonoscopy, Adult, Care After This sheet gives [...] slower pace than normal. ? Eat soft, uzwr-lo-ohujqv foods. Take cbgd-slj-gpqkoxb or prescription medicines only as told by [...] 01/03/2005 Document Revised: 03/14/2018 Document Reviewed: 08/02/2016 [employer] Patient Education 2020 [employer]. Additional Information VACCINATE! IT SAVES LIVES! Members of the community who have not yet received the COVID-19 vaccine and would like to receive it can visit one of [facility] vaccine clinics. There are many vaccine clinic locations within the [facility]. For locations and available times, please visit [email or web address] It is important to note that some COVID mobile vaccine clinics are held outdoors and may be canceled in rainy or stormy conditions. To learn more about pediatric vaccinations (ages 5-11), we invite you to visit the [facility] webpage. https://www.[facility].org/pages/7855-Kuvbj-Voelerdqhca-Orfvqnpnbt-Eslbp-Ayt stions.htmlTo learn more about the COVID-19 vaccine, we invite you to visit the CDC website for a list of frequently asked questions.https://www.cdc.gov/coronavirus/2019-ncov/vaccines/faq.html [facility] Patient Portal Access Instructions: Stay connected with your healthcare team and access your personal medical information anytime with the [employer] Patient Portal. Please follow the directions below to create your [employer] account: 1.Access the email account you provided upon registration to the hospital/physician office.2.Look for an invitation email from [facility].3.Open the email and access the invitation link: AcceptInvitation to [employer] [facility].4.Fill in the required borges to create your account. To access your account, visit [employer]. Click the blue button labeled Access Patient Portal and then log in with the username and password that you created in the steps above. You will be able to view your test results, lab results, a summary of your visits, upcoming appointments and more. There is also a convenient messaging option where you can send secure messages to your BPTder. In addition, you will have the ability to download any documents or summaries to your computer and/or send the information securely to a physician. Remember that your healthcare information is confidential, so carefully consider who you will allowto register on the [employer] Patient Portal for access to your information. You can also access the [employer] Patient Portal on the [employer] adithya. Simply click on Patient Portal and then log into your account. If you would like to receive a full copy of your medical records, please contact the [facility] Medical Records Department by calling [phone], Monday through Monday between 8 a.m. and [...] Call your local pharmacy or go to http://bit.ly/3V9Bf5q to find one close to you.3.Make use of household items: Use cat litter or old coffee grounds to dispose medications if other options arenot available. Mix your drugs with these household products, seal them in an airtight container andthrow it into the garbage. Call [facility]: [phone] to be sure your drugs can be [...] that I should contact my d octor. Patient/Medical Microbiologist Signature: Date/Time: Relationship to Patient: Witness Name/Signature: Date/Time: [facility]03-18-2024 Anesthesiology Consult note Patient: CLAUDETTE ISSA [...] list: Medical Abnormal glucose / SNOMED CT 364196510 / Confirmed BPH with elevated PSA / SNOMED CT 616204429 / Confirmed Stage 3 chronic kidney disease / SNOMED CT 1757500437 / Confirmed Positive colorectal cancer screening using Cologuard test / SNOMED CT 6148025591 / Confirmed CPAP (continuous positive airway pressure) at home / SNOMED CT 5403573347 / Confirmed Deep vein thrombosis (DVT) of right lower extremity / SNOMED CT 8491883639 / Confirmed Acid reflux / SNOMED CT 7371888253 / Confirmed Paresthesia of foot / SNOMED CT 190113682 / Confirmed Screening for diabetes mellitus / SNOMED CT 348143789 / Confirmed Screening for lipid disorders / SNOMED CT 865740532 / Confirmed Well adult exam / SNOMED CT 730399979 / Confirmed Colon cancer screening / SNOMED CT 015433944 / Confirmed Seborrheic keratoses / SNOMED CT 5243977143 / Confirmed Left shoulder pain / SNOMED CT 97415385 / Confirmed Tinnitus, left / SNOMED CT 422860769 / Confirmed, Active Problems (15) Abnormal glucose [...] Histories Past Medical History: Active Acid reflux (6421326842) Resolved Umbilical hernia (9341627961): Resolved. Lipoma of back (181022082): Resolved. Family History: Heart disease Grandparent Procedure history: Umbilical hernioplasty ([id number]) on 02/27/2020 at 59 Years. Comments: 02/27/2020 13:57 Whitney Maloney RN with mesh Shoulder ([id number]) on 02/27/2020 at 59 Years. Comments: 02/27/2020 13:59 Whitney Maloney RN left trapezius Extracapsular cataract removal with insertion of intraocular lens prosthesis (1 stage procedure), manual or mechanical technique (eg, irrigation and aspiration or phacoemulsification); with endoscopic cyclophotocoagulation (02770). Nasal septoplasty (93654339). Colonoscopy (234870049). Esophagogastroduodenoscopy (508393495). Left patellar tendon rupture (2132555825). Biopsy of prostate (714999253). Social History Social & Psychosocial Habits Alcohol 08/21/2023 Type: Beer, Wine Frequency: 1-2 times per month Employment/School 07/17/2023 Status: Employed Substance Abuse 08/21/2023 Use: Never Tobacco 08/21/2023 Tobacco Use: Never (less than 100 in l Exposure to Tobacco Smoke Lives in non-smoking home Exercise 07/17/2023 Times per week: 3-4 times/week Home/Environment 08/21/2023 Domestic Concerns None Living situation: Home/Independent Primary Bag Sewer: Self Lives In Multilevel home Current Home [...] Admission Weight 104.5 kg Weight Method Stated Cordova Body Weight 82.69 kg BSA Admission 2.31 [...] Allergies Yes Anesthesia Extension Set Applied Yes Ironing Pleater On Yes Colon Prep Results Good Consent [...] Person #1 We May Share PENNIE Issa [phone] Designated Person #1 Relationship Spouse Privacy Restrictions Requested None Height 188.5 cm Admission Weight 104.5 kg Weight Method Stated Cordova Body Weight 82.69 kg BSA Admission 2.31 [...] Method Explanation, Printed materials Preferred Spoken Language French Preferred Written Language French Information Given by Patient Patient's Current Physicians Patient's Current Physicians Discharge To, Anticipated Home independently Prev Test Positive/Diagnosis w/COVID-19 No Current Quarantine/Isolated any Illness No Any Contact with Sick Animals/Birds No Traveled Anywhere in Last 30 Days Yes Travel Where Within [facility] [place] N/A Personal Devices, Patient Valuables [...] Attendee SN - CAt - Role Performed 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 Assessment and Plan [place] Society of Anesthesiologists (ASA) physical status classification: Class III. Anesthetic Preoperative Plan Anesthetic technique: MAC. Postoperative pain management: Per surgeon. Risks discussed: nausea, vomiting, hypotension, allergic reaction, serious complications. Informed consent: signed by patient. Digitally Signed by CARLITOS QURESHI on 08/21/2023 08:17 AM [facility]01-22-2024 Hospital Discharge instructions Patient Education 06/26/2023 [...] heartbeat Sweating Anxiety Lightheadedness, dizziness, or fainting 1497-[address] [employer] [place] [address]. All rights reserved. This information is not [...] instructed. They may need to be hand-washed. 7606-08[address] [employer]. [address] [place] [address]. All rights reserved. This information is not [...] worsens and is not improved with elevation. 5175-[address] [employer]. [address] [place] [address]. All rights reserved. This information is not [...] alternate ice and heat. You may use ktfa-xpw-hqenrhy pain medicine to control pain, unless another [...] numb, or tingly Pain or swelling increases 9357-7336 [employer]. [address] [place] [address]. All rights reserved. This information is not intended as a substitute for professional medical care. Always follow yourhealthcare professional's instructions. Follow Up Care 06/26/2023 18:27:04 With:Outpatient mireya tomorrow Address: When: Unknown [facility] 01-22-2024 Emergency department Discharge summary Discharge Instructions Thank you for allowing [facility] to assist you with your healthcare needs. The following is importantdischarge information regarding your hospital visit. Diagnosis from Today's Visit Calf pain Leg pain-swelling What to Do Next Instructions from Your Care Team Discharge ED Outpatient Vascular Lab - Ordered -- Test Requested: R LE doppler, Lower extremity, Right, Test Reason: Pain, Mon- Fri 8am-4:30pm: Call [phone] at 7:30am to schedule a same day [...] Sweating Anxiety Lightheadedness, dizziness, or fainting [employer]. [address] [place] [address]. All rights reserved. This information is not [...] instructed. They may need to be hand-washed. [facility]. [address] [place] [address]. All rights reserved. This information is not [...] worsens and is not improved with elevation. 6033-1491 [employer]. [address] [place] [address]. All rights reserved. This information is not [...] alternate ice and heat. You may use kuwo-slx-ebjnbae pain medicine to control pain, unless another [...] numb, or tingly Pain or swelling increases 8299-2136 [employer]. [address] [place] [address], [place] [address]. All rights reserved. This information is not intended as a substitute for professional medical care. Always follow yourhealthcare professional's instructions. Additional Information VACCINATE! IT SAVES LIVES! Members of the community who have not yet received the COVID-19 vaccine and would like to receive it can visit one of [facility] vaccine clinics. There are many vaccine clinic locations within the [facility]. For locations and available times, please visit www.[email or web address]/. It is important to note that some COVID mobile vaccine clinics are held outdoors and may be canceled in rainy or stormy conditions. To learn more about pediatric vaccinations (ages 5-11), we invite you to visit the [facility] webpage. https://www.[facility].org/pages/5849-Eroaa-Zpjosgpfbfd-Nagyviyatu-Cgbtb-Enm stions.htmlTo learn more about the COVID-19 vaccine, we invite you to visit the CDC website for a list of frequently asked questions. https://www.cdc.gov/coronavirus/2019-ncov/vaccines/faq.html [facility] Patient Portal Access Instructions: Stay connected with your healthcare team and access your personal medical information anytime with the [employer] Patient Portal. If you would like a full copy of your medical records please contact the [facility] Medical Records Department Monday through Monday between 8a.m. and 4:30p.m. Please follow the directions below to access the portal: 1.Access the email account you provided upon registration to the [facility].2.Look for an invitation email from [facility].3.Open the email and access the invitation link: Accept Invitation to [facility]4.Fill in the required borges to create your account. Sign into www.Tres Amigas with your username and password that you [...] you will allow to register on the [employer] Patient Portal for access to your information. You can also access the [employer] [facility] Patient Portal on the [employer] adithya. Simply click on Health Records under [employer] and then click on the Param logo. [...] Call your local pharmacy or go to http://bit.Rentobo/9K1Pl8z to find one close to you.3.Make use of household items: Use cat litter or old coffee grounds to dispose medications if other options arenot available. Mix your drugs with these household products, seal them in an airtight container andthrow it into the garbage. Call [facility]: [phone] to be sure your drugs can be [...] that I should contact my d octor. Patient/Medical Microbiologist Signature: Date/Time: Relationship to Patient: Witness Name/Signature: Date/Time: [facility] Future Appointments Appointment Date:09/09/2022 11:00:00 AM Scheduled Provider:OTN MATA DO Location:[facility] Appointment Type: Wellness Annual [facility] Scheduled Tests Laboratory* A1C Hemoglobin 09/03/21 [facility] Evaluation + Plan note Future Appointments Appointment Date:09/09/2022 11:00:00 AM Scheduled Provider:TON MATA DO Location:[facility] Appointment Type:PC Wellness [facility] Evaluation + Plan note Future Appointments Appointment Date:08/16/2022 03:45:00 PM Scheduled Provider: Location:[facility] Appointment Type:PC Nurse Injection Appointment Date:09/08/2022 11:00:00 AM Scheduled Provider:TON MATA DO Location:[facility] Appointment Type:[facility] Evaluation + Plan note Future Appointments Appointment Date:09/08/2022 11:30:00 AM Scheduled Provider:TON MATA DO Location:[facility] Appointment Type:[facility] Evaluation + Plan note Future Appointments Appointment Date:08/07/2023 10:00:00 AM Scheduled Provider: Location:[facility] Appointment Type:VL - Venous US/Doppler One Leg (for DVT) Appointment Date:09/18/2023 11:30:00 AM Scheduled Provider:TON MATA DO Location:[facility] Appointment Type:PC OV Follow Up [facility] Evaluation + Plan note Future Appointments Appointment Date:09/18/2023 11:30:00 AM Scheduled Provider:TON MATA DO Location:[facility] Appointment Type:PC OV Follow Up [facility] Evaluation + Plan note Future Appointments Appointment Date:03/18/2024 11:30:00 AM Scheduled Provider:TON MATA DO Location:[facility] Appointment Type:PC OV [facility] evaluation + Plan note Future Appointments Appointment Date:04/15/2024 07:00:00 AM Scheduled Provider: Location:Heart Lab Appointment Type:CV Procedure - Heart Lab/Hybrid OR Appointment Date:04/24/2024 08:30:00 AM Scheduled Provider:TON MATA DO Location:[facility] Appointment Type:PC OV Appointment Date:05/10/2024 08:30:00 AM Scheduled Provider:MAYE SORENSON Location:[facility] Appointment Type:CV OV Future Scheduled Tests Laboratory* Basic Metabolic Panel 04/05/24 * Prostate Specific Antigen 03/18/24 * A1C Hemoglobin 03/18/24 * Complete Blood Count 04/05/24 * Complete Blood Count 03/18/24 * Lipid Profile 03/18/24 * Complete Metabolic Panel 03/18/24 [facility] evaluation + Plan note Future Appointments Appointment Date:04/15/2024 07:00:00 AM Scheduled Provider: Location:Heart Lab Appointment Type:CV Procedure - Heart Lab/Hybrid OR Appointment Date:04/24/2024 08:30:00 AM Scheduled Provider:TON MATA DO Location:[facility] Appointment Type:PC OV Appointment Date:05/10/2024 08:30:00 AM Scheduled Provider:MAYE SORENSON Location:[facility] Appointment Type:CV OV Future Scheduled Tests Laboratory* Basic Metabolic Panel 04/05/24 * Complete Blood Count 04/05/24 [facility] Evaluation + Plan note Future Appointments Appointment Date:04/24/2024 08:30:00 AM Scheduled Provider:TON MATA DO Location:[facility] Appointment Type:PC OV Appointment Date:05/10/2024 08:30:00 AM Scheduled Provider:MAYE SORENSON Location:[facility] Appointment Type:CV OV Future Scheduled Tests Laboratory* Basic Metabolic Panel 04/05/24 * Complete Blood Count 04/05/24 [facility] Evaluation + Plan note Future Appointments Appointment Date:10/23/2024 08:30:00 AM Scheduled Provider:TON MATA DO Location:[facility] Appointment Type:PC OV Follow Up Future Scheduled Tests Laboratory* Basic Metabolic Panel 04/05/24 * Complete Blood Count 04/05/24 [facility] Evaluation noteNo assessment information available [facility] Work Phone: Hospital course Narrative No data available for this section [facility] Hospital Discharge instructions No data available for this section [facility] Progress note No data available for this section [facility] Summary Purpose Family History No Family [...] section and content) DATE CREATED AUTHOR 11/29/2017 [facility] [employer] DATE CREATED AUTHOR AUTHOR'S ORGANIZ ATION 03/25/2021 [facility] DATE CREATED AUTHOR AUTHOR'S ORGANIZ ATION 09/29/2022 [facility] DATE CREATED AUTHOR AUTHOR'S ORGANIZ ATION 11/26/2023 [facility] ([place]) DATE CREATED AUTHOR AUTHOR'S ORGANIZ ATION 04/21/2024 [facility] DATE CREATED AUTHOR AUTHOR'S ORGANIZ ATION 10/30/2024 [facility] DATE CREATED AUTHOR AUTHOR'S ORGANIZ ATION 04/13/2025 [facility] Care Team (unrecognized sect ion and content) [...] Member Role: Primary Care Physician Address: Address: [address] [place] [id number] [place] [address] Care Team Related Persons Name: TRAM ISSA Address: Home [address] [place] [phone] Goals (unrecognized section and content) Goals may [...] BE BASED ON THE PRIMARY CLINICAL RECORDS. [employer] provides no warranty or guarantee of the accuracy or completeness of information in this document.
[2025-05-01 06:26] VITALS: BP 129/67; PULSE 54; RESP 15; TEMP 36.6; O2SAT 95
[2025-05-01 07:30] VITALS: BP 128/74; PULSE 56; RESP 16; TEMP 36.9; O2SAT 95
[2025-05-01 07:37] VITALS: PULSE 56
[2025-05-01] MEDS: Metoprolol(XL)Succ 25 MG Tablet 12.5 MG PO (07:37)
[2025-05-01] MEDS: 0.9% Normal Saline (1000mL) 1,000 ML 125 ML IV (07:38)
== END 2025-05-01 10:29 | disposition home or self-care (01) ==
LOC: MS3 13:21 → SDC 17:01 → MS3 17:02
PROVIDERS: Admitting Provider Urology; Referring Provider Urology; Visit Provider Urology
PROC: (CPT 52601; principal; 2025-04-30 10:00)
DX: N40.1 Benign prostatic hyperplasia with lower urinary tract symptoms (principal); N13.8 Other obstructive and reflux uropathy; R33.8 Other retention of urine; Z79.899 Other long term (current) drug therapy; Z79.82 Long term (current) use of aspirin; K21.9 Gastro-esophageal reflux disease without esophagitis; I10 Essential (primary) hypertension; E78.00 Pure hypercholesterolemia, unspecified; G47.30 Sleep apnea, unspecified
CPT/HCPCS: 52601; 00914; 88305; 96361; 96365; 96366; 99221; G0378; J0744